=== PATIENT | female | born 1940 | race Caucasian/White ===

== ENCOUNTER → 2020-01-19 12:59 | Outpatient (BNVA) | payer MEDICARE, SELFPAY | PROVIDERS: PCP Internal Medicine; Referring Provider Internal Medicine; Visit Provider Nurse Practitioner | DX: K21.9 Gastro-esophageal reflux disease without esophagitis (principal); K58.2 Mixed irritable bowel syndrome | CPT/HCPCS: 99213 ==

== ENCOUNTER → 2020-02-02 09:12 | Outpatient (BNVA) | payer MEDICARE, SELFPAY | PROVIDERS: PCP Internal Medicine; Referring Provider Internal Medicine; Visit Provider Internal Medicine | DX: Z95.3 Presence of xenogenic heart valve (principal); I71.4 Abdominal aortic aneurysm, without rupture; Z79.82 Long term (current) use of aspirin | CPT/HCPCS: 99212 ==

== ENCOUNTER 2020-05-23 10:45 | Outpatient (REF) | payer MEDICARE, SELFPAY ==
[2020-05-23 11:52] LABS: MANUAL DIFF FLAG NO
[2020-05-23 12:08] LABS: Basophils Absolute Auto 0.1 X10*3/uL (0.0-0.2); Basophils Percent Auto 0.9 % (0-2); Eosinophils Absolute Auto 0.4 X10*3/uL (0.0-0.4); Eosinophils Percent Auto 5.5 % (0-4); Hematocrit 38.6 % (37-47); Hemoglobin 12.6 g/dl (12.0-16.0); Imm Gran Abs Auto 0.03 X10*3/uL (0.00-0.03); Imm Gran Pct Auto 0.4 % (0.0-0.4); Lymphocytes Absolute Auto 1.7 X10*3/uL (1.2-4.9); Lymphocytes Percent Auto 22.6 % (20-40); Mean Corpuscular HGB Conc 32.6 g/dl (31.0-35.0); Mean Corpuscular Hemoglobin 30.4 pg (27.0-33.0); Mean Corpuscular Volume 93.2 fL (80-98); Mean Platelet Volume 10.8 fL (9.4-12.3); Monocytes Absolute Auto 0.6 X10*3/uL (0.1-1.2); Neutrophils Absolute Auto 4.8 X10*3/uL (2.0-8.3); Neutrophils Percent Auto 62.6 % (45-73); Platelet Count 244 X10*3/uL (160-400); Red Blood Count 4.14 X10*6/uL (4.20-5.50); Red Cell Distribution Width 12.7 % (11.0-16.0); White Blood Count 7.6 X10*3/uL (4.8-10.8)
[2020-05-23 12:28] LABS: Alanine Aminotransferase 9 U/L (0-31); Albumin Level 3.9 g/dL (3.5-5.0); Alkaline Phosphatase 109 U/L (39-117); Anion Gap 14 (12-20); Aspartate Amino Transferase 11 U/L (5-31); Bilirubin Total 0.5 mg/dL (0.0-1.0); Blood Urea Nitrogen 22 mg/dL (9-16); Carbon Dioxide 26 mmol/L (22-29); Chloride 104 mmol/L (96-108); Cholesterol 199 mg/dL; Estimated Glomerular Filt Rate 41; Glucose Random 141 mg/dL (60-115); HDL Cholesterol 51 mg/dL; LDL Cholesterol Calculated 112 mg/dl; Potassium 4.6 mmol/L (3.3-5.1); Sodium 139 mmol/L (135-145); Total Protein 6.8 g/dL (6.5-8.0); Triglycerides 181 mg/dL
[2020-05-23 12:39] LABS: Free T4 (Free Thyroxine) 0.86 ng/dL (0.71-1.85); Thyroid Stimulating Hormone 1.71 uIU/mL (0.32-4.0); Vitamin D 25-OH Total 25.2 ng/mL (>30)
[2020-05-23 13:26] LABS: Estimated Average Glucose 166 mg/dL; Hemoglobin A1c % 7.4 %
[2020-05-26 04:31] LABS: Folate 12.2 ng/mL (> or = 4.0); Vitamin B12 349 pg/mL (200-900)
== END 2020-05-23 10:46 | disposition home or self-care (01) ==
LOC: HO.LAB 10:45
PROVIDERS: PCP Internal Medicine; Visit Provider Internal Medicine
DX: I10 Essential (primary) hypertension (principal); E78.00 Pure hypercholesterolemia, unspecified; I71.4 Abdominal aortic aneurysm, without rupture; E11.65 Type 2 diabetes mellitus with hyperglycemia
CPT/HCPCS: 36415; 80053; 80061; 82306; 82607; 82746; 83036; 84439; 84443; 85025

== ENCOUNTER 2020-07-06 08:29 | Outpatient (REF) | payer MEDICARE, SELFPAY ==
--- NOTE | 2020-07-06 08:35 | EMG_ITS ---
Bilateral median and ulnar motor and sensory studies were performed. Bilateral radial sensory studies were performed and paraspinal muscles were tested with a needle. 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 MD KANNAN Banks/LEE / [id number]
== END 2020-07-06 08:30 | disposition home or self-care (01) ==
LOC: HO.NEURO 08:29
PROVIDERS: PCP Internal Medicine; Visit Provider Internal Medicine
DX: R20.0 Anesthesia of skin (principal)
CPT/HCPCS: 95886; 95911

== ENCOUNTER → 2020-07-10 08:41 | Outpatient (BNVA) | payer MEDICARE, SELFPAY | PROVIDERS: PCP Internal Medicine; Visit Provider Nurse Practitioner | DX: K21.9 Gastro-esophageal reflux disease without esophagitis (principal); K58.2 Mixed irritable bowel syndrome; Z87.891 Personal history of nicotine dependence; Z79.899 Other long term (current) drug therapy | CPT/HCPCS: Q3014 ==

== ENCOUNTER → 2020-07-26 09:52 | Outpatient (BNVA) | payer MEDICARE, SELFPAY | PROVIDERS: Visit Provider Orthopaedic Surgery | DX: G56.01 Carpal tunnel syndrome, right upper limb (principal); G56.02 Carpal tunnel syndrome, left upper limb | CPT/HCPCS: 99202 ==

== ENCOUNTER → 2020-07-31 09:27 | Outpatient (REF) | payer MEDICARE, SELFPAY ==
--- NOTE | 2020-07-31 09:39 | CA_ITS ---
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 The visually estimated ejection fraction is between 60-65%. - A bioprosthetic aortic valve is present. The prosthetic aortic valve appears to be functioning normally. - There is severe mitral annular calcification. Findings Left Ventricle Normal left ventricular cavity size. There is mildly increased left ventricular wall thickness. The left ventricular systolic function is normal. The visually estimated ejection fraction is between 60-65%. There is no evidence of regional wall motion abnormalities. E/E prime ratio is between 8 and 15 consistent with indeterminate filling pressures. Evidence suggests grade I (mild) diastolic dysfunction. Right Ventricle Normal right ventricular cavity size and systolic function. Atria The left atrium is normal in size. The right atrium is normal in size. Aortic Valve A bioprosthetic aortic valve is present. The prosthetic aortic valve appears to be functioning normally. The peak aortic velocity is 1.79 m/s with a calculated peak gradient of 13 mmHg. There is no aortic valve regurgitation. Mitral Valve There is severe mitral annular calcification. There is trace mitral valve regurgitation. Mean gradient across the mitral valve is 2 mm Hg at 78/min. Doubt hemodynamically significant stenosis Pulmonic Valve The pulmonic valve was not well visualized. Tricuspid Valve Normal tricuspid valve structure. There is trace tricuspid valve regurgitation. The pulmonary artery systolic pressure is normal. Great Vessels The aortic annulus, sinuses of valsalva, and asc aorta are normal in size. Venous The inferior vena cava is normal in size and collapses greater than 50% with inspiration. Pericardium/Pleural There is no evidence of pericardial effusion. Prior Study Comparison No significant change compared to prior study dated: 05/05/2019. Measurements 2D Linear Measurements IVSd: 1.10 0.6-0.9/0.6-1.0 cm LVIDd: 3.51 3.9-5.3/4.2-5.9 cm LVIDd Index: 1.74 2.4-3.2/2.2-3.1 cm/m2 LVIDs: 1.88 2.0-3.6 cm LVPWd: 1.21 0.7-1.1 cm LA Diam: 3.50 2.7-3.8/3.0-4.0 cm LAIDs Index: 1.73 1.5-2.3 cm/m2 LV Mass: 160.05 67-162/88-224 g LV Mass Index: 79.23 43-95/49-115 g/m2 LVOT Diam: 2.00 3.0+(-)1.3 cm 2D Systolic Function EF 4C: 65.30 >55% EF 2C: 68.80 >55% EF BiP: 66.40 >55% Mitral Valve MV VTI: 0.28 MV Pk Tam: 1.15 MV Mn Tam: 0.72 MV Pk Grad: 5.00 MV Mn Grad: 2.00 MV Pk E: 1.03 MV PK A: 1.33 MV Decel Time: 163.00 E/A: 0.80 E'Lateral: 8.27 E'Medial: 7.29 E/E' Med: 14.10 E/E' Lat: 12.50 PHT: 48.00 MVA PHT: 4.58 MVA Continuity: 1.96 Decel Price: 6.36 Aortic Valve AoV Pk Tam: 1.79 AoV Pk Grad: 13.00 LVOT LVOT Pk Tam: 0.95 LVOT Mn Tam: 0.64 LVOT VTI: 0.18 LVOT Pk Grad: 4.00 LVOT Mn Grad: 2.00 LVOT Diam: 2.00 LVOT Area: 3.14 Diastolic Function MV Pk E: 1.03 MV Pk A: 1.33 E/A: 0.80 E'Medial: 7.29 E/E' Med: 14.10 E' Laterial: 8.27 E/E' Lat: 12.50 Tricuspid Valve TR Pk Tam: 2.27 TR Pk Grad: 21.00 RA Press: 3.00 RVSP: 24.00 Great Vessels Aorta Ao Asc: 3.20 2.1-3.4 cm Updated in Other Vendor System with Status of Final Joe Aiken MD electronically signed on 08/02/2020 12:10:30 PM with status of Final
== END ==
LOC: HO.CARD 09:27
PROVIDERS: Visit Provider Internal Medicine
DX: I71.4 Abdominal aortic aneurysm, without rupture (principal); Z95.3 Presence of xenogenic heart valve
CPT/HCPCS: 93306

== ENCOUNTER → 2020-08-18 09:02 | Outpatient (BNVA) | payer MEDICARE, SELFPAY | PROVIDERS: PCP Internal Medicine; Visit Provider Nurse Practitioner | DX: K21.9 Gastro-esophageal reflux disease without esophagitis (principal); K58.2 Mixed irritable bowel syndrome; M25.50 Pain in unspecified joint | CPT/HCPCS: Q3014 ==

== ENCOUNTER 2020-08-31 06:54 | Day surgery (SDC) | payer MEDICARE, SELFPAY ==
[2020-08-31] MEDS: Lidocaine HCl 1%/Epi 1:100,000 20 ML VIAL 9 ML INFILTRATI (07:30)
[2020-08-31 07:38] VITALS: BMI 32.3
[2020-08-31 07:41] VITALS: BP 158/54; PULSE 78; RESP 20; TEMP 36.1; O2SAT 94
--- NOTE | 2020-08-31 08:35 | MHC.SHP ---
Pre-Procedural Eval Section B Chief Complaint: carpal tunnel syndrome Allergies: Allergies Allergy/AdvReac Type Severity Reaction Status Date / Time No Known Allergies Allergy Mild NONE Verified 08/18/20 09:10 Plan I have reviewed the history and physical and performed a pertinent physical examination on my patient. No changes have occurred unless specified.
--- NOTE | 2020-08-31 08:35 | W.PM.OPN ---
Operative Note Operative Note Date of Service: 08/31/20 Narrative: Preop diagnosis: 1. Right Carpal tunnel syndrome Postop diagnosis: same Procedure: 1. Right Carpal tunnel release Surgeon: Evelyn Lam MD Anesthesia: local block using 1% lidocaine with epinephrine Findings: Thickened transverse carpal ligament. EBL: Less than 5 mL Specimens: None Complications: None Disposition: Brought to recovery room in stable condition Plan: Follow-up for 7-10 days for wound check and suture removal Indications: The patient is 80 years old, with right carpal tunnel syndrome that has been unresponsive to nonoperative management. The risks and benefits of operative treatment including but not limited to risk of damage to blood vessels, nerves, tendons, infection, persistent pain, persistent symptoms, or possible need for additional surgery were discussed with the patient and the patient wishes to proceed with surgery. Procedure: Once consent was obtained a local block was performed using a combination of 1% lidocaine with epinephrine. The patient was then brought back to the operating suite and placed on the operative table in supine position. A tourniquet was applied to the proximal aspect of the right upper extremity and the limb was prepped and draped in a standard surgical fashion. Once assured that we had a good block, a 1.5 cm longitudinal incision was made centered over the carpal tunnel. The incision was made through the skin to the subcutaneous tissues using a #15 blade. Dissection was made down to the level of the transverse carpal ligament with care being taken to protect the palmar cutaneous nerve. Once the transverse carpal ligament was clearly visualized, a longitudinal incision was made in the transverse carpal ligament 1st using a #15 blade, then using tenotomy scissors under direct visualization. Care was taken to look for and protect the motor branch of the median nerve when seen in this area. Once satisfied with our carpal tunnel release the wound was copiously irrigated with normal saline and hemostasis was obtained with a brief period of local pressure. The skin edges were reapproximated with some 5.0 nylon suture material and a sterile dressing was applied. The patient appears to have tolerated the procedure well and with no complications. All digits were well vascularized at the conclusion of the case.
[2020-08-31 09:18] VITALS: BP 132/64; PULSE 70; RESP 18; TEMP 36.7; O2SAT 94
== END 2020-08-31 09:40 | disposition home or self-care (01) ==
PROVIDERS: PCP Internal Medicine; Visit Provider Orthopaedic Surgery
PROC: (CPT 64721; principal; 2020-08-31 08:10)
DX: G56.01 Carpal tunnel syndrome, right upper limb (principal); I71.4 Abdominal aortic aneurysm, without rupture; J44.9 Chronic obstructive pulmonary disease, unspecified; I10 Essential (primary) hypertension; M81.0 Age-related osteoporosis without current pathological fracture; E11.65 Type 2 diabetes mellitus with hyperglycemia; Z95.2 Presence of prosthetic heart valve; Z79.84 Long term (current) use of oral hypoglycemic drugs; Z79.899 Other long term (current) drug therapy; Z87.891 Personal history of nicotine dependence
CPT/HCPCS: 64721

== ENCOUNTER 2020-09-09 12:27 | Emergency (ER) | payer MEDICARE, SELFPAY ==
--- NOTE | ~2020-09-09 | CT_ITS ---
EXAMINATION: CT ABDOMEN AND PELVIS WITHOUT CONTRAST CLINICAL INFORMATION: Right flank pain. Rule out renal colic COMPARISON: Ultrasound 08/25/2019 TECHNIQUE: Multidetector volumetric imaging was performed from the lung bases through the pubic symphysis. Sagittal and coronal reformatted images were obtained on the technologist workstation. This CT examination was performed using dose optimization techniques as appropriate, variously including the following: *Automated exposure control *Adjustment of mA and/or kV according to patient size (this includes techniques or standardized protocols for targeted exams where dose is matched to indication/reason for exam; i.e. extremities or head) *Use of iterative reconstruction technique Total exam dose-length product 818 mGy-cm FINDINGS: The lack of intravenous contrast limits evaluation of the solid visceral organs including the liver, spleen, pancreas, and kidneys. LUNG BASES: The visualized lung bases are unremarkable. LIVER, GALLBLADDER, AND BILIARY TREE: Limited non-contrast evaluation is normal. Low density adjacent the fissure of the falciform ligament likely focal fatty infiltration. No suspicious or concerning liver lesion seen.. Normal liver size and contour. No gross biliary ductal dilation. Dependent calcified gallstones in the gallbladder. No biliary ductal dilatation. PANCREAS: Limited non-contrast evaluation is normal. No alessia-pancreatic fluid. SPLEEN: Limited non-contrast evaluation is normal. ADRENAL GLANDS: Diffuse thickening of the left adrenal gland. Normal right adrenal gland. KIDNEYS AND URETERS: 3 mm right lower pole renal calculus. No hydronephrosis or hydroureter. No ureteral calculi seen although the pelvis is limited by streak artifact from bilateral total hip arthroplasties. GASTROINTESTINAL TRACT: Stomach and small bowel are nondilated. No evidence of colitis or diverticulitis. ABDOMINAL WALL: Small fat-containing umbilical hernia. LYMPH NODES: No pathologically enlarged lymph nodes in the abdomen or pelvis. VASCULAR: 3.4 x 3.5 cm infrarenal abdominal aortic aneurysm severe circumferential calcified atherosclerotic changes of the aorta. BLADDER: Collapsed. PELVIC VISCERA: Normal noncontrast appearance of the uterus and ovaries. OSSEOUS STRUCTURES: Severe multilevel degenerative changes of the lumbar spine. Severe lower lumbar facet arthropathy. Bilateral total hip arthroplasties. CT/CT abdomen pelvis wo con IMPRESSION: No acute CT findings. 3.5 cm infrarenal abdominal aortic aneurysm, slightly less than the diameter measured by ultrasound, presumably due to differences in technique. Based on published guidelines in J Am Juli Radiol 2013; 10(10):789-794 and J Vasc Surg. 2018; 67:2-77, the recommendation for an abdominal aortic aneurysm with diameter 3.5-3.9 cm is follow-up every 2 years. 3 mm nonobstructing right lower pole renal calculus.
[2020-09-09 14:19] VITALS: BP 192/62; PULSE 68; RESP 17; TEMP 35.6; O2SAT 96; BMI 31.3
[2020-09-09 18:31] VITALS: BP 195/79; PULSE 68; RESP 18; TEMP 36.6; O2SAT 96
[2020-09-09 18:32] LABS: MANUAL DIFF FLAG NO
--- NOTE | 2020-09-09 18:33 | ED_ITS ---
HPI - General Adult General Chief complaint: General Medical Stated complaint: back pain Time Seen by Provider: 09/09/20 18:05 Source: patient and EMS Mode of arrival: EMS Limitations: no limitations History of Present Illness HPI narrative: 80-year-old female with a past medical history of hypertension, anxiety, depression, COPD, high cholesterol, diabetes, aortic valve replacement here with complaints of right mid back pain for 1 week. Pain radiates to the right side but not crossing into the abdomen. There is no nausea, vomiting, shortness of breath, chest pain, cough, fevers, chills, urinary symptoms, di arrhea, constipation. Related Data Home Medications Medication Instructions Recorded Confirmed dicyclomine 10 mg capsule 10 mg PO QID 01/19/20 07/21/20 aspirin 81 mg tablet,delayed 81 mg PO DAILY 02/02/20 07/21/20 release lisinopril 10 mg tablet 10 mg PO DAILY 02/02/20 07/21/20 metformin 500 mg tablet 500 mg PO DAILY 02/02/20 07/21/20 budesonide-formoterol HFA 80 2 puff PO BID 08/18/20 mcg-4.5 mcg/actuation aerosol inhaler latanoprost 0.005 % eye drops 1 drp OPHTHALMIC (EYE) BEDTIME 08/18/20 Previous Rx's Medication Instructions Recorded carvedilol 12.5 mg tablet 12.5 mg PO BID #180 tab 04/04/20 paroxetine HCl 40 mg tablet 40 mg PO DAILY #90 tab 05/01/20 atorvastatin 80 mg tablet 80 mg PO DAILY #90 tab 05/03/20 gabapentin 300 mg capsule 300 mg PO BEDTIME #30 cap 06/14/20 tramadol 50 mg tablet 50 mg PO TID PRN 30 Days #90 tab 07/09/20 omeprazole 20 mg capsule,delayed 20 mg PO DAILY 30 Days #30 cap 07/10/20 release sucralfate 1 gram tablet 2 g PO ONCE 30 Days #60 tab 07/10/20 zolpidem 5 mg tablet 5 mg PO BEDTIME PRN #14 tab 07/21/20 hydrocodone-acetaminophen 1 tab PO Q4-6H PRN 1 Days #5 tab 08/31/20 cephalexin 500 mg PO BID #14 cap 09/09/20 gabapentin 300 mg PO BID PRN #10 cap 09/09/20 valacyclovir [Valtrex] 1,000 mg PO Q8H #21 tab 09/09/20 Allergies Allergy/AdvReac Type Severity Reaction Status Date / Time No Known Allergies Allergy Mild NONE Verified 08/18/20 09:10 Review of Systems Review of Systems: Yes all other systems are reviewed and are negative Constitutional: Constitutional: Reports no additional constitutional complaints, Denies body ache(s), Denies chills, Denies fever(s), Denies headache(s) and Denies weakness Eyes: Eyes: Reports no additional eye complaints and Denies change in vision ENT: Reports system reviewed and no additional complaints, except as documented, Denies dizziness, Denies headache(s), Denies nasal congestion, Moe es nasal discharge and Denies neck pain Cardiovascular: Cardiovascular: Reports no additional cardiovascular complaints, Denies chest pain, Denies leg edema and Denies dyspnea Respiratory: Respiratory: Reports no additional respiratory complaints, Denies cough and Denies dyspnea Gastrointestinal: Gastrointestinal: Reports no additional gastrointestinal complaints, Denies abdominal pain, Denies diarrhea, Denies nausea and Denies vomiting Genitourinary: Genitourinary: Reports no additional female genitourinary complaints and Denies urinary incontinence Musculoskeletal: Musculoskeletal: Reports no additional musculoskeletal compl aints, Reports back pain, Denies arthralgias, Denies joint swelling, Denies neck pain, Denies numbness and Denies tingling Integumentary/Breasts: Skin/Breast: Reports system reviewed and no additional complaints, except as docu and Denies rash Neurologic: Reports system reviewed and no additional complaints, except as documented, Denies Abnormal speech present, Denies dizziness, Denies headache(s), Denies numbness, Denies tingling and Denies weakness [facility] Past Medical History Attestation statement: The following information was validated with the patient. Source: old records reviewed and nursing notes reviewed Medical History Abdominal aortic aneurysm without rupture Anxiety and depression COPD (chronic obstructive pulmonary disease) Hypercholesterolemia Hypertension Obesity (BMI 30-39.9) Osteoarthritis Osteoporosis Type 2 diabetes mellitus with hyperglycemia Urinary incontinence Vitamin D deficiency Surgical History History of colonoscopy History of heart valve replacement (~08/2013) History of left hip replacement History of right hip replacement (~08/2014) Status post aortic valve replacement with bioprosthetic valve Family History Family History Father No problems noted. Mother History of high cholesterol Social History Social History Household Members: None Alcohol intake: current Alcohol intake frequency: a few times a week Alcohol ty pe: wine Patient Tobacco Use Status: Former Tobacco user Advance Directives: No Advance Directives Information Provided: No Current occupational status: retired Physical Exam Vital Signs: Vital Signs: Last Vital Signs Temp 97.9 F 09/09/20 18:31 Pulse 68 09/09/20 18:31 Resp 18 09/09/20 18:31 BP 195/79 H 09/09/20 18:31 Pulse Ox 96 09/09/20 18:31 Body Mass Index 31.3 Const: General: cooperative, healthy appearing, comfortable and no acute distress Orientation/consciousness: patient oriented x3 Limitations: no limitations HENMT: Head: Yes normal to inspection Ears: hearing grossly normal bilaterally General nose exam: Normal external nose present Face and sinus: Yes normal facial exam Mouth: Normal oral and palatal mucosa present Throat: Yes posterior oropharynx normal Eyes: General: appearance normal, both eyes and all related structures Pupils: Equal, round and reactive pupils present Neck: Neck: Yes normal visual inspection Chest: Chest palpation & inspection: normal inspection of the chest Resp: Effort & Inspection: normal respiratory effort Auscultation: clear to auscultation bilaterally Cardio: Rate: regular rate Rhythm: regular rhythm Peripheral pulses: Peripheral pulses 2+ throughout GI: Inspection: Yes normal to inspection Palpation (GI): Soft to palpation and nontender Auscultation: normal bowel sounds Back/Spine/Pelvis: Other: Thoracic/Lumbar Spine: thoracic and lumbar spine normal to inspection Skin: General skin exam: no rashes or lesions noted Neuro: General: patient oriented x3, no focal motor deficits and normal sensation to monofilament Cranial nerves: Yes Equal, round and reactive pupi ls present Cognition (Neuro): normal cognition Speech: No Abnormal speech present Gait exam (Neuro): Normal gait present Motor exam (neuro): 5/5 motor strength present throughout Extrem: General: Yes normal to inspection Course Course Course Narrative: 80-year-old female here with right flank pain with no radiation for 1 week. No injury or trauma. No other associated symptoms on arrival the patient has a rash over the right flank which appears to have some vesicles that ruptured. c/w with herpes zoster. Will check labs, UA, imaging to r/o additional causes. 2100-labs unremarkable. UA shows the UTI. CT unremarkable. Reviewed worrisome signs and symptoms with the patient when to return to the emergency department. Comfortable discharge home. Medical Decision Making MDM Narrative Medical decision making narrative: Herpes zoster, renal colic, pyelonephritis UTI Medical Records Medical records reviewed: Yes I reviewed the patient's medical records. Lab Data Lab results reviewed: Yes I reviewed the patient's lab results. Result diagrams: 09/09/20 18:28 09/09/20 18:28 Labs: Lab Results 09/09/20 09/09/20 09/09/20 Range/Units 18:28 18:28 18:47 WBC 8.0 (4.8-10.8) X10*3/uL RBC 4.36 (4.20-5.50) X10*6/uL Hgb 12.4 (12.0-16.0) g/dl Hct 38.4 (37-47) % MCV 88.1 (80-98) fL MCH 28.4 (27.0-33.0) pg MCHC 32.3 (31.0-35.0) g/dl RDW 12.6 (11.0-16.0) % Plt Count 362 D (160-400) X10*3/uL MPV 9.7 (9.4-12.3) fL Immature Gran % (Auto) 0.4 (0.0-0.4) % Neut % (Auto) 56.0 (45-73) % Lymph % (Auto) 30.3 (20-40) % Schleicher % (Auto) 9.2 (2-11) % Eos % (Auto) 3.7 (0-4) % Baso % (Auto) 0.4 (0-2) % Lymph # (Auto) 2.4 (1.2-4.9) X10*3/uL Schleicher # (Auto) 0.7 (0.1-1.2) X10*3/uL Eos # (Auto) 0.3 (0.0-0.4) X10*3/uL Baso # (Auto) 0.0 (0.0-0.2) X10*3/uL Abs Immat Gran (auto) 0.03 (0.00-0.03) X10*3/uL Absolute Neuts (auto) 4.5 (2.0-8.3) X10*3/uL Absolute Nucleated RBC 0.000 (0.0-0.012) X10*3/uL Nucleated RBC % (auto) 0.0 (0.0-0.2) /100WBC Sodium 139 (135-145) mmol/L Potassium 3.6 D (3.3-5.1) mmol/L Chloride 101 (96-108) mmol/L Carbon Dioxide 24 (22-29) mmol/L Anion Gap 18 (12-20) BUN 21 H (9-16) mg/dL Creatinine 1.17 (0.5-1.4) mg/dL Estim Creat Clear Calc 43.6 Estimated GFR 44 Random Glucose 133 H (60-115) mg/dL Calcium 9.6 D (8.4-10.2) mg/dL Total Bilirubin 0.4 (0.0-1.0) mg/dL Direct Bilirubin 0.2 (0.0-0.5) mg/dL AST 13 (5-31) U/L ALT 13 (0-31) U/L Alkaline Phosphatase 118 H (39-117) U/L Total Protein 7.0 (6.5-8.0) g/dL Albumin 4.0 (3.5-5.0) g/dL Urine Color YELLOW Urine Appearance CLOUDY Urine pH 6.0 (5.0-8.0) Ur Specific Sikes >= 1.030 H (1.005-1.025) Urine Protein 1+ H (NEG-TRACE) MG/DL Urine Glucose (UA) NEG (NEG) MG/DL Urine Ketones 5 (NEG) MG/DL Urine Blood NEG (NEG) Urine Nitrite POS H (NEG) Ur Leukocyte Esterase NEG (NEG) Urine RBC 0 (0) /HPF Urine WBC 1-4 (0-4) /HPF Ur Squamous Epith Cells 3+ /LPF Urine Bacteria 3+ /LPF Imaging Data CT scan - abdomen: Attestation: I personally reviewed and interpreted this imaging study as follows: Radiologist's impression: EXAMINATION: CT ABDOMEN AND PELVIS WITHOUT CONTRAST CLINICAL INFORMATION: Right flank pain. Rule out renal colic COMPARISON: Ultrasound 08/25/2019 TECHNIQUE: Multidetector volumetric imaging was performed from the lung bases through the pubic symphysis. Sagittal and coronal reformatted images were obtained on the technologist workstation. This CT examination was performed using dose optimization techniques as appropriate, variously including the following: *Automated exposure control *Adjustment of mA and/or kV according to patient size (this includes techniques or standardized protocols for targeted exams where dose is matched to indication/reason for exam; i.e. extremities or head) *Use of iterative reconstruction technique Total exam dose-length product 818 mGy-cm FINDINGS: The lack of intravenous contrast limits evaluation of the solid visceral organs including the liver, spleen, pancreas, and kidneys. LUNG BASES: The visualized lung bases are unremarkable. LIVER, GALLBLADDER, AND BILIARY TREE: Limited non-contrast evaluation is normal. Low density adjacent the fissure of the falciform ligament likely focal fatty infiltration. No suspicious or concerning liver lesion seen.. Normal liver size and contour. No gross biliary ductal dilation. Dependent calcified gallstones in the gallbladder. No biliary ductal dilatation. PANCREAS: Limited non-contrast evaluation is normal. No alessia-pancreatic fluid. SPLEEN: Limited non-contrast evaluation is normal. ADRENAL GLANDS: Diffuse thickening of the left adrenal gland. Normal right adrenal gland. KIDNEYS AND URETERS: 3 mm right lower pole renal calculus. No hydronephrosis or hydroureter. No ureteral calculi seen although the pelvis is limited by streak artifact from bilateral total hip arthroplasties. GASTROINTESTINAL TRACT: Stomach and small bowel are nondilated. No evidence of colitis or diverticulitis. ABDOMINAL WALL: Small fat-containing umbilical hernia. LYMPH NODES: No pathologically enlarged lymph nodes in the abdomen or pelvis. VASCULAR: 3.4 x 3.5 cm infrarenal abdominal aortic aneurysm severe circumferential calcified atherosclerotic changes of the aorta. BLADDER: Collapsed. PELVIC VISCERA: Normal noncontrast appearance of the uterus and ovaries. OSSEOUS STRUCTURES: Severe multilevel degenerative changes of the lumbar spine. Severe lower lumbar facet arthropathy. Bilateral total hip arthroplasties. CT/CT abdomen pelvis wo con IMPRESSION: No acute CT findings. 3.5 cm infrarenal abdominal aortic aneurysm, slightly less than the diameter measured by ultrasound, presumably due to differences in technique. Based on published guidelines in J Am Juli Radiol 2013; 10(10):789-794 and J Vasc Surg. 2018; 67:2-77, the recommendation for an abdominal aortic aneurysm with diameter 3.5-3.9 cm is follow-up every 2 years. 3 mm nonobstructing right lower pole renal calculus. Discharge Plan Discharge Clinical Impression: UTI (urinary tract infection) Herpes zoster Qualifiers: Herpes zoster complications: without complications Qualified Code(s): B02.9 - Zoster without complications Patient Disposition: Home, Self-Care Instructions: Shingles (ED), Urinary Tract Infection in Older Adults (ED) Prescriptions: New valacyclovir [Valtrex] 1 gram tablet 1,000 mg PO Q8H Qty: 21 RF: 0 gabapentin 300 mg capsule 300 mg PO BID PRN (Reason: pain) Qty: 10 RF: 0 cephalexin 500 mg capsule 500 mg PO BID Qty: 14 RF: 0 No Action carvedilol 12.5 mg tablet 12.5 mg PO BID Qty: 180 RF: 1 paroxetine HCl 40 mg tablet 40 mg PO DAILY Qty: 90 RF: 1 atorvastatin 80 mg tablet 80 mg PO DAILY Qty: 90 RF: 1 gabapentin 300 mg capsule 300 mg PO BEDTIME Qty: 30 RF: 0 tramadol 50 mg tablet 50 mg PO TID PRN (Reason: pain) 30 Days Qty: 90 RF: 2 hydrocodone-acetaminophen 5-325 mg tablet 1 tab PO Q4-6H PRN (Reason: pain) 1 Days Qty: 5 RF: 0 zolpidem [Ambien] 5 mg tablet 5 mg PO BEDTIME PRN (Reason: sleep) Qty: 14 RF: 0 dicyclomine 10 mg capsule 10 mg PO QID RF: 0 omeprazole 20 mg capsule,delayed release(DR/EC) 20 mg PO DAILY 30 Days Qty: 30 RF: 6 sucralfate [Carafate] 1 gram tablet 2 g PO ONCE 30 Days Qty: 60 RF: 6 aspirin [Aspirin Low Dose] 81 mg tablet,delayed release (DR/EC) 81 mg PO DAILY RF: 0 lisinopril 10 mg tablet 10 mg PO DAILY RF: 0 metformin 500 mg tablet 500 mg PO DAILY RF: 0 latanoprost 0.005 % drops 1 drp ophthalmic (eye) BEDTIME RF: 0 budesonide-formoterol 80-4.5 mcg/actuation HFA aerosol inhaler 2 puff PO BID RF: 0 Referrals: Physician,Unknown [Primary Care Provider] - 2 days
[2020-09-09 18:35] LABS: Basophils Percent Auto 0.4 % (0-2); Eosinophils Absolute Auto 0.3 X10*3/uL (0.0-0.4); Eosinophils Percent Auto 3.7 % (0-4); Hematocrit 38.4 % (37-47); Hemoglobin 12.4 g/dl (12.0-16.0); Imm Gran Abs Auto 0.03 X10*3/uL (0.00-0.03); Imm Gran Pct Auto 0.4 % (0.0-0.4); Lymphocytes Absolute Auto 2.4 X10*3/uL (1.2-4.9); Lymphocytes Percent Auto 30.3 % (20-40); Mean Corpuscular HGB Conc 32.3 g/dl (31.0-35.0); Mean Corpuscular Hemoglobin 28.4 pg (27.0-33.0); Mean Corpuscular Volume 88.1 fL (80-98); Mean Platelet Volume 9.7 fL (9.4-12.3); Monocytes Absolute Auto 0.7 X10*3/uL (0.1-1.2); Monocytes Percent Auto 9.2 % (2-11); Neutrophils Absolute Auto 4.5 X10*3/uL (2.0-8.3); Platelet Count 362 X10*3/uL (160-400); Red Blood Count 4.36 X10*6/uL (4.20-5.50); Red Cell Distribution Width 12.6 % (11.0-16.0)
[2020-09-09 18:56] LABS: Glucose Urine UA NEG (NEG); Leukocyte Esterase Urine NEG (NEG); Nitrite Urine POS (NEG); Specific Gravity - Urine >= 1.030 (1.005-1.025); UACC Culture Trigger YES; Urine Blood NEG (NEG); Urine Ketones 5 MG/DL (NEG); Urine Protein 1+ MG/DL (NEG-TRACE)
[2020-09-09 18:57] LABS: Appearance Urine CLOUDY; Color Urine YELLOW
[2020-09-09 18:58] LABS: Alanine Aminotransferase 13 U/L (0-31); Alkaline Phosphatase 118 U/L (39-117); Anion Gap 18 (12-20); Aspartate Amino Transferase 13 U/L (5-31); Bilirubin Direct 0.2 mg/dL (0.0-0.5); Bilirubin Total 0.4 mg/dL (0.0-1.0); Blood Urea Nitrogen 21 mg/dL (9-16); Calcium 9.6 mg/dL (8.4-10.2); Carbon Dioxide 24 mmol/L (22-29); Chloride 101 mmol/L (96-108); Creatinine Clr Calc Pharmacy 43.6; Estimated Glomerular Filt Rate 44; Glucose Random 133 mg/dL (60-115); Potassium 3.6 mmol/L (3.3-5.1); Sodium 139 mmol/L (135-145)
[2020-09-09 19:03] LABS: Bacteria Urine 3+ /LPF; RBC Urine 0 /HPF (0); Squamous Epithelial Cell Urine 3+ /LPF
== END 2020-09-09 21:10 | disposition home or self-care (01) ==
PROVIDERS: Nurse Practitioner Family; Emergency Provider Internal Medicine
DX: N39.0 Urinary tract infection, site not specified (principal); B02.9 Zoster without complications; N20.0 Calculus of kidney; I10 Essential (primary) hypertension; J44.9 Chronic obstructive pulmonary disease, unspecified; E11.9 Type 2 diabetes mellitus without complications; Z79.84 Long term (current) use of oral hypoglycemic drugs; Z79.899 Other long term (current) drug therapy; Z95.2 Presence of prosthetic heart valve
CPT/HCPCS: 36415; 74176; 80048; 80076; 81001; 81003; 85025; 87086; 99284

== ENCOUNTER → 2020-09-15 08:47 | Outpatient (BNVA) | payer MEDICARE, SELFPAY | PROVIDERS: PCP Internal Medicine; Visit Provider Nurse Practitioner | DX: K21.9 Gastro-esophageal reflux disease without esophagitis (principal); M25.50 Pain in unspecified joint; K58.2 Mixed irritable bowel syndrome | CPT/HCPCS: Q3014 ==

== ENCOUNTER → 2020-10-06 12:52 | Outpatient (BNVA) | payer MEDICARE, SELFPAY | PROVIDERS: Visit Provider Physician Assistant | DX: Z48.89 Encounter for other specified surgical aftercare (principal) | CPT/HCPCS: 99212 ==

== ENCOUNTER 2020-10-10 11:28 | Outpatient (REF) | payer MEDICARE, SELFPAY ==
--- NOTE | ~2020-10-10 | XR_ITS ---
EXAMINATION: XR HIP, RIGHT CLINICAL INFORMATION: Right hip pain. COMPARISON: CT abdomen/pelvis dated 09/09/2020. TECHNIQUE: Two views of the right hip. FINDINGS: Right hip arthroplasty. No acute hardware or osseous fracture. No perihardware lucency to suggest loosening or infection. No osseous erosion. No abnormal soft tissue calcification. XR/XR hip RT min 2V IMPRESSION: Right hip arthroplasty without evidence of complication.
== END 2020-10-10 11:29 | disposition home or self-care (01) ==
LOC: HO.XRAY 11:28
PROVIDERS: PCP Internal Medicine; Visit Provider Internal Medicine
DX: M25.551 Pain in right hip (principal)
CPT/HCPCS: 73502

== ENCOUNTER 2020-10-16 10:04 | Outpatient (REF) | payer MEDICARE, SELFPAY ==
[2020-10-16 11:11] LABS: C Reactive Protein 0.47 mg/dL (< or = 0.50); Rheumatoid Factor < 15.0 IU/mL (<15.0)
[2020-10-16 11:14] LABS: Alanine Aminotransferase 10 U/L (0-31); Albumin Level 4.1 g/dL (3.5-5.0); Alkaline Phosphatase 154 U/L (39-117); Anion Gap 15 (12-20); Aspartate Amino Transferase 14 U/L (5-31); Bilirubin Total 0.6 mg/dL (0.0-1.0); Blood Urea Nitrogen 24 mg/dL (9-16); Calcium 10.1 mg/dL (8.4-10.2); Carbon Dioxide 26 mmol/L (22-29); Chloride 99 mmol/L (96-108); Cholesterol 232 mg/dL; Estimated Glomerular Filt Rate 33; Glucose Random 188 mg/dL (60-115); HDL Cholesterol 49 mg/dL; LDL Cholesterol Calculated 143 mg/dl; Potassium 5.3 mmol/L (3.3-5.1); Sodium 135 mmol/L (135-145); Total Protein 7.5 g/dL (6.5-8.0); Triglycerides 204 mg/dL
[2020-10-16 11:37] LABS: Thyroid Stimulating Hormone 1.25 uIU/mL (0.32-4.0)
[2020-10-16 11:41] LABS: Estimated Average Glucose 148 mg/dL; Hemoglobin A1c % 6.8 %
[2020-10-16 14:00] LABS: Erythrocyte Sedimentation Rate 38 MM/HR (0-20)
[2020-10-17 20:41] LABS: Anti Nuclear Antibody Screen NEGATIVE (NEGATIVE)
== END 2020-10-16 10:05 | disposition home or self-care (01) ==
LOC: HO.LAB 10:04
PROVIDERS: Nurse Practitioner; PCP Internal Medicine; Visit Provider Internal Medicine
DX: M25.50 Pain in unspecified joint (principal); E78.00 Pure hypercholesterolemia, unspecified; E11.65 Type 2 diabetes mellitus with hyperglycemia
CPT/HCPCS: 36415; 80053; 80061; 83036; 84443; 85652; 86038; 86039; 86140; 86431

== ENCOUNTER 2020-10-19 10:50 | Outpatient (RCR) | payer MEDICARE, SELFPAY ==
--- NOTE | 2020-10-19 13:04 | MHC.OT.OEV ---
[address] [phone] F: [phone] Occupational Therapy Evaluation Diagnosis: Right CTS Date of Onset: 03/31/17 Date of Surgery: 08/31/20 Attending Provider: Ava Castle PA-C, Dr Lam Prescribed Treatment: Eval and Treat History of Current Condition: 80 yo female w/ history of persistent pins and needles in right hand over the past few years, mentioned it to her doctor and was referred to ortho. She is now post-op carpal tunnel release 08/31/20. Pt reports good improvements after the surgery with decreased pins and needles and reports good strength return for day to day activities. Ortho recommend she follow up w/ OT, now here for initial assessment. Significant Medical History: Arthritis DM Back back/sciatica Dizziness Falls Precautions/Contraindications: Pt w/ hx of falls at baseline (3x over the past month) Hand Dominance: Right QuickDASH Score: 33 Prior Level of Function and Occupation Self Care, Employment, Leisure: Has assist w/ some home care Living Situation, Family and/or Social Support: Has significant other, frequent visits from friends and neighbors Current Level of Function and Occupation Self Care, Employment, Leisure: Difficulty w/ heavier containers or lids, but reports improvements since surgery Sleep: Difficulty sleeping in general, anxious at night, not related to right hand/wrist Driving: No issues w/ driving or gripping steering wheel Vision: Balance: Hx of falls, uses RW, poor rounded posture Pain Assessment Pain Score: 0 Pain Scale Used: Numeric (0 - 10) Pain Location and Description: Generally pain free in hand Aggravating Factors: Heavy gripping, mild pain and weakness Alleviating Factors: Heating pad to wrist Skin and Soft Tissue Assessment Comments: Well healed surgical incision, mild edema B/L thenar atrophy Nerve assessment Ulnar Nerve: WFL Median Nerve: WFL Radial Nerve: WFL Sensory Assessment Temperature: WFL Light Touch: WFL Proprioception: WFL Comments: [place] 3.61 B/L palms Edema Assessment Comments: Mild edema in right palm base Dexterity Assessment Dexterity: WFL Comments: Able to put on earring, necklaces, button pants AROM(PROM) Strength Shoulder Flexion: Grossly 100 B/L'ly Extension: Abduction: Internal Rotation: External Rotation: Comments: Flexion: Extension: Abduction: Internal Rotation: External Rotation: Comments: Elbow Flexion: Extension: Pronation: Supination: Comments: WFL Flexion: Extension: Pronation: Supination: Comments: Wrist Flexion: Extension: Ulnar Deviation: Radial Deviation: Comments: WFL, stiff Flexion: Extension: Ulnar Deviation: Radial Deviation: Comments: Thumb Thumb CMC Flexion: Thumb MCP Flexion: Thumb IP Flexion: Radial Abduction: [place] Abduction: [place] ([place] 0-10): Comments: Left thumb arthritic CMC deformity Digits Index MCP: PIP: DIP: Long MCP: PIP: DIP: Ring MCP: PIP: DIP: Small MCP: PIP: DIP: Comments: WFL, arthritic Gross Grasp: R 15 L 10 Lateral Pinch: Two-Point Pinch: [place]: Comments: Patient Education Primary Language: [place] [employer] Required: No Current Knowledge: Understands information with skills for self-management Teaching Method: Handouts Verbal Education Needs Identified on Evaluation: ADL's Disease Information Equipment Use Exercise Pain Safety How did patient/family demonstrate learning? Patient demonstrates Patient verbalizes Barriers to Learning: None Readiness for Learning: Accepting Who was educated? Patient Plan of Care Assessment: 80 yo right hand dominant female presents for OT 6 weeks post-op right carpal tunnel release w/ Dr Lam. On assessment she is reporting pain free and has returning strength and sensation with daily activities. She is doing very well and is agreeable to home exercise program and education, but no further outpatient OT needed at this time. We have discussed the benefits of outpatient PT services to address back back, balance issues and frequent falls. Electronically Signed By: Opal Strauss, OTR/L Please sign and return to therapist, Thank you for your referral.
== END 2020-10-19 13:08 | disposition home or self-care (01) ==
LOC: HO.OT 10:50
PROVIDERS: PCP Internal Medicine; Visit Provider Physician Assistant
DX: G56.02 Carpal tunnel syndrome, left upper limb (principal)
CPT/HCPCS: 97110; 97165

== ENCOUNTER 2020-10-30 10:22 | Outpatient (REF) | payer MEDICARE, SELFPAY ==
--- NOTE | ~2020-10-30 | XR_ITS ---
EXAMINATION: XR LUMBOSACRAL SPINE CLINICAL INFORMATION: Low back pain COMPARISON: CT of the abdomen and pelvis August 2020 TECHNIQUE: Three views of the lumbosacral spine. FINDINGS: There is curvature of the lumbar spine to the left and lumbar sacral spine to the right. Bone alignment is otherwise normal. No fracture or dislocation is seen. There is evidence of multilevel degenerative disc. There is lower lumbar spine facet arthritis. There is evidence of atherosclerotic disease. The abdominal aorta appears dilated but probably unchanged from previous CT scan August 2020 XR/XR lumbar spine 2-3V IMPRESSION: Scoliosis. Multilevel degenerative disc disease and facet arthritis. 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
[2020-10-30 12:39] LABS: Anion Gap 17 (12-20); Blood Urea Nitrogen 23 mg/dL (9-16); Calcium 10.1 mg/dL (8.4-10.2); Carbon Dioxide 26 mmol/L (22-29); Chloride 101 mmol/L (96-108); Estimated Glomerular Filt Rate 39; Glucose Random 169 mg/dL (60-115); Potassium 4.9 mmol/L (3.3-5.1); Sodium 139 mmol/L (135-145)
== END 2020-10-30 10:23 | disposition home or self-care (01) ==
LOC: HO.XRAY 10:22
PROVIDERS: PCP Internal Medicine; Visit Provider Internal Medicine
DX: M54.5 Low back pain (principal); N28.9 Disorder of kidney and ureter, unspecified
CPT/HCPCS: 36415; 72100; 80048

== ENCOUNTER 2020-10-31 14:44 | Outpatient (REF) | payer MEDICARE, SELFPAY ==
[2020-10-31 14:55] LABS: Appearance Urine HAZY; Color Urine YELLOW; Glucose Urine UA NEG (NEG); Leukocyte Esterase Urine 2+ (NEG); Nitrite Urine POS (NEG); Urine Blood TRACE (NEG); Urine Ketones NEG (NEG); Urine Protein NEG (NEG-TRACE)
[2020-10-31 15:10] LABS: Bacteria Urine 3+ /LPF; Squamous Epithelial Cell Urine 1+ /LPF
[2020-10-31 15:33] LABS: Creatinine Urine 63.29 mg/dL; Microalbum/Creatinine Ratio Ur 44.2 ug/mg cr
== END 2020-10-31 14:45 | disposition home or self-care (01) ==
LOC: HO.LNP 14:44
PROVIDERS: Visit Provider Internal Medicine
DX: Z13.89 Encounter for screening for other disorder (principal)
CPT/HCPCS: 81001; 82043

== ENCOUNTER → 2020-12-12 08:16 | Outpatient (BNVA) | payer MEDICARE, SELFPAY | PROVIDERS: PCP Internal Medicine; Visit Provider Nurse Practitioner | CPT/HCPCS: Q3014 ==

== ENCOUNTER → 2020-12-14 10:27 | Outpatient (BNVA) | payer MEDICARE, SELFPAY | PROVIDERS: PCP Internal Medicine; Referring Provider Internal Medicine; Visit Provider Internal Medicine | DX: I71.4 Abdominal aortic aneurysm, without rupture (principal); I10 Essential (primary) hypertension; I42.8 Other cardiomyopathies; Z95.3 Presence of xenogenic heart valve | CPT/HCPCS: 93005; 99212 ==

== ENCOUNTER 2021-02-08 22:12 | Inpatient (IN) | payer MEDICARE, SELFPAY ==
--- NOTE | ~2021-02-08 | CT_ITS ---
EXAMINATION: CT HEAD WITHOUT CONTRAST CLINICAL INFORMATION: Confused, altered, vomiting. COMPARISON: None TECHNIQUE: Contiguous axial imaging was performed from the skull base to vertex without intravenous administration of contrast. This CT examination was performed using dose optimization techniques as appropriate, variously including the following: *Automated exposure control *Adjustment of mA and/or kV according to patient size (this includes techniques or standardized protocols for targeted exams where dose is matched to indication/reason for exam; i.e. extremities or head) *Use of iterative reconstruction technique DLP: 663 mGy-cm FINDINGS: There is no evidence of acute intracranial hemorrhage or edematous territorial infarction. Scattered hypoattenuation in the periventricular and deep white matter are consistent with moderate microangiopathy. There are chronic bilateral lacunar infarcts. Oropeza-white matter differentiation is preserved. Proportional prominence of the ventricles and sulcal spaces. No evidence for obstructive hydrocephalus. No abnormal mass effect or midline shift. No extra-axial fluid collections. No acute soft tissue or osseous abnormalities. The mastoid air cells and paranasal sinuses are clear. Advanced degenerative changes in both temporomandibular joints. CT/CT head/brain wo con IMPRESSION: No evidence of acute intracranial hemorrhage or edematous territorial infarction. Moderate microangiopathy and generalized cerebral volume loss.
--- NOTE | ~2021-02-08 | CT_ITS ---
EXAMINATION: CT ABDOMEN AND PELVIS WITHOUT CONTRAST CLINICAL INFORMATION: Nausea and vomiting. COMPARISON: 09/09/2020 TECHNIQUE: Multidetector volumetric imaging was performed from the superior aspect of the liver through the pubic symphysis. Sagittal and coronal reformatted images were obtained on the technologist's workstation. This CT examination was performed using dose optimization techniques as appropriate, variously including the following: *Automated exposure control *Adjustment of mA and/or kV according to patient size (this includes techniques or standardized protocols for targeted exams where dose is matched to indication/reason for exam; i.e. extremities or head) *Use of iterative reconstruction technique DLP: 996 mGy-cm FINDINGS: LUNG BASES: The visualized lung bases are unremarkable. Dense calcifications along the mitral valve. LIVER, GALLBLADDER, AND BILIARY TREE: The liver is normal in size, shape, and attenuation. No focal hepatic lesion or biliary ductal dilatation is present. The gallbladder is unremarkable with no evidence of radiopaque gallstones, gallbladder wall thickening, or obvious pericholecystic inflammatory changes. PANCREAS: Motion limits evaluation with no gross abnormality. SPLEEN: Unremarkable. ADRENAL GLANDS: Unremarkable. KIDNEYS AND URETERS: The kidneys are normal in size, shape, and attenuation. No hydronephrosis, hydroureter, or calculi seen. No perinephric stranding. BLADDER: Limited evaluation due to artifact from hip arthroplasty hardware. No gross abnormality. GASTROINTESTINAL TRACT: The stomach is unremarkable. Normal caliber small bowel. No obstruction. No colonic wall thickening or acute inflammation. Trace pelvic free fluid. There is no free air. ABDOMINAL WALL: No significant hernia is appreciated. LYMPH NODES: Normal. VASCULAR: Infrarenal abdominal aortic aneurysm measuring 3.6 cm. Moderate atherosclerotic calcifications. PELVIC VISCERA: Limited evaluation due to artifact from hip arthroplasty hardware. No pelvic mass identified. OSSEOUS STRUCTURES: Bilateral total hip arthroplasties in appropriate positioning without evidence of failure. Scoliotic curvature of the spine with advanced degenerative changes. CT/CT abdomen pelvis wo con IMPRESSION: No acute findings in the abdomen or pelvis. No obstruction. No inflammatory change. Infrarenal abdominal aortic aneurysm measuring 3.6 cm. Follow-up recommended every 2 years.
--- NOTE | ~2021-02-08 | XR_ITS ---
EXAMINATION: XR CHEST CLINICAL INFORMATION: Shortness of breath. Status post vomiting. COMPARISON: Chest radiograph dated from 04/21/2019. TECHNIQUE: 2 views of the chest were obtained. FINDINGS: Stable appearance of the cardiomediastinal silhouette with sternotomy wires and prominent pulmonary vasculature. Minimal interstitial prominence is not significantly changed since 2020. No new focal airspace opacities, pleural effusions or pneumothorax. No acute osseous abnormalities. XR/XR chest 2V IMPRESSION: No acute cardiopulmonary findings. Stable enlargement of the pulmonary vasculature, which suggests pulmonary hypertension. Interstitial prominence is not significantly changed.
[2021-02-08 22:24] VITALS: BP 201/91; PULSE 91; RESP 18; TEMP 36.8; O2SAT 95; BMI 23.8
--- NOTE | 2021-02-08 22:45 | ECG_ITS ---
Test Reason : nausea Blood Pressure : / mmHG Vent. Rate : 090 BPM Atrial Rate : 090 BPM P-R Int : 152 ms QRS Dur : 104 ms QT Int : 400 ms P-R-T Axes : 002 -22 074 degrees QTc Int : 489 ms Normal sinus rhythm Left axis deviation Intra-ventricular conduction delay Nonspecific ST and T wave abnormality Anterolateral leads Abnormal ECG When compared with ECG of 13-JUN-2018 15:39, ST less depressed in Lateral leads Referred By: Estela Segura Electronically Signed By:IDA SCOTT MD
--- NOTE | 2021-02-08 23:18 | ED_ITS ---
HPI - Nausea/Vomiting/Diarrhea General Chief complaint: Failure to Thrive <HELADIO White - Last Filed: 02/09/21 01:45> Stated complaint: General Weakness <HELADIO White - Last Filed: 02/09/21 01:45> Time Seen by Provider: 02/08/21 22:45 <HELADIO White - Last Filed: 02/09/21 01:45> Source: patient, EMS and old records reviewed <HELADIO White Last Filed: 02/09/21 01:45> Mode of arrival: EMS <HELADIO White Last Filed: 02/09/21 01:45> Limitations: altered mental status <HELADIO White Last Filed: 02/09/21 01:45> History of Present Illness HPI Narrative: 80 y/o female with history of COPD, DM2, AAA, s/p aortic valve replacement in 2013, OA s/p bilateral hip replacements in the past, hx recurrent UTI's, GERD, nonischemic cardiomyopathy who presents to the ER from home via EMS for evaluation of generalized weakness, nausea, vomiting and abdominal pain. She is a poor historian. She reports her neighbor who checks on her daily called 911 for her when she became woozy after vomiting this evening. She states she felt nauseous and started vomiting this afternoon. She was given a IV Zofran EN route by EMS with resolution of her nausea. She has no abdominal pain but reports some mild abdominal distention. She reports intermittent shortness of breath but cannot recall when it started. She denies any chest pain. No fever or chills. No diarrhea. No urinary symptoms. She reports not eating or drinking anything today and her mouth is very dry. Spoke with the patient's daughter who reports patient had similar symptoms in the past when she had a UTI. She reports that her mother has had increasing me ariana issues and is concerned about dementia. She states that her mother got the COVID vaccines back in May 2020 and she has not been the same since. <HELADIO White Last Filed: 02/09/21 01:45> MD elicited complaint: nausea, vomiting and abdominal pain <HELADIO White Last Filed: 02/09/21 01:45> Onset (ago): hour(s) <HELADIO White - Last Filed: 02/09/21 01:45> Description of vomiting: food contents <HELADIO White - Last Filed: 02/09/21 01:45> Associated nausea: Yes <HELADIO White - Last Filed: 02/09/21 01:45> Associated abdominal pain: Yes <HELADIO White - Last Filed: 02/09/21 01:45> Location of pain: none <HELADIO White - Last Filed: 02/09/21 01:45> Severity: moderate <HELADIO White - Last Filed: 02/09/21 01:45> Exacerbating factors: none <HELADIO White Last Filed: 02/09/21 01:45> Relieving factors: none <HELADIO White - Last Filed: 02/09/21 01:45> Associated symptoms: loss of appetite, malaise, nausea/vomiting, shortness of breath, weakness and fatigue <HELADIO White - Last Filed: 02/09/21 01:45> Treatment prior to arrival: other ( IV Zofran) <HELADIO White - Last Filed: 02/09/21 01:45> Related Data Home medications: Home Medications Medication Instructions Recorded Confirmed aspirin 81 mg tablet,delayed 81 mg PO DAILY 02/02/20 12/14/20 release (Aspirin Low Dose) lisinopril 10 mg tablet 10 mg PO DAILY 02/02/20 12/14/20 latanoprost 0.005 % eye drops 1 drp OPHTHALMIC (EYE) BEDTIME 08/18/20 12/14/20 psyllium husk 3.4 gram/5.4 gram 1 tbsp PO DAILY 09/15/20 12/14/20 oral powder (Metamucil) Previous Rx's Medication Instructions Recorded atorvastatin 80 mg tablet 80 mg PO DAILY #90 tab 05/03/20 omeprazole 20 mg capsule,delayed 20 mg PO DAILY 30 Days #30 cap 07/10/20 release lidocaine 5 % topical ointment 1 appl TOPICAL BID PRN #60 g 09/14/20 sucralfate 1 gram tablet (Carafate) 2 g PO DAILY 30 Days #60 tab 09/15/20 gabapentin 300 mg capsule 300 mg PO BID 90 Days #180 cap 09/26/20 sumatriptan succinate 25 mg tablet 25 mg PO .QD PRN #10 tab 10/17/20 (Imitrex) tramadol 50 mg tablet 50 mg PO TID PRN 30 Days #90 tab 10/17/20 budesonide-formoterol HFA 80 2 puff PO BID #3 ea 11/24/20 mcg-4.5 mcg/actuation aerosol inhaler alclometasone 0.05 % topical cream 1 appl TOPICAL BID PRN 14 Days #15 01/02/21 g hydrocodone 5 mg-acetaminophen 325 1 tab PO DAILY PRN 30 Days #20 tab 01/02/21 mg tablet budesonide-formoterol HFA 80 2 puff INHALATION BID 90 Days #3 ea 01/15/21 mcg-4.5 mcg/actuation aerosol inhaler (Symbicort) carvedilol 12.5 mg tablet 12.5 mg PO BID #180 tab 01/15/21 metformin 500 mg tablet 500 mg PO DAILY #180 tab 01/15/21 paroxetine HCl 40 mg tablet 40 mg PO DAILY #90 tab 02/05/21 <HELADIO White Last Filed: 02/09/21 01:45> Allergies/Adverse reactions: Allergies Allergy/AdvReac Type Severity Reaction Status Date / Time No Known Allergies Allergy Mild NONE Verified 01/02/21 12:28 <HELADIO White Last Filed: 02/09/21 01:45> Review of Systems Review of Systems: Constitutional: No Fever, No Chills ENT/Mouth: No sore throat, No Rhinorrhea, No Swallowing Difficulty Cardiovascular: No Chest Pain, + SOB, No Orthopnea, No Edema Respiratory: No Cough, No Sputum, No Wheezing, No dyspnea Gastrointestinal: + Nausea, + Vomiting, No Diarrhea, No abdominal Pain Genitourinary: No Dysuria, No Urinary Frequency, No Hematuria Musculoskeletal: No joint pain, No Myalgias Skin: No Skin Lesions, No rash Neuro: + Weakness, No Numbness, + Dizziness, No Headache Psych: No Anxiety/Panic, No Depression Heme/Lymph: No Bruising, No Lymphadenopathy <HELADIO White Last Filed: 02/09/21 01:45> Gastrointestinal: Gastrointestinal: Reports nausea <HELADIO White - Last Filed: 02/09/21 01:45> [facility] Past Medical History Medical History: Medical History Abdominal aortic aneurysm without rupture Anxiety and depression COPD (chronic obstructive pulmonary disease) Hypercholesterolemia Hypertension Obesity (BMI 30-39.9) Osteoarthritis Osteoporosis Type 2 diabetes mellitus with hyperglycemia Urinary incontinence Vitamin D deficiency <HELADIO White - Last Filed: 02/09/21 01:45> Surgical History: Surgical History History of colonoscopy History of heart valve replacement (~08/2013) History of left hip replacement History of right hip replacement (~08/2014) Status post aortic valve replacement with bioprosthetic valve <HELADIO White - Last Filed: 02/09/21 01:45> Family History Family History: Family History Father No problems noted. Mother History of high cholesterol <HELADIO White - Last Filed: 02/09/21 01:45> Social History Social History: Social History Household Members: None Housing: House Alcohol intake: current Alcohol intake frequency: a few times a week Alcohol type: wine Patient Tobacco Use Status: Former Tobacco user e-Cigarette/Vaping Use: Never Used Second Hand Smoke Exposure: No Advance Directives: No Advance Directives Information Provided: Yes Current occupational status: retired <HELADIO Wihte - Last Filed: 02/09/21 01:45> Physical Exam Vital Signs: Vital Signs: Last Vital Signs Temp 98.2 F 02/08/21 22:24 Pulse 89 02/09/21 03:00 Resp 22 H 02/09/21 03:00 BP 126/60 02/09/21 03:00 Pulse Ox 93 02/09/21 03:00 Body Mass Index 23.8 <HELADIO White - Last Filed: 02/09/21 01:45> Vital Signs: Last Vital Signs Temp 98.2 F 02/08/21 22:24 Pulse 89 02/09/21 03:00 Resp 22 H 02/09/21 03:00 BP 126/60 02/09/21 03:00 Pulse Ox 93 02/09/21 03:00 Body Mass Index 23.8 <Gladys Moctezuma MD - Last Filed: 02/09/21 05:58> Appearance: Alert elderly female, resting comfortably in the stretcher. Oriented X2. No acute distress. Pale. Eyes: Pupils equal, round and reactive to light. ENT: Pharynx normal. Neck: Normal inspection. Neck supple. CVS: Normal heart rate and rhythm. Pulses normal. Respiratory: No respiratory distress. Breath sounds normal. Abdomen: Obese, Softly distended with mild diffuse tenderness. +BS x4 Skin: Skin warm and dry. Normal skin color. Normal skin turgor. No rashes. Extremities: No lower extremity edema. Neuro: Oriented X 2. No motor deficit. No sensory deficit. Moves all extremit ies, speaking in complete sentences, unrelated topics in conversation with poor memory <HELADIO White - Last Filed: 02/09/21 01:45> Course Course Course Narrative: 80 y/o female with multiple medical problems including NICM, obesity, COPD, GERD, IBS, obesity who presented to the ER with nausea, vomiting, abdominal distension in addition to worsening forgetfulness and memory issues over the last several weeks to months. She has had decreased p.o. intake recently and appears very dry on exam. She is hypertensive to 200 systolic on arrival without chest pain, headache, vision changes. Med rec is pending. Will check basic lab workup, EKG, troponin, BMP, CT head and abdomen. Chica is the patient's daughter ([phone]). Reports her healthcare proxy is her friend Ade Williamson whose number is in the chart. <HELADIO White - Last Filed: 02/09/21 01:45> Reevaluation(s) Reevaluation #1: CT abdomen pelvis are unremarkable. CT of the head shows no acute stroke, moderate microangiopathy and volume loss. WBC is 13 which is likely reactive from vomiting. Other labs showing mild hyponatremia with sodium 131, this is most likely hypovolemic given her vomiting and evidence of dehydration on examination. She is getting IV fluids. Urinalysis to be collected with straight catheterization now. If positive for UTI may require admission. If UA negative will need PT evaluation in the morning and CM consult. Signed out to Dr. Moctezuma who will assume care. <HELADIO White - Last Filed: 02/09/21 01:45> Reevaluation #2: Patient was signed out to me for follow-up lactic acid and urinalysis. On review of all investigations although patient is noted have a leukocytosis chest x-ray without identified infiltrate, CT scan of abdomen and pelvis without acute findings, and urinalysis with trace leukocyte esterase and the presence of white blood cells. Patient will receive antibiotics, and will repeat chemistry studies. <Gladys Moctezuma MD - Last Filed: 02/09/21 05:58> MDM - Nausea/Vomiting/Diarrhea Medical Records Attestation: I reviewed the patient's medical records. <HELADIO White - Last Filed: 02/09/21 01:45> Lab Data Attestation: I reviewed the patient's lab results. <HELADIO White - Last Filed: 02/09/21 01:45> Result diagrams: : 02/08/21 23:34 02/09/21 04:24 <HELADIO White - Last Filed: 02/09/21 01:45> Labs: Lab Results 02/08/21 02/08/21 02/08/21 Range/Units 23:34 23:34 23:34 WBC 13.0 H (4.8-10.8) X10*3/uL RBC 4.51 (4.20-5.50) X10*6/uL Hgb 13.1 (12.0-16.0) g/dl Hct 39.8 (37.0-47.0) % MCV 88.2 (80.0-98.0) fL MCH 29.0 (27.0-33.0) pg MCHC 32.9 (31.0-35.0) g/dl RDW 13.2 (11.0-16.0) % Plt Count 178 (160-400) X10*3/uL MPV 10.5 (9.4-12.3) fL Immature Gran % (Auto) 0.7 H (0.0-0.4) % Neut % (Auto) 87.4 H (45-73) % Lymph % (Auto) 6.5 L (20-40) % [place] % (Auto) 5.2 (2-11) % Eos % (Auto) 0.1 (0-4) % Baso % (Auto) 0.1 (0-2) % Lymph # (Auto) 0.9 L (1.2-4.9) X10*3/uL [place] # (Auto) 0.7 (0.1-1.2) X10*3/uL Eos # (Auto) 0.0 (0.0-0.4) X10*3/uL Baso # (Auto) 0.0 (0.0-0.2) X10*3/uL Abs Immat Gran (auto) 0.09 H (0.00-0.03) X10*3/uL Absolute Neuts (auto) 11.4 H (2.0-8.3) x10*3/uL Absolute Nucleated RBC 0.000 (0.0-0.012) X10*3/uL Nucleated RBC % (auto) 0.0 (0.0-0.2) /100WBC Sodium 131 L (135-145) mmol/L Potassium 4.0 (3.3-5.1) mmol/L Chloride 95 L (96-108) mmol/L Carbon Dioxide 24 (22-29) mmol/L Anion Gap 16 (12-20) BUN 22 H (9-16) mg/dL Creatinine 1.30 (0.5-1.4) mg/dL Estim Creat Clear Calc 30.5 Estimated GFR 39 Random Glucose 222 H (60-115) mg/dL Lactic Acid (0.5-2.0) mmol/L Calcium 9.1 D (8.4-10.2) mg/dL Magnesium 1.7 (1.6-2.6) mg/dL Total Bilirubin 1.3 H (0.0-1.0) mg/dL Direct Bilirubin 0.5 (0.0-0.5) mg/dL AST 12 (5-31) U/L ALT 10 (0-31) U/L Alkaline Phosphatase 131 H (39-117) U/L Troponin I High Sens 15.5 (<3.5-17.0) ng/L B-Natriuretic Peptide (<100) pg/mL Total Protein 6.8 (6.5-8.0) g/dL Albumin 3.6 (3.5-5.0) g/dL Lipase 5 L (8-78) U/L Urine Color Urine Appearance Urine pH (5.0-8.0) Ur Specific [place] (1.005-1.025) Urine Protein (NEG-TRACE) MG/DL Urine Glucose (UA) (NEG) MG/DL Urine Ketones (NEG) MG/DL Urine Blood (NEG) Urine Nitrite (NEG) Ur Leukocyte Esterase (NEG) Urine RBC (0) /HPF Urine WBC (0-4) /HPF Ur Squamous Epith Cells /LPF Urine Bacteria /LPF COVID-19 ([facility]) (Negative) COVID-19 Clin Com 02/08/21 02/08/21 02/08/21 Range/Units 23:34 23:51 23:51 WBC (4.8-10.8) X10*3/uL RBC (4.20-5.50) X10*6/uL Hgb (12.0-16.0) g/dl Hct (37.0-47.0) % MCV (80.0-98.0) fL MCH (27.0-33.0) pg MCHC (31.0-35.0) g/dl RDW (11.0-16.0) % Plt Count (160-400) X10*3/uL MPV (9.4-12.3) fL Immature Gran % (Auto) (0.0-0.4) % Neut % (Auto) (45-73) % Lymph % (Auto) (20-40) % [place] % (Auto) (2-11) % Eos % (Auto) (0-4) % Baso % (Auto) (0-2) % Lymph # (Auto) (1.2-4.9) X10*3/uL [place] # (Auto) (0.1-1.2) X10*3/uL Eos # (Auto) (0.0-0.4) X10*3/uL Baso # (Auto) (0.0-0.2) X10*3/uL Abs Immat Gran (auto) (0.00-0.03) X10*3/uL Absolute Neuts (auto) (2.0-8.3) x10*3/uL Absolute Nucleated RBC (0.0-0.012) X10*3/uL Nucleated RBC % (auto) (0.0-0.2) /100WBC Sodium (135-145) mmol/L Potassium (3.3-5.1) mmol/L Chloride (96-108) mmol/L Carbon Dioxide (22-29) mmol/L Anion Gap (12-20) BUN (9-16) mg/dL Creatinine (0.5-1.4) mg/dL Estim Creat Clear Calc Estimated GFR Random Glucose (60-115) mg/dL Lactic Acid 1.1 (0.5-2.0) mmol/L Calcium (8.4-10.2) mg/dL Magnesium (1.6-2.6) mg/dL Total Bilirubin (0.0-1.0) mg/dL Direct Bilirubin (0.0-0.5) mg/dL AST (5-31) U/L ALT (0-31) U/L Alkaline Phosphatase (39-117) U/L Troponin I High Sens (<3.5-17.0) ng/L B-Natriuretic Peptide 194 H (<100) pg/mL Total Protein (6.5-8.0) g/dL Albumin (3.5-5.0) g/dL Lipase (8-78) U/L Urine Color Urine Appearance Urine pH (5.0-8.0) Ur Specific [place] (1.005-1.025) Urine Protein (NEG-TRACE) MG/DL Urine Glucose (UA) (NEG) MG/DL Urine Ketones (NEG) MG/DL Urine Blood (NEG) Urine Nitrite (NEG) Ur Leukocyte Esterase (NEG) Urine RBC (0) /HPF Urine WBC (0-4) /HPF Ur Squamous Epith Cells /LPF Urine Bacteria /LPF COVID-19 ([facility]) Negative (Negative) COVID-19 Clin Com See Note 02/09/21 02/09/21 02/09/21 Range/Units 01:41 01:41 04:24 WBC (4.8-10.8) X10*3/uL RBC (4.20-5.50) X10*6/uL Hgb (12.0-16.0) g/dl Hct (37.0-47.0) % MCV (80.0-98.0) fL MCH (27.0-33.0) pg MCHC (31.0-35.0) g/dl RDW (11.0-16.0) % Plt Count (160-400) X10*3/uL MPV (9.4-12.3) fL Immature Gran % (Auto) (0.0-0.4) % Neut % (Auto) (45-73) % Lymph % (Auto) (20-40) % [place] % (Auto) (2-11) % Eos % (Auto) (0-4) % Baso % (Auto) (0-2) % Lymph # (Auto) (1.2-4.9) X10*3/uL [place] # (Auto) (0.1-1.2) X10*3/uL Eos # (Auto) (0.0-0.4) X10*3/uL Baso # (Auto) (0.0-0.2) X10*3/uL Abs Immat Gran (auto) (0.00-0.03) X10*3/uL Absolute Neuts (auto) (2.0-8.3) x10*3/uL Absolute Nucleated RBC (0.0-0.012) X10*3/uL Nucleated RBC % (auto) (0.0-0.2) /100WBC Sodium 133 L (135-145) mmol/L Potassium 3.9 (3.3-5.1) mmol/L Chloride 98 (96-108) mmol/L Carbon Dioxide 25 (22-29) mmol/L Anion Gap 14 (12-20) BUN 22 H (9-16) mg/dL Creatinine 1.29 (0.5-1.4) mg/dL Estim Creat Clear Calc 30.8 Estimated GFR 40 Random Glucose 146 H (60-115) mg/dL Lactic Acid (0.5-2.0) mmol/L Calcium 8.5 D (8.4-10.2) mg/dL Magnesium (1.6-2.6) mg/dL Total Bilirubin 0.9 (0.0-1.0) mg/dL Direct Bilirubin (0.0-0.5) mg/dL AST 11 (5-31) U/L ALT 9 (0-31) U/L Alkaline Phosphatase 117 (39-117) U/L Troponin I High Sens 15.3 (<3.5-17.0) ng/L B-Natriuretic Peptide (<100) pg/mL Total Protein 6.3 L (6.5-8.0) g/dL Albumin 3.4 L (3.5-5.0) g/dL Lipase (8-78) U/L Urine Color YELLOW Urine Appearance HAZY Urine pH 6.0 (5.0-8.0) Ur Specific [place] >= 1.030 H (1.005-1.025) Urine Protein 2+ H (NEG-TRACE) MG/DL Urine Glucose (UA) NEG (NEG) MG/DL Urine Ketones 15 (NEG) MG/DL Urine Blood 1+ H (NEG) Urine Nitrite NEG (NEG) Ur Leukocyte Esterase TRACE H (NEG) Urine RBC 1-4 (0) /HPF Urine WBC 15-29 H (0-4) /HPF Ur Squamous Epith Cells 1+ /LPF Urine Bacteria 4+ /LPF COVID-19 ([facility]) (Negative) COVID-19 Clin Com 02/09/21 Range/Units 04:24 WBC (4.8-10.8) X10*3/uL RBC (4.20-5.50) X10*6/uL Hgb (12.0-16.0) g/dl Hct (37.0-47.0) % MCV (80.0-98.0) fL MCH (27.0-33.0) pg MCHC (31.0-35.0) g/dl RDW (11.0-16.0) % Plt Count (160-400) X10*3/uL MPV (9.4-12.3) fL Immature Gran % (Auto) (0.0-0.4) % Neut % (Auto) (45-73) % Lymph % (Auto) (20-40) % [place] % (Auto) (2-11) % Eos % (Auto) (0-4) % Baso % (Auto) (0-2) % Lymph # (Auto) (1.2-4.9) X10*3/uL [place] # (Auto) (0.1-1.2) X10*3/uL Eos # (Auto) (0.0-0.4) X10*3/uL Baso # (Auto) (0.0-0.2) X10*3/uL Abs Immat Gran (auto) (0.00-0.03) X10*3/uL Absolute Neuts (auto) (2.0-8.3) x10*3/uL Absolute Nucleated RBC (0.0-0.012) X10*3/uL Nucleated RBC % (auto) (0.0-0.2) /100WBC Sodium (135-145) mmol/L Potassium (3.3-5.1) mmol/L Chloride (96-108) mmol/L Carbon Dioxide (22-29) mmol/L Anion Gap (12-20) BUN (9-16) mg/dL Creatinine (0.5-1.4) mg/dL Estim Creat Clear Calc Estimated GFR Random Glucose (60-115) mg/dL Lactic Acid (0.5-2.0) mmol/L Calcium (8.4-10.2) mg/dL Magnesium (1.6-2.6) mg/dL Total Bilirubin (0.0-1.0) mg/dL Direct Bilirubin (0.0-0.5) mg/dL AST (5-31) U/L ALT (0-31) U/L Alkaline Phosphatase (39-117) U/L Troponin I High Sens (<3.5-17.0) ng/L B-Natriuretic Peptide 219 H (<100) pg/mL Total Protein (6.5-8.0) g/dL Albumin (3.5-5.0) g/dL Lipase (8-78) U/L Urine Color Urine Appearance Urine pH (5.0-8.0) Ur Specific [place] (1.005-1.025) Urine Protein (NEG-TRACE) MG/DL Urine Glucose (UA) (NEG) MG/DL Urine Ketones (NEG) MG/DL Urine Blood (NEG) Urine Nitrite (NEG) Ur Leukocyte Esterase (NEG) Urine RBC (0) /HPF Urine WBC (0-4) /HPF Ur Squamous Epith Cells /LPF Urine Bacteria /LPF COVID-19 ([facility]) (Negative) COVID-19 Clin Com <HELADIO White - Last Filed: 02/09/21 01:45> Lab Results 02/08/21 02/08/21 02/08/21 Range/Units 23:34 23:34 23:34 WBC 13.0 H (4.8-10.8) X10*3/uL RBC 4.51 (4.20-5.50) X10*6/uL Hgb 13.1 (12.0-16.0) g/dl Hct 39.8 (37.0-47.0) % MCV 88.2 (80.0-98.0) fL MCH 29.0 (27.0-33.0) pg MCHC 32.9 (31.0-35.0) g/dl RDW 13.2 (11.0-16.0) % Plt Count 178 (160-400) X10*3/uL MPV 10.5 (9.4-12.3) fL Immature Gran % (Auto) 0.7 H (0.0-0.4) % Neut % (Auto) 87.4 H (45-73) % Lymph % (Auto) 6.5 L (20-40) % [place] % (Auto) 5.2 (2-11) % Eos % (Auto) 0.1 (0-4) % Baso % (Auto) 0.1 (0-2) % Lymph # (Auto) 0.9 L (1.2-4.9) X10*3/uL [place] # (Auto) 0.7 (0.1-1.2) X10*3/uL Eos # (Auto) 0.0 (0.0-0.4) X10*3/uL Baso # (Auto) 0.0 (0.0-0.2) X10*3/uL Abs Immat Gran (auto) 0.09 H (0.00-0.03) X10*3/uL Absolute Neuts (auto) 11.4 H (2.0-8.3) x10*3/uL Absolute Nucleated RBC 0.000 (0.0-0.012) X10*3/uL Nucleated RBC % (auto) 0.0 (0.0-0.2) /100WBC Sodium 131 L (135-145) mmol/L Potassium 4.0 (3.3-5.1) mmol/L Chloride 95 L (96-108) mmol/L Carbon Dioxide 24 (22-29) mmol/L Anion Gap 16 (12-20) BUN 22 H (9-16) mg/dL Creatinine 1.30 (0.5-1.4) mg/dL Estim Creat Clear Calc 30.5 Estimated GFR 39 Random Glucose 222 H (60-115) mg/dL Lactic Acid (0.5-2.0) mmol/L Calcium 9.1 D (8.4-10.2) mg/dL Magnesium 1.7 (1.6-2.6) mg/dL Total Bilirubin 1.3 H (0.0-1.0) mg/dL Direct Bilirubin 0.5 (0.0-0.5) mg/dL AST 12 (5-31) U/L ALT 10 (0-31) U/L Alkaline Phosphatase 131 H (39-117) U/L Troponin I High Sens 15.5 (<3.5-17.0) ng/L B-Natriuretic Peptide (<100) pg/mL Total Protein 6.8 (6.5-8.0) g/dL Albumin 3.6 (3.5-5.0) g/dL Lipase 5 L (8-78) U/L Urine Color Urine Appearance Urine pH (5.0-8.0) Ur Specific [place] (1.005-1.025) Urine Protein (NEG-TRACE) MG/DL Urine Glucose (UA) (NEG) MG/DL Urine Ketones (NEG) MG/DL Urine Blood (NEG) Urine Nitrite (NEG) Ur Leukocyte Esterase (NEG) Urine RBC (0) /HPF Urine WBC (0-4) /HPF Ur Squamous Epith Cells /LPF Urine Bacteria /LPF COVID-19 ([facility]) (Negative) COVID-19 Clin Com 02/08/21 02/08/21 02/08/21 Range/Units 23:34 23:51 23:51 WBC (4.8-10.8) X10*3/uL RBC (4.20-5.50) X10*6/uL Hgb (12.0-16.0) g/dl Hct (37.0-47.0) % MCV (80.0-98.0) fL MCH (27.0-33.0) pg MCHC (31.0-35.0) g/dl RDW (11.0-16.0) % Plt Count (160-400) X10*3/uL MPV (9.4-12.3) fL Immature Gran % (Auto) (0.0-0.4) % Neut % (Auto) (45-73) % Lymph % (Auto) (20-40) % [place] % (Auto) (2-11) % Eos % (Auto) (0-4) % Baso % (Auto) (0-2) % Lymph # (Auto) (1.2-4.9) X10*3/uL [place] # (Auto) (0.1-1.2) X10*3/uL Eos # (Auto) (0.0-0.4) X10*3/uL Baso # (Auto) (0.0-0.2) X10*3/uL Abs Immat Gran (auto) (0.00-0.03) X10*3/uL Absolute Neuts (auto) (2.0-8.3) x10*3/uL Absolute Nucleated RBC (0.0-0.012) X10*3/uL Nucleated RBC % (auto) (0.0-0.2) /100WBC Sodium (135-145) mmol/L Potassium (3.3-5.1) mmol/L Chloride (96-108) mmol/L Carbon Dioxide (22-29) mmol/L Anion Gap (12-20) BUN (9-16) mg/dL Creatinine (0.5-1.4) mg/dL Estim Creat Clear Calc Estimated GFR Random Glucose (60-115) mg/dL Lactic Acid 1.1 (0.5-2.0) mmol/L Calcium (8.4-10.2) mg/dL Magnesium (1.6-2.6) mg/dL Total Bilirubin (0.0-1.0) mg/dL Direct Bilirubin (0.0-0.5) mg/dL AST (5-31) U/L ALT (0-31) U/L Alkaline Phosphatase (39-117) U/L Troponin I High Sens (<3.5-17.0) ng/L B-Natriuretic Peptide 194 H (<100) pg/mL Total Protein (6.5-8.0) g/dL Albumin (3.5-5.0) g/dL Lipase (8-78) U/L Urine Color Urine Appearance Urine pH (5.0-8.0) Ur Specific [place] (1.005-1.025) Urine Protein (NEG-TRACE) MG/DL Urine Glucose (UA) (NEG) MG/DL Urine Ketones (NEG) MG/DL Urine Blood (NEG) Urine Nitrite (NEG) Ur Leukocyte Esterase (NEG) Urine RBC (0) /HPF Urine WBC (0-4) /HPF Ur Squamous Epith Cells /LPF Urine Bacteria /LPF COVID-19 ([facility]) Negative (Negative) COVID-19 Clin Com See Note 02/09/21 02/09/21 02/09/21 Range/Units 01:41 01:41 04:24 WBC (4.8-10.8) X10*3/uL RBC (4.20-5.50) X10*6/uL Hgb (12.0-16.0) g/dl Hct (37.0-47.0) % MCV (80.0-98.0) fL MCH (27.0-33.0) pg MCHC (31.0-35.0) g/dl RDW (11.0-16.0) % Plt Count (160-400) X10*3/uL MPV (9.4-12.3) fL Immature Gran % (Auto) (0.0-0.4) % Neut % (Auto) (45-73) % Lymph % (Auto) (20-40) % [place] % (Auto) (2-11) % Eos % (Auto) (0-4) % Baso % (Auto) (0-2) % Lymph # (Auto) (1.2-4.9) X10*3/uL [place] # (Auto) (0.1-1.2) X10*3/uL Eos # (Auto) (0.0-0.4) X10*3/uL Baso # (Auto) (0.0-0.2) X10*3/uL Abs Immat Gran (auto) (0.00-0.03) X10*3/uL Absolute Neuts (auto) (2.0-8.3) x10*3/uL Absolute Nucleated RBC (0.0-0.012) X10*3/uL Nucleated RBC % (auto) (0.0-0.2) /100WBC Sodium 133 L (135-145) mmol/L Potassium 3.9 (3.3-5.1) mmol/L Chloride 98 (96-108) mmol/L Carbon Dioxide 25 (22-29) mmol/L Anion Gap 14 (12-20) BUN 22 H (9-16) mg/dL Creatinine 1.29 (0.5-1.4) mg/dL Estim Creat Clear Calc 30.8 Estimated GFR 40 Random Glucose 146 H (60-115) mg/dL Lactic Acid (0.5-2.0) mmol/L Calcium 8.5 D (8.4-10.2) mg/dL Magnesium (1.6-2.6) mg/dL Total Bilirubin 0.9 (0.0-1.0) mg/dL Direct Bilirubin (0.0-0.5) mg/dL AST 11 (5-31) U/L ALT 9 (0-31) U/L Alkaline Phosphatase 117 (39-117) U/L Troponin I High Sens 15.3 (<3.5-17.0) ng/L B-Natriuretic Peptide (<100) pg/mL Total Protein 6.3 L (6.5-8.0) g/dL Albumin 3.4 L (3.5-5.0) g/dL Lipase (8-78) U/L Urine Color YELLOW Urine Appearance HAZY Urine pH 6.0 (5.0-8.0) Ur Specific [place] >= 1.030 H (1.005-1.025) Urine Protein 2+ H (NEG-TRACE) MG/DL Urine Glucose (UA) NEG (NEG) MG/DL Urine Ketones 15 (NEG) MG/DL Urine Blood 1+ H (NEG) Urine Nitrite NEG (NEG) Ur Leukocyte Esterase TRACE H (NEG) Urine RBC 1-4 (0) /HPF Urine WBC 15-29 H (0-4) /HPF Ur Squamous Epith Cells 1+ /LPF Urine Bacteria 4+ /LPF COVID-19 ([facility]) (Negative) COVID-19 Clin Com 02/09/21 Range/Units 04:24 WBC (4.8-10.8) X10*3/uL RBC (4.20-5.50) X10*6/uL Hgb (12.0-16.0) g/dl Hct (37.0-47.0) % MCV (80.0-98.0) fL MCH (27.0-33.0) pg MCHC (31.0-35.0) g/dl RDW (11.0-16.0) % Plt Count (160-400) X10*3/uL MPV (9.4-12.3) fL Immature Gran % (Auto) (0.0-0.4) % Neut % (Auto) (45-73) % Lymph % (Auto) (20-40) % [place] % (Auto) (2-11) % Eos % (Auto) (0-4) % Baso % (Auto) (0-2) % Lymph # (Auto) (1.2-4.9) X10*3/uL [place] # (Auto) (0.1-1.2) X10*3/uL Eos # (Auto) (0.0-0.4) X10*3/uL Baso # (Auto) (0.0-0.2) X10*3/uL Abs Immat Gran (auto) (0.00-0.03) X10*3/uL Absolute Neuts (auto) (2.0-8.3) x10*3/uL Absolute Nucleated RBC (0.0-0.012) X10*3/uL Nucleated RBC % (auto) (0.0-0.2) /100WBC Sodium (135-145) mmol/L Potassium (3.3-5.1) mmol/L Chloride (96-108) mmol/L Carbon Dioxide (22-29) mmol/L Anion Gap (12-20) BUN (9-16) mg/dL Creatinine (0.5-1.4) mg/dL Estim Creat Clear Calc Estimated GFR Random Glucose (60-115) mg/dL Lactic Acid (0.5-2.0) mmol/L Calcium (8.4-10.2) mg/dL Magnesium (1.6-2.6) mg/dL Total Bilirubin (0.0-1.0) mg/dL Direct Bilirubin (0.0-0.5) mg/dL AST (5-31) U/L ALT (0-31) U/L Alkaline Phosphatase (39-117) U/L Troponin I High Sens (<3.5-17.0) ng/L B-Natriuretic Peptide 219 H (<100) pg/mL Total Protein (6.5-8.0) g/dL Albumin (3.5-5.0) g/dL Lipase (8-78) U/L Urine Color Urine Appearance Urine pH (5.0-8.0) Ur Specific [place] (1.005-1.025) Urine Protein (NEG-TRACE) MG/DL Urine Glucose (UA) (NEG) MG/DL Urine Ketones (NEG) MG/DL Urine Blood (NEG) Urine Nitrite (NEG) Ur Leukocyte Esterase (NEG) Urine RBC (0) /HPF Urine WBC (0-4) /HPF Ur Squamous Epith Cells /LPF Urine Bacteria /LPF COVID-19 (HARPREET) (Negative) COVID-19 Clin Com <Gladys Moctezuma MD - Last Filed: 02/09/21 05:58> ECG Data Attestation: I personally reviewed and interpreted this ECG as follows: <HELADIO White - Last Filed: 02/09/21 01:45> ECG interpretation date: 02/09/21 <HELADIO White - Last Filed: 02/09/21 01:45> ECG interpretation time: 00:28 <HELADIO White - Last Filed: 02/09/21 01:45> Interpretation: normal sinus rhythm, 90 beats per minute, normal OK interval 152 MS, mild artifact present. No ST segment elevations or depressions <HELADIO White - Last Filed: 02/09/21 01:45> Discharge Plan Discharge Clinical Impression: Nausea & vomiting Qualifiers: Vomiting type: unspecified Vomiting Intractability: non-intractable Qualified Code(s): R11.2 - Nausea with vomiting, unspecified <HELADIO White - Last Filed: 02/09/21 01:45> Prescriptions: No Action atorvastatin 80 mg tablet 80 mg PO DAILY Qty: 90 RF: 1 lidocaine 5 % ointment 1 appl topical BID PRN (Reason: pain) Qty: 60 RF: 0 gabapentin 300 mg capsule 300 mg PO BID 90 Days Qty: 180 RF: 0 sumatriptan succinate [Imitrex] 25 mg tablet 25 mg PO .QD PRN (Reason: migraine headache) Qty: 10 RF: 1 tramadol 50 mg tablet 50 mg PO TID PRN (Reason: pain) 30 Days Qty: 90 RF: 2 budesonide-formoterol 80-4.5 mcg/actuation HFA aerosol inhaler 2 puff PO BID Qty: 3 RF: 3 metformin 500 mg tablet 500 mg PO DAILY Qty: 180 RF: 1 carvedilol 12.5 mg tablet 12.5 mg PO BID Qty: 180 RF: 1 budesonide-formoterol [Symbicort] 80-4.5 mcg/actuation HFA aerosol inhaler 2 puff inhalation BID 90 Days Qty: 3 RF: 4 paroxetine HCl 40 mg tablet 40 mg PO DAILY Qty: 90 RF: 2 alclometasone 0.05 % cream 1 appl topical BID PRN (Reason: itching) 14 Days Qty: 15 RF: 0 hydrocodone-acetaminophen 5-325 mg tablet 1 tab PO DAILY PRN (Reason: pain) 30 Days Qty: 20 RF: 0 omeprazole 20 mg capsule,delayed release(DR/EC) 20 mg PO DAILY 30 Days Qty: 30 RF: 6 aspirin [Aspirin Low Dose] 81 mg tablet,delayed release (DR/EC) 81 mg PO DAILY RF: 0 lisinopril 10 mg tablet 10 mg PO DAILY RF: 0 latanoprost 0.005 % drops 1 drp ophthalmic (eye) BEDTIME RF: 0 Metamucil 3.4 gram/5.4 gram powder 1 tbsp PO DAILY RF: 0 sucralfate [Carafate] 1 gram tablet 2 g PO DAILY 30 Days Qty: 60 RF: 6 <HELADIO White - Last Filed: 02/09/21 01:45>
[2021-02-08 23:40] LABS: MANUAL DIFF FLAG NO
[2021-02-08 23:41] LABS: Basophils Percent Auto 0.1 % (0-2); Eosinophils Percent Auto 0.1 % (0-4); Hematocrit 39.8 % (37.0-47.0); Hemoglobin 13.1 g/dl (12.0-16.0); Imm Gran Abs Auto 0.09 X10*3/uL (0.00-0.03); Imm Gran Pct Auto 0.7 % (0.0-0.4); Lymphocytes Absolute Auto 0.9 X10*3/uL (1.2-4.9); Lymphocytes Percent Auto 6.5 % (20-40); Mean Corpuscular HGB Conc 32.9 g/dl (31.0-35.0); Mean Corpuscular Volume 88.2 fL (80.0-98.0); Mean Platelet Volume 10.5 fL (9.4-12.3); Monocytes Absolute Auto 0.7 X10*3/uL (0.1-1.2); Monocytes Percent Auto 5.2 % (2-11); Neutrophils Absolute Auto 11.4 x10*3/uL (2.0-8.3); Neutrophils Percent Auto 87.4 % (45-73); Platelet Count 178 X10*3/uL (160-400); Red Blood Count 4.51 X10*6/uL (4.20-5.50); Red Cell Distribution Width 13.2 % (11.0-16.0)
[2021-02-09] VITALS (10 sets, daily range): BP systolic 102–141; BP diastolic 60–78; PULSE 76–109; RESP 16–22; TEMP 37; O2SAT 92–94
[2021-02-09 00:07] LABS: Alanine Aminotransferase 10 U/L (0-31); Albumin Level 3.6 g/dL (3.5-5.0); Alkaline Phosphatase 131 U/L (39-117); Anion Gap 16 (12-20); Aspartate Amino Transferase 12 U/L (5-31); Bilirubin Direct 0.5 mg/dL (0.0-0.5); Bilirubin Total 1.3 mg/dL (0.0-1.0); Blood Urea Nitrogen 22 mg/dL (9-16); Calcium 9.1 mg/dL (8.4-10.2); Carbon Dioxide 24 mmol/L (22-29); Chloride 95 mmol/L (96-108); Creatinine Clr Calc Pharmacy 30.5; Estimated Glomerular Filt Rate 39; Glucose Random 222 mg/dL (60-115); Lipase 5 U/L (8-78); Magnesium 1.7 mg/dL (1.6-2.6); Sodium 131 mmol/L (135-145); Total Protein 6.8 g/dL (6.5-8.0)
[2021-02-09 00:13] LABS: B Type Natriuretic Peptide 194 pg/mL (<100)
[2021-02-09 00:14] LABS: Troponin-I High Sensitivity 15.5 ng/L (<3.5-17.0)
--- NOTE | 2021-02-09 00:16 | PC.NURSE ---
pt to ct in [facility]. Labs drawn to lab. Pt wakes to voice. respirations easy, n/l. skin w/d.
[2021-02-09 00:22] LABS: COVID-19 Test Negative (Negative)
[2021-02-09] MEDS: 0.9 % Sodium Chloride 1,000 ML 999 ML IVCONT (01:00)
[2021-02-09 01:46] LABS: Lactic Acid 1.1 mmol/L (0.5-2.0)
[2021-02-09 01:53] LABS: Appearance Urine HAZY; Color Urine YELLOW; Glucose Urine UA NEG (NEG); Leukocyte Esterase Urine TRACE (NEG); Nitrite Urine NEG (NEG); Specific Gravity - Urine >= 1.030 (1.005-1.025); UACC Culture Trigger YES; Urine Blood 1+ (NEG); Urine Ketones 15 MG/DL (NEG); Urine Protein 2+ MG/DL (NEG-TRACE)
[2021-02-09 02:00] LABS: Bacteria Urine 4+ /LPF; Squamous Epithelial Cell Urine 1+ /LPF
--- NOTE | 2021-02-09 02:04 | PC.NURSE ---
PT MOVED TO ROOM #18, PT CHG INTO GOWN, STRAIGHT CATH FOR URINE SAMPLE TO LAB FOR EVAL. PT TOLERATED WELL. TROPONIN DRAWN TO LAB.
[2021-02-09 02:12] LABS: Troponin-I High Sensitivity 15.3 ng/L (<3.5-17.0)
--- NOTE | 2021-02-09 04:18 | PC.NURSE ---
rose marie applied to pt. Pt appears to be slightly confused to time and day. pt repeating the same questions. pt is incontinent. pt is awaiting for case mgt eval.
[2021-02-09] MEDS: cefTRIAXone sodium 1 GM in 0.9 % Sodium Chloride 50 ML IV (04:34)
[2021-02-09 04:57] LABS: Alanine Aminotransferase 9 U/L (0-31); Albumin Level 3.4 g/dL (3.5-5.0); Alkaline Phosphatase 117 U/L (39-117); Anion Gap 14 (12-20); Aspartate Amino Transferase 11 U/L (5-31); Bilirubin Total 0.9 mg/dL (0.0-1.0); Blood Urea Nitrogen 22 mg/dL (9-16); Calcium 8.5 mg/dL (8.4-10.2); Carbon Dioxide 25 mmol/L (22-29); Chloride 98 mmol/L (96-108); Creatinine Clr Calc Pharmacy 30.8; Estimated Glomerular Filt Rate 40; Glucose Random 146 mg/dL (60-115); Potassium 3.9 mmol/L (3.3-5.1); Sodium 133 mmol/L (135-145); Total Protein 6.3 g/dL (6.5-8.0)
[2021-02-09 04:58] LABS: B Type Natriuretic Peptide 219 pg/mL (<100)
--- NOTE | 2021-02-09 06:39 | PC.NURSE ---
pt resting, wakes to voice. respirations easy, n/l. skin w/d.
--- NOTE | 2021-02-09 08:28 | PC.NURSE ---
PT at bedside
--- NOTE | 2021-02-09 09:04 | PHA.MEDREC ---
Pharmacy Consult ? Medication Reconciliation Pharmacy has completed the medication reconciliation. Patient is confused. She has no idea about her medications. Patient state I can go by her pharmacy fill history to complete the med rec and she picks up from [facility]. I spoke with her daughter Chica, who also did not know. Her daughter reports her friend Osiris may know what she is taking since she spend everyday with her. I am currently wait for a call from Osiris to confirm. Rahel Callejas, PharmD
[2021-02-09] MEDS: Gabapentin 300 MG CAPSULE PO ×2 (10:25→22:13)
[2021-02-09] MEDS: Atorvastatin Calcium 80 MG TABLET PO (10:25)
[2021-02-09] MEDS: carvediloL 12.5 MG TABLET PO (10:25)
[2021-02-09] MEDS: metFORMIN HCl 500 MG TABLET PO (10:25)
[2021-02-09] MEDS: PARoxetine HCL 40 MG TABLET PO (11:22)
--- NOTE | 2021-02-09 11:57 | MHC.CM.ED ---
pt lives alone in her apt. she has a daughter that lives in [facility], ph: [phone]; [phone]. pt has supports from her neighbors she claims. she would like to return home c vna. however a PT eval has recommended pt go to [facility]. refs have been made, however , during this process the patient had produced positve blood cultures. because of this patient is being admitted and will likely dc to a str at a future time. cm to cont. to follow.
[2021-02-09] MEDS: 0.9 % Sodium Chloride 1,000 ML 250 ML IVCONT (12:27)
--- NOTE | 2021-02-09 12:54 | PM.IMHP ---
History of Present Illness Date of Service: 02/09/21 Chief Complaint: Gram negative bacteremia This is an 80 yo F with a PMH as outlined below who presented to [facility] on 02/[facility]21 after an episode of vomiting and generally not feeling well. She was evaluated in the ED at that time and felt to have an UTI. She was given IV fluids and IV antibiotics and the plan was for her to be sent to short term rehab. While awaiting for this in the ED, her blood cultures returned positive for 1/2 bottles of Gram negative rods and so admission was requested. The patient was seen and evaluated in the ED around 1215PM. She reports a several day history of mid abdominal pain, mild in nature with associated nausea and an episode of vomiting. She denies any diarrhea. She reported some chills, but no fevers. She reports chronic urinary urgency but denies any dysuria or flank pain. She denies any chest pain or shortness of breath. She has been given a total of 2L IVF and 1 dose of IV ceftriaxone. She will be admitted for further treatment of her gram negative bactermia. Review of Systems Review of Systems: negative except what is mentioned in the [facility] Medical History Abdominal aortic aneurysm without rupture Anxiety and depression COPD (chronic obstructive pulmonary disease) Hypercholesterolemia Hypertension Obesity (BMI 30-39.9) Osteoarthritis Osteoporosis Type 2 diabetes mellitus with hyperglycemia Urinary incontinence Vitamin D deficiency Family History Father No problems noted. Mother History of high cholesterol Surgical History History of colonoscopy History of heart valve replacement (~08/2013) History of left hip replacement History of right hip replacement (~08/2014) Status post aortic valve replacement with bioprosthetic valve Social History Household Members: None Housing: House Alcohol intake: current Alcohol intake frequency: a few times a week Alcohol type: wine Patient Tobacco Use Status: Former Tobacco user e-Cigarette/Vaping Use: Never Used Second Hand Smoke Exposure: No Advance Directives: No Advance Directives Information Provided: Yes Current occupational status: retired Meds Allergies Allergy/AdvReac Type Severity Reaction Status Date / Time No Known Allergies Allergy Mild NONE Verified 01/02/21 12:28 Active Medications: Current Medications Acetaminophen (Acetaminophen 325 Mg Tablet) 650 mg PO Q6H PRN PRN Reason: Pain, Mild (Pain Scale 1-3) Atorvastatin Calcium (Atorvastatin Calcium 80 Mg Tablet) 80 mg PO DAILY [facility] Last Admin: 02/09/21 10:25 Dose: 80 mg Documented by: Carvedilol (Carvedilol 12.5 Mg Tablet) 12.5 mg PO BID [facility]; Protocol Last Admin: 02/09/21 10:25 Dose: 12.5 mg Documented by: Enoxaparin Sodium (Enoxaparin Sodium 30 Mg/0.3 Ml Syringe) 30 mg SUBCUT Q24H [facility] Gabapentin (Gabapentin 300 Mg Capsule) 300 mg PO BID [facility] Last Admin: 02/09/21 10:25 Dose: 300 mg Documented by: Sodium Chloride (Ns) 1,000 mls @ 250 mls/hr IVCONT .Q4H [facility] Stop: 02/09/21 16:14 Last Admin: 02/09/21 12:27 Dose: 250 mls/hr Documented by: Ceftriaxone Sodium 1 gm/ (Sodium Chloride) 50 mls @ 100 mls/hr IV Q24H [facility] Latanoprost (Latanoprost 0.005 % Ophth Hortencia 2.5 Ml Drops) 1 drop EYE-BOTH BEDTIME [facility] Omeprazole (Omeprazole 20 Mg Capsule.Dr) 20 mg PO DAILY [facility] Ondansetron HCl (Ondansetron Hcl 4 Mg/2 Ml Vial) 4 mg IVPUSH Q8H PRN PRN Reason: Nausea and Vomiting Paroxetine HCl (Paroxetine Hcl 40 Mg Tablet) 40 mg PO DAILY [facility] Last Admin: 02/09/21 11:22 Dose: 40 mg Documented by: Pharmacy Consult (Consult Rx Perform Med Rec) 1 each MISCELLANE ONCE PRN PRN Reason: Consult order Sodium Chloride (0.9 % Sodium Chloride Flush 3 Ml Syringe) 3 ml IVFLUSH QSHIFT [facility] Sumatriptan Succinate (Sumatriptan Succinate 25 Mg Tablet) 25 mg PO .QD PRN PRN Reason: migraine headache Triamcinolone Acetonide (Triamcinolone Acet 0.025 % Cream 15 Gm Tube) 1 appl TOPICAL BID PRN PRN Reason: itching Home Medications Medication Instructions Recorded Confirmed Last Taken Type latanoprost 0.005 % eye drops 1 drp OPHTHALMIC (EYE) BEDTIME 08/18/20 02/09/21 Unknown History Physical Exam Vital Signs and Narrative: Vital Signs: Last Vital Signs Temp 98.2 F 02/08/21 22:24 Pulse 83 02/09/21 10:29 Resp 19 02/09/21 10:29 BP 109/60 02/09/21 10:29 Pulse Ox 92 02/09/21 10:29 Body Mass Index 23.8 Const: Other: Constitutional - Awake and Alert, No apparent distress HEENT - PERRLA, EOMI, very dry oral mucosa / tongue Cardiovascular - S1S2, RRR, No edema Respiratory - Normal lung expansion, Normal respiratory effort, No respiratory distress, CTA bilaterally Gastrointestinal - NT / ND; +BS; No rebound or guarding - No CVA tenderness Extremities - no calf tenderness bilaterally, no swelling Musculoskeletal - Normal inspection, normal ROM Skin - Warm/Dry Neurological - CN 2-12 intact bilaterally; motor equal in b/l UE and LE; speech intact; oriented to place, time (month) and situation but slightly vague to her preceeding symptoms Psychological - Appropriate affect Results Labs CBC and Chem 7: 02/08/21 23:34 02/09/21 04:24 Labs: Laboratory Results - last 24 hr 02/08/21 02/08/21 02/08/21 23:34 23:34 23:34 MCV 88.2 MCH 29.0 MCHC 32.9 RDW 13.2 Plt Count 178 MPV 10.5 Immature Gran % (Auto) 0.7 H Neut % (Auto) 87.4 H Lymph % (Auto) 6.5 L [place] % (Auto) 5.2 Eos % (Auto) 0.1 Baso % (Auto) 0.1 Lymph # (Auto) 0.9 L [place] # (Auto) 0.7 Eos # (Auto) 0.0 Baso # (Auto) 0.0 Abs Immat Gran (auto) 0.09 H Absolute Neuts (auto) 11.4 H Absolute Nucleated RBC 0.000 Nucleated RBC % (auto) 0.0 Anion Gap 16 Estim Creat Clear Calc 30.5 Estimated GFR 39 Random Glucose 222 H Lactic Acid Calcium 9.1 D Magnesium 1.7 Total Bilirubin 1.3 H Direct Bilirubin 0.5 AST 12 ALT 10 Alkaline Phosphatase 131 H Troponin I High Sens 15.5 B-Natriuretic Peptide Total Protein 6.8 Albumin 3.6 Lipase 5 L Urine Color Urine Appearance Urine pH Ur Specific [place] Urine Protein Urine Glucose (UA) Urine Ketones Urine Blood Urine Nitrite Ur Leukocyte Esterase Urine RBC Urine WBC Ur Squamous Epith Cells Urine Bacteria COVID-19 ([facility]PRE[facility]) COVID-19 Clin Com 02/08/21 02/08/21 02/08/21 23:34 23:51 23:51 MCV MCH MCHC RDW Plt Count MPV Immature Gran % (Auto) Neut % (Auto) Lymph % (Auto) [place] % (Auto) Eos % (Auto) Baso % (Auto) Lymph # (Auto) [place] # (Auto) Eos # (Auto) Baso # (Auto) Abs Immat Gran (auto) Absolute Neuts (auto) Absolute Nucleated RBC Nucleated RBC % (auto) Anion Gap Estim Creat Clear Calc Estimated GFR Random Glucose Lactic Acid 1.1 Calcium Magnesium Total Bilirubin Direct Bilirubin AST ALT Alkaline Phosphatase Troponin I High Sens B-Natriuretic Peptide 194 H Total Protein Albumin Lipase Urine Color Urine Appearance Urine pH Ur Specific [place] Urine Protein Urine Glucose (UA) Urine Ketones Urine Blood Urine Nitrite Ur Leukocyte Esterase Urine RBC Urine WBC Ur Squamous Epith Cells Urine Bacteria COVID-19 (HARPREET) Negative COVID-19 Clin Com See Note 02/09/21 02/09/21 02/09/21 01:41 01:41 04:24 MCV MCH MCHC RDW Plt Count MPV Immature Gran % (Auto) Neut % (Auto) Lymph % (Auto) [place] % (Auto) Eos % (Auto) Baso % (Auto) Lymph # (Auto) [place] # (Auto) Eos # (Auto) Baso # (Auto) Abs Immat Gran (auto) Absolute Neuts (auto) Absolute Nucleated RBC Nucleated RBC % (auto) Anion Gap 14 Estim Creat Clear Calc 30.8 Estimated GFR 40 Random Glucose 146 H Lactic Acid Calcium 8.5 D Magnesium Total Bilirubin 0.9 Direct Bilirubin AST 11 ALT 9 Alkaline Phosphatase 117 Troponin I High Sens 15.3 B-Natriuretic Peptide Total Protein 6.3 L Albumin 3.4 L Lipase Urine Color YELLOW Urine Appearance HAZY Urine pH 6.0 Ur Specific [place] >= 1.030 H Urine Protein 2+ H Urine Glucose (UA) NEG Urine Ketones 15 Urine Blood 1+ H Urine Nitrite NEG Ur Leukocyte Esterase TRACE H Urine RBC 1-4 Urine WBC 15-29 H Ur Squamous Epith Cells 1+ Urine Bacteria 4+ COVID-19 ([facility]PREET) COVID-19 Clin Com 02/09/21 04:24 MCV MCH MCHC RDW Plt Count MPV Immature Gran % (Auto) Neut % (Auto) Lymph % (Auto) [place] % (Auto) Eos % (Auto) Baso % (Auto) Lymph # (Auto) [place] # (Auto) Eos # (Auto) Baso # (Auto) Abs Immat Gran (auto) Absolute Neuts (auto) Absolute Nucleated RBC Nucleated RBC % (auto) Anion Gap Estim Creat Clear Calc Estimated GFR Random Glucose Lactic Acid Calcium Magnesium Total Bilirubin Direct Bilirubin AST ALT Alkaline Phosphatase Troponin I High Sens B-Natriuretic Peptide 219 H Total Protein Albumin Lipase Urine Color Urine Appearance Urine pH Ur Specific [place] Urine Protein Urine Glucose (UA) Urine Ketones Urine Blood Urine Nitrite Ur Leukocyte Esterase Urine RBC Urine WBC Ur Squamous Epith Cells Urine Bacteria COVID-19 ([facility]ARPREET) COVID-19 Clin Com Imaging Radiologist's Impressions: Impressions Chest X-Ray 02/09/21 00:04 IMPRESSION: No acute cardiopulmonary findings. Stable enlargement of the pulmonary vasculature, which suggests pulmonary hypertension. Interstitial prominence is not significantly changed. Head CT 02/09/21 00:04 IMPRESSION: No evidence of acute intracranial hemorrhage or edematous territorial infarction. Moderate microangiopathy and generalized cerebral volume loss. Abdomen/Pelvis CT 02/09/21 00:11 IMPRESSION: No acute findings in the abdomen or pelvis. No obstruction. No inflammatory change. Infrarenal abdominal aortic aneurysm measuring 3.6 cm. Follow-up recommended every 2 years. Assessment and Plan (1) Gram-negative bacteremia: Status: Acute This is an 80 yo F who presented to [facility] on 02[place]08 with nausea and vomiting. She was found to have a UTI and was given 1 dose of IV antibiotics with the plan to transfer to SNF. However, her blood cultures returned positive for Gram negative and so she will be admitted for further treatment. 1. Gram Negative Bacteremia suspected urinary source no evidence of sepsis at the time of admission IV rocephin follow cultures 2. UTI antibiotics as above f/u cultures 3. Dehydration / hyponatremia (likely hypovoluemic) given 2L IVF in the ED will encourage oral hydration repeat chem tomorrow 4. DM hold metformin, use sliding scale POC + ADA diet 5. HTN BP on the softer side this AM. Received her usual dose of Coreg. Will hold evening dose Continue chronic medications as appropriate. DVT pptx, [place] Code status - Full (d/w her re: this briefly and she is unsure). She is okay with Full Code for the time being HCP -- reports she has a daughter in the area, but does not endorse her as HCP. Again reports, she is unsure. Offered to call and update the daughter, but she declined. Quality Stroke Does the patient have a stroke diagnosis?: No VTE Prior VTE?: No VTE Risk Level:: Medical - moderate - high VTE Device Contraindication: N/A - Device Ordered VTE Drug Contraindication: N/A - Med Ordered
[2021-02-09] MEDS: Enoxaparin Sodium 30 MG/0.3 ML SYRINGE SUBCUT (14:04)
[2021-02-09 16:07] LABS: Glucose, Whole Blood 161 mg/dL (60-115)
--- NOTE | 2021-02-09 16:07 | PC.NURSE ---
pt incontinent, pt cleaned, linens changed. purewick placed.
[2021-02-09 17:25] LABS: Glucose, Whole Blood 214 mg/dL (60-115)
[2021-02-09] MEDS: Insulin Lispro 100 UNIT/ML 3 ML VIAL SUBCUT (17:33)
--- NOTE | 2021-02-09 18:23 | MHC.CM.PN ---
Met with admitted patient with bed assignment pending. A&Ox3, but sleepy. IMM reviewed and signed per protocol 02/09/2021@ [id number]. [facility] offered a bed and patient accepted. CM accepted bed in [facility] and asked them to follow for d/c. No HCP on file. HCP reviewed, completed and signed. Copies given and uploaded into [facility] and [facility] Expan[facility]. HCP/daughter Chica Malik ([phone]). Pt is fully vaccinated with Moderna x2 in 05/2020. Pt lives alone, uses a cane/walker and has no services. Pt thinks ? [facility] was supposed to send a COMPLIANCE TECHNICIAN, but no one has come. PT recommends STR. D/C plan is CC of [facility] when discharged. CM to follow for d/c needs.
--- NOTE | 2021-02-09 18:35 | PC.NURSE ---
pt's boyfriend Jelani High called to talk to pt. pt sleeping, no phone available. phone number: [phone]
[2021-02-09 21:47] LABS: Glucose, Whole Blood 136 mg/dL (60-115)
[2021-02-09 23:00] LABS: Glucose, Whole Blood 123 mg/dL (60-115)
[2021-02-10] VITALS (8 sets, daily range): BP systolic 107–147; BP diastolic 51–69; PULSE 76–82; RESP 17–18; TEMP 35.9–36.6; O2SAT 92–95
[2021-02-10] MEDS: 0.9 % Sodium Chloride Flush 3 ML SYRINGE IVFLUSH ×3 (00:57→21:13)
[2021-02-10 05:48] LABS: Hemoglobin 11.3 g/dl (12.0-16.0); Mean Corpuscular HGB Conc 32.3 g/dl (31.0-35.0); Mean Corpuscular Hemoglobin 29.5 pg (27.0-33.0); Mean Corpuscular Volume 91.4 fL (80.0-98.0); Platelet Count 172 X10*3/uL (160-400); Red Blood Count 3.83 X10*6/uL (4.20-5.50); Red Cell Distribution Width 13.6 % (11.0-16.0); White Blood Count 8.3 X10*3/uL (4.8-10.8)
[2021-02-10 05:53] LABS: Anion Gap 15 (12-20); Blood Urea Nitrogen 29 mg/dL (9-16); Calcium 8.4 mg/dL (8.4-10.2); Carbon Dioxide 23 mmol/L (22-29); Chloride 100 mmol/L (96-108); Creatinine Clr Calc Pharmacy 27.9; Estimated Glomerular Filt Rate 36; Glucose Random 131 mg/dL (60-115); Potassium 3.8 mmol/L (3.3-5.1); Sodium 134 mmol/L (135-145)
--- NOTE | 2021-02-10 06:26 | PC.NURSE ---
Patient forgetful, attempts OOB, camera placed in room for safety.
[2021-02-10] MEDS: cefTRIAXone sodium 1 GM in 0.9 % Sodium Chloride 50 ML IV (06:33)
[2021-02-10 07:59] LABS: Glucose, Whole Blood 131 mg/dL (60-115)
[2021-02-10] MEDS: 0.9 % Sodium Chloride 1,000 ML 125 ML IVCONT (08:55)
[2021-02-10] MEDS: Gabapentin 300 MG CAPSULE PO ×2 (08:59→21:13)
[2021-02-10] MEDS: Omeprazole 20 MG CAPSULE.DR PO (08:59)
[2021-02-10] MEDS: Atorvastatin Calcium 80 MG TABLET PO (08:59)
[2021-02-10] MEDS: PARoxetine HCL 40 MG TABLET PO (08:59)
[2021-02-10] MEDS: carvediloL 12.5 MG TABLET PO ×2 (08:59→21:13)
[2021-02-10 11:49] LABS: Glucose, Whole Blood 150 mg/dL (60-115)
--- NOTE | 2021-02-10 12:54 | P.PNIM_ITS ---
Subjective Subjective Date of Service: 02/10/21 Interval History: feels weak no dysuria no N/V no fever Review of Systems Review of Systems: Yes all other systems are reviewed and are negative Physical Exam Vital Signs: Vital Signs: Last Vital Signs Temp 97.1 F 02/10/21 12:00 Pulse 76 02/10/21 12:00 Resp 17 02/10/21 12:00 BP 136/63 02/10/21 12:00 Pulse Ox 95 02/10/21 12:00 Body Mass Index 23.8 Gen: in no acute distress HEENT: sclera anicteric, moist mucus membranes Neck: supple Lungs: clear to auscultation bilaterally Heart: regular rate and rhythm, no murmurs Abd: soft, non-tender, non-distended Ext: no edema Skin: warm/well-perfused Neuro: alert and oriented x3, no focal findings Psych: appropriate affect Objective Data Active Medications Acetaminophen (Acetaminophen 325 Mg Tablet) 650 mg PO Q6H PRN PRN Reason: Pain, Mild (Pain Scale 1-3) Atorvastatin Calcium (Atorvastatin Calcium 80 Mg Tablet) 80 mg PO DAILY [facility] Last Admin: 02/10/21 08:59 Dose: 80 mg Documented by: SERGE Carvedilol (Carvedilol 12.5 Mg Tablet) 12.5 mg PO BID [facility]; Protocol Last Admin: 02/10/21 08:59 Dose: 12.5 mg Documented by: SERGE Enoxaparin Sodium (Enoxaparin Sodium 30 Mg/0.3 Ml Syringe) 30 mg SUBCUT Q24H [facility] Last Admin: 02/09/21 14:04 Dose: 30 mg Documented by: RAISA Gabapentin (Gabapentin 300 Mg Capsule) 300 mg PO BID [facility] Last Admin: 02/10/21 08:59 Dose: 300 mg Documented by: SERGE Ceftriaxone Sodium 1 gm/ (Sodium Chloride) 50 mls @ 100 mls/hr IV Q24H [facility] Last Infusion: 02/10/21 09:06 Dose: 0 mls/hr Documented by: SERGE Sodium Chloride (Ns) 1,000 mls @ 125 mls/hr IVCONT .Q8H [facility] Stop: 02/10/21 15:29 Last Admin: 02/10/21 08:55 Dose: 125 mls/hr Documented by: SERGE Insulin Human Lispro (Insulin Lispro 100 Unit/Ml 3 Ml Vial) 0 unit SUBCUT QIDACHS [facility]; Protocol Last Admin: 02/10/21 12:00 Dose: Not Given Documented by: SERGE Non-Admin Reason: No Insulin Coverage Latanoprost (Latanoprost 0.005 % Ophth Hortencia 2.5 Ml Drops) 1 drop EYE-BOTH BEDTIME [facility] Last Admin: 02/09/21 22:13 Dose: Not Given Documented by: ODRISM Non-Admin Reason: Med Not Available Omeprazole (Omeprazole 20 Mg Capsule.Dr) 20 mg PO DAILY [facility] Last Admin: 02/10/21 08:59 Dose: 20 mg Documented by: SERGE Ondansetron HCl (Ondansetron Hcl 4 Mg/2 Ml Vial) 4 mg IVPUSH Q8H PRN PRN Reason: Nausea and Vomiting Paroxetine HCl (Paroxetine Hcl 40 Mg Tablet) 40 mg PO DAILY [facility] Last Admin: 02/10/21 08:59 Dose: 40 mg Documented by: SERGE Pharmacy Consult (Consult Rx Perform Med Rec) 1 each MISCELLANE ONCE PRN PRN Reason: Consult order Sodium Chloride (0.9 % Sodium Chloride Flush 3 Ml Syringe) 3 ml IVFLUSH QSHIFT [facility] Last Admin: 02/10/21 08:59 Dose: 3 ml Documented by: SERGE Sumatriptan Succinate (Sumatriptan Succinate 25 Mg Tablet) 25 mg PO .QD PRN PRN Reason: migraine headache Triamcinolone Acetonide (Triamcinolone Acet 0.025 % Cream 15 Gm Tube) 1 appl TOPICAL BID PRN PRN Reason: itching Labs CBC & Chem 7: 02/10/21 04:58 02/10/21 04:58 Labs: Laboratory Results - last 24 hr 02/09/21 02/09/21 02/09/21 16:03 17:22 21:44 MCV MCH MCHC RDW Plt Count MPV Absolute Nucleated RBC Nucleated RBC % (auto) Anion Gap Estim Creat Clear Calc Estimated GFR POC Glucose 161 H 214 H 136 H Random Glucose Calcium 02/09/21 02/10/21 02/10/21 22:53 04:58 04:58 MCV 91.4 MCH 29.5 MCHC 32.3 RDW 13.6 Plt Count 172 MPV 11.0 Absolute Nucleated RBC 0.000 Nucleated RBC % (auto) 0.0 Anion Gap 15 Estim Creat Clear Calc 27.9 Estimated GFR 36 POC Glucose 123 H Random Glucose 131 H Calcium 8.4 02/10/21 02/10/21 07:50 11:11 MCV MCH MCHC RDW Plt Count MPV Absolute Nucleated RBC Nucleated RBC % (auto) Anion Gap Estim Creat Clear Calc Estimated GFR POC Glucose 131 H 150 H Random Glucose Calcium Microbiology Microbiology Results: Microbiology 02/09/21 00:00 Urine Culture - Preliminary Urine Catheterized - Straight Catheter Gram negative daisy 02/08/21 23:51 Blood Culture - Preliminary Blood - Venous Gram negative daisy 02/08/21 23:34 Blood Culture - Preliminary Blood - Venous Gram negative daisy Assessment and Plan (1) Gram-negative bacteremia: Status: Acute Assessment and Plan: hospital d#2 80yo F with DM + HTN + 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 who [place] [facility] with N/V/weak ness, found to have UTI and was awaiting SNF placement but found to have GNR bacteremia # GNR bacteremia # UTI - urinary source; follow up BCx/UCx results; continue ceftriaxone d#2 # hypovolemic hyponatremia - improved after fluid hydration # 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
[2021-02-10] MEDS: SUMAtriptan succinate 25 MG TABLET PO (13:05)
[2021-02-10] MEDS: Enoxaparin Sodium 30 MG/0.3 ML SYRINGE SUBCUT (13:06)
[2021-02-10 16:46] LABS: Glucose, Whole Blood 157 mg/dL (60-115)
[2021-02-10] MEDS: Insulin Lispro 100 UNIT/ML 3 ML VIAL SUBCUT (16:59)
[2021-02-10] MEDS: Albuterol/Iprat 2.5/0.5MG 3 ML AMPUL.NEB INHALE (17:23)
[2021-02-10 20:43] LABS: Glucose, Whole Blood 125 mg/dL (60-115)
[2021-02-10] MEDS: Latanoprost 0.005 % Ophth Sol 2.5 ML DROPS 1 DROP EYE-BOTH (21:13)
[2021-02-11] VITALS (9 sets, daily range): BP systolic 118–174; BP diastolic 57–77; PULSE 67–77; RESP 16–20; TEMP 36–36.8; O2SAT 94–98
[2021-02-11 05:29] LABS: Hematocrit 31.5 % (37.0-47.0); Hemoglobin 10.2 g/dl (12.0-16.0); Mean Corpuscular HGB Conc 32.4 g/dl (31.0-35.0); Mean Corpuscular Hemoglobin 29.2 pg (27.0-33.0); Mean Corpuscular Volume 90.3 fL (80.0-98.0); Mean Platelet Volume 10.8 fL (9.4-12.3); Platelet Count 177 X10*3/uL (160-400); Red Blood Count 3.49 X10*6/uL (4.20-5.50); Red Cell Distribution Width 13.5 % (11.0-16.0)
[2021-02-11] MEDS: cefTRIAXone sodium 1 GM in 0.9 % Sodium Chloride 50 ML IV (05:49)
[2021-02-11 05:53] LABS: Anion Gap 16 (12-20); Blood Urea Nitrogen 24 mg/dL (9-16); Calcium 8.3 mg/dL (8.4-10.2); Carbon Dioxide 21 mmol/L (22-29); Chloride 104 mmol/L (96-108); Creatinine Clr Calc Pharmacy 30.3; Estimated Glomerular Filt Rate 39; Glucose Random 144 mg/dL (60-115); Potassium 3.8 mmol/L (3.3-5.1); Sodium 137 mmol/L (135-145)
[2021-02-11 07:32] LABS: Immature Retic Fraction 16.4 % (3.0-15.9); Retic HGB Equivalent 27.6 pg (30.0-35.0); Reticulocyte Percent 1.4 % (0.5-1.8); Reticulocytes Absolute 0.047 X10*6/uL (0.026-0.095)
[2021-02-11 08:03] LABS: Iron 17 mcg/dL (30-160); Lactate Dehydrogenase 155 U/L (122-220); Percent Iron Saturation 7 % (15-50); Total Iron Binding Capacity 243 mcg/dL (228-428); Unsaturated Iron Binding 226 ug/dL
[2021-02-11 08:07] LABS: Glucose, Whole Blood 132 mg/dL (60-115)
[2021-02-11 08:23] LABS: Ferritin 187 ng/mL (10-250)
[2021-02-11] MEDS: PARoxetine HCL 40 MG TABLET PO (08:44)
[2021-02-11] MEDS: carvediloL 12.5 MG TABLET PO ×2 (08:44→21:12)
[2021-02-11] MEDS: Omeprazole 20 MG CAPSULE.DR PO (08:44)
[2021-02-11] MEDS: 0.9 % Sodium Chloride Flush 3 ML SYRINGE IVFLUSH ×3 (08:44→21:14)
[2021-02-11] MEDS: Gabapentin 300 MG CAPSULE PO ×2 (08:44→21:13)
[2021-02-11] MEDS: Atorvastatin Calcium 80 MG TABLET PO (08:44)
[2021-02-11] MEDS: Fluticasone/Vilanterol 100/25 BLST.W.DEV 1 PUFF INHALE (08:48)
--- NOTE | 2021-02-11 10:39 | HO.PM.IMPN ---
Subjective Subjective Date of Service: 02/11/21 Interval History: feels less weak no N/V no abd/suprapubic/CVA discomfort no fever Review of Systems Review of Systems: Yes all other systems are reviewed and are negative Physical Exam Vital Signs: Vital Signs: Last Vital Signs Temp 96.8 F 02/11/21 07:56 Pulse 76 02/11/21 08:48 Resp 18 02/11/21 07:56 BP 169/76 H 02/11/21 07:56 Pulse Ox 95 02/11/21 07:56 Body Mass Index 23.8 Gen: in no acute distress HEENT: sclera anicteric, moist mucus membranes Neck: supple Lungs: clear to auscultation bilaterally Heart: regular rate and rhythm, no murmurs Abd: soft, non-tender, non-distended Ext: no edema Skin: warm/well-perfused Neuro: alert and oriented x3, no focal findings Psych: appropriate affect Objective Data Active Medications Acetaminophen (Acetaminophen 325 Mg Tablet) 650 mg PO Q6H PRN PRN Reason: Pain, Mild (Pain Scale 1-3) Albuterol/Ipratropium (Albuterol/Iprat 2.5/0.5mg 3 Ml Ampul.Neb) 3 ml INHALE RQ4H PRN PRN Reason: wheeze/shortness of breath Last Admin: 02/10/21 17:23 Dose: 3 ml Documented by: ROBERTA Atorvastatin Calcium (Atorvastatin Calcium 80 Mg Tablet) 80 mg PO DAILY [facility] Last Admin: 02/11/21 08:44 Dose: 80 mg Documented by: STEFANY Carvedilol (Carvedilol 12.5 Mg Tablet) 12.5 mg PO BID [facility]; Protocol Last Admin: 02/11/21 08:44 Dose: 12.5 mg Documented by: STEFANY Enoxaparin Sodium (Enoxaparin Sodium 30 Mg/0.3 Ml Syringe) 30 mg SUBCUT Q24H [facility] Last Admin: 02/10/21 13:06 Dose: 30 mg Documented by: SERGE Fluticasone/Vilanterol (Fluticasone/Vilanterol 100/25 Blst.W.Dev) 1 puff INHALE RDAILY [facility] Last Admin: 02/11/21 08:48 Dose: 1 puff Documented by: ROBERTA Gabapentin (Gabapentin 300 Mg Capsule) 300 mg PO BID [facility] Last Admin: 02/11/21 08:44 Dose: 300 mg Documented by: STEFANY Ceftriaxone Sodium 1 gm/ (Sodium Chloride) 50 mls @ 100 mls/hr IV Q24H [facility] Last Infusion: 02/11/21 06:19 Dose: 0 mls/hr Documented by: ALEX Insulin Human Lispro (Insulin Lispro 100 Unit/Ml 3 Ml Vial) 0 unit SUBCUT QIDACHS [facility]; Protocol Last Admin: 02/11/21 08:44 Dose: Not Given Documented by: STEFANY Non-Admin Reason: No Insulin Coverage Latanoprost (Latanoprost 0.005 % Ophth Hortencia 2.5 Ml Drops) 1 drop EYE-BOTH BEDTIME [facility] Last Admin: 02/10/21 21:13 Dose: 1 drop Documented by: ALEX Omeprazole (Omeprazole 20 Mg Capsule.Dr) 20 mg PO DAILY [facility] Last Admin: 02/11/21 08:44 Dose: 20 mg Documented by: STEFANY Ondansetron HCl (Ondansetron Hcl 4 Mg/2 Ml Vial) 4 mg IVPUSH Q8H PRN PRN Reason: Nausea and Vomiting Paroxetine HCl (Paroxetine Hcl 40 Mg Tablet) 40 mg PO DAILY [facility] Last Admin: 02/11/21 08:44 Dose: 40 mg Documented by: STEFANY Pharmacy Consult (Consult Rx Perform Med Rec) 1 each MISCELLANE ONCE PRN PRN Reason: Consult order Sodium Chloride (0.9 % Sodium Chloride Flush 3 Ml Syringe) 3 ml IVFLUSH QSHIFT [facility] Last Admin: 02/11/21 08:44 Dose: 3 ml Documented by: STEFANY Sumatriptan Succinate (Sumatriptan Succinate 25 Mg Tablet) 25 mg PO .QD PRN PRN Reason: migraine headache Last Admin: 02/10/21 13:05 Dose: 25 mg Documented by: SERGE Triamcinolone Acetonide (Triamcinolone Acet 0.025 % Cream 15 Gm Tube) 1 appl TOPICAL BID PRN PRN Reason: itching Labs CBC & Chem 7: 02/11/21 04:54 02/11/21 04:54 Labs: Laboratory Results - last 24 hr 02/10/21 02/10/21 02/10/21 11:11 16:40 20:37 MCV MCH MCHC RDW Plt Count MPV Absolute Nucleated RBC Nucleated RBC % (auto) Absolute Retic Percent Retic Immature Retic Fraction Retic Hgb Equivalent Anion Gap Estim Creat Clear Calc Estimated GFR POC Glucose 150 H 157 H 125 H Random Glucose Calcium Iron TIBC % Saturation Unsat Iron Binding Ferritin Lactate Dehydrogenase 02/11/21 02/11/21 02/11/21 04:54 04:54 07:54 MCV 90.3 MCH 29.2 MCHC 32.4 RDW 13.5 Plt Count 177 MPV 10.8 Absolute Nucleated RBC 0.000 Nucleated RBC % (auto) 0.0 Absolute Retic 0.047 Percent Retic 1.4 Immature Retic Fraction 16.4 H Retic Hgb Equivalent 27.6 L Anion Gap 16 Estim Creat Clear Calc 30.3 Estimated GFR 39 POC Glucose 132 H Random Glucose 144 H Calcium 8.3 L Iron 17 L TIBC 243 % Saturation 7 L Unsat Iron Binding 226 Ferritin 187 Lactate Dehydrogenase 155 Microbiology Microbiology Results: Microbiology 02/08/21 23:51 Blood Culture - Final Blood - Venous Escherichia coli 02/08/21 23:34 Blood Culture - Final Blood - Venous Escherichia coli 02/10/21 17:15 Throat Culture - Preliminary Throat No Group A Beta-hemolytic Streptococci isolated to date. 02/09/21 00:00 Urine Culture - Final Urine Catheterized - Straight Catheter Escherichia coli Assessment and Plan (1) Gram-negative bacteremia: Status: Acute Assessment and Plan: hospital d#3 80yo F with DM + HTN + CKD3 + NICM who presented to [facility] [place] 02/08/21 with N/V/weakness, found to have UTI and was awaiting SNF placement but found to have GNR bacteremia # E coli bacteremia # UTI - resistant only to ampicillin; continue ceftriaxone d#3; can change to cefuroxime upon discharge and treat for total 14d # hypovolemic hyponatremia - resolved after IV fluid hydration # LISSET - replete Fe, check FOBT # CKD3 - avoid nephrotoxins, SCr at baseline # HTN # NICM - continue carvedilol # DM2 - correction-dose lispro # HLD - statin # GERD - PPI # chronic pain - gabapentin # mood disorder - continue paroxetine # VTE ppx - LMWH # dispo - plan STR likely tomorrow Quality Stroke Does the patient have a stroke diagnosis?: No VTE Prior VTE?: No VTE Risk Level:: Medical - moderate - high VTE Device Contraindication: N/A - Device Ordered VTE Drug Contraindication: N/A - Med Ordered
[2021-02-11 11:34] LABS: Glucose, Whole Blood 146 mg/dL (60-115)
[2021-02-11] MEDS: Ferrous Sulfate 324 MG TABLET.DR PO (11:47)
--- NOTE | 2021-02-11 14:35 | MHC.CM.PN ---
CALL TO DAUGHTER MARIBELL ([phone]) PER VOICEM[employer] MESSAGE REQUEST RECEIVED THIS SEED ANALYSIS LABORATORY ASSISTANT LEFT A MESSAGE FOR DAUGHTER WITH INFORMATION THAT PLAN IS FOR PATIENT TO TRANSFER TO [facility] TOMORROW (02/12/21) CONTACT [employer] FOR [employer] REPRESENTATIVE LEFT ON VOICEMAIL. IMM 02/11 IN CHART
[2021-02-11 16:38] LABS: Glucose, Whole Blood 152 mg/dL (60-115)
[2021-02-11] MEDS: Enoxaparin Sodium 30 MG/0.3 ML SYRINGE SUBCUT (17:03)
[2021-02-11] MEDS: Insulin Lispro 100 UNIT/ML 3 ML VIAL SUBCUT ×2 (17:04→21:13)
[2021-02-11 20:18] LABS: Glucose, Whole Blood 167 mg/dL (60-115)
[2021-02-11] MEDS: Acetaminophen 325 MG TABLET 650 MG PO (21:11)
[2021-02-11] MEDS: Latanoprost 0.005 % Ophth Sol 2.5 ML DROPS 1 DROP EYE-BOTH (21:14)
[2021-02-12 04:00] VITALS: BP 165/72; PULSE 71; RESP 20; TEMP 36.3; O2SAT 94
[2021-02-12] MEDS: cefTRIAXone sodium 1 GM in 0.9 % Sodium Chloride 50 ML IV (05:35)
[2021-02-12 05:55] LABS: Hematocrit 34.2 % (37.0-47.0); Mean Corpuscular HGB Conc 32.2 g/dl (31.0-35.0); Mean Corpuscular Hemoglobin 28.8 pg (27.0-33.0); Mean Corpuscular Volume 89.5 fL (80.0-98.0); Mean Platelet Volume 10.3 fL (9.4-12.3); Platelet Count 198 X10*3/uL (160-400); Red Blood Count 3.82 X10*6/uL (4.20-5.50); Red Cell Distribution Width 13.2 % (11.0-16.0); White Blood Count 6.6 X10*3/uL (4.8-10.8)
[2021-02-12 06:13] LABS: Anion Gap 11 (12-20); Blood Urea Nitrogen 21 mg/dL (9-16); C Reactive Protein 6.24 mg/dL (< or = 0.50); Calcium 8.7 mg/dL (8.4-10.2); Carbon Dioxide 26 mmol/L (22-29); Chloride 106 mmol/L (96-108); Creatinine Clr Calc Pharmacy 34.5; Estimated Glomerular Filt Rate 45; Glucose Random 149 mg/dL (60-115); Potassium 3.8 mmol/L (3.3-5.1); Sodium 139 mmol/L (135-145)
[2021-02-12] MEDS: 0.9 % Sodium Chloride Flush 3 ML SYRINGE IVFLUSH (07:21)
[2021-02-12 07:32] LABS: Estimated Average Glucose 157 mg/dL; Hemoglobin A1c % 7.1 %
[2021-02-12] MEDS: Fluticasone/Vilanterol 100/25 BLST.W.DEV 1 PUFF INHALE (07:48)
[2021-02-12 07:49] VITALS: PULSE 75; O2SAT 94
[2021-02-12 07:59] VITALS: BP 152/75; PULSE 72; RESP 18; TEMP 36.2; O2SAT 96
[2021-02-12 08:11] LABS: Glucose, Whole Blood 143 mg/dL (60-115)
[2021-02-12] MEDS: Gabapentin 300 MG CAPSULE PO (08:13)
[2021-02-12] MEDS: carvediloL 12.5 MG TABLET PO (08:13)
[2021-02-12] MEDS: PARoxetine HCL 40 MG TABLET PO (08:13)
[2021-02-12] MEDS: Ferrous Sulfate 324 MG TABLET.DR PO (08:13)
[2021-02-12] MEDS: Omeprazole 20 MG CAPSULE.DR PO (08:13)
[2021-02-12] MEDS: Atorvastatin Calcium 80 MG TABLET PO (08:13)
--- NOTE | 2021-02-12 09:44 | W.MHC.F2F ---
Service Date Service Date: 02/12/21 Encounter Date of encounter: 02/12/21 Reasons for Services Reason for [facility] [facility]: medication management, medication treatment and teach disease management Reason for physical therapy: home safety and mobility, therapeutic exercises, gait/transfer training, assess need for DME, ADL training and energy conservation MD Overseeing Care: Faraz Donahue Homebound: Leaving the home is medically contraindicated at this time without the asist of a device and/or another person due th the listed conditions above and below. Reason homebound: unsteady gait / fall risk, leg weakness, poor balance / fall risk and weakness related to hospital stay Certification: Based on the above findings, I certify that this patient is confined to the home and needs intermittent [facility] care, physical therapy and/or speech therapy, or continues to need occupational therapy. The patient is under my care, and I have initiated the establishment of the plan of care. The patient will be followed by a physician who will periodically review the plan of care.
[2021-02-12 09:51] LABS: Folate 8.4 ng/mL (> or = 4.0); Vitamin B12 239 pg/mL (200-900)
--- NOTE | 2021-02-12 09:57 | P.DS_ITS ---
DS: Providers Provider Date of Service: 02/12/21 Date of admission: 02/09/21 12:45 Date of discharge: 02/12/21 Primary care physician: Faraz Donahue MD DS: Diagnosis Discharge Diagnosis (1) E coli bacteremia: Status: Acute (2) E. coli UTI: Status: Acute (3) Iron deficiency anemia: Status: Acute (4) Hyponatremia: Status: Acute DS: Summary Hospital Course Hospital Course: from admission H+P by hospitalist Mac Canchola, 02/09/21: This is an 80 yo F with a PMH as outlined below who presented to [facility] [place] [facility] on 02/08/21 after an episode of vomiting and generally not feeling well. She was evaluated in the ED at that time and felt to have an UTI. She was given IV fluids and IV antibiotics and the plan was for her to be sent to short term rehab. While awaiting for this in the ED, her blood cultures returned positive for 1/2 bottles of Gram negative rods and so admission was requested. The patient was seen and evaluated in the ED around 1215PM. She reports a several day history of mid abdominal pain, mild in nature with associated nausea and an episode of vomiting. She denies any diarrhea. She reported some chills, but no fevers. She reports chronic urinary urgency but denies any dysuria or flank pain. She denies any chest pain or shortness of breath. She has been given a total of 2L IVF and 1 dose of IV ceftriaxone. She will be admitted for further treatment of her gram negative bactermia. This 80yo F with DM + HTN + CKD3 + NICM who presented to [facility] [facility] 02/08/21 with N/V/weakness fabrice found to have UTI and was awaiting SNF placement but found to have GNR bacteremia. She grew ampicillin-resistant E. coli from urine and blood. She was treated with IV ceftriaxone and transitioned to PO cefuroxime up on discharge for total antibiotic course of 14 days. Hypovolemic hyponatremia resolved after IV fluid hydration. She was prescribed iron for deficiency anemia. She declined short-term rehabilitation and was discharged home with VNA/PT services. Time Spent with Patient Time attestation: Total time spent providing and/or coordinating discharge services: Discharge coordination time: Greater than 30 minutes Quality: Stroke Does the patient have a stroke diagnosis?: No Physical Exam Vital Signs: Vital Signs: Last Vital Signs Temp 97.1 F 02/12/21 07:59 Pulse 72 02/12/21 07:59 Resp 18 02/12/21 07:59 BP 152/75 H 02/12/21 07:59 Pulse Ox 96 02/12/21 07:59 Body Mass Index 23.8 Gen: in no acute distress HEENT: sclera anicteric, moist mucus membranes Neck: supple Lungs: clear to auscultation bilaterally Heart: regular rate and rhythm, no murmurs Abd: soft, non-tender, non-distended Ext: no edema Skin: warm/well-perfused Neuro: alert and oriented x3, no focal findings Psych: appropriate affect DS: Data Data Completed and Pending Completed studies during hospitalization [Text1]: Laboratory Results WBC 6.6 X10*3/uL (4.8-10.8) 02/12/21 05:47 RBC 3.82 X10*6/uL (4.20-5.50) L 02/12/21 05:47 Hgb 11.0 g/dl (12.0-16.0) L 02/12/21 05:47 Hct 34.2 % (37.0-47.0) L 02/12/21 05:47 MCV 89.5 fL (80.0-98.0) 02/12/21 05:47 MCH 28.8 pg (27.0-33.0) 02/12/21 05:47 MCHC 32.2 g/dl (31.0-35.0) 02/12/21 05:47 RDW 13.2 % (11.0-16.0) 02/12/21 05:47 Plt Count 198 X10*3/uL (160-400) 02/12/21 05:47 MPV 10.3 fL (9.4-12.3) 02/12/21 05:47 Immature Gran % (Auto) 0.7 % (0.0-0.4) H 02/08/21 23:34 Neut % (Auto) 87.4 % (45-73) H 02/08/21 23:34 Lymph % (Auto) 6.5 % (20-40) L 02/08/21 23:34 [place] % (Auto) 5.2 % (2-11) 02/08/21 23:34 Eos % (Auto) 0.1 % (0-4) 02/08/21 23:34 Baso % (Auto) 0.1 % (0-2) 02/08/21 23:34 Lymph # (Auto) 0.9 X10*3/uL (1.2-4.9) L 02/08/21 23:34 [place] # (Auto) 0.7 X10*3/uL (0.1-1.2) 02/08/21 23:34 Eos # (Auto) 0.0 X10*3/uL (0.0-0.4) 02/08/21 23:34 Baso # (Auto) 0.0 X10*3/uL (0.0-0.2) 02/08/21 23:34 Abs Immat Gran (auto) 0.09 X10*3/uL (0.00-0.03) H 02/08/21 23:34 Absolute Neuts (auto) 11.4 x10*3/uL (2.0-8.3) H 02/08/21 23:34 Absolute Nucleated RBC 0.000 X10*3/uL (0.0-0.012) 02/12/21 05:47 Nucleated RBC % (auto) 0.0 /100WBC (0.0-0.2) 02/12/21 05:47 Absolute Retic 0.047 X10*6/uL (0.026-0.095) 02/11/21 04:54 Percent Retic 1.4 % (0.5-1.8) 02/11/21 04:54 Immature Retic Fraction 16.4 % (3.0-15.9) H 02/11/21 04:54 Retic Hgb Equivalent 27.6 pg (30.0-35.0) L 02/11/21 04:54 Sodium 139 mmol/L (135-145) 02/12/21 05:47 Potassium 3.8 mmol/L (3.3-5.1) 02/12/21 05:47 Chloride 106 mmol/L (96-108) 02/12/21 05:47 Carbon Dioxide 26 mmol/L (22-29) 02/12/21 05:47 Anion Gap 11 (12-20) L 02/12/21 05:47 BUN 21 mg/dL (9-16) H 02/12/21 05:47 Creatinine 1.15 mg/dL (0.5-1.4) 02/12/21 05:47 Estim Creat Clear Calc 34.5 02/12/21 05:47 Estimated GFR 45 02/12/21 05:47 POC Glucose 143 mg/dL (60-115) H 02/12/21 08:06 Random Glucose 149 mg/dL (60-115) H 02/12/21 05:47 Estimat Average Glucose 157 mg/dL 02/12/21 05:47 Hemoglobin A1c % 7.1 % 02/12/21 05:47 Lactic Acid 1.1 mmol/L (0.5-2.0) 02/08/21 23:51 Calcium 8.7 mg/dL (8.4-10.2) 02/12/21 05:47 Magnesium 1.7 mg/dL (1.6-2.6) 02/08/21 23:34 Iron 17 mcg/dL (30-160) L 02/11/21 04:54 TIBC 243 mcg/dL (228-428) 02/11/21 04:54 % Saturation 7 % (15-50) L 02/11/21 04:54 Unsat Iron Binding 226 ug/dL 02/11/21 04:54 Ferritin 187 ng/mL (10-250) 02/11/21 04:54 Total Bilirubin 0.9 mg/dL (0.0-1.0) 02/09/21 04:24 Direct Bilirubin 0.5 mg/dL (0.0-0.5) 02/08/21 23:34 AST 11 U/L (5-31) 02/09/21 04:24 ALT 9 U/L (0-31) 02/09/21 04:24 Alkaline Phosphatase 117 U/L (39-117) 02/09/21 04:24 Lactate Dehydrogenase 155 U/L (122-220) 02/11/21 04:54 Troponin I High Sens 15.3 ng/L (<3.5-17.0) 02/09/21 01:41 C-Reactive Protein 6.24 mg/dL (< or = 0.50) H 02/12/21 05:47 B-Natriuretic Peptide 219 pg/mL (<100) H 02/09/21 04:24 Total Protein 6.3 g/dL (6.5-8.0) L 02/09/21 04:24 Albumin 3.4 g/dL (3.5-5.0) L 02/09/21 04:24 Lipase 5 U/L (8-78) L 02/08/21 23:34 Vitamin B12 239 pg/mL (200-900) 02/11/21 04:54 Folate 8.4 ng/mL (> or = 4.0) 02/11/21 04:54 Urine Color YELLOW 02/09/21 01:41 Urine Appearance HAZY 02/09/21 01:41 Urine pH 6.0 (5.0-8.0) 02/09/21 01:41 Ur Specific [place] >= 1.030 (1.005-1.025) H 02/09/21 01:41 Urine Protein 2+ MG/DL (NEG-TRACE) H 02/09/21 01:41 Urine Glucose (UA) NEG MG/DL (NEG) 02/09/21 01:41 Urine Ketones 15 MG/DL (NEG) 02/09/21 01:41 Urine Blood 1+ (NEG) H 02/09/21 01:41 Urine Nitrite NEG (NEG) 02/09/21 01:41 Ur Leukocyte Esterase TRACE (NEG) H 02/09/21 01:41 Urine RBC 1-4 /HPF (0) 02/09/21 01:41 Urine WBC 15-29 /HPF (0-4) H 02/09/21 01:41 Ur Squamous Epith Cells 1+ /LPF 02/09/21 01:41 Urine Bacteria 4+ /LPF 02/09/21 01:41 COVID-19 (HARPREET) Negative (Negative) 02/08/21 23:51 COVID-19 Clin Com See Note 02/08/21 23:51 Impressions Chest X-Ray 02/09/21 00:04 IMPRESSION: No acute cardiopulmonary findings. Stable enlargement of the pulmonary vasculature, which suggests pulmonary hypertension. Interstitial prominence is not significantly changed. Head CT 02/09/21 00:04 IMPRESSION: No evidence of acute intracranial hemorrhage or edematous territorial infarction. Moderate microangiopathy and generalized cerebral volume loss. Abdomen/Pelvis CT 02/09/21 00:11 IMPRESSION: No acute findings in the abdomen or pelvis. No obstruction. No inflammatory change. Infrarenal abdominal aortic aneurysm measuring 3.6 cm. Follow-up recommended every 2 years. Discharge Plan Discharge Patient Disposition: Home Health Service Discharge Diagnosis: E coli bacteremia/UTI Referrals: [facility] [Outside] - 1 Week Po,Faraz Dozier MD [Primary Care Provider] - 1 Week Discharge Medications: New cefuroxime axetil 500 mg Tablet 500 mg PO Q12H Qty: 22 RF: 0 ferrous sulfate 324 mg (65 mg iron) Tablet,Delayed Release (Dr/Ec) 324 mg PO DAILY Qty: 30 RF: 0 Breo Ellipta 100-25 mcg/dose Blister With Device 1 ea inhalation RDAILY Qty: 28 RF: 0 Continued atorvastatin 80 mg tablet 80 mg PO DAILY Qty: 90 RF: 1 gabapentin 300 mg capsule 300 mg PO BID 90 Days Qty: 180 RF: 0 sumatriptan succinate [Imitrex] 25 mg tablet 25 mg PO .QD PRN (Reason: migraine headache) Qty: 10 RF: 1 metformin 500 mg tablet 500 mg PO DAILY Qty: 180 RF: 1 carvedilol 12.5 mg tablet 12.5 mg PO BID Qty: 180 RF: 1 paroxetine HCl 40 mg tablet 40 mg PO DAILY Qty: 90 RF: 2 alclometasone 0.05 % cream 1 appl topical BID PRN (Reason: itching) 14 Days Qty: 15 RF: 0 omeprazole 20 mg capsule,delayed release(DR/EC) 20 mg PO DAILY 30 Days Qty: 30 RF: 6 latanoprost 0.005 % drops 1 drp ophthalmic (eye) BEDTIME RF: 0 Discontinued tramadol 50 mg tablet 50 mg PO TID PRN (Reason: pain) 30 Days Qty: 90 RF: 2 hydrocodone-acetaminophen 5-325 mg tablet 1 tab PO DAILY PRN (Reason: pain) 30 Days Qty: 20 RF: 0 Discharge Orders: Discharge Order (Routine); Ordered 02/12/21 Ordered By: Alexander Ramey Diet: advance to usual diet Activity on Discharge: As tolerated Stand Alone Forms: Patient Portal Discharge page Care Plan Goals: cure infection improve anemia Health Concerns: E. coli bacteremia/UTI anemia Plan of Treatment: cefuroxime 500 mg 2x a day for 11 days ferrous sulfate 324 mg once a day for a month see your primary care doctor in 1 month Assessment: See Discharge Summary Patient Instructions: Bacteremia (DC)
--- NOTE | 2021-02-12 11:12 | MHC.CM.PN ---
CM ATTEMPTED TO CONTACT PT'S DTR D/T MESSAGE LEFT W/CM ROLL FINISHER, IN MESSAGE PT'S DTR REQUESTING HOME SERVICES FOR PT WHICH HAVE BEEN SET UP W/CHRYSTAL CM ATTEMPTED TO ALL DTR BACK AT 11:10AM [phone] HOWEVER LINE WAS BUSY. PT TO DISCHARGE HOME W/HALFWAY AND HOME PT, FAMILY FO TRANSPORT.
[2021-02-12 11:40] VITALS: BP 136/65; PULSE 66; RESP 18; TEMP 36.1; O2SAT 96
[2021-02-12] MEDS: Insulin Lispro 100 UNIT/ML 3 ML VIAL SUBCUT (11:46)
[2021-02-12 12:06] LABS: Glucose, Whole Blood 160 mg/dL (60-115)
== END 2021-02-12 15:07 | disposition home health service (06) | DRG 690 ==
LOC: HO.ED 02-09 11:42 → HO.EDOVER 02-09 13:18 → HO.S3 02-09 21:28
PROVIDERS: Physician Assistant; Student in an Organized Health Care Education/Training Program; Admitting Provider Family Medicine; Emergency Provider Internal Medicine; PCP Internal Medicine; Visit Provider Family Medicine
DX: N39.0 Urinary tract infection, site not specified (principal); E87.1 Hypo-osmolality and hyponatremia; R78.81 Bacteremia; I42.8 Other cardiomyopathies; I12.9 Hypertensive chronic kidney disease with stage 1 through stage 4 chronic kidney disease, or unspecified chronic kidney disease; E11.22 Type 2 diabetes mellitus with diabetic chronic kidney disease; G89.29 Other chronic pain; B96.20 Unspecified Escherichia coli [E. coli] as the cause of diseases classified elsewhere; F39 Unspecified mood [affective] disorder; N18.30 Chronic kidney disease, stage 3 unspecified; D50.9 Iron deficiency anemia, unspecified; E86.0 Dehydration; Z20.822 Contact with and (suspected) exposure to COVID-19; Z95.2 Presence of prosthetic heart valve; Z87.891 Personal history of nicotine dependence; Z79.51 Long term (current) use of inhaled steroids; Z79.84 Long term (current) use of oral hypoglycemic drugs; Z79.899 Other long term (current) drug therapy
CPT/HCPCS: 36415; 70450; 71046; 74176; 80048; 80053; 80076; 81001; 82607; 82728; 82746; 82947; 83036; 83540; 83605; 83615; 83690; 83735; 83880; 84484; 85025; 85027; 85045; 86140; 87040; 87071; 87077; 87086; 87088; 87186; 87205; 87635; 93005; 94640; 96361; 96365; 96366; 97161; 99285; J0696; J1650

== ENCOUNTER 2021-05-08 10:46 | Outpatient (REF) | payer MEDICARE, SELFPAY ==
[2021-05-08 11:07] LABS: MANUAL DIFF FLAG NO
[2021-05-08 11:26] LABS: Basophils Absolute Auto 0.1 X10*3/uL (0.0-0.2); Eosinophils Absolute Auto 0.5 X10*3/uL (0.0-0.4); Eosinophils Percent Auto 6.2 % (0-4); Hematocrit 41.2 % (37.0-47.0); Hemoglobin 13.1 g/dl (12.0-16.0); Imm Gran Abs Auto 0.03 X10*3/uL (0.00-0.03); Imm Gran Pct Auto 0.4 % (0.0-0.4); Immature Retic Fraction 10.8 % (3.0-15.9); Lymphocytes Absolute Auto 2.4 X10*3/uL (1.2-4.9); Lymphocytes Percent Auto 29.4 % (20-40); Mean Corpuscular HGB Conc 31.8 g/dl (31.0-35.0); Mean Corpuscular Hemoglobin 29.3 pg (27.0-33.0); Mean Corpuscular Volume 92.2 fL (80.0-98.0); Mean Platelet Volume 10.5 fL (9.4-12.3); Monocytes Absolute Auto 0.6 X10*3/uL (0.1-1.2); Monocytes Percent Auto 7.6 % (2-11); Neutrophils Absolute Auto 4.5 x10*3/uL (2.0-8.3); Neutrophils Percent Auto 55.4 % (45-73); Platelet Count 248 X10*3/uL (160-400); Red Blood Count 4.47 X10*6/uL (4.20-5.50); Red Cell Distribution Width 14.4 % (11.0-16.0); Retic HGB Equivalent 32.9 pg (30.0-35.0); Reticulocyte Percent 1.8 % (0.5-1.8)
[2021-05-08 11:32] LABS: Estimated Average Glucose 151 mg/dL; Hemoglobin A1c % 6.9 %
[2021-05-08 12:01] LABS: B Type Natriuretic Peptide 132 pg/mL (<100)
[2021-05-08 12:08] LABS: Alanine Aminotransferase 13 U/L (0-31); Alkaline Phosphatase 111 U/L (39-117); Anion Gap 14 (12-20); Aspartate Amino Transferase 16 U/L (5-31); Bilirubin Total 0.7 mg/dL (0.0-1.0); Blood Urea Nitrogen 22 mg/dL (9-16); Calcium 9.6 mg/dL (8.4-10.2); Carbon Dioxide 28 mmol/L (22-29); Chloride 101 mmol/L (96-108); Cholesterol 211 mg/dL; Estimated Glomerular Filt Rate 42; Glucose Random 138 mg/dL (60-115); HDL Cholesterol 56 mg/dL; Iron 102 mcg/dL (30-160); LDL Cholesterol Calculated 128 mg/dl; Percent Iron Saturation 30 % (15-50); Potassium 4.8 mmol/L (3.3-5.1); Sodium 138 mmol/L (135-145); Total Iron Binding Capacity 339 mcg/dL (228-428); Total Protein 7.4 g/dL (6.5-8.0); Triglycerides 139 mg/dL; Unsaturated Iron Binding 237 ug/dL
[2021-05-08 12:29] LABS: Ferritin 96 ng/mL (10-250); Free T4 (Free Thyroxine) 0.83 ng/dL (0.71-1.85); Thyroid Stimulating Hormone 1.69 uIU/mL (0.32-4.0)
[2021-05-08 14:04] LABS: Appearance Urine HAZY; Color Urine YELLOW; Glucose Urine UA NEG (NEG); Leukocyte Esterase Urine TRACE (NEG); Nitrite Urine NEG (NEG); PH 5.5 (5.0-8.0); Specific Gravity - Urine 1.025 (1.005-1.025); Urine Blood NEG (NEG); Urine Ketones NEG (NEG); Urine Protein NEG (NEG-TRACE)
[2021-05-08 14:26] LABS: Creatinine Urine 98.57 mg/dL; Microalbum/Creatinine Ratio Ur 13.1 ug/mg cr
[2021-05-08 14:28] LABS: Bacteria Urine 3+ /LPF; RBC Urine 0 /HPF (0); Squamous Epithelial Cell Urine 2+ /LPF
[2021-05-09 20:58] LABS: Folate 12.3 ng/mL (> or = 4.0); Vitamin B12 384 pg/mL (200-900)
== END 2021-05-08 10:47 | disposition home or self-care (01) ==
LOC: HO.LAB 10:46
PROVIDERS: PCP Internal Medicine; Visit Provider Internal Medicine
DX: E78.00 Pure hypercholesterolemia, unspecified (principal); D50.9 Iron deficiency anemia, unspecified; I42.8 Other cardiomyopathies; E11.65 Type 2 diabetes mellitus with hyperglycemia
CPT/HCPCS: 36415; 80053; 80061; 81001; 81003; 82043; 82607; 82728; 82746; 83036; 83540; 83880; 84439; 84443; 85025; 85045

== ENCOUNTER 2021-06-03 14:01 | Inpatient (IN) | payer MEDICARE, SELFPAY ==
[2021-06-03] VITALS (33 sets, daily range): BP systolic 111–221; BP diastolic 47–104; PULSE 62–91; RESP 12–23; TEMP 36.3–36.7; O2SAT 77–98; BMI 29.9
--- NOTE | ~2021-06-03 | CT_ITS ---
EXAMINATION: CT CHEST WITHOUT CONTRAST CLINICAL INFORMATION: Pneumonia COMPARISON: Chest radiograph earlier today TECHNIQUE: Multidetector volumetric CT imaging of the chest was done. Axial MIP volume rendering provided. Sagittal and coronal reformatted images were obtained. This CT examination was performed using dose optimization techniques as appropriate, variously including the following: *Automated exposure control *Adjustment of mA and/or kV according to patient size (this includes techniques or standardized protocols for targeted exams where dose is matched to indication/reason for exam; i.e. extremities or head) *Use of iterative reconstruction technique DLP: 740 mGy-cm FINDINGS: There is marked motion artifact degrading detail. LUNGS: Multifocal groundglass infiltrates are present throughout the lungs corresponding with the abnormality seen on the chest radiograph. No suspicious lung masses are seen. No infiltrates with air bronchograms are present. MEDIASTINUM: Status post median sternotomy. Aortic valve prosthesis present. Severe coronary disease is present. No gross mediastinal or hilar lymphadenopathy heart size normal. Visualized thyroid is normal PLEURA: There is no pleural effusion. No pleural mass or thickening. AXILLA: No lymphadenopathy. UPPER ABDOMEN: Residual contrast in renal collecting system from prior contrast administration earlier today. No significant abnormality is seen. OSSEOUS STRUCTURES: Patient status post median sternotomy. Degenerative changes are present in the spine most marked in the lumbar region with scoliosis convex to the left. A prosthetic aortic valve is present CT/CT chest wo con IMPRESSION: Multifocal groundglass infiltrates present. Most likely diagnosis would be viral pneumonia. CHF with pulmonary edema is felt to be less likely. Fleischner guidelines were followed.
--- NOTE | ~2021-06-03 | CT_ITS ---
EXAMINATION: CT HEAD WITHOUT CONTRAST (STROKE PROTOCOL) CLINICAL INFORMATION: Stroke protocol. Aphasia COMPARISON: 02/18/[address] scan[address] TECHNIQUE: Contiguous axial imaging was performed from the skull base to vertex without intravenous administration of contrast. Coronal and sagittal reformatted images were obtained. This CT examination was performed using dose optimization techniques as appropriate, variously including the following: *Automated exposure control *Adjustment of mA and/or kV according to patient size (this includes techniques or standardized protocols for targeted exams where dose is matched to indication/reason for exam; i.e. extremities or head) *Use of iterative reconstruction technique DLP: 669 mGy-cm FINDINGS: There is no intracranial hemorrhage, hematoma, or extra-axial fluid collection. The ventricles are normal in size. Mild periventricular microvascular changes are seen. There is no hydrocephalus, edema, or mass effect. The martin-white matter differentiation appears symmetric. There is no acute infarct or mass lesion. The calvarium appears intact. There is no pneumocephalus or orbital emphysema. The visualized sinuses and middle ears and mastoid air cells show no significant mucosal thickening. There are no air-fluid levels. Moderate mid nasal septal deviation, apex of the right is seen. CT/CT head for stroke IMPRESSION: No acute intracranial pathology. Please refer to the report from the CTA of the head and neck from today for additional findings. This critical result was discussed with Dr. Barboza at 2:25 PM hours on 06/03/2021. It was ascertained that the content and urgency of the report was understood at the time of direct communication.
--- NOTE | ~2021-06-03 | CT_ITS ---
EXAMINATION: CT ANGIOGRAM OF THE CHEST WITH AND WITHOUT CONTRAST (CT PULMONARY ANGIOGRAM FOR PE) CLINICAL INFORMATION: Reason for Exam unresponsive episode, SOB, R/O PE COMPARISON: Noncontrast Chest CT 3 days ago on 06/03/2021 TECHNIQUE: Prior to contrast administration, noncontrast localization images were obtained. Subsequently, multidetector volumetric imaging was performed from the thoracic inlet to below the diaphragms following the administration of 70 mL Omnipaque 350 intravenous contrast. No contrast reaction reported Sagittal, coronal, and MIP oblique sagittal reformatted images were obtained on the CT workstation, uploaded to PACS, and reviewed. This CT examination was performed using dose optimization techniques as appropriate, variously including the following: *Automated exposure control *Adjustment of mA and/or kV according to patient size (this includes techniques or standardized protocols for targeted exams where dose is matched to indication/reason for exam; i.e. extremities or head) *Use of iterative reconstruction technique Total exam dose-length product 372 mGy-cm FINDINGS: QUALITY OF STUDY/CONTRAST BOLUS: Satisfactory. PULMONARY ARTERIES: No central or segmental pulmonary emboli. THORACIC AORTA: No aneurysm or dissection. Motion artifact degrades evaluation. LUNG: There is been a marked improvement in appearances since the prior study from 3 days ago which had demonstrated multifocal groundglass infiltrates which are nearly resolved. At that time differential is thought to represent edema versus infection. Such speedy resolution suggests that this may have been edema. No consolidations. MEDIASTINUM: Status post median sternotomy. Aortic valve prosthesis present. Severe coronary disease is present. No gross mediastinal or hilar lymphadenopathy heart size normal. Visualized thyroid is normal PLEURA: There is no pleural effusion. No pleural mass or thickening. AXILLA: No lymphadenopathy. UPPER ABDOMEN: . No significant abnormality is seen. OSSEOUS STRUCTURES: Patient status post median sternotomy. Degenerative changes are present in the spine CT/CT angio chest PE protocol IMPRESSION: 1. No pulmonary emboli 2. Marked improvement in previously seen groundglass infiltrates indicative of fact that this probably represented edema rather than infection VTE: negative
--- NOTE | ~2021-06-03 | CT_ITS ---
EXAMINATION: CT HEAD WITHOUT CONTRAST CLINICAL INFORMATION: Rule out bleed. Post CTA. COMPARISON: CT head 06/03/2021. CT angiography head 06/03/2021. CT head 02/09/2021. TECHNIQUE: Contiguous axial imaging was performed from the skull base to vertex without intravenous administration of contrast. This CT examination was performed using dose optimization techniques as appropriate, variously including the following: *Automated exposure control *Adjustment of mA and/or kV according to patient size (this includes techniques or standardized protocols for targeted exams where dose is matched to indication/reason for exam; i.e. extremities or head) *Use of iterative reconstruction technique DLP: 740 mGy-cm FINDINGS: No intracranial hemorrhage, tumors or definitive acute infarcts are noted. Moderate subcortical and periventricular might matter patchy hypodensities are noted. Patchy hypodensity is present in the head and anterior body of the left caudate nucleus. These findings are suspicious for chronic microangiopathic ischemic disease. Bilateral ocular lens extractions are visualized. No significant opacification of the visualized paranasal sinuses, mastoid air cells and middle ear cavities is identified. Mild diffuse commensurate prominence of ventricles and sulci is noted. CT/CT head/brain wo con IMPRESSION: *No acute intracranial abnormalities identified. No intracranial hemorrhage or acute infarcts visualized. *Moderate joint hepatic chronic small vessel ischemic disease and mild diffuse parenchymal volume loss of the brain.
--- NOTE | ~2021-06-03 | CT_ITS ---
EXAMINATION: CT ANGIOGRAM OF THE HEAD CT ANGIOGRAM OF THE NECK CLINICAL INFORMATION: Aphasia. COMPARISON: Concurrent CT scan of the head 06/03/2021. TECHNIQUE: Test bolus series followed by intravenous administration 75 mL of Omnipaque 350. Helical imaging was performed in the axial plane from the mediastinum to the skull vertex. A delayed post contrast CT scan of the head was obtained. The degree of stenosis is based off NASCET criteria. The data was processed at the mechanical engineering technologist workstation for generation of MIP images. Three-dimensional volume rendered reformatted images were also generated at an offline 3-D workstation. This CT examination was performed using dose optimization techniques as appropriate, variously including the following: *Automated exposure control *Adjustment of mA and/or kV according to patient size (this includes techniques or standardized protocols for targeted exams where dose is matched to indication/reason for exam; i.e. extremities or head) *Use of iterative reconstruction technique DLP: 1499 mGy-cm. FINDINGS: CT Head: There is no evidence of acute intracranial hemorrhage or territorial infarction. No abnormal mass-effect or midline shift is seen. [place] to white matter differentiation is well preserved. No extra-axial fluid collections are identified. There is no abnormal enhancement. There is mild commensurate prominence of the ventricles and sulci consistent with diffuse volume loss. There are a few scattered foci of low attenuation in the periventricular and subcortical white matter, most consistent with chronic microvascular ischemic changes. There are severe degenerative changes of the temporomandibular joints, markedly worse on the right. There have been bilateral lens extractions. There are no acute osseous findings. There is hyperostosis frontalis interna. The nasal septum is deviated to the right. The mastoid air cells and the paranasal sinuses are well-aerated. CTA Neck: There is a four-vessel aortic arch, and the left vertebral artery arises directly off the arch. There are atheromatous calcifications of the aortic arch and upper thoracic aorta. There are atheromatous calcifications at the origins of the great vessels of the neck and right subclavian artery; these vessels are patent. The bilateral common carotid arteries are slightly tortuous but are patent. There are moderate atheromatous calcifications in the mid left common carotid artery with milder changes on the right. There are atheromatous calcifications at the bilateral carotid bifurcations with approximately 40% stenosis on the right. There is no significant stenosis on the left. The cervical internal carotid arteries are patent bilaterally. The origins of the vertebral arteries are well-demonstrated. Both vertebral arteries are patent throughout their cervical course extending intradurally. The vertebral arteries are codominant. Nonvascular: There is a trace right pleural effusion. There are patchy groundglass opacities in the upper lungs bilaterally. The thyroid gland is normal in size. There are sequelae of median sternotomy. There is a 2.0 x 1.2 cm AP window lymph node, and there are a few smaller pretracheal lymph nodes measuring up to 1.2 cm. Small lymph nodes are noted at multiple levels in the neck bilaterally. There is severe spondylosis in the mid and lower cervical spine. There is a degenerative anterolisthesis of C3 on C4 and there is marked narrowing of intervertebral disc height at C4-C5, C5-C6 and C6-C7. There are facet arthropathic changes which are most severe on the left. CTA Head: There are mild atheromatous calcifications of the cavernous internal carotid arteries, but the vessels are patent. The middle and anterior cerebral arteries bilaterally demonstrate normal caliber with no evidence of focal stenosis, aneurysm or vascular malformation. There is normal arborization of the middle cerebral artery branches. The anterior communicating artery is normal. In the posterior circulation, the vertebral arteries are codominant. They have uniform caliber. The basilar artery appears normal. There is a origin of the left posterior cerebral artery. Both posterior cerebral arteries are widely patent. The venous sinuses opacify normally. CT/CT angio head neck stroke IMPRESSION: 1. There are no acute bleeds or territorial infarcts. There are no masses or areas of abnormal enhancement. 2. There is diffuse volume loss and there are chronic microvascular ischemic changes. 3. There are moderately prominent lymph nodes in the mediastinum which are nonspecific. There are groundglass opacifications in the upper lung dawson. These could be further evaluated with CT scan of the chest. 4. There are atheromatous calcifications in the neck vasculature, without flow-limiting stenoses. 5. Intracranially there are no focal stenoses, aneurysms or vascular malformations.
--- NOTE | ~2021-06-03 | XR_ITS ---
EXAMINATION: XR CHEST CLINICAL INFORMATION: Hypoxia COMPARISON: Chest radiograph 02/09/2021 TECHNIQUE: Frontal view of the chest was obtained. FINDINGS: There is new diffuse pulmonary airspace disease consistent with diffuse pneumonia. CHF thought to be less likely. No pleural effusions and heart size is normal. Patient status post median sternotomy XR/XR chest 1V IMPRESSION: Diffuse pulmonary infiltrates consistent with diffuse pneumonia, possibly viral.
--- NOTE | ~2021-06-03 | CT_ITS ---
EXAMINATION: CT HEAD WITHOUT CONTRAST CLINICAL INFORMATION: Post seizure. Mental status change. COMPARISON: Previous head CT from earlier the same day TECHNIQUE: Contiguous axial imaging was performed from the skull base to vertex without intravenous administration of contrast. This CT examination was performed using dose optimization techniques as appropriate, variously including the following: *Automated exposure control *Adjustment of mA and/or kV according to patient size (this includes techniques or standardized protocols for targeted exams where dose is matched to indication/reason for exam; i.e. extremities or head) *Use of iterative reconstruction technique DLP: 778 mGy-cm FINDINGS: There is no evidence of an extra-axial collection. There is no evidence of intra-axial or extra-axial hemorrhage. The ventricles and extra-axial CSF spaces are appropriate. There is extensive periventricular white matter disease. No mass or mass effect is seen. No skull fracture is seen. Visualized paranasal sinuses are clear. There are degenerative changes at the temporomandibular joints. CT/CT head/brain wo con IMPRESSION: No acute findings. Severe nonspecific periventricular white matter disease similar to previous exams..
--- NOTE | ~2021-06-03 | MR_ITS ---
EXAMINATION: MRI OF THE BRAIN WITHOUT CONTRAST CLINICAL INFORMATION: Evaluate for CVA, status post TPA. COMPARISON: Multiple prior studies, the most recent CT scan of the head 06/03/2021. TECHNIQUE: MRI of the brain was obtained using routine sequences without contrast. FINDINGS: Imaging is suboptimal due to patient motion artifact on multiple sequences. No diffusion abnormalities are identified to suggest an acute or subacute infarct. No mass effect or midline shift is seen. There is commensurate prominence the ventricles and sulci consistent with diffuse volume loss. There are extensive areas of hyperintense T2 and FLAIR signal in the periventricular and subcortical white matter and in the spring, most consistent with chronic microvascular ischemic changes. There is a lacunar infarct in the right spring. No extra-axial fluid collections are seen. The brainstem and cerebellum are normal. No pathologic magnetic susceptibility artifact is identified on the gradient refocused acquisition. The craniovertebral junction, marrow signal, and midline structures are normal. The major intracranial flow-voids at the level of the [place] are preserved. There have been bilateral lens extractions. The dural venous sinus flow-voids are maintained. There is trace fluid at the right mastoid tip. The paranasal sinuses appear well-aerated. There are degenerative changes of the bilateral temporomandibular joints. MR/MR head/brain wo con IMPRESSION: 1. Suboptimal study due to patient motion artifact on multiple sequences. 2. Grossly, no evidence of acute infarction or bleed. No masses are demonstrated. 3. 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 There are chronic microvascular ischemic changes.
--- NOTE | ~2021-06-03 | XR_ITS ---
EXAMINATION: XR CHEST CLINICAL INFORMATION: Endotracheal tube placement COMPARISON: Previous chest x-ray and chest CT from earlier the same day TECHNIQUE: Frontal view of the chest was obtained. FINDINGS: There is an endotracheal tube with tip 4.2 cm above the neda. The cardiac and mediastinal contours are stable. There is a prosthetic aortic valve and median sternotomy wires. There is bilateral groundglass attenuation, left greater than right. This may be slightly improved compared to exam from earlier the same day. Differential would include pulmonary edema and pneumonia. There is no pleural effusion or pneumothorax. XR/XR chest 1V IMPRESSION: Endotracheal tube tip 4.2 cm above the neda. Question slight interval improvement in groundglass attenuation/airspace disease, left greater than right, from exam from earlier the same day.
--- NOTE | 2021-06-03 14:05 | ECG_ITS ---
Test Reason : stroke Blood Pressure : / mmHG Vent. Rate : 094 BPM Atrial Rate : 094 BPM P-R Int : 194 ms QRS Dur : 104 ms QT Int : 398 ms P-R-T Axes : 058 -08 107 degrees QTc Int : 497 ms Normal sinus rhythm ST & T wave abnormality, consider lateral ischemia Prolonged QT Abnormal ECG When compared with ECG of 08-FEB-2021 23:13, No significant change was found Referred By: Lenin Barboza Electronically Signed By:KATIA HAYNES MD
--- NOTE | 2021-06-03 14:07 | ED_ITS ---
HPI - Neuro Symptoms/Deficit General Chief Complaint: Stroke Stated Complaint: stroke lkwt 30 mins ago Time Seen by Provider: 06/03/21 14:04 Source: EMS Mode of arrival: EMS Limitations: other (aphasia) History of Present Illness HPI Narrative: Brought here by ambulance sudden onset aphasia, gaze to the left,does not follow command. Per friend Tami [phone] who was with her pt was normal till 45 m prior the call to 911,per tami she was talking normal and fixing dinner prior to the event,pt is unable to give hx because aphasia Onset (ago): minute(s) (45) Timing confirmed by: other (Tami friend that was with her) Location: speech History of same: No Severity: severe Quality: constant Relieving factors: none Context: sudden onset On Anticoagulants: No Treatments Prior to Arrival: none Related Data Home Medications Medication Instructions Recorded Confirmed latanoprost 0.005 % eye drops 1 drp OPHTHALMIC (EYE) BEDTIME 08/18/20 02/09/21 Previous Rx's Medication Instructions Recorded omeprazole 20 mg capsule,delayed 20 mg PO DAILY 30 Days #30 cap 07/10/20 release sumatriptan succinate 25 mg tablet 25 mg PO .QD PRN #10 tab 10/17/20 (Imitrex) alclometasone 0.05 % topical cream 1 appl TOPICAL BID PRN 14 Days #15 01/02/21 g carvedilol 12.5 mg tablet 12.5 mg PO BID #180 tab 01/15/21 metformin 500 mg tablet 500 mg PO DAILY #180 tab 01/15/21 paroxetine HCl 40 mg tablet 40 mg PO DAILY #90 tab 02/05/21 ferrous sulfate 324 mg (65 mg 324 mg PO DAILY #30 tab 02/12/21 iron) tablet,delayed release atorvastatin 80 mg tablet 80 mg PO DAILY #90 tab 02/26/21 albuterol sulfate 90 mcg/actuation 2 puff INHALATION Q4-6H PRN #8.5 g 04/09/21 aerosol inhaler (ProAir HFA) fluticasone furoate 100 1 ea INHALATION RDAILY #28 ea 04/09/21 mcg-vilanterol 25 mcg/dose inhalation powder (Breo Ellipta) gabapentin 300 mg capsule 300 mg PO BID 90 Days #180 cap 04/09/21 sulfamethoxazole 800 1 tab PO BID 5 Days #10 tab 05/08/21 mg-trimethoprim 160 mg tablet (Bactrim DS) Allergies Allergy/AdvReac Type Severity Reaction Status Date / Time No Known Allergies Allergy Mild NONE Verified 04/09/21 14:48 Review of Systems Review of Systems: Yes all other systems are reviewed and are negative Cardiovascular: Cardiovascular: Reports no additional cardiovascular complaints Respiratory: Respiratory: Reports no additional respiratory complaints Gastrointestinal: Gastrointestinal: Reports no additional gastrointestinal complaints PMFSH Past Medical History Attestation statement: The following information was validated with the patient. Medical History Abdominal aortic aneurysm without rupture Anxiety and depression COPD (chronic obstructive pulmonary disease) Hypercholesterolemia Hypertension Obesity (BMI 30-39.9) Osteoarthritis Osteoporosis Type 2 diabetes mellitus with hyperglycemia Urinary incontinence Vitamin D deficiency Surgical History History of colonoscopy History of heart valve replacement (~08/2013) History of left hip replacement History of right hip replacement (~08/2014) Status post aortic valve replacement with bioprosthetic valve Family History Family History Father No problems noted. Mother History of high cholesterol Social History Social History Household Members: None Housing: Apartment Do you presently have visiting nurse or other home services: No Alcohol intake: unknown Patient Tobacco Use Status: Former Tobacco user Quit Date: 5 years ago Tobacco use type: Cigarette Cigarette Packs Per Day: 1 Cigarettes Per Day: 20.0 Years Smoked: 55 e-Cigarette/Vaping Use: Never Used Second Hand Smoke Exposure: No Advance Directives: No Advance Directives Information Provided: No service: No Current occupational status: retired Physical Exam Vital Signs: Vital Signs: Last Vital Signs Temp 97.3 F 06/03/21 14:50 Pulse 91 06/03/21 17:11 Resp 14 06/03/21 16:25 BP 215/97 H 06/03/21 17:11 Pulse Ox 90 L 06/03/21 15:54 BMI result Body Mass Index 29.9 Const: Other: Alert gaze ton the left aphasic General: well developed Nutritional Appearance: well nourished Limitations: other limitations (aphasia) HENMT: Head: Yes normal to inspection Face and sinus: Yes normal facial exam Mouth: Normal oral and palatal mucosa present Throat: Yes posterior oropharynx normal Chest: Chest palpation & inspection: normal inspection of the chest Resp: Effort & Inspection: normal respiratory effort Auscultation: clear to auscultation bilaterally Cardio: Jugular venous distension: no JVD Rate: regular rate Rhythm: regular rhythm GI: Inspection: Yes normal to inspection Palpation (GI): Soft to palpation, not firm and nontender Auscultation: normal bowel sounds Course Reevaluation(s) Reevaluation #1: I contact collateral I spoke with Ade close friend( like a sister per Ade [phone] ),the only relative that pt has is a daughter per Ade pt has no contact with daughter.I discussed with Ade TPA risk benefit will go ahed with TPA . I also spoke with Tami [phone] the friend that was with the pt he confirm that onset was 45 minutes prior [address] head negative for bleed,discussed with Dr Shafer,Initial BP elevated better after labetalol. Time: 14:54 Reevaluation #2: MorE awake more responsive 02 sat noted but has hx of COPD ,will do ABG per Intesivist Dr Deleon Time: 16:14 Reevaluation #3: PT HAD EPISTAXIS CONTROLLED WITH NOSE PINCHING SHE IS MORE CONFUSED BUT REDIRECTIBLE. WILL GO AHED AND RESCAN THE PT TO R/O BLEED FROM TPA.ALSO WILL DO CT CHEST ? VIRAL PNEUMONIA BY CXR (COVID NEGATIVE) i INFORMED ICU attending DR DELEON OF THE CLINICAL CHANGES AND #[address]/ct chest PENDING,ABG pending,I am off shift now care transfer to to ICU attending Time: 17:39 Additional Reevaluation(s): ABG resulted noted will start bipap,at this time able to tell me her name,she knows she is in the in the hospital,she tell me her name I signed off to Dr Green will repeat ABG in 1 h MDM - Neuro Symptoms/Deficit Lab Data Result diagrams: 06/03/21 14:49 06/03/21 14:49 Labs: Lab Results 06/03/21 06/03/21 06/03/21 Range/Units 14:07 14:08 14:49 WBC 7.4 (4.8-10.8) X10*3/uL RBC 4.50 (4.20-5.50) X10*6/uL Hgb 13.5 (12.0-16.0) g/dl Hct 41.7 (37.0-47.0) % MCV 92.7 (80.0-98.0) fL MCH 30.0 (27.0-33.0) pg MCHC 32.4 (31.0-35.0) g/dl RDW 13.4 (11.0-16.0) % Plt Count 217 (160-400) X10*3/uL MPV 9.6 (9.4-12.3) fL Immature Gran % (Auto) 0.5 H (0.0-0.4) % Neut % (Auto) 65.0 (45-73) % Lymph % (Auto) 23.4 (20-40) % [place] % (Auto) 6.0 (2-11) % Eos % (Auto) 4.4 H (0-4) % Baso % (Auto) 0.7 (0-2) % Lymph # (Auto) 1.7 (1.2-4.9) X10*3/uL [place] # (Auto) 0.4 (0.1-1.2) X10*3/uL Eos # (Auto) 0.3 (0.0-0.4) X10*3/uL Baso # (Auto) 0.1 (0.0-0.2) X10*3/uL Abs Immat Gran (auto) 0.04 H (0.00-0.03) X10*3/uL Absolute Neuts (auto) 4.8 (2.0-8.3) x10*3/uL Absolute Nucleated RBC 0.000 (0.0-0.012) X10*3/uL Nucleated RBC % (auto) 0.0 (0.0-0.2) /100WBC PT (9.9-13.0) SEC Whole Blood PT 11.4 (11.1-13.5) sec INR (0.9-1.1) Whole Blood INR 0.9 (0.9-1.1) APTT (24.1-38.0) SEC Sodium (135-145) mmol/L Potassium (3.3-5.1) mmol/L Chloride (96-108) mmol/L Carbon Dioxide (22-29) mmol/L Anion Gap (12-20) BUN (9-16) mg/dL Creatinine (0.5-1.4) mg/dL Estim Creat Clear Calc Estimated GFR POC Glucose 199 H (60-115) mg/dL Random Glucose (60-115) mg/dL Calcium (8.4-10.2) mg/dL Total Bilirubin (0.0-1.0) mg/dL AST (5-31) U/L ALT (0-31) U/L Alkaline Phosphatase (39-117) U/L Troponin I High Sens (<3.5-17.0) ng/L Total Protein (6.5-8.0) g/dL Albumin (3.5-5.0) g/dL COVID-19 ([facility]) (Negative) COVID-19 Clin Com 06/03/21 06/03/21 06/03/21 Range/Units 14:49 14:49 14:49 WBC (4.8-10.8) X10*3/uL RBC (4.20-5.50) X10*6/uL Hgb (12.0-16.0) g/dl Hct (37.0-47.0) % MCV (80.0-98.0) fL MCH (27.0-33.0) pg MCHC (31.0-35.0) g/dl RDW (11.0-16.0) % Plt Count (160-400) X10*3/uL MPV (9.4-12.3) fL Immature Gran % (Auto) (0.0-0.4) % Neut % (Auto) (45-73) % Lymph % (Auto) (20-40) % [place] % (Auto) (2-11) % Eos % (Auto) (0-4) % Baso % (Auto) (0-2) % Lymph # (Auto) (1.2-4.9) X10*3/uL [place] # (Auto) (0.1-1.2) X10*3/uL Eos # (Auto) (0.0-0.4) X10*3/uL Baso # (Auto) (0.0-0.2) X10*3/uL Abs Immat Gran (auto) (0.00-0.03) X10*3/uL Absolute Neuts (auto) (2.0-8.3) x10*3/uL Absolute Nucleated RBC (0.0-0.012) X10*3/uL Nucleated RBC % (auto) (0.0-0.2) /100WBC PT (9.9-13.0) SEC Whole Blood PT (11.1-13.5) sec INR (0.9-1.1) Whole Blood INR (0.9-1.1) APTT 34.8 (24.1-38.0) SEC Sodium 135 (135-145) mmol/L Potassium 4.2 (3.3-5.1) mmol/L Chloride 102 (96-108) mmol/L Carbon Dioxide 24 (22-29) mmol/L Anion Gap 13 (12-20) BUN 27 H (9-16) mg/dL Creatinine 1.50 H (0.5-1.4) mg/dL Estim Creat Clear Calc 35.5 Estimated GFR 33 POC Glucose (60-115) mg/dL Random Glucose 215 H (60-115) mg/dL Calcium 9.4 (8.4-10.2) mg/dL Total Bilirubin 0.3 (0.0-1.0) mg/dL AST 22 (5-31) U/L ALT 19 (0-31) U/L Alkaline Phosphatase 113 (39-117) U/L Troponin I High Sens 6.4 (<3.5-17.0) ng/L Total Protein 7.4 (6.5-8.0) g/dL Albumin 4.0 (3.5-5.0) g/dL COVID-19 ([facility]) (Negative) COVID-19 Clin Com 06/03/21 06/03/21 Range/Units 14:50 16:00 WBC (4.8-10.8) X10*3/uL RBC (4.20-5.50) X10*6/uL Hgb (12.0-16.0) g/dl Hct (37.0-47.0) % MCV (80.0-98.0) fL MCH (27.0-33.0) pg MCHC (31.0-35.0) g/dl RDW (11.0-16.0) % Plt Count (160-400) X10*3/uL MPV (9.4-12.3) fL Immature Gran % (Auto) (0.0-0.4) % Neut % (Auto) (45-73) % Lymph % (Auto) (20-40) % [place] % (Auto) (2-11) % Eos % (Auto) (0-4) % Baso % (Auto) (0-2) % Lymph # (Auto) (1.2-4.9) X10*3/uL [place] # (Auto) (0.1-1.2) X10*3/uL Eos # (Auto) (0.0-0.4) X10*3/uL Baso # (Auto) (0.0-0.2) X10*3/uL Abs Immat Gran (auto) (0.00-0.03) X10*3/uL Absolute Neuts (auto) (2.0-8.3) x10*3/uL Absolute Nucleated RBC (0.0-0.012) X10*3/uL Nucleated RBC % (auto) (0.0-0.2) /100WBC PT 11.0 (9.9-13.0) SEC Whole Blood PT (11.1-13.5) sec INR 1.0 (0.9-1.1) Whole Blood INR (0.9-1.1) APTT (24.1-38.0) SEC Sodium (135-145) mmol/L Potassium (3.3-5.1) mmol/L Chloride (96-108) mmol/L Carbon Dioxide (22-29) mmol/L Anion Gap (12-20) BUN (9-16) mg/dL Creatinine (0.5-1.4) mg/dL Estim Creat Clear Calc Estimated GFR POC Glucose (60-115) mg/dL Random Glucose (60-115) mg/dL Calcium (8.4-10.2) mg/dL Total Bilirubin (0.0-1.0) mg/dL AST (5-31) U/L ALT (0-31) U/L Alkaline Phosphatase (39-117) U/L Troponin I High Sens (<3.5-17.0) ng/L Total Protein (6.5-8.0) g/dL Albumin (3.5-5.0) g/dL COVID-19 ([facility]) Negative (Negative) COVID-19 Clin Com See Note Imaging Data Chest x-ray: Radiologist's impression: XR CHEST CLINICAL INFORMATION: Hypoxia COMPARISON: Chest radiograph 02/09/2021 TECHNIQUE: Frontal view of the chest was obtained. FINDINGS: There is new diffuse pulmonary airspace disease consistent with diffuse pneumonia. CHF thought to be less likely. No pleural effusions and heart size is normal. Patient status post median sternotomy XR/XR chest 1V IMPRESSION: Diffuse pulmonary infiltrates consistent with diffuse pneumonia, possibly viral. ? Dictated By: DEBBY CISNEROS MD Signed By: <Electronically signed by DEBBY CISNEROS MD in [facility]> 06/03/[address] scan - head: Radiologist's impression: The venous sinuses opacify normally. CT/CT angio head? neck stroke IMPRESSION: 1. There are no acute bleeds or territorial infarcts. There are no masses or areas of abnormal enhancement. ? 2. There is diffuse volume loss and there are chronic microvascular ischemic changes. ? 3. There are moderately prominent lymph nodes in the mediastinum which are nonspecific. There are groundglass opacifications in the upper lung dawson. These could be further evaluated with CT scan of the chest. ? 4. There are atheromatous calcifications in the neck vasculature, without flow-limiting stenoses. ? 5. Intracranially there are no focal stenoses, aneurysms or vascular malformations. Dictated By: BIJAL BOOTH MD Signed By: <Electronically signed by BIJAL BOOTH MD in [facility]> 06/03/21 1504 ECG Data Attestation: I personally reviewed and interpreted this ECG as follows: ECG interpretation date: 06/03/21 Pacemaker model: NSR 94 no ischemic change IVCD NIH Stroke Scale Time: 14:30 Level of Consciousness: Alert Level of Consciousness Questions: Answers neither question correctly Level of Consciousness Commands: Performs one task correctly Best Gaze: Forced deviation Visual: Partial hemianopia Facial Palsy: Normal Motor Arm (Right): No drift Motor Arm (Left): Drift (mild) Motor Leg (Right): No drift Motor Leg (Left): No drift Limb Ataxia: Present in one limb Sensory: Normal Best Language: Severe aphasia Dysarthia: Severe dysarthria Extinction and Inattention: Profound leoncio-inattention or extinction to more than one modality (Cooment difficult stroke scale because does not follow command well) Score: 14 Critical Care Time Critical Care Time Critical Care Time: Yes Total Critical Care Time: 60 Attestation: MULTIPLE PHONE CALL TO COLLATERAL,NO FAMILY MEMBER AVAILABLE,CALL TO NEURO LOGIST/CONSERVATION POLICY ANALYST/RADIOLOGIST/CARING FOR THE PT/MULTIPLE REEVALUATION Discharge Plan Discharge Clinical Impression: Acute CVA (cerebrovascular accident), Hypoxia, Pneumonia due to virus Patient Disposition: Admitted As Inpatient
[2021-06-03 14:10] LABS: Glucose, Whole Blood 199 mg/dL (60-115)
[2021-06-03 14:14] LABS: Prothrombin Time Whole Bld POC 11.4 sec (11.1-13.5); ~PT, ~INR - Anti Coag Clinic 0.9 (0.9-1.1)
[2021-06-03] MEDS: Labetalol HCL 100 MG/20 ML VIAL 20 MG IVPUSH (14:45)
[2021-06-03 14:53] LABS: MANUAL DIFF FLAG NO
[2021-06-03 14:57] LABS: Basophils Absolute Auto 0.1 X10*3/uL (0.0-0.2); Basophils Percent Auto 0.7 % (0-2); Eosinophils Absolute Auto 0.3 X10*3/uL (0.0-0.4); Eosinophils Percent Auto 4.4 % (0-4); Hematocrit 41.7 % (37.0-47.0); Hemoglobin 13.5 g/dl (12.0-16.0); Imm Gran Abs Auto 0.04 X10*3/uL (0.00-0.03); Imm Gran Pct Auto 0.5 % (0.0-0.4); Lymphocytes Absolute Auto 1.7 X10*3/uL (1.2-4.9); Lymphocytes Percent Auto 23.4 % (20-40); Mean Corpuscular HGB Conc 32.4 g/dl (31.0-35.0); Mean Corpuscular Volume 92.7 fL (80.0-98.0); Mean Platelet Volume 9.6 fL (9.4-12.3); Monocytes Absolute Auto 0.4 X10*3/uL (0.1-1.2); Neutrophils Absolute Auto 4.8 x10*3/uL (2.0-8.3); Platelet Count 217 X10*3/uL (160-400); Red Cell Distribution Width 13.4 % (11.0-16.0); White Blood Count 7.4 X10*3/uL (4.8-10.8)
[2021-06-03 15:06] LABS: Partial Thromboplastin Time 34.8 SEC (24.1-38.0)
--- NOTE | 2021-06-03 15:08 | PC.NURSE ---
Upon arrival, pt aphasic, unable to follow direction. TO CT scan. Upon transferring pt from CT table to stretcher, pt speaking simple words. Able to moderately follow direction. Labetolol given due to BP's 210s systolic. TpA administered per order. Patient becoming slightly more coherent, able to squeeze fingers when asked, able to look in the direction of voice.
[2021-06-03 15:12] LABS: Alanine Aminotransferase 19 U/L (0-31); Alkaline Phosphatase 113 U/L (39-117); Anion Gap 13 (12-20); Aspartate Amino Transferase 22 U/L (5-31); Bilirubin Total 0.3 mg/dL (0.0-1.0); Blood Urea Nitrogen 27 mg/dL (9-16); Calcium 9.4 mg/dL (8.4-10.2); Carbon Dioxide 24 mmol/L (22-29); Chloride 102 mmol/L (96-108); Creatinine Clr Calc Pharmacy 35.5; Estimated Glomerular Filt Rate 33; Glucose Random 215 mg/dL (60-115); Potassium 4.2 mmol/L (3.3-5.1); Sodium 135 mmol/L (135-145); Total Protein 7.4 g/dL (6.5-8.0)
[2021-06-03] MEDS: Labetalol HCL 100 MG/20 ML VIAL 10 MG IVPUSH (15:14)
[2021-06-03 15:17] LABS: Troponin-I High Sensitivity 6.4 ng/L (<3.5-17.0)
--- NOTE | 2021-06-03 15:18 | PC.NURSE ---
Hx COPD per provider, keep O2 around 90% per provider
[2021-06-03 16:31] LABS: COVID-19 Test Negative (Negative)
--- NOTE | 2021-06-03 16:48 | PC.NURSE ---
PT DISORIENTED AND FOUND TO HAVE A NOSEBLEED WITH MODERATE AMOUNT OF BLOOD. . DR SMYTH AT THE BEDSIDE TO REASSESS AND PLAN IS FOR A HEAD CT
[2021-06-03] MEDS: niCARdipine HCL 25 MG in 0.9 % Sodium Chloride 250 ML 52 MG IVCONT (17:11)
[2021-06-03 17:27] LABS: ABG Base Excess -4.3 mmol/L; ABG HCO3 25 mmol/L (22-26); ABG pCO2 64 mmHg (32-45); ABG pH 7.19 (7.35-7.45); ABG pO2 88 mmHg (83-108)
[2021-06-03 17:32] LABS: ABG Refer to POC result
[2021-06-03] MEDS: Furosemide 40 MG/4 ML VIAL IVPUSH (17:53)
[2021-06-03 18:32] LABS: Appearance Urine HAZY; Color Urine YELLOW; Glucose Urine UA NEG (NEG); Leukocyte Esterase Urine NEG (NEG); Nitrite Urine NEG (NEG); PH 5.5 (5.0-8.0); UACC Culture Trigger NO; Urine Blood 1+ (NEG); Urine Ketones NEG (NEG); Urine Protein 1+ MG/DL (NEG-TRACE)
[2021-06-03 18:44] LABS: Bacteria Urine 3+ /LPF; Squamous Epithelial Cell Urine TRACE /LPF; WBC Urine 0-2 /HPF (0-4)
[2021-06-03 18:45] LABS: Mucus Urine TRACE /LPF
--- NOTE | 2021-06-03 18:46 | PC.NURSE ---
Osiris Fiore [phone] looking for update on patient
[2021-06-03 19:01] LABS: Ammonia 50 umol/L (13-55)
[2021-06-03 19:05] LABS: Lactic Acid 1.1 mmol/L (0.5-2.0)
[2021-06-03 19:15] LABS: B Type Natriuretic Peptide 235 pg/mL (<100)
[2021-06-03 19:16] LABS: Influenza A PCR NEGATIVE (Negative); Influenza B PCR NEGATIVE (Negative); Resp Syncy Virus RNA Qual PCR NEGATIVE (Negative); SARS COV2 PCR INHOUSE NEGATIVE (Negative)
[2021-06-03 19:33] LABS: Glucose, Whole Blood 277 mg/dL (60-115)
[2021-06-03] MEDS: levoFLOXacin/D5W 750 MG/150 ML PIGGYBACK 100 MG IV (19:33)
[2021-06-03 19:40] LABS: VBG Base Excess -4.4 mmol/L; VBG HCO3 24 mmol/L (22-26); VBG pCO2 57 mmHg; VBG pH 7.22 (7.32-7.43); VBG pO2 66 mmHg
[2021-06-03 19:41] LABS: Venous Blood Gas Refer to POC result
--- NOTE | 2021-06-03 20:10 | P.HPCC_ITS ---
History of Present Illness Date of Service: 06/03/21 Attending physician on admission: Brandin Deleon Chief Complaint: Aphasia This is a a 80-year-old female with a past medical history of? COPD, hypertension, type 2 diabetes, osteoarthritis, osteoporosis, her cholestyramine, depression and history of abdominal aortic aneurysm without rupture? who presented to the emergency room via ambulance as a stroke alert.? According to patient?s boyfriend,? patient developed sudden onset aphasia? and was lethargic.? In the emergency room, the patient was noted to have significant aphasia, lethargic, blood pressure 215/97,? other vital signs stable. CT was negative for any acute bleed. Neurology was consulted in? the ED, Dr Shafer, who agreed with tPA administration. tPA administered at 1430.?ED course:? While in the ED patient of pressure over 200s? systolic,? receive a total of 30 mg of labetalol and ultimately required Cardene drip. ?ABGs were obtained due to patient underlying confusion,? and showed to be 7.19/64/88/25.? She was placed on BiPAP.? ? Patient also, had an episode of epistaxis? that was controlled with nose pinching.? On arrival? to ICU, patient was alert and oriented, speaking in full sentences on BiPAP,? but quickly deteriorated. Patient unresponsive to painful stimuli, eye deviation.? O2 saturations dropped to 70%,? Required emergent intubation for airway protection.? Review of Systems Review of Systems: Unable to do patient is intubated PMFSH Past Medical History Medical History Abdominal aortic aneurysm without rupture Anxiety and depression COPD (chronic obstructive pulmonary disease) Hypercholesterolemia Hypertension Obesity (BMI 30-39.9) Osteoarthritis Osteoporosis Type 2 diabetes mellitus with hyperglycemia Urinary incontinence Vitamin D deficiency Family History Family History Father No problems noted. Mother History of high cholesterol Surgical History Surgical History History of colonoscopy History of heart valve replacement (~08/2013) History of left hip replacement History of right hip replacement (~08/2014) Status post aortic valve replacement with bioprosthetic valve Social History Social History Household Members: None Housing: Apartment Do you presently have visiting nurse or other home services: No Alcohol intake: unknown Patient Tobacco Use Status: Former Tobacco user Quit Date: 5 years ago Tobacco use type: Cigarette Cigarette Packs Per Day: 1 Cigarettes Per Day: 20.0 Years Smoked: 55 e-Cigarette/Vaping Use: Never Used Second Hand Smoke Exposure: No Advance Directives: No Advance Directives Information Provided: No service: No Current occupational status: retired [employer] Allergies Allergy/AdvReac Type Severity Reaction Status Date / Time No Known Allergies Allergy Mild NONE Verified 04/09/21 14:48 Active Medications: Current Medications Nicardipine HCl 25 mg/ Sodium (Chloride) 260 mls @ 0 mls/hr IVCONT .Q0M [facility]; Protocol Last Titration: 06/03/21 19:23 Dose: 2.5 mg/hr, 26 mls/hr Documented by: Sodium Chloride (0.9 % Sodium Chloride Flush 3 Ml Syringe) [facility] Medications Medication Instructions Recorded Confirmed Last Taken Type fluticasone furoate 100 1 inh INHALATION DAILY 06/03/21 06/03/21 Unknown History mcg-vilanterol 25 mcg/dose inhalation powder (Breo Ellipta) Physical Exam Vital Signs: Vital Signs: Last Vital Signs Temp 98.1 F 06/03/21 19:00 Pulse 63 06/03/21 19:23 Resp 23 H 06/03/21 19:41 BP 117/52 L 06/03/21 19:23 Pulse Ox 95 06/03/21 19:00 BMI result Body Mass Index 29.9 Constitutional: Patient is intubated HEENT: Head is normocephalic, atraumatic, pupils equal round reactive to light a ccommodation bilaterally.? Buccal mucosa is dry, with dry blood. Neck is supple without lymphadenopathy. Respiratory:? Lung CTA bilaterally, no wheezes, rhonchi, or rales Cardiac: RRR, +S1/S2, no murmurs/rubs, pulses palpable and equal in all extremities Gastrointestinal: +BS, non-tender to palpation, non-distended Neurologic:? Neurological exam,?exam is limited as the patient is intubated. Patient withdraws to pain stimuli in all extremities. Musculoskeletal: No gross deformities, back non-tender to palpation Skin: No rash/lesion Psych: Mood appropriate to situation Results Labs CBC and Chem 7: 06/03/21 14:49 06/03/21 14:49 Labs: Laboratory Results - last 24 hr 06/03/21 06/03/21 06/03/21 14:07 14:08 14:49 MCV 92.7 MCH 30.0 MCHC 32.4 RDW 13.4 Plt Count 217 MPV 9.6 Immature Gran % (Auto) 0.5 H Neut % (Auto) 65.0 Lymph % (Auto) 23.4 Ransom % (Auto) 6.0 Eos % (Auto) 4.4 H Baso % (Auto) 0.7 Lymph # (Auto) 1.7 Ransom # (Auto) 0.4 Eos # (Auto) 0.3 Baso # (Auto) 0.1 Abs Immat Gran (auto) 0.04 H Absolute Neuts (auto) 4.8 Absolute Nucleated RBC 0.000 Nucleated RBC % (auto) 0.0 PT Whole Blood PT 11.4 INR Whole Blood INR 0.9 APTT O2 Saturation ABG pH at Pt Temp ABG pCO2 at Pt Temp ABG pO2 at Pt Temp ABG HCO3 ABG Base Excess (Actual) VBG pH VBG pCO2 VBG pO2 VBG HCO3 VBG O2 Saturation VBG Base Excess Anion Gap Estim Creat Clear Calc Estimated GFR POC Glucose 199 H Random Glucose Lactic Acid Calcium Total Bilirubin AST ALT Alkaline Phosphatase Ammonia B-Natriuretic Peptide Total Protein Albumin Urine Color Urine Appearance Urine pH Ur Specific [place] Urine Protein Urine Glucose (UA) Urine Ketones Urine Blood Urine Nitrite Ur Leukocyte Esterase Urine RBC Urine WBC Ur Squamous Epith Cells Urine Bacteria Urine Mucus COVID-19 ([facility]) COVID-19 Clin Com Influenza Type A (PCR) Influenza Type B (PCR) RSV RNA Qual (PCR) SARS-CoV-2 RNA (RT-PCR) 06/03/21 06/03/21 06/03/21 14:49 14:49 14:50 MCV MCH MCHC RDW Plt Count MPV Immature Gran % (Auto) Neut % (Auto) Lymph % (Auto) Ransom % (Auto) Eos % (Auto) Baso % (Auto) Lymph # (Auto) Ransom # (Auto) Eos # (Auto) Baso # (Auto) Abs Immat Gran (auto) Absolute Neuts (auto) Absolute Nucleated RBC Nucleated RBC % (auto) PT 11.0 Whole Blood PT INR 1.0 Whole Blood INR APTT 34.8 O2 Saturation ABG pH at Pt Temp ABG pCO2 at Pt Temp ABG pO2 at Pt Temp ABG HCO3 ABG Base Excess (Actual) VBG pH VBG pCO2 VBG pO2 VBG HCO3 VBG O2 Saturation VBG Base Excess Anion Gap 13 Estim Creat Clear Calc 35.5 Estimated GFR 33 POC Glucose Random Glucose 215 H Lactic Acid Calcium 9.4 Total Bilirubin 0.3 AST 22 ALT 19 Alkaline Phosphatase 113 Ammonia B-Natriuretic Peptide Total Protein 7.4 Albumin 4.0 Urine Color Urine Appearance Urine pH Ur Specific [place] Urine Protein Urine Glucose (UA) Urine Ketones Urine Blood Urine Nitrite Ur Leukocyte Esterase Urine RBC Urine WBC Ur Squamous Epith Cells Urine Bacteria Urine Mucus COVID-19 ([facility]) COVID-19 Clin Com Influenza Type A (PCR) Influenza Type B (PCR) RSV RNA Qual (PCR) SARS-CoV-2 RNA (RT-PCR) 06/03/21 06/03/21 06/03/21 16:00 17:18 18:25 MCV MCH MCHC RDW Plt Count MPV Immature Gran % (Auto) Neut % (Auto) Lymph % (Auto) Ransom % (Auto) Eos % (Auto) Baso % (Auto) Lymph # (Auto) Ransom # (Auto) Eos # (Auto) Baso # (Auto) Abs Immat Gran (auto) Absolute Neuts (auto) Absolute Nucleated RBC Nucleated RBC % (auto) PT Whole Blood PT INR Whole Blood INR APTT O2 Saturation 93.0 ABG pH at Pt Temp 7.19 L* ABG pCO2 at Pt Temp 64 H* ABG pO2 at Pt Temp 88 ABG HCO3 25 ABG Base Excess (Actual) -4.3 VBG pH VBG pCO2 VBG pO2 VBG HCO3 VBG O2 Saturation VBG Base Excess Anion Gap Estim Creat Clear Calc Estimated GFR POC Glucose Random Glucose Lactic Acid Calcium Total Bilirubin AST ALT Alkaline Phosphatase Ammonia B-Natriuretic Peptide Total Protein Albumin Urine Color YELLOW Urine Appearance HAZY Urine pH 5.5 Ur Specific [place] 1.020 Urine Protein 1+ H Urine Glucose (UA) NEG Urine Ketones NEG Urine Blood 1+ H Urine Nitrite NEG Ur Leukocyte Esterase NEG Urine RBC 1-4 Urine WBC 0-2 Ur Squamous Epith Cells TRACE Urine Bacteria 3+ Urine Mucus TRACE COVID-19 ([facility]) Negative COVID-19 Clin Com See Note Influenza Type A (PCR) Influenza Type B (PCR) RSV RNA Qual (PCR) SARS-CoV-2 RNA (RT-PCR) 06/03/21 06/03/21 06/03/21 18:29 18:42 18:42 MCV MCH MCHC RDW Plt Count MPV Immature Gran % (Auto) Neut % (Auto) Lymph % (Auto) Ransom % (Auto) Eos % (Auto) Baso % (Auto) Lymph # (Auto) Ransom # (Auto) Eos # (Auto) Baso # (Auto) Abs Immat Gran (auto) Absolute Neuts (auto) Absolute Nucleated RBC Nucleated RBC % (auto) PT Whole Blood PT INR Whole Blood INR APTT O2 Saturation ABG pH at Pt Temp ABG pCO2 at Pt Temp ABG pO2 at Pt Temp ABG HCO3 ABG Base Excess (Actual) VBG pH VBG pCO2 VBG pO2 VBG HCO3 VBG O2 Saturation VBG Base Excess Anion Gap Estim Creat Clear Calc Estimated GFR POC Glucose Random Glucose Lactic Acid 1.1 Calcium Total Bilirubin AST ALT Alkaline Phosphatase Ammonia 50 B-Natriuretic Peptide Total Protein Albumin Urine Color Urine Appearance Urine pH Ur Specific [place] Urine Protein Urine Glucose (UA) Urine Ketones Urine Blood Urine Nitrite Ur Leukocyte Esterase Urine RBC Urine WBC Ur Squamous Epith Cells Urine Bacteria Urine Mucus COVID-19 ([facility]) COVID-19 Clin Com Influenza Type A (PCR) NEGATIVE Influenza Type B (PCR) NEGATIVE RSV RNA Qual (PCR) NEGATIVE SARS-CoV-2 RNA (RT-PCR) NEGATIVE 06/03/21 06/03/21 06/03/21 18:43 19:29 19:30 MCV MCH MCHC RDW Plt Count MPV Immature Gran % (Auto) Neut % (Auto) Lymph % (Auto) Ransom % (Auto) Eos % (Auto) Baso % (Auto) Lymph # (Auto) Ransom # (Auto) Eos # (Auto) Baso # (Auto) Abs Immat Gran (auto) Absolute Neuts (auto) Absolute Nucleated RBC Nucleated RBC % (auto) PT Whole Blood PT INR Whole Blood INR APTT O2 Saturation ABG pH at Pt Temp ABG pCO2 at Pt Temp ABG pO2 at Pt Temp ABG HCO3 ABG Base Excess (Actual) VBG pH 7.22 L VBG pCO2 57 VBG pO2 66 VBG HCO3 24 VBG O2 Saturation 87.0 VBG Base Excess -4.4 Anion Gap Estim Creat Clear Calc Estimated GFR POC Glucose 277 H Random Glucose Lactic Acid Calcium Total Bilirubin AST ALT Alkaline Phosphatase Ammonia B-Natriuretic Peptide 235 H Total Protein Albumin Urine Color Urine Appearance Urine pH Ur Specific [place] Urine Protein Urine Glucose (UA) Urine Ketones Urine Blood Urine Nitrite Ur Leukocyte Esterase Urine RBC Urine WBC Ur Squamous Epith Cells Urine Bacteria Urine Mucus COVID-19 ([facility]) COVID-19 Clin Com Influenza Type A (PCR) Influenza Type B (PCR) RSV RNA Qual (PCR) SARS-CoV-2 RNA (RT-PCR) Imaging Radiologist's Impressions: Impressions Head CT 06/03/21 14:12 IMPRESSION: No acute intracranial pathology. Please refer to the report from the CTA of the head and neck from today for additional findings. This critical result was discussed with Dr. Barboza at 2:25 PM hours on 06/03/2021. It was ascertained that the content and urgency of the report was understood at the time of direct communication. Head/Neck CTA 06/03/21 14:28 IMPRESSION: 1. There are no acute bleeds or territorial infarcts. There are no masses or areas of abnormal enhancement. 2. There is diffuse volume loss and there are chronic microvascular ischemic changes. 3. There are moderately prominent lymph nodes in the mediastinum which are nonspecific. There are groundglass opacifications in the upper lung dawson. These could be further evaluated with CT scan of the chest. 4. There are atheromatous calcifications in the neck vasculature, without flow-limiting stenoses. 5. Intracranially there are no focal stenoses, aneurysms or vascular malformations. Chest X-Ray 06/03/21 15:45 IMPRESSION: Diffuse pulmonary infiltrates consistent with diffuse pneumonia, possibly viral. Chest CT 06/03/21 17:15 IMPRESSION: Multifocal groundglass infiltrates present. Most likely diagnosis would be viral pneumonia. CHF with pulmonary edema is felt to be less likely. Fleischner guidelines were followed. Head CT 06/03/21 17:15 IMPRESSION: *No acute intracranial abnormalities identified. No intracranial hemorrhage or acute infarcts visualized. *Moderate joint hepatic chronic small vessel ischemic disease and mild diffuse parenchymal volume loss of the brain. Assessment and Plan (1) Acute CVA (cerebrovascular accident): Status: Acute (2) Acute respiratory failure with hypoxia and hypercapnia: Status: Acute (3) Seizure: Status: Acute (4) Hypertensive emergency: Status: Acute (5) AWA (acute kidney injury): Status: Acute Plan Neuro:? CVA: new onset aphasia.? Initial head CT showed no acute infarct/bleed.? She is status post tPA.? Will continue to follow post tPA protocol.? Follow Neurology recommendation.?? ? Seizure:? Patient eyes deviating towards left, not responding to verbal/ painful stimuli. ? new onset seizure vs new acute bleed. Will obtain stat CT and add Keppra? Cardiac: ?Hypertensive emergency: ? patient blood pressures? over 200 systolic,? required Cardene drip.? Cardene drip was discontinue on arrival to ICU.? ?Hypotension: ? hypotension is likely from sedation for intubation.? Will DC vasopressors as tolerated.? Continue to avoid hypotension due to status post tPA Pulmonary: ?Acute respiratory failure with hypoxia and hypercapnia:? according to the emergency room patient was hypoxic, required BiPAP.? On arrival to the emergency room she quickly deteriorated, required emergent intubation for airway protection and hypoxia. ? Patient likely aspirated from epistaxis Renal:??? AWA- ? nonoliguric. serum creatinine 1.5 ? baseline 1.2-1.3. Patient has hx of CHF, will avoid fluids at this this time. Continue to closely monitor renal indices and urine output Endo:? No acute issues.? GI: No acute issues. heme/onc: No acute issues. Misc:? According to friend Elli and boyfriend Desean, patient does have any relationship with her kids. Friend elli states she is a family friend since childhood and has make decisions for Harmony past. No active healthcare proxy DVT: No DVT anticoagulation for 24hr post tPA Diet:? NPO CODE STATUS: FULL CODE Critical care time: x 90 minutes of critical care time not including procedures Patient discussed with?attending Dr. Deleon? Critical Care Time Critical Care Time (minutes): 90
--- NOTE | 2021-06-03 21:16 | PHA.MEDREC ---
Addendum entered by Aury Hsieh [facility] 06/04/21 08:07: pts sister called to review medication list. added gabapentin, tramadol, latanoprost, vitamin c , loratadine, ibuprofen, aspirin, excedrin and unisom. Original Note: Pharmacy Consult ? Medication Reconciliation Pharmacy has completed the medication reconciliation. Patients neighbor called and read bottles of medications pt is currently taking. Per Petrona Darrick needs a PA and hasnt started it yet. I messaged 's office for them to follow up on PA. also messaged provider.
[2021-06-03] MEDS: Ketamine HCl 500 MG/5 ML VIAL 100 MG IVPUSH (21:45)
[2021-06-03] MEDS: propofoL 1,000 MG/100 ML VIAL 11.05 MG IVCONT (21:55)
--- NOTE | 2021-06-03 22:23 | W.PM.CCHP ---
Procedures Date of Service Date of Service: 06/03/21 Intubation Intubation Comments: Patient became acutely altered,not responding to verbal/ painful stimuli, require emergent intubation for airway protection. Patient intubated with 7.5 cuffed ET tube under glide scope guidance with visualization of vocal cords, without immediate complications. ET tube position verified with Chest XRAY. Consent for Procedure: Emergent-no informed consent obtained Time out performed: Yes Sedative: ketamine Mg given: 50 ET tube size: 7.5 ET tube uncuffed: No Tube secured depth (cm): 21 Tube secured location: lips Tube placement confirmation: visualized tube passing through cords, equal breath sounds bilaterally and confirmation by capnometry Patient tolerated procedure: well and no complications Intubation complications: none
[2021-06-03] MEDS: 0.9 % Sodium Chloride Flush 3 ML SYRINGE IVFLUSH (23:35)
[2021-06-03] MEDS: levETIRAcetam 750 MG in 0.9 % Sodium Chloride 100 ML 430 MG IV (23:40)
[2021-06-04] VITALS (29 sets, daily range): BP systolic 98–151; BP diastolic 40–80; PULSE 81–101; RESP 17–94; TEMP 35.2–38.7; O2SAT 91–98; BMI 28.8
[2021-06-04 00:26] LABS: VBG Base Excess -1.9 mmol/L; VBG HCO3 25 mmol/L (22-26); VBG pCO2 50 mmHg; VBG pO2 38 mmHg
[2021-06-04 00:27] LABS: Venous Blood Gas Refer to POC result
[2021-06-04] MEDS: propofoL 1,000 MG/100 ML VIAL 13.82 MG IVCONT (03:18)
[2021-06-04 05:39] LABS: VBG Base Excess -0.5 mmol/L; VBG HCO3 24 mmol/L (22-26); VBG pCO2 38 mmHg; VBG pH 7.39 (7.32-7.43); VBG pO2 53 mmHg
[2021-06-04 05:43] LABS: Venous Blood Gas Refer to POC result
[2021-06-04 05:48] LABS: MANUAL DIFF FLAG NO
[2021-06-04 05:53] LABS: Basophils Percent Auto 0.1 % (0-2); Hemoglobin 12.6 g/dl (12.0-16.0); Imm Gran Abs Auto 0.08 X10*3/uL (0.00-0.03); Imm Gran Pct Auto 0.6 % (0.0-0.4); Lymphocytes Absolute Auto 2.1 X10*3/uL (1.2-4.9); Lymphocytes Percent Auto 14.6 % (20-40); Mean Corpuscular HGB Conc 33.2 g/dl (31.0-35.0); Mean Corpuscular Hemoglobin 29.6 pg (27.0-33.0); Mean Corpuscular Volume 89.2 fL (80.0-98.0); Mean Platelet Volume 9.8 fL (9.4-12.3); Monocytes Absolute Auto 0.7 X10*3/uL (0.1-1.2); Monocytes Percent Auto 4.6 % (2-11); Neutrophils Absolute Auto 11.6 x10*3/uL (2.0-8.3); Neutrophils Percent Auto 80.1 % (45-73); Platelet Count 328 X10*3/uL (160-400); Red Blood Count 4.26 X10*6/uL (4.20-5.50); Red Cell Distribution Width 13.2 % (11.0-16.0); White Blood Count 14.5 X10*3/uL (4.8-10.8)
[2021-06-04 06:09] LABS: Anion Gap 18 (12-20); Blood Urea Nitrogen 32 mg/dL (9-16); Calcium 9.4 mg/dL (8.4-10.2); Carbon Dioxide 23 mmol/L (22-29); Chloride 99 mmol/L (96-108); Cholesterol 241 mg/dL; Creatinine Clr Calc Pharmacy 38.7; Estimated Glomerular Filt Rate 38; Glucose Random 180 mg/dL (60-115); HDL Cholesterol 61 mg/dL; LDL Cholesterol Calculated 133 mg/dl; Potassium 4.2 mmol/L (3.3-5.1); Sodium 136 mmol/L (135-145); Triglycerides 237 mg/dL
[2021-06-04 06:10] LABS: Albumin Level 3.8 g/dL (3.5-5.0); Magnesium 1.8 mg/dL (1.6-2.6); Phosphorus 3.4 mg/dL (2.7-4.5)
[2021-06-04] MEDS: Pantoprazole Sodium 40 MG/10 ML VIAL IVPUSH (06:40)
--- NOTE | 2021-06-04 06:45 | PC.NURSE ---
CARE ASSUMED 23;15..REMAINS TUBED/VENTED...SEDATE WITH PROPOFOL PER MAY...LEVOPHED DRIP WEANED 0.1--0.05 MCG/KG/MIN...MAP 78-80'S....LEVOPHED INFUSING PERIPHERALLY..IV ASSESSED Q1H WITH EXCELLENT BLOOD RETURN...HOURLY NEURO CHECKS UNCHANGED OVERNIGHT..PUPILS REACTIVE...GARVIN SPONTANEOUSLY BUT NOT TO COMMAND...KEPPRA OBTAINED BY EYEGLASS CUTTER AND INFUSED W/O DIFFICULTY..NSR..NO ECTOPY
--- NOTE | 2021-06-04 07:00 | PC.NURSE ---
Patient's HR on telemetry went up to 170's. When this RN entered room patient was altered and unresponsive, O2 sats in the 70's on bipap. Client Technical Support Associate and FIRE PREVENTION CAPTAIN both at bedside. Patient was emergently intubated. Propofol drip and levophed drip ordered and administered. VSS at present time, Will continue to monitor and report any changes.
[2021-06-04] MEDS: 0.9 % Sodium Chloride Flush 3 ML SYRINGE IVFLUSH ×2 (07:45→18:06)
[2021-06-04] MEDS: Chlorhexidine Gluc Oral Rinse 15 ML MOUTHWASH BUCCAL (08:01)
[2021-06-04 08:26] LABS: Glucose, Whole Blood 202 mg/dL (60-115)
--- NOTE | 2021-06-04 08:45 | PM.NEUROCN ---
History of Present Illness Data of Consult Service Date: 06/04/21 Primary Care Provider: Unknown Physician HPI Reason for consult: Aphasia 80 years old woman who was brought to hospital with sudden onset of unresponsiveness and not able to speak. Her blood pressure was high and that was treated with few doses of labetalol. Apparently she was noted to be alert and awake with left gaze deviation but not communicating. No seizure-like movement or signs were noted. There was no nausea or vomiting or distress from pain. With initial suspicion of ischemic stroke she was treated with intravenous tPA. Apparently she did relatively well and was transferred to ICU where she suddenly became unresponsive again desaturated and had to be intubated. CT scan of brain was repeated that did not reveal any bleeding or new lesion. Review of Systems Review of Systems: Could not be done [facility] Past Medical History Medical History Abdominal aortic aneurysm without rupture Anxiety and depression COPD (chronic obstructive pulmonary disease) Hypercholesterolemia Hypertension Obesity (BMI 30-39.9) Osteoarthritis Osteoporosis Type 2 diabetes mellitus with hyperglycemia Urinary incontinence Vitamin D deficiency Family History Family History Father No problems noted. Mother History of high cholesterol Surgical History Surgical History History of colonoscopy History of heart valve replacement (~08/2013) History of left hip replacement History of right hip replacement (~08/2014) Status post aortic valve replacement with bioprosthetic valve Social History Social History Household Members: None Housing: Apartment Do you presently have visiting nurse or other home services: No Alcohol intake: unknown Patient Tobacco Use Status: Former Tobacco user Quit Date: 5 years ago Tobacco use type: Cigarette Cigarette Packs Per Day: 1 Cigarettes Per Day: 20.0 Years Smoked: 55 e-Cigarette/Vaping Use: Never Used Second Hand Smoke Exposure: No Currently Displaying Signs/Symptoms of Drug Intoxication Withdrawal: No Advance Directives: No Advance Directives Information Provided: No service: No Current occupational status: retired Meds Allergies Allergy/AdvReac Type Severity Reaction Status Date / Time No Known Allergies Allergy Mild NONE Verified 04/09/21 14:48 Active Medications: Current Medications Chlorhexidine Gluconate (Chlorhexidine Gluc Oral Rinse 15 Ml Mouthwash) 15 ml BUCCAL TID [facility] Last Admin: 06/04/21 08:01 Dose: 15 ml Documented by: Nicardipine HCl 25 mg/ Sodium (Chloride) 260 mls @ 0 mls/hr IVCONT .Q0M [facility]; Protocol Last Titration: 06/03/21 21:36 Dose: 0 mg/hr, 0 mls/hr Documented by: Levetiracetam 750 mg/ Sodium (Chloride) 107.5 mls @ 430 mls/hr IV Q12H [facility] Last Infusion: 06/04/21 00:06 Dose: Infused Documented by: Norepinephrine Bitartrate (Levophed) 8 mg in 250 mls @ 0 mls/hr IVCONT .Q0M [facility]; Protocol Last Titration: 06/04/21 08:20 Dose: 0.08 mcg/kg/min, 13.82 mls/hr Documented by: Propofol (Diprivan) 1,000 mg in 100 mls @ 0 mls/hr IVCONT .Q0M [facility]; Protocol Last Titration: 06/04/21 07:43 Dose: 30 mcg/kg/min, 16.58 mls/hr Documented by: Lorazepam (Lorazepam 2 Mg/Ml Vial) 1 mg IVPUSH ONCE PRN PRN Reason: Seizures Pantoprazole Sodium (Pantoprazole Sodium 40 Mg/10 Ml Vial) 40 mg IVPUSH DAILY@0630 [facility] Last Admin: 06/04/21 06:40 Dose: 40 mg Documented by: Sodium Chloride (0.9 % Sodium Chloride Flush 3 Ml Syringe) 3 ml IVFLUSH QSHIFT [facility] Last Admin: 06/04/21 07:45 Dose: 3 ml Documented by: Home Medications Medication Instructions Recorded Confirmed Last Taken Type fluticasone furoate 100 1 inh INHALATION DAILY 06/03/21 06/03/21 Unknown History mcg-vilanterol 25 mcg/dose inhalation powder (Breo Ellipta) acetaminophen-caffeine 500 mg-65 1 tab PO Q6H PRN 06/04/21 06/04/21 Unknown History mg tablet ascorbic acid (vitamin C) 500 mg 500 mg PO DAILY 06/04/21 06/04/21 Unknown History tablet aspirin 81 mg tablet,delayed 81 mg PO DAILY 06/04/21 06/04/21 Unknown History release doxylamine succinate 25 mg tablet 25 mg PO BEDTIME PRN 06/04/21 06/04/21 Unknown History (Unisom (doxylamine)) gabapentin 300 mg capsule 1 cap PO BID 06/04/21 06/04/21 Unknown History ibuprofen 200 mg tablet 200 mg PO Q6H PRN 06/04/21 06/04/21 Unknown History latanoprost 0.005 % eye drops 1 drp OPHTHALMIC (EYE) BEDTIME 06/04/21 06/04/21 Unknown History loratadine 10 mg tablet 10 mg PO DAILY 06/04/21 06/04/21 Unknown History tramadol 50 mg tablet 1 tab PO TID PRN 06/04/21 06/04/21 Unknown History Physical Exam Vital Signs: Vital Signs: Last Vital Signs Temp 101.5 F H 06/04/21 08:00 Pulse 89 06/04/21 08:00 Resp 22 H 06/04/21 08:00 BP 111/55 L 06/04/21 08:00 Pulse Ox 93 06/04/21 08:00 BMI result Body Mass Index 28.8 Neuro: Other: She was intubated on propofol. She was grimacing and responsive to painful stimuli. Response to pain was somewhat better on right side than left. There was no gaze deviation. There were roving eye motions. Plantars were withdrawing. Exam was limited. Results Labs CBC & Chem 7: 06/04/21 05:28 06/04/21 05:28 Labs: Short CBC 06/03/21 06/04/21 Range/Units 14:49 05:28 WBC 7.4 14.5 H (4.8-10.8) X10*3/uL Hgb 13.5 12.6 (12.0-16.0) g/dl Hct 41.7 38.0 (37.0-47.0) % Plt Count 217 328 D (160-400) X10*3/uL BMP 06/03/21 06/04/21 14:49 05:28 Sodium 135 136 Potassium 4.2 4.2 Chloride 102 99 Carbon Dioxide 24 23 BUN 27 H 32 H Creatinine 1.50 H 1.35 Calcium 9.4 9.4 Liver Function 06/03/21 06/04/21 Range/Units 14:49 05:28 Total Bilirubin 0.3 (0.0-1.0) mg/dL AST 22 (5-31) U/L ALT 19 (0-31) U/L Alkaline Phosphatase 113 (39-117) U/L Albumin 4.0 3.8 (3.5-5.0) g/dL Urine 06/03/21 Range/Units 18:25 Urine Color YELLOW Urine Appearance HAZY Urine pH 5.5 (5.0-8.0) Ur Specific [place] 1.020 (1.005-1.025) Urine Protein 1+ H (NEG-TRACE) MG/DL Urine Glucose (UA) NEG (NEG) MG/DL Noncontrast head CT revealed moderately severe diffuse cerebral atrophy microvascular ischemic changes but no acute lesion. Assessment and Plan (1) Aphasia: Status: Acute 80 years old woman who came to emergency room with sudden onset of not able to speak. She was noted to have left gaze deviation and with clinical suspicion of ischemic infarction was treated with intravenous tPA. Her blood pressure initially was high and was treated with multiple doses of labetalol. When transferred to ICU, she became unresponsive and desaturated and was intubated. CT scan was repeated that did not reveal any bleed. At this time my recommendation is to try to extubate her, obtain a noncontrast MRI of brain, and an EEG to make a better diagnosis of her neurological condition. In the meantime blood pressure control is recommended Procedures Date of Service Date of Service: 06/04/21
[2021-06-04] MEDS: propofoL 1,000 MG/100 ML VIAL 16.58 MG IVCONT (09:12)
[2021-06-04] MEDS: levETIRAcetam 750 MG in 0.9 % Sodium Chloride 100 ML 430 MG IV ×2 (11:08→21:50)
--- NOTE | 2021-06-04 11:24 | MHC.CLN ---
PT IS INTUBATED AND SEDATED DISCUSSED AT ROUNDS PLAN IS FOR PT TO BE EXTUBATED TODAY DIET RX: NPO IF DIET TO ADVANCE; RECOMMEND 1800DM 2GM NA DIET MAY NEED TILTING SAW OPERATOR EVAL TO DETERMINE FOOD CONSISTENCY FOLLOWING
[2021-06-04 11:42] LABS: Glucose, Whole Blood 166 mg/dL (60-115)
--- NOTE | 2021-06-04 12:43 | MHC.SLORD ---
Speech Language Pathology Order Status: Order received for bedside dysphagia evaluation on 06/03. Per chart review this morning, patient has since been emergently intubated. Please re-refer 24 hours post-extubation.
--- NOTE | 2021-06-04 13:02 | P.PNCC_ITS ---
Subjective Subjective Date of Service: 06/04/21 Interval History: Mrs. Wu was admitted to ICU yesterday after tx w tPA in the ED for a presumed stroke. The patient is an 80 yo F w PMHx of COPD, HTN, type 2 DM, osteoarthritis, osteoporosis, her cholestyramine, depression, and history of abdominal aortic aneurysm without rupture.? She has a midline median sternotomy scar. Last echo 08/28/20 showed: - The left ventricular systolic function is normal.? The visually estimated ejection fraction is between 60-65%. - A bioprosthetic aortic valve is present.? The prosthetic aortic valve appears to be functioning normally. - There is severe mitral annular calcification. She presented to the ED yesterday mid-afternoon as a stroke alert.? According to patient?s boyfriend, the patient developed sudden onset aphasia? and was lethargic. In the emergency room, the patient was noted to have significant aphasia, lethargic, blood pressure 215/97, other vital signs stable. ?CT showed severe nonspecific periventricular white matter disease, but no acute findings. ?TPA was given after discussion with Dr. Ann.? She was given multiple doses of labetalol, and ultimately a nicardipene drip.? An ABG done because of her lethargy thowed 7.19/64/88/25 (unstated FiO2).? She was placed on BiPAP. ??At some point, after she was given the tPA, she also ?had an episode of epistaxis, which was controlled with nose pinching.? She was admitted to ICU for routine post-tPA monitoring. On arrival to ICU, the patient was alert and oriented, speaking in full sentences on BiPAP,? Soon after though, she became unresponsive to painful stimuli, eye deviation, desaturated to 70%.? She was thought to have aspirated, possibly bec of her nose bleed.? She was emergently intubated.? She spiked a fever after that.? Post intubation chest x-ray showed subtle ground-glass attenuation/airspace disease bilaterally left greater than right, improved from an earlier chest x-ray.? A repeat head CT showed no acute findings.? The patient was put on Keppra and sedated and ventilated overnight. This morning we turned the propofol off and the patient was extubated without incident.? Old blood was suctioned from her endotracheal tube prior to extubation, and her mouth and hands are full of dried blood. ?On my exam, heart rate is 100, SR.? BP 135/58 on Levophed 0.04ug.? RR 22 on 2L NC, with Sat 92%.? Temp 101.5.? No JVD at 30?.? Chest is CTA with normal exp phase.? No edema.? She is fully awake, but not oriented to place or time.? She speaks very slowly, if not haltingly.? She seems to have some word finding difficulty.? She has no gross CN or peripheral motor deficits. LABORATORY DATA:? Below.? Notably, white count is bumped to 14 this morning, compared with 7 yesterday afternoon. IMPRESSION: 1. Likely stroke, with residual aphasia. ?MRI pending. 2. Hypertensive crisis.? Now resolved. 3. Undoubtedly aspirated.? May well have aspiration pneumonia.? I will therefore start her on Unasyn. 4. Hypoxemic respiratory failure.? 2? above. 5. Sepsis.? By strict criteria she has sepsis, but is not clinically septic (yet), and certainly doesn?t have severe sepsis. 6. ? Seizure.? We?ll get an EEG today.? Continue Keppra for now. 7. CKD. D/W Dr. Ann and at length with Dr. Deleon and [facility] [place]. Critical Care Time (minutes): 15 Physical Exam Vital Signs: Vital Signs: Last Vital Signs Temp 100.9 F H 06/04/21 12:00 Pulse 99 06/04/21 12:00 Resp 24 H 06/04/21 12:00 BP 130/43 L 06/04/21 12:00 Pulse Ox 91 L 06/04/21 12:00 BMI result Body Mass Index 28.8 Objective Data Labs CBC & Chem 7: 06/04/21 05:28 06/04/21 05:28 Labs: Laboratory Results - last 24 hr 06/03/21 06/03/21 06/03/21 14:07 14:08 14:49 WBC 7.4 RBC 4.50 Hgb 13.5 Hct 41.7 MCV 92.7 MCH 30.0 MCHC 32.4 RDW 13.4 Plt Count 217 MPV 9.6 Immature Gran % (Auto) 0.5 H Neut % (Auto) 65.0 Lymph % (Auto) 23.4 [place] % (Auto) 6.0 Eos % (Auto) 4.4 H Baso % (Auto) 0.7 Lymph # (Auto) 1.7 [place] # (Auto) 0.4 Eos # (Auto) 0.3 Baso # (Auto) 0.1 Abs Immat Gran (auto) 0.04 H Absolute Neuts (auto) 4.8 Absolute Nucleated RBC 0.000 Nucleated RBC % (auto) 0.0 PT Whole Blood PT 11.4 INR Whole Blood INR 0.9 APTT O2 Saturation ABG pH at Pt Temp ABG pCO2 at Pt Temp ABG pO2 at Pt Temp ABG HCO3 ABG Base Excess (Actual) VBG pH VBG pCO2 VBG pO2 VBG HCO3 VBG O2 Saturation VBG Base Excess Sodium Potassium Chloride Carbon Dioxide Anion Gap BUN Creatinine Estim Creat Clear Calc Estimated GFR POC Glucose 199 H Random Glucose Lactic Acid Calcium Phosphorus Magnesium Total Bilirubin AST ALT Alkaline Phosphatase Ammonia Troponin I High Sens B-Natriuretic Peptide Total Protein Albumin Triglycerides Cholesterol LDL Cholesterol, Calc HDL Cholesterol Urine Color Urine Appearance Urine pH Ur Specific Umpire Urine Protein Urine Glucose (UA) Urine Ketones Urine Blood Urine Nitrite Ur Leukocyte Esterase Urine RBC Urine WBC Ur Squamous Epith Cells Urine Bacteria Urine Mucus COVID-19 ([facility]) COVID-19 Clin Com Influenza Type A (PCR) Influenza Type B (PCR) RSV RNA Qual (PCR) SARS-CoV-2 RNA (RT-PCR) 06/03/21 06/03/21 06/03/21 14:49 14:49 14:49 WBC RBC Hgb Hct MCV MCH MCHC RDW Plt Count MPV Immature Gran % (Auto) Neut % (Auto) Lymph % (Auto) [place] % (Auto) Eos % (Auto) Baso % (Auto) Lymph # (Auto) [place] # (Auto) Eos # (Auto) Baso # (Auto) Abs Immat Gran (auto) Absolute Neuts (auto) Absolute Nucleated RBC Nucleated RBC % (auto) PT Whole Blood PT INR Whole Blood INR APTT 34.8 O2 Saturation ABG pH at Pt Temp ABG pCO2 at Pt Temp ABG pO2 at Pt Temp ABG HCO3 ABG Base Excess (Actual) VBG pH VBG pCO2 VBG pO2 VBG HCO3 VBG O2 Saturation VBG Base Excess Sodium 135 Potassium 4.2 Chloride 102 Carbon Dioxide 24 Anion Gap 13 BUN 27 H Creatinine 1.50 H Estim Creat Clear Calc 35.5 Estimated GFR 33 POC Glucose Random Glucose 215 H Lactic Acid Calcium 9.4 Phosphorus Magnesium Total Bilirubin 0.3 AST 22 ALT 19 Alkaline Phosphatase 113 Ammonia Troponin I High Sens 6.4 B-Natriuretic Peptide Total Protein 7.4 Albumin 4.0 Triglycerides Cholesterol LDL Cholesterol, Calc HDL Cholesterol Urine Color Urine Appearance Urine pH Ur Specific Umpire Urine Protein Urine Glucose (UA) Urine Ketones Urine Blood Urine Nitrite Ur Leukocyte Esterase Urine RBC Urine WBC Ur Squamous Epith Cells Urine Bacteria Urine Mucus COVID-19 ([facility]) COVID-19 Clin Com Influenza Type A (PCR) Influenza Type B (PCR) RSV RNA Qual (PCR) SARS-CoV-2 RNA (RT-PCR) 06/03/21 06/03/21 06/03/21 14:50 16:00 17:18 WBC RBC Hgb Hct MCV MCH MCHC RDW Plt Count MPV Immature Gran % (Auto) Neut % (Auto) Lymph % (Auto) [place] % (Auto) Eos % (Auto) Baso % (Auto) Lymph # (Auto) [place] # (Auto) Eos # (Auto) Baso # (Auto) Abs Immat Gran (auto) Absolute Neuts (auto) Absolute Nucleated RBC Nucleated RBC % (auto) PT 11.0 Whole Blood PT INR 1.0 Whole Blood INR APTT O2 Saturation 93.0 ABG pH at Pt Temp 7.19 L* ABG pCO2 at Pt Temp 64 H* ABG pO2 at Pt Temp 88 ABG HCO3 25 ABG Base Excess (Actual) -4.3 VBG pH VBG pCO2 VBG pO2 VBG HCO3 VBG O2 Saturation VBG Base Excess Sodium Potassium Chloride Carbon Dioxide Anion Gap BUN Creatinine Estim Creat Clear Calc Estimated GFR POC Glucose Random Glucose Lactic Acid Calcium Phosphorus Magnesium Total Bilirubin AST ALT Alkaline Phosphatase Ammonia Troponin I High Sens B-Natriuretic Peptide Total Protein Albumin Triglycerides Cholesterol LDL Cholesterol, Calc HDL Cholesterol Urine Color Urine Appearance Urine pH Ur Specific Umpire Urine Protein Urine Glucose (UA) Urine Ketones Urine Blood Urine Nitrite Ur Leukocyte Esterase Urine RBC Urine WBC Ur Squamous Epith Cells Urine Bacteria Urine Mucus COVID-19 ([facility]) Negative COVID-19 Clin Com See Note Influenza Type A (PCR) Influenza Type B (PCR) RSV RNA Qual (PCR) SARS-CoV-2 RNA (RT-PCR) 06/03/21 06/03/21 06/03/21 18:25 18:29 18:42 WBC RBC Hgb Hct MCV MCH MCHC RDW Plt Count MPV Immature Gran % (Auto) Neut % (Auto) Lymph % (Auto) [place] % (Auto) Eos % (Auto) Baso % (Auto) Lymph # (Auto) [place] # (Auto) Eos # (Auto) Baso # (Auto) Abs Immat Gran (auto) Absolute Neuts (auto) Absolute Nucleated RBC Nucleated RBC % (auto) PT Whole Blood PT INR Whole Blood INR APTT O2 Saturation ABG pH at Pt Temp ABG pCO2 at Pt Temp ABG pO2 at Pt Temp ABG HCO3 ABG Base Excess (Actual) VBG pH VBG pCO2 VBG pO2 VBG HCO3 VBG O2 Saturation VBG Base Excess Sodium Potassium Chloride Carbon Dioxide Anion Gap BUN Creatinine Estim Creat Clear Calc Estimated GFR POC Glucose Random Glucose Lactic Acid 1.1 Calcium Phosphorus Magnesium Total Bilirubin AST ALT Alkaline Phosphatase Ammonia Troponin I High Sens B-Natriuretic Peptide Total Protein Albumin Triglycerides Cholesterol LDL Cholesterol, Calc HDL Cholesterol Urine Color YELLOW Urine Appearance HAZY Urine pH 5.5 Ur Specific Umpire 1.020 Urine Protein 1+ H Urine Glucose (UA) NEG Urine Ketones NEG Urine Blood 1+ H Urine Nitrite NEG Ur Leukocyte Esterase NEG Urine RBC 1-4 Urine WBC 0-2 Ur Squamous Epith Cells TRACE Urine Bacteria 3+ Urine Mucus TRACE COVID-19 ([facility]) COVID-19 Clin Com Influenza Type A (PCR) NEGATIVE Influenza Type B (PCR) NEGATIVE RSV RNA Qual (PCR) NEGATIVE SARS-CoV-2 RNA (RT-PCR) NEGATIVE 06/03/21 06/03/21 06/03/21 18:42 18:43 19:29 WBC RBC Hgb Hct MCV MCH MCHC RDW Plt Count MPV Immature Gran % (Auto) Neut % (Auto) Lymph % (Auto) [place] % (Auto) Eos % (Auto) Baso % (Auto) Lymph # (Auto) [place] # (Auto) Eos # (Auto) Baso # (Auto) Abs Immat Gran (auto) Absolute Neuts (auto) Absolute Nucleated RBC Nucleated RBC % (auto) PT Whole Blood PT INR Whole Blood INR APTT O2 Saturation ABG pH at Pt Temp ABG pCO2 at Pt Temp ABG pO2 at Pt Temp ABG HCO3 ABG Base Excess (Actual) VBG pH VBG pCO2 VBG pO2 VBG HCO3 VBG O2 Saturation VBG Base Excess Sodium Potassium Chloride Carbon Dioxide Anion Gap BUN Creatinine Estim Creat Clear Calc Estimated GFR POC Glucose 277 H Random Glucose Lactic Acid Calcium Phosphorus Magnesium Total Bilirubin AST ALT Alkaline Phosphatase Ammonia 50 Troponin I High Sens B-Natriuretic Peptide 235 H Total Protein Albumin Triglycerides Cholesterol LDL Cholesterol, Calc HDL Cholesterol Urine Color Urine Appearance Urine pH Ur Specific Umpire Urine Protein Urine Glucose (UA) Urine Ketones Urine Blood Urine Nitrite Ur Leukocyte Esterase Urine RBC Urine WBC Ur Squamous Epith Cells Urine Bacteria Urine Mucus COVID-19 ([facility]) COVID-19 Clin Com Influenza Type A (PCR) Influenza Type B (PCR) RSV RNA Qual (PCR) SARS-CoV-2 RNA (RT-PCR) 06/03/21 06/04/21 06/04/21 19:30 00:18 05:28 WBC RBC Hgb Hct MCV MCH MCHC RDW Plt Count MPV Immature Gran % (Auto) Neut % (Auto) Lymph % (Auto) [place] % (Auto) Eos % (Auto) Baso % (Auto) Lymph # (Auto) [place] # (Auto) Eos # (Auto) Baso # (Auto) Abs Immat Gran (auto) Absolute Neuts (auto) Absolute Nucleated RBC Nucleated RBC % (auto) PT Whole Blood PT INR Whole Blood INR APTT O2 Saturation ABG pH at Pt Temp ABG pCO2 at Pt Temp ABG pO2 at Pt Temp ABG HCO3 ABG Base Excess (Actual) VBG pH 7.22 L 7.30 L VBG pCO2 57 50 VBG pO2 66 38 VBG HCO3 24 25 VBG O2 Saturation 87.0 58.0 VBG Base Excess -4.4 -1.9 Sodium Potassium Chloride Carbon Dioxide Anion Gap BUN Creatinine Estim Creat Clear Calc Estimated GFR POC Glucose Random Glucose Lactic Acid Calcium Phosphorus 3.4 Magnesium 1.8 Total Bilirubin AST ALT Alkaline Phosphatase Ammonia Troponin I High Sens B-Natriuretic Peptide Total Protein Albumin 3.8 Triglycerides Cholesterol LDL Cholesterol, Calc HDL Cholesterol Urine Color Urine Appearance Urine pH Ur Specific Umpire Urine Protein Urine Glucose (UA) Urine Ketones Urine Blood Urine Nitrite Ur Leukocyte Esterase Urine RBC Urine WBC Ur Squamous Epith Cells Urine Bacteria Urine Mucus COVID-19 ([facility]) COVID-19 Clin Com Influenza Type A (PCR) Influenza Type B (PCR) RSV RNA Qual (PCR) SARS-CoV-2 RNA (RT-PCR) 06/04/21 06/04/21 06/04/21 05:28 05:28 05:33 WBC 14.5 H RBC 4.26 Hgb 12.6 Hct 38.0 MCV 89.2 MCH 29.6 MCHC 33.2 RDW 13.2 Plt Count 328 D MPV 9.8 Immature Gran % (Auto) 0.6 H Neut % (Auto) 80.1 H Lymph % (Auto) 14.6 L [place] % (Auto) 4.6 Eos % (Auto) 0.0 Baso % (Auto) 0.1 Lymph # (Auto) 2.1 [place] # (Auto) 0.7 Eos # (Auto) 0.0 Baso # (Auto) 0.0 Abs Immat Gran (auto) 0.08 H Absolute Neuts (auto) 11.6 H Absolute Nucleated RBC 0.000 Nucleated RBC % (auto) 0.0 PT Whole Blood PT INR Whole Blood INR APTT O2 Saturation ABG pH at Pt Temp ABG pCO2 at Pt Temp ABG pO2 at Pt Temp ABG HCO3 ABG Base Excess (Actual) VBG pH 7.39 VBG pCO2 38 VBG pO2 53 VBG HCO3 24 VBG O2 Saturation 84.0 VBG Base Excess -0.5 Sodium 136 Potassium 4.2 Chloride 99 Carbon Dioxide 23 Anion Gap 18 BUN 32 H Creatinine 1.35 Estim Creat Clear Calc 38.7 Estimated GFR 38 POC Glucose Random Glucose 180 H Lactic Acid Calcium 9.4 Phosphorus Magnesium Total Bilirubin AST ALT Alkaline Phosphatase Ammonia Troponin I High Sens B-Natriuretic Peptide Total Protein Albumin Triglycerides 237 Cholesterol 241 LDL Cholesterol, Calc 133 HDL Cholesterol 61 Urine Color Urine Appearance Urine pH Ur Specific Umpire Urine Protein Urine Glucose (UA) Urine Ketones Urine Blood Urine Nitrite Ur Leukocyte Esterase Urine RBC Urine WBC Ur Squamous Epith Cells Urine Bacteria Urine Mucus COVID-19 ([facility]) COVID-19 Clin Com Influenza Type A (PCR) Influenza Type B (PCR) RSV RNA Qual (PCR) SARS-CoV-2 RNA (RT-PCR) 06/04/21 06/04/21 08:16 11:38 WBC RBC Hgb Hct MCV MCH MCHC RDW Plt Count MPV Immature Gran % (Auto) Neut % (Auto) Lymph % (Auto) [place] % (Auto) Eos % (Auto) Baso % (Auto) Lymph # (Auto) [place] # (Auto) Eos # (Auto) Baso # (Auto) Abs Immat Gran (auto) Absolute Neuts (auto) Absolute Nucleated RBC Nucleated RBC % (auto) PT Whole Blood PT INR Whole Blood INR APTT O2 Saturation ABG pH at Pt Temp ABG pCO2 at Pt Temp ABG pO2 at Pt Temp ABG HCO3 ABG Base Excess (Actual) VBG pH VBG pCO2 VBG pO2 VBG HCO3 VBG O2 Saturation VBG Base Excess Sodium Potassium Chloride Carbon Dioxide Anion Gap BUN Creatinine Estim Creat Clear Calc Estimated GFR POC Glucose 202 H 166 H Random Glucose Lactic Acid Calcium Phosphorus Magnesium Total Bilirubin AST ALT Alkaline Phosphatase Ammonia Troponin I High Sens B-Natriuretic Peptide Total Protein Albumin Triglycerides Cholesterol LDL Cholesterol, Calc HDL Cholesterol Urine Color Urine Appearance Urine pH Ur Specific Umpire Urine Protein Urine Glucose (UA) Urine Ketones Urine Blood Urine Nitrite Ur Leukocyte Esterase Urine RBC Urine WBC Ur Squamous Epith Cells Urine Bacteria Urine Mucus COVID-19 ([facility]) COVID-19 Clin Com Influenza Type A (PCR) Influenza Type B (PCR) RSV RNA Qual (PCR) SARS-CoV-2 RNA (RT-PCR) Quality Stroke Does the patient have a stroke diagnosis?: Yes Reason for No Anti-thrombotic by Day Two: N/A - Med Ordered VTE Prior VTE?: No VTE Risk Level:: Medical - moderate - high VTE Device Contraindication: N/A - Device Ordered VTE Drug Contraindication: Treatment Not Indicated
[2021-06-04] MEDS: Ampicillin Sodium/Sulbactam Na 3 GM in 0.9 % Sodium Chloride 100 ML IV ×2 (14:12→20:10)
--- NOTE | 2021-06-04 15:38 | MHC.CM.PN ---
IMM 06/04/21 Female 80 DX CVA s/p TPa She was living by herself in an elderly complex in [place]. She has [facility] in place. Per friend Ade, [facility] has come once. The Patients daughter is listed as her HCP. The patient has requested a new HCP naming her friend Ade. DP STR vs Home. A PT eval will be needed. If pt requires a facility, she will transport via BLS.
[2021-06-04 17:57] LABS: Glucose, Whole Blood 168 mg/dL (60-115)
[2021-06-04 19:55] LABS: Hematocrit 34.8 % (37.0-47.0); Hemoglobin 11.5 g/dl (12.0-16.0); Mean Corpuscular Hemoglobin 29.6 pg (27.0-33.0); Mean Corpuscular Volume 89.7 fL (80.0-98.0); Mean Platelet Volume 9.8 fL (9.4-12.3); Platelet Count 234 X10*3/uL (160-400); Red Blood Count 3.88 X10*6/uL (4.20-5.50); Red Cell Distribution Width 13.4 % (11.0-16.0); White Blood Count 13.3 X10*3/uL (4.8-10.8)
[2021-06-04] MEDS: Latanoprost 0.005 % Ophth Sol 2.5 ML DROPS 1 DROP EYE-BOTH (20:19)
[2021-06-04 20:20] LABS: Anion Gap 14 (12-20); Blood Urea Nitrogen 30 mg/dL (9-16); Calcium 9.2 mg/dL (8.4-10.2); Carbon Dioxide 26 mmol/L (22-29); Chloride 101 mmol/L (96-108); Creatinine Clr Calc Pharmacy 39.9; Estimated Glomerular Filt Rate 39; Glucose Random 178 mg/dL (60-115); Sodium 137 mmol/L (135-145)
[2021-06-04] MEDS: Magnesium Sulfate/H2O 2 GM/50 ML PIGGYBACK IV (22:08)
[2021-06-04 22:33] LABS: Glucose, Whole Blood 158 mg/dL (60-115)
[2021-06-05] VITALS (17 sets, daily range): BP systolic 105–159; BP diastolic 37–74; PULSE 80–98; RESP 16–28; TEMP 35.7–37.9; O2SAT 90–99; BMI 28.6
--- NOTE | 2021-06-05 | EEG_ITS ---
This is a 16-channel EEG with an EKG lead. The patient is reported awake, confused, and restless during the tracing. The EEG somewhat limited, because of movement and muscle artifacts. Background EEG rhythm is mostly in theta range with amplitudes of 10 to 70 microvolt. At times, slightly faster rhythm is noted. There is no obvious asymmetry, paroxysmal tendency, or focal abnormality. Cardiac lead does not reveal any significant arrhythmias. Photic stimulation and hyperventilation were not performed. IMPRESSION: Generalized slowing with no evidence of seizure disorder, suggestive of metabolic induced bihemispheric dysfunction. MD KANNAN Banks/LEE / [phone]
[2021-06-05] MEDS: 0.9 % Sodium Chloride Flush 3 ML SYRINGE IVFLUSH ×4 (00:49→19:29)
[2021-06-05] MEDS: Ampicillin Sodium/Sulbactam Na 3 GM in 0.9 % Sodium Chloride 100 ML IV ×4 (00:53→18:28)
[2021-06-05 05:26] LABS: Basophils Percent Auto 0.2 % (0-2); Eosinophils Percent Auto 0.1 % (0-4); Hematocrit 32.2 % (37.0-47.0); Hemoglobin 10.6 g/dl (12.0-16.0); Imm Gran Abs Auto 0.02 X10*3/uL (0.00-0.03); Imm Gran Pct Auto 0.2 % (0.0-0.4); Lymphocytes Absolute Auto 1.9 X10*3/uL (1.2-4.9); Lymphocytes Percent Auto 18.2 % (20-40); MANUAL DIFF FLAG NO; Mean Corpuscular HGB Conc 32.9 g/dl (31.0-35.0); Mean Corpuscular Hemoglobin 29.9 pg (27.0-33.0); Mean Platelet Volume 9.5 fL (9.4-12.3); Monocytes Absolute Auto 1.1 X10*3/uL (0.1-1.2); Monocytes Percent Auto 9.9 % (2-11); Neutrophils Absolute Auto 7.6 x10*3/uL (2.0-8.3); Neutrophils Percent Auto 71.4 % (45-73); Platelet Count 223 X10*3/uL (160-400); Red Blood Count 3.54 X10*6/uL (4.20-5.50); Red Cell Distribution Width 13.5 % (11.0-16.0); White Blood Count 10.6 X10*3/uL (4.8-10.8)
[2021-06-05 05:34] LABS: Ammonia 33 umol/L (13-55)
[2021-06-05 05:44] LABS: Alanine Aminotransferase 11 U/L (0-31); Albumin Level 3.5 g/dL (3.5-5.0); Alkaline Phosphatase 86 U/L (39-117); Anion Gap 15 (12-20); Aspartate Amino Transferase 15 U/L (5-31); Bilirubin Total 0.7 mg/dL (0.0-1.0); Blood Urea Nitrogen 31 mg/dL (9-16); C Reactive Protein 0.86 mg/dL (< or = 0.50); Calcium 9.2 mg/dL (8.4-10.2); Carbon Dioxide 27 mmol/L (22-29); Chloride 102 mmol/L (96-108); Creatinine Clr Calc Pharmacy 39.9; Estimated Glomerular Filt Rate 39; Glucose Random 166 mg/dL (60-115); Potassium 3.9 mmol/L (3.3-5.1); Sodium 140 mmol/L (135-145); Total Protein 6.4 g/dL (6.5-8.0)
[2021-06-05] MEDS: Pantoprazole Sodium 40 MG/10 ML VIAL IVPUSH (05:47)
[2021-06-05 05:53] LABS: Glucose, Whole Blood 165 mg/dL (60-115)
--- NOTE | 2021-06-05 06:39 | PM.EVENT ---
Event Note Date of Service: 06/05/21 Event Note: clinical background: patient with underlying history of COPD, diabetes, hypertension, hyperlipidemia, anxiety, was admitted on 06/03/2021 after presenting to the emergency room with reported lethargic status, left case and nonverbal. At the time patient's blood pressure was 215/94, head CT was done and was negative, she was treated as stroke and tPA was administered. She has small epistaxis event, subsequently it was thought that she had seizure activity and was briefly intubated for airway protection, started on Keppra. She was transferred to the ICU, extubated yesterday, further workup for stroke including an MRI was negative and showed no evidence of stroke or bleed. Patient was kept on Keppra, her blood pressure has improved and so has her mental status. Patient was seen by Dr. Ann. She is NPO. Patient was started on Unasyn as a aspiration pneumonia which happened probably during intubation is suspected. This morning the patient has no complaint, follows basic commands, speaks in full sentences with good articulation, slightly forgetful but not surprising for her age. Upon request she moves all 4 extremities and there is no weakness or neurological deficits noted on exam. EXAM Her current vital signs blood pressure 121/50, heart rate 87, respirations 16, O2 sat 95% on 2 L nasal cannula, temperature 100 degrees general andNeuro as above skin intact heart regular rate and rhythm no murmurs rubs gallops lungs clear to auscultation bilaterally with minor coarseness in the right lower field abdomen positive bowel sounds, soft, nontender musculoskeletal full range of motion of 4 extremities upon request laboratories were reviewed white count is coming down currently at 10.6, H&H is 10.6 and 32.2. Electrolytes are all within normal limits. Stable renal function at baseline with BUN of 31 creatinine 1.3. NO new images Assessment Plan 1. hypertensive encephalopathy now resolved, no evidence of stroke, but patient is status post tPA without complications 2. aspiration pneumonia 3. underlying diabetes 4. history of COPD without exacerbation 5. questionable seizure activity awaiting EEG At this point, the patient is stable, she does no longer require ICU. Patient will be transferred to intermediate care unit, antibiotic should continue, continue with neurological consult, swallow evaluation and resuming of her home medications. Case discussed with Dr. Benjamin Riddle is aware of all the above Total time spent with this patient 45 minutes of noncritical time care
[2021-06-05 07:13] LABS: Glucose, Whole Blood 160 mg/dL (60-115)
[2021-06-05] MEDS: Aspirin Enteric Coated 81 MG TABLET.DR PO (07:45)
[2021-06-05] MEDS: Ascorbic Acid 500 MG TABLET PO (07:46)
--- NOTE | 2021-06-05 10:02 | MHC.CLN ---
F/U PT WAS SUCCESSFULLY EXTUBATED YESTERDAY PT CURRENTLY REMAINS NPO IF DIET TO ADVANCE; RECOMMEND 1800DM 2GM NA DIET SENIOR PRIVATE CLIENT ADVISOR FOLLOWING
[2021-06-05] MEDS: levETIRAcetam 750 MG in 0.9 % Sodium Chloride 100 ML 430 MG IV ×2 (10:49→19:28)
[2021-06-05 11:22] LABS: Glucose, Whole Blood 151 mg/dL (60-115)
--- NOTE | 2021-06-05 16:08 | HO.PM.IMPN ---
Subjective Subjective Date of Service: 06/06/21 Interval History: Resting in bed, asking for water and food denies headache dizziness , denies weakness, no speech impairment, complaining of dry cough, noted to have low-grade fevers overnight denies fever chills, no acute issues overnight. Review of Systems Review of Systems: Yes all other systems are reviewed and are negative Physical Exam Vital Signs: Vital Signs: Last Vital Signs Temp 97.5 F 06/05/21 15:37 Pulse 98 06/05/21 15:37 Resp 16 06/05/21 15:37 BP 142/63 H 06/05/21 15:37 Pulse Ox 99 06/05/21 15:37 BMI result Body Mass Index 28.6 Const: Other: General resting comfortably , no acute distress. HEENT PERRLA, anicteric sclera Neck supple no JVD. CVS regular rate rhythm, Respiratory lungs clear to auscultation, no respiratory distress, no wheeze, no rhonchi. Gastrointestinal abdomen soft, nontender, bowel sounds audible Extremities no edema. Neuro nonfocal , speech clear, symmetrical face Skin no rash Objective Data Active Medications Ascorbic Acid (Ascorbic Acid 500 Mg Tablet) 500 mg PO DAILY [facility] Last Admin: 06/05/21 07:46 Dose: 500 mg Documented by: NAZARIO Aspirin (Aspirin Enteric Coated 81 Mg Tablet.) 81 mg PO DAILY [facility] Last Admin: 06/05/21 07:45 Dose: 81 mg Documented by: NAZARIO Atorvastatin Calcium (Atorvastatin Calcium 80 Mg Tablet) 80 mg PO BEDTIME [facility] Levetiracetam 750 mg/ Sodium (Chloride) 107.5 mls @ 430 mls/hr IV Q12H [facility] Last Infusion: 06/05/21 11:51 Dose: 0 mls/hr Documented by: NAZARIO Ampicillin Sodium/Sulbactam (Sodium 3 gm/ Sodium Chloride) 100 mls @ 200 mls/hr IV Q6H [facility] Stop: 06/09/21 07:29 Last Infusion: 06/05/21 14:19 Dose: 0 mls/hr Documented by: MARY JANE Insulin Human Lispro (Insulin Lispro 100 Unit/Ml 3 Ml Vial) 0 unit SUBCUT Q6H [facility]; Protocol Last Admin: 06/05/21 13:24 Dose: Not Given Documented by: HO.COTEMA Non-Admin Reason: NPO Latanoprost (Latanoprost 0.005 % Ophth [place] 2.5 Ml Drops) 1 drop EYE-BOTH BEDTIME [facility] Last Admin: 06/04/21 20:19 Dose: 1 drop Documented by: ALIE Pantoprazole Sodium (Pantoprazole Sodium 40 Mg/10 Ml Vial) 40 mg IVPUSH DAILY@0630 [facility] Last Admin: 06/05/21 05:47 Dose: 40 mg Documented by: YANCY Sodium Chloride (0.9 % Sodium Chloride Flush 3 Ml Syringe) 3 ml IVFLUSH QSHIFT [facility] Last Admin: 06/05/21 15:28 Dose: 3 ml Documented by: JB Labs CBC & Chem 7: 06/05/21 05:20 06/05/21 05:20 Labs: Laboratory Results - last 24 hr 06/04/21 06/04/21 06/04/21 17:54 19:46 19:46 MCV 89.7 MCH 29.6 MCHC 33.0 RDW 13.4 Plt Count 234 D MPV 9.8 Immature Gran % (Auto) Neut % (Auto) Lymph % (Auto) [place] % (Auto) Eos % (Auto) Baso % (Auto) Lymph # (Auto) [place] # (Auto) Eos # (Auto) Baso # (Auto) Abs Immat Gran (auto) Absolute Neuts (auto) Absolute Nucleated RBC 0.000 Nucleated RBC % (auto) 0.0 Anion Gap 14 Estim Creat Clear Calc 39.9 Estimated GFR 39 POC Glucose 168 H Random Glucose 178 H Calcium 9.2 Total Bilirubin AST ALT Alkaline Phosphatase Ammonia C-Reactive Protein Total Protein Albumin 06/04/21 06/05/21 06/05/21 21:18 05:20 05:20 MCV 91.0 MCH 29.9 MCHC 32.9 RDW 13.5 Plt Count 223 MPV 9.5 Immature Gran % (Auto) 0.2 Neut % (Auto) 71.4 Lymph % (Auto) 18.2 L [place] % (Auto) 9.9 Eos % (Auto) 0.1 Baso % (Auto) 0.2 Lymph # (Auto) 1.9 [place] # (Auto) 1.1 Eos # (Auto) 0.0 Baso # (Auto) 0.0 Abs Immat Gran (auto) 0.02 Absolute Neuts (auto) 7.6 Absolute Nucleated RBC 0.000 Nucleated RBC % (auto) 0.0 Anion Gap Estim Creat Clear Calc Estimated GFR POC Glucose 158 H Random Glucose Calcium Total Bilirubin AST ALT Alkaline Phosphatase Ammonia 33 C-Reactive Protein Total Protein Albumin 06/05/21 06/05/21 06/05/21 05:20 05:49 07:10 MCV MCH MCHC RDW Plt Count MPV Immature Gran % (Auto) Neut % (Auto) Lymph % (Auto) [place] % (Auto) Eos % (Auto) Baso % (Auto) Lymph # (Auto) [place] # (Auto) Eos # (Auto) Baso # (Auto) Abs Immat Gran (auto) Absolute Neuts (auto) Absolute Nucleated RBC Nucleated RBC % (auto) Anion Gap 15 Estim Creat Clear Calc 39.9 Estimated GFR 39 POC Glucose 165 H 160 H Random Glucose 166 H Calcium 9.2 Total Bilirubin 0.7 AST 15 ALT 11 Alkaline Phosphatase 86 D Ammonia C-Reactive Protein 0.86 H Total Protein 6.4 L Albumin 3.5 06/05/21 11:19 MCV MCH MCHC RDW Plt Count MPV Immature Gran % (Auto) Neut % (Auto) Lymph % (Auto) [place] % (Auto) Eos % (Auto) Baso % (Auto) Lymph # (Auto) [place] # (Auto) Eos # (Auto) Baso # (Auto) Abs Immat Gran (auto) Absolute Neuts (auto) Absolute Nucleated RBC Nucleated RBC % (auto) Anion Gap Estim Creat Clear Calc Estimated GFR POC Glucose 151 H Random Glucose Calcium Total Bilirubin AST ALT Alkaline Phosphatase Ammonia C-Reactive Protein Total Protein Albumin Microbiology Microbiology Results: Microbiology 06/03/21 18:55 Blood Culture - Preliminary Blood - Venous No growth after 24 hours. 06/03/21 18:42 Blood Culture - Preliminary Blood - Venous No growth after 24 hours. Assessment and Plan (1) Aphasia: Status: Acute (2) Hypertensive emergency: Status: Acute Plan patient with underlying history of COPD, diabetes, hypertension, hyperlipidemia, anxiety,? was admitted on 06/03/2021 after presenting to the emergency room with reported lethargic? status, and nonverbal, patient's blood pressure was 215/94, head CT was done and was negative, she was treated as stroke and tPA was administered,post treatment had mild epistaxis , patient treated with labetalol and required Cardene drip, in ICU patient was initially alert and oriented but quickly became unresponsive to painful stimuli with eye deviation O2 sat dropped to 70% patient required emergent intubation for airway protection, it was thought that she had seizure activity and started on Keppra, extubated yesterday, further workup for stroke including an MRI was negative and showed no evidence of stroke or bleed. Patient was kept on Keppra,? her blood pressure has improved and so has her mental status.? Patient seen by Dr. Ann he recommend EEG to rule out seizure Patient started on Unasyn? as a aspiration pneumonia which happened probably during intubation is suspected patient transferred to [facility] this morning 06/05/21 Unresponsive episode Unclear etiology, no CVA on MRI study, EEG pending to rule out seizure status post intubation, continue IV Keppra follow EEG and clinical course Tele monitor showed no arrhythmia, echocardiogram showed normal EF, normal right ventricular function bioprosthetic aortic valve, grade 2 diastolic dysfunction No seizure-like activity noted Continue aspirin/Lipitor further workup per clinical course Hypertensive encephalopathy Blood pressure improved resume home medication Coreg 12.5 mg by mouth b.i.d. previously patient was on lisinopril, patient unable to remember why it was stopped Follow BP closely Possible aspiration pneumonia CT chest consistent with viral pneumonia, on IV Unasyn will transition to by mouth Augmentin with concern for aspiration, continue supportive care acute hypoxic respiratory failure likely related to pneumonia/underlying COPD Continue oxygen and wean as tolerated, will resume home inhalers Breo and add as needed updraft treatment, antibiotic as above Diabetes mellitus type 2 Hold metformin follow blood sugars and resume upon discharge. Continue insulin sliding scale and diabetic diet DVT prophylaxis on compression boots Quality Stroke Does the patient have a stroke diagnosis?: Yes Reason for No Anti-thrombotic by Day Two: N/A - Med Ordered VTE Prior VTE?: No VTE Risk Level:: Medical - moderate - high VTE Device Contraindication: N/A - Device Ordered VTE Drug Contraindication: Treatment Not Indicated
[2021-06-05 16:21] LABS: Glucose, Whole Blood 229 mg/dL (60-115)
[2021-06-05] MEDS: Insulin Lispro 100 UNIT/ML 3 ML VIAL SUBCUT (16:30)
[2021-06-05 19:18] LABS: Glucose, Whole Blood 130 mg/dL (60-115)
[2021-06-05] MEDS: Latanoprost 0.005 % Ophth Sol 2.5 ML DROPS 1 DROP EYE-BOTH (19:28)
--- NOTE | 2021-06-05 20:47 | PM.CCPN ---
Subjective Subjective Date of Service: 06/05/21 Interval History: ?Clinical? background: ?patient with underlying history of COPD, diabetes, hypertension, hyperlipidemia, anxiety,? was admitted on 06/03/2021 after presenting to the emergency room with reported lethargic? status, left case and nonverbal.? At the time patient's blood pressure was 215/94, treated with labetalol and Nicardepine; head CT was done and was negative, she was treated as stroke and tPA was administered.? She has small epistaxis event, subsequently it was thought that she had seizure activity and was briefly intubated for airway protection, started on Keppra.? She was transferred to the ICU, extubated yesterday, further workup for stroke including an MRI was negative and showed no evidence of stroke or bleed. Patient was kept on Keppra,? her blood pressure has improved and so has her mental status.? Patient was seen? by Dr. Ann.? She is NPO.? ?Patient was started on Unasyn? as a aspiration pneumonia which happened probably during intubation is suspected. This morning the patient has no complaint, follows basic commands, speaks in full sentences with good articulation, slightly forgetful but not surprising for her age.? Upon request she moves all 4 extremities and there is no weakness or neurological deficits noted on exam. EXAM Her current vital signs blood pressure 121/50, heart rate 87, respirations 16, O2 sat 95%? on 2 L nasal cannula, temperature 100 degrees General and Neuro as above Skin intact Heart regular rate and rhythm no murmurs rubs gallops? Lungs clear to auscultation bilaterally with minor coarseness in the right lower field Abdomen positive bowel sounds, soft, nontender Musculoskeletal full range of motion of 4 extremities upon request with equal strength laboratories were reviewed white count is coming down currently at 10.6, H&H is 10.6 and 32.2.? Electrolytes are all within normal limits.? Stable renal function at baseline with BUN of 31 creatinine 1.3. NO new images Assessment Plan 1.? H encephalopathy now resolved, no evidence of stroke,? but patient is status post tPA without complications 2.? Aspiration pneumonia 3.? Underlying diabetes 4.? Hx of COPD without exacerbation 5.? Questionable seizure activity awaiting EEG At this point, the patient is stable, she does no longer require ICU.? Patient will be transferred to intermediate care unit, antibiotic should continue, continue with neurological consult, swallow evaluation and resuming of her home medications.? ?Case discussed with Dr. Montero ?Dr. Riddle? is aware of all the above ?Total time spent with this patient 45 minutes Critical Care Time (minutes): 45 Physical Exam Vital Signs: Vital Signs: Last Vital Signs Temp 96.2 F L 06/05/21 18:52 Pulse 84 06/05/21 18:52 Resp 18 06/05/21 18:52 BP 139/67 06/05/21 18:52 Pulse Ox 98 06/05/21 18:52 BMI result Body Mass Index 28.6 Objective Data Labs CBC & Chem 7: 06/05/21 05:20 06/05/21 05:20 Labs: Laboratory Results - last 24 hr 06/04/21 06/05/21 06/05/21 21:18 05:20 05:20 WBC 10.6 RBC 3.54 L Hgb 10.6 L Hct 32.2 L MCV 91.0 MCH 29.9 MCHC 32.9 RDW 13.5 Plt Count 223 MPV 9.5 Immature Gran % (Auto) 0.2 Neut % (Auto) 71.4 Lymph % (Auto) 18.2 L [place] % (Auto) 9.9 Eos % (Auto) 0.1 Baso % (Auto) 0.2 Lymph # (Auto) 1.9 [place] # (Auto) 1.1 Eos # (Auto) 0.0 Baso # (Auto) 0.0 Abs Immat Gran (auto) 0.02 Absolute Neuts (auto) 7.6 Absolute Nucleated RBC 0.000 Nucleated RBC % (auto) 0.0 Sodium Potassium Chloride Carbon Dioxide Anion Gap BUN Creatinine Estim Creat Clear Calc Estimated GFR POC Glucose 158 H Random Glucose Calcium Total Bilirubin AST ALT Alkaline Phosphatase Ammonia 33 C-Reactive Protein Total Protein Albumin 06/05/21 06/05/21 06/05/21 05:20 05:49 07:10 WBC RBC Hgb Hct MCV MCH MCHC RDW Plt Count MPV Immature Gran % (Auto) Neut % (Auto) Lymph % (Auto) [place] % (Auto) Eos % (Auto) Baso % (Auto) Lymph # (Auto) [place] # (Auto) Eos # (Auto) Baso # (Auto) Abs Immat Gran (auto) Absolute Neuts (auto) Absolute Nucleated RBC Nucleated RBC % (auto) Sodium 140 Potassium 3.9 Chloride 102 Carbon Dioxide 27 Anion Gap 15 BUN 31 H Creatinine 1.31 Estim Creat Clear Calc 39.9 Estimated GFR 39 POC Glucose 165 H 160 H Random Glucose 166 H Calcium 9.2 Total Bilirubin 0.7 AST 15 ALT 11 Alkaline Phosphatase 86 D Ammonia C-Reactive Protein 0.86 H Total Protein 6.4 L Albumin 3.5 06/05/21 06/05/21 06/05/21 11:19 16:18 19:11 WBC RBC Hgb Hct MCV MCH MCHC RDW Plt Count MPV Immature Gran % (Auto) Neut % (Auto) Lymph % (Auto) [place] % (Auto) Eos % (Auto) Baso % (Auto) Lymph # (Auto) [place] # (Auto) Eos # (Auto) Baso # (Auto) Abs Immat Gran (auto) Absolute Neuts (auto) Absolute Nucleated RBC Nucleated RBC % (auto) Sodium Potassium Chloride Carbon Dioxide Anion Gap BUN Creatinine Estim Creat Clear Calc Estimated GFR POC Glucose 151 H 229 H 130 H Random Glucose Calcium Total Bilirubin AST ALT Alkaline Phosphatase Ammonia C-Reactive Protein Total Protein Albumin Microbiology Microbiology Results: Microbiology 06/03/21 18:55 Blood - Venous Blood Culture - Preliminary No growth after 24 hours. 06/03/21 18:42 Blood - Venous Blood Culture - Preliminary No growth after 24 hours. Quality Stroke Does the patient have a stroke diagnosis?: Yes Reason for No Anti-thrombotic by Day Two: N/A - Med Ordered VTE Prior VTE?: No VTE Risk Level:: Medical - moderate - high VTE Device Contraindication: N/A - Device Ordered VTE Drug Contraindication: Treatment Not Indicated
[2021-06-05 23:43] LABS: Glucose, Whole Blood 139 mg/dL (60-115)
[2021-06-06] VITALS (10 sets, daily range): BP systolic 122–178; BP diastolic 50–78; PULSE 66–82; RESP 16–24; TEMP 35.7–36.5; O2SAT 92–99
[2021-06-06] MEDS: Ampicillin Sodium/Sulbactam Na 3 GM in 0.9 % Sodium Chloride 100 ML IV ×2 (01:00→06:17)
[2021-06-06] MEDS: Pantoprazole Sodium 40 MG/10 ML VIAL IVPUSH (06:17)
[2021-06-06 06:34] LABS: Glucose, Whole Blood 143 mg/dL (60-115)
[2021-06-06 07:29] LABS: Glucose, Whole Blood 145 mg/dL (60-115)
[2021-06-06] MEDS: carvediloL 12.5 MG TABLET PO ×2 (09:37→20:13)
[2021-06-06] MEDS: 0.9 % Sodium Chloride Flush 3 ML SYRINGE IVFLUSH ×3 (09:38→20:13)
[2021-06-06] MEDS: Gabapentin 300 MG CAPSULE PO ×2 (09:38→20:13)
[2021-06-06] MEDS: Amoxicillin/Potassium Clav 875 MG TABLET PO ×2 (09:38→20:13)
--- NOTE | 2021-06-06 10:00 | CA_ITS ---
Transthoracic Echocardiogram Patient (Last, First, Middle): Harmony Wu, Gender: Female Date of : 1940 Age: 80 Procedure Date: 06/06/2021 Procedure Type: Transthoracic Echocardiogram Location: [facility] Height: 175.26 cm Weight: 88. kg BSA: 2.04 m2 Heart Rate: bpm BP: 130 / 59 mmHg Top And Trim Worker: Referring MD: Brandin Deleon MD Exhibit Display Representative: Freddy Xavier MD Symptoms: CVA s/p t-PA Study Quality: Fair ECG Rhythm: Sinus Conclusions: - 1. Normal LV systolic function with grade 2 diastolic dysfunction 2. Normally function bioprosthetic aortic valve with mean gradient of 8 mmHg 3. Mildly dilated left atrium 4. Severe mitral annular calcification 5. Normal RV systolic pressure 6. No pericardial effusion Findings Left Ventricle Normal left ventricular size and systolic function. There is mildly increased left ventricular wall thickness. The visually estimated ejection fraction is between 55-60%. Spectral Doppler is indicative of a pseudonormal filling pattern. E/E prime ratio is >15, consistent with elevated filling pressures. Evidence suggests grade II (moderate) diastolic dysfunction. Right Ventricle Normal right ventricular cavity size and systolic function. Atria The left atrium is mildly dilated. Interatrial shunt cannot be excluded. The right atrium is normal in size. Aortic Valve A bioprosthetic aortic valve is present. The prosthetic aortic valve appears to be functioning normally. The aortic valve was not well visualized. The mean gradient is 8 mmHg. the valve is well seated with no abnormal rocking motion with mean gradient of 8 mmHg Mitral Valve There is mild anterior and severe posterior mitral leaflet thickening. There is severe mitral annular calcification. There is mild mitral valve regurgitation. There is no mitral valve stenosis. Pulmonic Valve The pulmonic valve was not well visualized. Tricuspid Valve Likely normal tricuspid valve structure and function. There is trace tricuspid valve regurgitation. The right ventricular systolic pressure is normal. Normal right atrial pressure. There is no evidence of pulmonary hypertension. Great Vessels All visible segments of the aorta are normal in size. The pulmonary artery was not well visualized. Venous The inferior vena cava is normal in size and collapses greater than 50% with inspiration. Pericardium/Pleural There is no evidence of pericardial effusion. Prior Study Comparison No significant change compared to prior study dated: 07/31/2020. Measurements 2D Linear Measurements IVSd: 1.27 0.6-0.9/0.6-1.0 cm LVIDd: 4.36 3.9-5.3/4.2-5.9 cm LVIDd Index: 2.14 2.4-3.2/2.2-3.1 cm/m2 LVIDs: 2.86 2.0-3.6 cm LVPWd: 1.23 0.7-1.1 cm LA Diam: 4.00 2.7-3.8/3.0-4.0 cm LAIDs Index: 1.96 1.5-2.3 cm/m2 LV Mass: 249.54 67-162/88-224 g LV Mass Index: 122.33 43-95/49-115 g/m2 LVOT Diam: 2.00 3.0+(-)1.3 cm 2D Systolic Function EF 4C: 58.50 >55% EF 2C: 51.40 >55% EF BiP: 54.60 >55% Mitral Valve MV VTI: 0.41 MV Pk Tam: 1.34 MV Mn Tam: 0.90 MV Pk Grad: 7.00 MV Mn Grad: 4.00 MV Pk E: 1.36 MV PK A: 1.21 MV Decel Time: 189.00 E/A: 1.10 E'Lateral: 8.70 E'Medial: 6.42 E/E' Med: 21.20 E/E' Lat: 15.60 PHT: 55.00 MVA PHT: 4.00 MVA Continuity: 1.45 Decel [place]: 7.20 Aortic Valve AoV Pk Tam: 1.95 AoV Mn Tam: 1.28 AoV VTI: 0.42 AoV Pk Grad: 15.00 Aov Mn Grad: 8.00 JONES Cont.VTI: 1.44 LVOT LVOT Pk Tam: 0.81 LVOT Mn Tam: 0.57 LVOT VTI: 0.19 LVOT Pk Grad: 3.00 LVOT Mn Grad: 2.00 LVOT Diam: 2.00 LVOT Area: 3.14 Diastolic Function MV Pk E: 1.36 MV Pk A: 1.21 E/A: 1.10 E'Medial: 6.42 E/E' Med: 21.20 E' Laterial: 8.70 E/E' Lat: 15.60 Right Ventricle TAPSE (mm): 23.00 TVS' Tam: 9.00 Tricuspid Valve TR Pk Tam: 1.60 TR Pk Grad: 10.00 RA Press: 3.00 RVSP: 13.00 Great Vessels Aorta Ao Asc: 3.50 2.1-3.4 cm Pulmonary Valve PV Pk Tam: 0.99 Peak PV Grad: 4.00 Updated in Other Vendor System with Status of Final Freddy Xavier MD electronically signed on 06/06/2021 12:37:07 PM with status of Final
[2021-06-06 11:05] LABS: Glucose, Whole Blood 210 mg/dL (60-115)
[2021-06-06] MEDS: Fluticasone/Vilanterol 100/25 BLST.W.DEV 1 PUFF INHALE (11:18)
--- NOTE | 2021-06-06 12:00 | MHC.SL.SWA ---
Speech Pathologist Impression: Oral dysphagia Risk of Aspiration Due to: Neurological Condition History of Pneumonia Hx of Recent Extubation Dysphasia Diet Status: Downgrade Liquid Consistency and Strategies for Safe Swallow: Liquid Intake Recommendation: Thin Liquid Intake Strategies: Small Sips Solid Food Consistency: Dietary Recommendations: Chopped/Advanced (NDD3) Additional Modifications to Solid Foods: Recommend DOWNGRADE solids to CHOPPED/ADVANCED (NDD3) solids with sauce/gravy for ease of mastication, continue THIN liquids and pills WHOLE with LIQUID or PUREE. Avoid dry, sticky, tough, difficult to chew solids. Recommend supervision, aspiration precautions, and strategies to promote clearance of oral residue: moisten food with sauce/gravy, chew food well, alternate bite of food with sip of liquid, take one bite at a time and clear oral cavity before taking more bites. DIRECTOR OF PARTNER MARKETING to f/u tomorrow. Oral Medication Intake: Whole with Liquid Please contact the pharmacy regarding appropriate crushable or liquid drug formulations that are available whenever modified delivery is recommended. Compensatory Strategies and Precautions to be Taken for Safe Swallow: Sitting Upright (90 deg) Small Bites and Sips Alternate Liquids/Solids Rate of Ingestion Change Avoid Specific Foods Supervision While Eating and Drinking for Safe Swallow: Total Supervision (1:1) Foods to Avoid: Dry, sticky, tough/difficult to chew solids Swallowing Recommended Treatments: Compens. Strategy Educat. Recommendation for Speech: Inpatient Speech Therapy Celebrity Manager Clinican/Clinical Fellow: No Supervisory Statement: I have reviewed and agree with the student/clinical fellow's documentation: N/A Speech Language Pathologist: Sabrina Mary M.A., CCC-DIRECTOR OF PARTNER MARKETING
[2021-06-06] MEDS: Insulin Lispro 100 UNIT/ML 3 ML VIAL SUBCUT (13:09)
--- NOTE | 2021-06-06 14:00 | MHC.CM.PN ---
pt accpted at [facility] for acute rehab
[2021-06-06 14:46] LABS: COVID-19 Test Negative (Negative)
--- NOTE | 2021-06-06 15:34 | MHC.CM.PN ---
pts dc cancelled for today as she is complaining of sob ordered a cat scan ender and fernando notified
[2021-06-06 16:18] LABS: Glucose, Whole Blood 123 mg/dL (60-115)
--- NOTE | 2021-06-06 17:02 | HO.PM.IMPN ---
Subjective Subjective Date of Service: 06/06/21 Interval History: Patient complaining of shortness of breath with activity, not on home oxygen requiring 2 L of oxygen, she denies chest pain no palpitations, denies headache lightheadedness or dizziness, no acute events overnight, noted to have low temp of 96.3 degrees Review of Systems Review of Systems: Yes all other systems are reviewed and are negative Physical Exam Vital Signs: Vital Signs: Last Vital Signs Temp 96.3 F L 06/06/21 15:02 Pulse 69 06/06/21 15:02 Resp 21 H 06/06/21 15:02 BP 122/55 L 06/06/21 15:02 Pulse Ox 97 06/06/21 15:02 BMI result Body Mass Index 28.6 Const: Other: General? resting comfortably , no acute distress, sick-leuk HEENT PERRLA, anicteric sclera Neck? supple no JVD. CVS? regular rate rhythm, Respiratory lungs expiratory wheeze, diminished breath sound, no use of accessory muscles Gastrointestinal abdomen soft, nontender, bowel sounds audible Extremities no edema. Neuro nonfocal , speech clear, symmetrical face Skin no rash Objective Data Active Medications Albuterol Sulfate (Albuterol Sulfate 90 Mcg 8 Gm Inhaler) 2 puff INHALE Q4H PRN PRN Reason: shortness of breath or wheezing Albuterol/Ipratropium (Albuterol/Iprat 2.5/0.5mg 3 Ml Ampul.Neb) 3 ml INHALE RQ4H PRN PRN Reason: sob Amoxicillin/Clavulanate Potassium (Amoxicillin/Potassium Clav 875 Mg Tablet) 875 mg PO Q12H [facility] Last Admin: 06/06/21 09:38 Dose: 875 mg Documented by: JEAN Ascorbic Acid (Ascorbic Acid 500 Mg Tablet) 500 mg PO DAILY [facility] Last Admin: 06/05/21 07:46 Dose: 500 mg Documented by: NAZARIO Aspirin (Aspirin Enteric Coated 81 Mg Tablet.) 81 mg PO DAILY [facility] Last Admin: 06/05/21 07:45 Dose: 81 mg Documented by: NAZARIO Atorvastatin Calcium (Atorvastatin Calcium 80 Mg Tablet) 80 mg PO BEDTIME [facility] Carvedilol (Carvedilol 12.5 Mg Tablet) 12.5 mg PO BID [facility]; Protocol Last Admin: 06/06/21 09:37 Dose: 12.5 mg Documented by: JEAN Fluticasone/Vilanterol (Fluticasone/Vilanterol 100/25 Blst.W.Dev) 1 puff INHALE DAILY [facility] Last Admin: 06/06/21 11:18 Dose: 1 puff Documented by: ROBERTA Gabapentin (Gabapentin 300 Mg Capsule) 300 mg PO BID [facility] Last Admin: 06/06/21 09:38 Dose: 300 mg Documented by: JEAN Insulin Human Lispro (Insulin Lispro 100 Unit/Ml 3 Ml Vial) 0 unit SUBCUT Q6H [facility]; Protocol Last Admin: 06/06/21 13:09 Dose: 4 unit Documented by: JEAN Latanoprost (Latanoprost 0.005 % Ophth Hortencia 2.5 Ml Drops) 1 drop EYE-BOTH BEDTIME [facility] Last Admin: 06/05/21 19:28 Dose: 1 drop Documented by: SILVIA Sodium Chloride (0.9 % Sodium Chloride Flush 3 Ml Syringe) 3 ml IVFLUSH QSHIFT [facility] Last Admin: 06/06/21 09:38 Dose: 3 ml Documented by: JEAN Labs CBC & Chem 7: 06/05/21 05:20 06/05/21 05:20 Labs: Laboratory Results - last 24 hr 06/05/21 06/05/21 06/06/21 19:11 23:39 06:30 POC Glucose 130 H 139 H 143 H COVID-19 ([facility]) COVID-19 Clin Com 06/06/21 06/06/21 06/06/21 07:24 10:55 14:18 POC Glucose 145 H 210 H COVID-19 ([facility]) Negative COVID-19 Clin Com See Note 06/06/21 16:11 POC Glucose 123 H COVID-19 ([facility]) COVID-19 Clin Com Microbiology Microbiology Results: Microbiology 06/03/21 18:55 Blood Culture - Preliminary Blood - Venous No growth after 48 hours. 06/03/21 18:42 Blood Culture - Preliminary Blood - Venous No growth after 48 hours. Assessment and Plan (1) Hypertensive emergency: Status: Acute (2) Pneumonia due to virus: Status: Acute (3) Unresponsive episode: Status: Acute Plan patient with underlying history of COPD, diabetes, hypertension, hyperlipidemia, anxiety,? was admitted on 06/03/2021 after presenting to the emergency room with reported lethargic? status, and nonverbal, patient's blood pressure was 215/94,? head CT was done and was negative, she was treated as stroke and tPA was administered,post treatment had mild epistaxis , patient treated with labetalol and required Cardene drip, in ICU patient was initially alert and oriented but quickly became unresponsive to painful stimuli with eye deviation O2 sat dropped to 70% patient required emergent intubation for airway protection, it was thought that she had seizure activity and started on Keppra, extubated yesterday, further workup for stroke including an MRI was negative and showed no evidence of stroke or bleed. Patient was kept on Keppra,? her blood pressure has improved and so has her mental status.? Patient seen by Dr. Ann he recommend EEG to rule out seizure Patient? started on Unasyn? as a aspiration pneumonia which happened probably during intubation is suspected patient transferred to [facility] this morning 06/05/21 Unresponsive episode Unclear etiology, no CVA on MRI study, head and neck CTA showed no obstruction status post intubation,on IV Keppra, EEG showed no seizure like activity Tele monitor showed no arrhythmia, echocardiogram showed normal EF, normal right ventricular function bioprosthetic aortic valve, grade 2 diastolic dysfunction Continue aspirin/Lipitor Will DC IV Keppra Obtain CTA chest rule out PE Seen by PT they recommend acute rehab acute hypoxic respiratory failure likely related to pneumonia/mild acute COPD exacerbation, rule out PE Patient noted to have worsening shortness of breath this morning, worse with activity Will place patient on scheduled updraft treatment add IV Solu Medrol obtain CTA chest Continue oxygen and wean as tolerated, continue home inhalers Breo Hypertensive encephalopathy Blood pressure improved continue home medication Coreg 12.5 mg by mouth b.i.d. previously patient was on lisinopril, patient unable to remember why it was stopped, will hold now since BP stable Follow BP closely Possible aspiration pneumonia CT chest consistent with viral pneumonia, on IV Unasyn will transition to by mouth Augmentin with concern for aspiration, continue supportive care Diabetes mellitus type 2 Hold metformin follow blood sugars and resume upon discharge.? Continue insulin sliding scale and diabetic diet DVT prophylaxis on compression boots, will place on subQ heparin Quality Stroke Does the patient have a stroke diagnosis?: Yes Reason for No Anti-thrombotic by Day Two: N/A - Med Ordered VTE Prior VTE?: No VTE Risk Level:: Medical - moderate - high VTE Device Contraindication: N/A - Device Ordered VTE Drug Contraindication: Treatment Not Indicated
[2021-06-06] MEDS: Heparin Sodium,Porcine 5,000 UNIT/ML VIAL 5000 UNIT SUBCUT (17:29)
[2021-06-06] MEDS: methylPREDNISolone Sod Succ 40 MG/ML VIAL IVPUSH (17:29)
[2021-06-06] MEDS: Albuterol/Iprat 2.5/0.5MG 3 ML AMPUL.NEB INHALE (19:35)
[2021-06-06 20:09] LABS: Glucose, Whole Blood 175 mg/dL (60-115)
[2021-06-07] VITALS (10 sets, daily range): BP systolic 139–182; BP diastolic 63–81; PULSE 60–75; RESP 16–20; TEMP 36.6–37.2; O2SAT 92–96
[2021-06-07 00:35] LABS: Glucose, Whole Blood 219 mg/dL (60-115)
[2021-06-07] MEDS: Insulin Lispro 100 UNIT/ML 3 ML VIAL SUBCUT ×4 (00:35→21:43)
[2021-06-07 06:16] LABS: Glucose, Whole Blood 185 mg/dL (60-115)
[2021-06-07] MEDS: methylPREDNISolone Sod Succ 40 MG/ML VIAL IVPUSH ×2 (06:21→17:14)
[2021-06-07] MEDS: Heparin Sodium,Porcine 5,000 UNIT/ML VIAL 5000 UNIT SUBCUT ×2 (06:21→17:14)
[2021-06-07] MEDS: Fluticasone/Vilanterol 100/25 BLST.W.DEV 1 PUFF INHALE (07:48)
[2021-06-07] MEDS: Albuterol/Iprat 2.5/0.5MG 3 ML AMPUL.NEB INHALE ×3 (07:48→19:28)
[2021-06-07 08:00] LABS: Glucose, Whole Blood 181 mg/dL (60-115)
[2021-06-07] MEDS: Gabapentin 300 MG CAPSULE PO ×2 (08:40→21:43)
[2021-06-07] MEDS: carvediloL 12.5 MG TABLET PO ×2 (08:40→21:43)
[2021-06-07] MEDS: Amoxicillin/Potassium Clav 875 MG TABLET PO ×2 (08:40→21:43)
[2021-06-07] MEDS: 0.9 % Sodium Chloride Flush 3 ML SYRINGE IVFLUSH ×3 (08:41→21:43)
--- NOTE | 2021-06-07 09:59 | MHC.SL.SWA ---
Speech Pathologist Impression: Risk of Aspiration Due to: Neurological Condition History of Pneumonia Hx of Recent Extubation Dysphasia Diet Status: Liquid Consistency and Strategies for Safe Swallow: Liquid Intake Recommendation: Thin Liquid Intake Strategies: Small Sips Solid Food Consistency: Dietary Recommendations: Chopped/Advanced (NDD3) Additional Modifications to Solid Foods: Recommend continue diet consistencies of CHOPPED/ADVANCED (NDD3) solids with sauce/gravy for ease of mastication, continue THIN liquids and pills WHOLE with LIQUID or PUREE. Avoid dry, sticky, tough, difficult to chew solids. Recommend supervision, aspiration precautions, and strategies to promote clearance of oral residue: moisten food with sauce/gravy, chew food well, alternate bite of food with sip of liquid, take one bite at a time and clear oral cavity before taking more bites. Oral Medication Intake: Whole with Liquid Please contact the pharmacy regarding appropriate crushable or liquid drug formulations that are available whenever modified delivery is recommended. Compensatory Strategies and Precautions to be Taken for Safe Swallow: Sitting Upright (90 deg) Small Bites and Sips Alternate Liquids/Solids Rate of Ingestion Change Oral Check Supervision While Eating and Drinking for Safe Swallow: Total Supervision (1:1) Foods to Avoid: Dry, sticky, tough/difficult to chew solids Swallowing Recommended Treatments: Compens. Strategy Educat. Recommendation for Speech: Inpatient Speech Therapy Comment: Pt seen this a.m. for f/u. Pt had just finished PT session, and was sitting in chair. Very pleasant and talkative, noted some mild word retrieval/STM issues in conversation. Pt reported that she had eaten all of the cereal on her tray this morning and had some bites of eggs and pancakes w/ c/o too much food. Reviewed need to alternate liquids w/solids and observed Pt taking cup sips of thin liquid, w/ no clinical s/s of aspiration noted. Recommend continue current diet of Chopped/Advanced (NDD3) w/ Thin liquids, Pills whole in puree or w/liquid. Recommend continued supervision during meals, w/ reminders to alternate liquids and solids. Frequency/Duration: Date Range for Service Req: Timeline to reassess: Electrical Tech Clinican/Clinical Fellow: No Supervisory Statement: I have reviewed and agree with the student/clinical fellow's documentation: N/A Speech Language Pathologist: Alissa Owens M.A., CCC-[employer]PER[employer]OR [employer]
[2021-06-07 11:03] LABS: Glucose, Whole Blood 240 mg/dL (60-115)
--- NOTE | 2021-06-07 15:49 | HO.PM.IMPN ---
Subjective Subjective Date of Service: 06/07/21 Physical Exam Vital Signs: Vital Signs: Last Vital Signs Temp 98.9 F 06/07/21 15:14 Pulse 66 06/07/21 15:14 Resp 20 06/07/21 15:14 BP 150/64 H 06/07/21 15:14 Pulse Ox 95 06/07/21 15:14 BMI result Body Mass Index 28.6 Objective Data Active Medications Albuterol Sulfate (Albuterol Sulfate 90 Mcg 8 Gm Inhaler) 2 puff INHALE Q4H PRN PRN Reason: shortness of breath or wheezing Albuterol/Ipratropium (Albuterol/Iprat 2.5/0.5mg 3 Ml Ampul.Neb) 3 ml INHALE RQ4H PRN PRN Reason: sob Albuterol/Ipratropium (Albuterol/Iprat 2.5/0.5mg 3 Ml Ampul.Neb) 3 ml INHALE QID [facility] Last Admin: 06/07/21 14:22 Dose: 3 ml Documented by: ROBERTA Amoxicillin/Clavulanate Potassium (Amoxicillin/Potassium Clav 875 Mg Tablet) 875 mg PO Q12H [facility] Last Admin: 06/07/21 08:40 Dose: 875 mg Documented by: JEAN Ascorbic Acid (Ascorbic Acid 500 Mg Tablet) 500 mg PO DAILY [facility] Last Admin: 06/05/21 07:46 Dose: 500 mg Documented by: NAZARIO Aspirin (Aspirin Enteric Coated 81 Mg Tablet.Dr) 81 mg PO DAILY [facility] Last Admin: 06/05/21 07:45 Dose: 81 mg Documented by: NAZARIO Atorvastatin Calcium (Atorvastatin Calcium 80 Mg Tablet) 80 mg PO BEDTIME [facility] Carvedilol (Carvedilol 12.5 Mg Tablet) 12.5 mg PO BID [facility]; Protocol Last Admin: 06/07/21 08:40 Dose: 12.5 mg Documented by: JEAN Fluticasone/Vilanterol (Fluticasone/Vilanterol 100/25 Blst.W.Dev) 1 puff INHALE DAILY [facility] Last Admin: 06/07/21 07:48 Dose: 1 puff Documented by: ROBERTA Gabapentin (Gabapentin 300 Mg Capsule) 300 mg PO BID [facility] Last Admin: 06/07/21 08:40 Dose: 300 mg Documented by: JEAN Heparin Sodium (Porcine) (Heparin Sodium,Porcine 5,000 Unit/Ml Vial) 5,000 unit SUBCUT Q12H [facility] Last Admin: 06/07/21 06:21 Dose: 5,000 unit Documented by: SILVIA Insulin Human Lispro (Insulin Lispro 100 Unit/Ml 3 Ml Vial) 0 unit SUBCUT Q6H [facility]; Protocol Last Admin: 06/07/21 11:57 Dose: 4 unit Documented by: JEAN Latanoprost (Latanoprost 0.005 % Ophth Hortencia 2.5 Ml Drops) 1 drop EYE-BOTH BEDTIME [facility] Last Admin: 06/06/21 20:17 Dose: Not Given Documented by: SILVIA Non-Admin Reason: Med Not Available Methylprednisolone Sodium Succinate (Methylprednisolone Sod Succ 40 Mg/Ml Vial) 40 mg IVPUSH Q12H [facility] Last Admin: 06/07/21 06:21 Dose: 40 mg Documented by: SILVIA Sodium Chloride (0.9 % Sodium Chloride Flush 3 Ml Syringe) 3 ml IVFLUSH QSHIFT [facility] Last Admin: 06/07/21 08:41 Dose: 3 ml Documented by: JEAN Labs CBC & Chem 7: 06/05/21 05:20 06/05/21 05:20 Labs: Laboratory Results - last 24 hr 06/06/21 06/06/21 06/07/21 16:11 20:05 00:30 POC Glucose 123 H 175 H 219 H 06/07/21 06/07/21 06/07/21 06:11 07:57 10:59 POC Glucose 185 H 181 H 240 H Assessment and Plan (1) Unresponsive episode: Status: Acute (2) Hypertensive emergency: Status: Acute (3) Pneumonia due to virus: Status: Acute Plan 80yoF with underlying history of COPD, diabetes, hypertension, hyperlipidemia, anxiety,? was admitted on 06/03/2021 after presenting to the emergency room with reported lethargic? status, and nonverbal, patient's blood pressure was 215/94,? head CT was done and was negative, she was treated as stroke and tPA was administered,post treatment had mild epistaxis , patient treated with labetalol and required Cardene drip, in ICU patient was initially alert and oriented but quickly became unresponsive to painful stimuli with eye deviation O2 sat dropped to 70% patient required emergent intubation for airway protection, it was thought that she had seizure activity and started on Keppra, extubated yesterday, further workup for stroke including an MRI was negative and showed no evidence of stroke or bleed. Patient was kept on Keppra,? her blood pressure has improved and so has her mental status.? Patient seen by Dr. Ann he recommend EEG to rule out seizure Patient? started on Unasyn? as a aspiration pneumonia which happened probably during intubation is suspected patient transferred to [facility] this morning 06/05/21 1.Unresponsive episode -Unclear etiology, no CVA on MRI study, head and neck CTA showed no obstruction -status post intubation,on IV Keppra, EEG showed no seizure like activity -Will DC IV Keppra -seen by Physical therapy who recommended acute rehab; today patient ambulating with 1 assist and is declining acute rehab. Will ask Physical therapy to reassess and give their input in a.m. 2.Pneumonia/mild acute COPD exacerbation -SOB improved...Marcin acceptable on RA -Augmentin x 10days upon D/C 3.Hypertensive - acceptable control -follow clinically 4.Diabetes mellitus type 2 - Continue insulin sliding scale and diabetic diet - PCP can add back meds as outpatient DVT prophylaxis on compression boots, will place on subQ heparin Requires continued hospitalization secondary to physical therapy reassessment and query acute rehab versus home with services Quality Stroke Does the patient have a stroke diagnosis?: Yes Reason for No Anti-thrombotic by Day Two: N/A - Med Ordered VTE Prior VTE?: No VTE Risk Level:: Medical - moderate - high VTE Device Contraindication: N/A - Device Ordered VTE Drug Contraindication: Treatment Not Indicated
--- NOTE | 2021-06-07 16:01 | MHC.CM.PN ---
CM MET WITH PT TO DISCUSS DC PLANNING PT WAS MEDICALLY CLEAR TO DC TO [facility] TODAY HOWEVER SHE REPORTS SHE REALLY WANTS TO GO HOME AND FEELS SHE COULD MANAGE SAFELY PT IS GONE FOR THE DAY. Pt WILL BE EVALUATED FOR HOME SAFETY TOMORROW
[2021-06-07 16:03] LABS: Glucose, Whole Blood 122 mg/dL (60-115)
[2021-06-07 20:37] LABS: Glucose, Whole Blood 239 mg/dL (60-115)
[2021-06-07] MEDS: Latanoprost 0.005 % Ophth Sol 2.5 ML DROPS 1 DROP EYE-BOTH (22:47)
[2021-06-08 04:00] VITALS: BP 159/70; PULSE 72; RESP 18; TEMP 36.4; O2SAT 96
[2021-06-08] MEDS: Heparin Sodium,Porcine 5,000 UNIT/ML VIAL 5000 UNIT SUBCUT (04:57)
[2021-06-08] MEDS: methylPREDNISolone Sod Succ 40 MG/ML VIAL IVPUSH (04:57)
[2021-06-08 07:22] VITALS: PULSE 75; RESP 18; O2SAT 96
[2021-06-08] MEDS: Albuterol/Iprat 2.5/0.5MG 3 ML AMPUL.NEB INHALE ×2 (07:22→11:36)
[2021-06-08 07:26] LABS: Glucose, Whole Blood 197 mg/dL (60-115)
[2021-06-08] MEDS: Fluticasone/Vilanterol 100/25 BLST.W.DEV 1 PUFF INHALE (07:32)
[2021-06-08 08:00] VITALS: BP 178/80; PULSE 77; RESP 20; TEMP 36.3; O2SAT 96
[2021-06-08] MEDS: Insulin Lispro 100 UNIT/ML 3 ML VIAL SUBCUT ×2 (08:07→11:50)
[2021-06-08] MEDS: Amoxicillin/Potassium Clav 875 MG TABLET PO (08:07)
[2021-06-08] MEDS: 0.9 % Sodium Chloride Flush 3 ML SYRINGE IVFLUSH (08:07)
[2021-06-08] MEDS: Gabapentin 300 MG CAPSULE PO (08:08)
[2021-06-08] MEDS: carvediloL 12.5 MG TABLET PO (08:08)
[2021-06-08 09:50] VITALS: BP 178/80; PULSE 77; O2SAT 96
[2021-06-08 11:29] LABS: Glucose, Whole Blood 232 mg/dL (60-115)
[2021-06-08 11:32] VITALS: BP 150/72; PULSE 70; RESP 16; TEMP 36.3; O2SAT 95
[2021-06-08 11:37] VITALS: PULSE 70; RESP 16; O2SAT 95
--- NOTE | 2021-06-08 11:40 | MHC.CM.PN ---
pt dcd home with patrizia who will see pt friday pt confirms she will have support over thew weekend from dl her neighbor and friend sanchez will make own trnasport arrangements
--- NOTE | 2021-06-08 13:36 | P.DS_ITS ---
DS: Providers Provider Date of Service: 06/08/21 Date of admission: 06/03/21 16:25 Date of discharge: 06/08/21 Primary care physician: Unknown Physician Consults: 06/03/21 16:25 Consult to Neurology Routine Consulting Provider: [facility] Reason for consultation: CVA s/p t-PA DS: Diagnosis Discharge Diagnosis (1) Unresponsive episode: Status: Acute (2) Hypertensive emergency: Status: Acute (3) Pneumonia due to virus: Status: Acute DS: Summary Hospital Course Hospital Course: This is a a 80-year-old female with a past medical history of? COPD, hypertension, type 2 diabetes, osteoarthritis, osteoporosis, her cholestyramine, depression and history of abdominal aortic aneurysm without rupture? who presented to the emergency room via ambulance as a stroke alert.? According to patient?s boyfriend,? patient developed sudden onset aphasia? and was lethargic.? In the emergency room, the patient was noted to have significant aphasia, lethargic, blood pressure 215/97,? other vital signs stable. CT was negative for any acute bleed. Neurology was consulted in? the ED, Dr Shafer, who agreed with tPA administration. tPA administered at 1430.?ED course:? While in the ED patient of pressure over 200s? systolic,? receive a total of 30 mg of labetalol and ultimately required Cardene drip. ?ABGs were obtained due to patient underlying confusion,? and showed to be 7.19/64/88/25.? She was placed on BiPAP.? ? Patient also, had an episode of epistaxis? that was controlled with nose pinching.? On arrival? to ICU, patient was alert and oriented, speaking in full sentences on BiPAP,? but quickly deteriorated. Patient unresponsive to painful stimuli, eye deviation.? O2 saturations dropped to 70%,? Required emergent intubation for airway protection.? Hospital Course Within the next 24 hours, patient improved to the point of being extubated without issue. X-ray did show an infiltrate which was thought to be mild aspiration during intubation. She was placed on Zosyn and remained afebrile. Pt was seen by Neurology who recommended noncontrast MRI and EEG both of which failed to demonstrate acute pathology. At this point in time she is improved from a functional standpoint and physical therapy feels confident that she can be discharged to home with services. She will be discharged home with services and complete a course of oral Augmentin. Follow-up with PCP 1-2 weeks Time Spent with Patient Time attestation: Total time spent providing and/or coordinating discharge services: Discharge coordination time: Greater than 30 minutes Quality: Stroke Does the patient have a stroke diagnosis?: Yes Reason for No Anti-thrombotic at DC: N/A - Med Ordered Reason for No Anticoagulant at DC: N/A - Med Ordered Reason Not Initiating IV-Tpa: N/A - Med Ordered Reason for No Anti-thrombotic by Day Two: N/A - Med Ordered Reason for No Statin at DC: N/A - Med Ordered Physical Exam Vital Signs: Vital Signs: Last Vital Signs Temp 97.4 F 06/08/21 11:32 Pulse 70 06/08/21 11:37 Resp 16 06/08/21 11:37 BP 150/72 H 06/08/21 11:32 Pulse Ox 95 06/08/21 11:32 BMI result Body Mass Index 28.6 Const: Other: Awake alert oriented x3 no acute distress Resp: Other: Clear to auscultation bilaterally no rales rhonchi or wheezes Cardio: Other: No S4; positive S1-S2; S3 no murmurs rubs or gallops Neuro: Other: Cranial nerves 2-12 grossly intact as tested. Motor is 5/5 all extremities. Sensation is static. Cognition appropriate. Extrem: Other: No edema bilaterally DS: Data Data Completed and Pending Labs on day of discharge: Laboratory Results - last 24 hr 06/07/21 06/07/21 06/08/21 15:57 20:28 07:14 POC Glucose 122 H 239 H 197 H 06/08/21 11:20 POC Glucose 232 H Preliminary micro results at discharge 06/03/21 18:55 Blood Culture - Preliminary Blood - Venous No growth after 48 hours. 06/03/21 18:42 Blood Culture - Preliminary Blood - Venous No growth after 48 hours. Discharge Plan Discharge Patient Disposition: Home Health Service Discharge Diagnosis: Acute CVA Referrals: patrizia [Other] - 1 Week Physician,Unknown J [Primary Care Provider] - 1 Week Discharge Medications: New amoxicillin-pot clavulanate 875-125 mg Tablet 875 mg PO Q12H Qty: 10 0RF Continued metformin 500 mg tablet 500 mg PO DAILY Qty: 180 1RF carvedilol 12.5 mg tablet 12.5 mg PO BID Qty: 180 1RF paroxetine HCl 40 mg tablet 40 mg PO DAILY Qty: 90 2RF atorvastatin 80 mg tablet 80 mg PO DAILY Qty: 90 2RF Breo Ellipta 100-25 mcg/dose Blister With Device 1 inh INHALATION DAILY 0RF Rx Instructions: pt hasnt started, needs a PA latanoprost 0.005 % drops 1 drp ophthalmic (eye) BEDTIME 0RF acetaminophen-caffeine 500-65 mg Tablet 1 tab PO Q6H PRN (Reason: Headache) 0RF aspirin 81 mg Tablet,Delayed Release (Dr/Ec) 81 mg PO DAILY 0RF tramadol 50 mg tablet 1 tab PO TID PRN (Reason: pain) 0RF ascorbic acid (vitamin C) 500 mg Tablet 500 mg PO DAILY 0RF gabapentin 300 mg capsule 1 cap PO BID 0RF Unisom (doxylamine) 25 mg Tablet 25 mg PO BEDTIME PRN (Reason: Sleep) 0RF loratadine 10 mg Tablet 10 mg PO DAILY 0RF albuterol sulfate [ProAir HFA] 90 mcg/actuation HFA aerosol inhaler 2 puff inhalation Q4-6H PRN (Reason: shortness of breath or wheezing) Qty: 8.5 0RF Discontinued ibuprofen 200 mg Tablet 200 mg PO Q6H PRN (Reason: Pain) 0RF Discharge Orders: Discharge Order (Routine); Ordered 06/08/21 Ordered By: Amanuel Kinsey Diet: advance to usual diet Activity on Discharge: As tolerated Stand Alone Forms: Patient Portal Discharge page Care Plan Goals: Complete course of oral antibiotics as ordered Health Concerns: Home physical therapy and VNA services Plan of Treatment: Home PT OT and completed course Augmentin Assessment: Per discharge summary
== END 2021-06-08 14:58 | disposition home health service (06) | DRG 208 ==
LOC: HO.ED 17:16 → HO.EDOVER 18:15 → HO.ICU 19:37 → HO.IMC 06-05 11:48
PROVIDERS: Hospitalist; Internal Medicine; Physician Assistant Medical; Registered Nurse Community Health; Admitting Provider Internal Medicine Pulmonary Disease; Emergency Provider Emergency Medicine; PCP Internal Medicine; Visit Provider Hospitalist
DX: J12.9 Viral pneumonia, unspecified (principal); J96.02 Acute respiratory failure with hypercapnia; J96.01 Acute respiratory failure with hypoxia; J44.0 Chronic obstructive pulmonary disease with (acute) lower respiratory infection; J44.1 Chronic obstructive pulmonary disease with (acute) exacerbation; R47.01 Aphasia; N17.9 Acute kidney failure, unspecified; I16.1 Hypertensive emergency; I67.4 Hypertensive encephalopathy; J69.8 Pneumonitis due to inhalation of other solids and liquids; Z20.822 Contact with and (suspected) exposure to COVID-19; Z95.2 Presence of prosthetic heart valve; Z96.643 Presence of artificial hip joint, bilateral; I10 Essential (primary) hypertension; R56.9 Unspecified convulsions; E11.9 Type 2 diabetes mellitus without complications; N18.9 Chronic kidney disease, unspecified; I12.9 Hypertensive chronic kidney disease with stage 1 through stage 4 chronic kidney disease, or unspecified chronic kidney disease; R04.0 Epistaxis; E78.5 Hyperlipidemia, unspecified; F41.9 Anxiety disorder, unspecified; Z87.891 Personal history of nicotine dependence; Z79.82 Long term (current) use of aspirin; Z79.891 Long term (current) use of opiate analgesic; Z79.899 Other long term (current) drug therapy
CPT/HCPCS: 0241U; 36415; 70450; 70496; 70498; 70551; 71045; 71250; 71275; 80048; 80053; 80061; 81001; 82040; 82140; 82803; 82947; 83605; 83735; 83880; 84100; 84484; 85025; 85027; 85610; 85730; 86140; 87040; 87635; 92526; 92610; 93005; 93306; 94002; 94003; 94640; 94660; 94799; 95816; 96365; 96375; 96376; 97116; 97162; 97165; 97530; 97535; 99285; 99291; J0295; J1940; J1953; J1956; J2920; J2997; J3475

== ENCOUNTER 2021-09-13 15:13 | Emergency (ER) | payer MEDICARE, SELFPAY ==
--- NOTE | ~2021-09-13 | XR_ITS ---
EXAMINATION: XR CHEST CLINICAL INFORMATION: Shortness of breath COMPARISON: Chest radiograph 06/03/[address] chest 06/06/2021 TECHNIQUE: Frontal view of the chest was obtained. FINDINGS: Median sternotomy is again seen. Heart size within normal limits. There has been a deterioration in appearances with increased airspace opacity in the left lung as well as, to a lesser extent, in the right lung. No pleural effusions are detected. XR/XR chest 1V IMPRESSION: Increasing diffuse airspace opacity. Findings would include CHF with pulmonary edema as well as multifocal infection
--- NOTE | ~2021-09-13 | CT_ITS ---
EXAMINATION: CT HEAD WITHOUT CONTRAST CLINICAL INFORMATION: Recent stroke and seizure. Right gaze paralysis. COMPARISON: Head CT 06/03/2021, brain MRI 06/04/2021 TECHNIQUE: Imaging was performed from the skull base to vertex without intravenous administration of contrast. This CT examination was performed using dose optimization techniques as appropriate, variously including the following: *Automated exposure control *Adjustment of mA and/or kV according to patient size (this includes techniques or standardized protocols for targeted exams where dose is matched to indication/reason for exam; i.e. extremities or head) *Use of iterative reconstruction technique Total exam dose length product: 796 mGy-cm FINDINGS: No intra or extra-axial fluid collection, hemorrhage, or mass. No ventriculomegaly. No midline shift or herniation. Basal cisterns are patent. Oropeza-white matter differentiation is maintained. No territorial encephalomalacia. Proportional prominence of the ventricles and sulcal spaces is consistent with mild volume loss. Patchy periventricular and deep white matter hypoattenuation is consistent with moderate small vessel ischemic changes. No calvarial fracture or soft tissue abnormality. The mastoid air cells and visualized portions of the paranasal sinuses are well aerated. CT/CT head/brain wo con IMPRESSION: 1. No acute intracranial pathology or appreciable change.
[2021-09-13 15:25] VITALS: BP 152/123; BP 170/92; PULSE 141; PULSE 82; RESP 22; TEMP 38.2; O2SAT 97; O2SAT 99
--- NOTE | 2021-09-13 15:26 | ECG_ITS ---
Test Reason : DIFFICULTY BREATHING Blood Pressure : / mmHG Vent. Rate : 142 BPM Atrial Rate : 000 BPM P-R Int : 000 ms QRS Dur : 132 ms QT Int : 368 ms P-R-T Axes : 000 -57 103 degrees QTc Int : 566 ms Sinus tachycardia vs atrial tachycardia Left axis deviation Left bundle branch block Abnormal ECG When compared with ECG of 03-JUN-2021 14:26, Vent. rate has increased BY 48 BPM Referred By: Igor Benjamin Electronically Signed By:Min Resendez
[2021-09-13 15:33] LABS: Glucose, Whole Blood 308 mg/dL (60-115)
[2021-09-13 15:42] LABS: MANUAL DIFF FLAG NO
--- NOTE | 2021-09-13 15:44 | ED_ITS ---
HPI - Seizure General Chief Complaint: Altered Mental Status Stated Complaint: WEAKNESS Time Seen by Provider: 09/13/21 15:18 Source: family and EMS Mode of arrival: EMS Limitations: altered mental status History of Present Illness HPI Narrative: 81-year-old female who was brought to emergency department for evaluation of altered mental status. Information came from the patient's daughter Chica was been staying with the patient the last 2 days as well as from EMS. According to her daughter, the patient has not been feeling well for 2 days. She has had an upset stomach with nausea. Yesterday, she developed a severe headache which was unusual for her. The daughter states that the patient was tired and was taking a nap. She was going to going to the bedroom to see how her mother was doing when she heard a snoring respiratory noise coming from the bedroom. The daughter found the patient to be altered and was unable to wake her up. She called 911. When the paramedics arrived the patient had an O2 saturation of 82% on room air, she had loud respiratory noises and was wheezing, she was altered and not talking. The paramedics at a point of care glucose of 206. She was placed on a nebulizer with oxygen and the paramedics believe that she did seem to wake up slightly after this treatment. When the patient arrived in the emergency department however she was altered and lethargic, she then had a tonic-clonic seizure which lasted approximately 1 minute. The seizure broke without any treatment. After about 5 minutes of being in the emergency department she had a 2nd tonic-clonic seizure and was given Ativan 2 mg IV. Repeat point of care glucose was 300. The patient was lethargic, breathing spontaneously, diaphoretic, warm to the touch, she had a right gaze paralysis. She appeared to be postictal. In reviewing the patient's record the patient was hospitalized on 06/08/2021 for aphasia and hypertension. Patient's workup included a negative MRI, her course was complicated by respiratory failure requiring intubation and an aspiration pneumonia. According to the daughter, since this hospitalization she has had slow speech but otherwise is able to function at home independently. The daughter states the patient is a full code. Related Data Home Medications Medication Instructions Recorded Confirmed fluticasone furoate 100 1 inh inhalation DAILY 06/03/21 06/03/21 mcg-vilanterol 25 mcg/dose inhalation powder (Breo Ellipta) acetaminophen-caffeine 500 mg-65 1 tab PO Q6H PRN Headache 06/04/21 06/04/21 mg tablet ascorbic acid (vitamin C) 500 mg 500 mg PO DAILY 06/04/21 06/04/21 tablet aspirin 81 mg tablet,delayed 81 mg PO DAILY 06/04/21 06/04/21 release doxylamine succinate 25 mg tablet 25 mg PO BEDTIME PRN Sleep 06/04/21 06/04/21 (Unisom (doxylamine)) latanoprost 0.005 % eye drops 1 drp ophthalmic (eye) BEDTIME 06/04/21 06/04/21 loratadine 10 mg tablet 10 mg PO DAILY 06/04/21 06/04/21 Previous Rx's Medication Instructions Recorded carvedilol 12.5 mg tablet 12.5 mg PO BID #180 tabs 01/15/21 metformin 500 mg tablet 500 mg PO DAILY #180 tabs 01/15/21 paroxetine HCl 40 mg tablet 40 mg PO DAILY #90 tabs 02/05/21 atorvastatin 80 mg tablet 80 mg PO DAILY #90 tabs 02/26/21 albuterol sulfate 90 mcg/actuation 2 puff inhalation Q4-6H PRN 04/09/21 aerosol inhaler (ProAir HFA) shortness of breath or wheezing #8.5 grams amoxicillin 875 mg-potassium 875 mg PO Q12H #10 tabs 06/06/21 clavulanate 125 mg tablet gabapentin 300 mg capsule 300 mg PO TID PRN pain 90 days 07/09/21 #270 caps tramadol 50 mg tablet 50 mg PO Q12H PRN pain 90 days 07/09/21 #180 tabs Allergies Allergy/AdvReac Type Severity Reaction Status Date / Time No Known Allergies Allergy Mild NONE Verified 07/09/21 09:53 Review of Systems Review of Systems: Yes Unobtainable due to mental status [facility] Past Medical History [facility] Narrative: Past medical history: Diabetes, hypertension, hyperlipidemia, COPD requiring intubation in the past, depression, abdominal aortic aneurysm. Social history: She lives at home independently, her daughter currently staying with her over the past several days since the patient was feeling ill. Medical History Osteoarthritis Osteoporosis Urinary incontinence Vitamin D deficiency Surgical History History of colonoscopy History of heart valve replacement (~08/2013) History of left hip replacement History of right hip replacement (~08/2014) Family History Family History Father No problems noted. Mother History of high cholesterol Social History Social History Household Members: None Housing: Apartment Do you presently have visiting nurse or other home services: No Alcohol intake: unknown Patient Tobacco Use Status: Former Tobacco user Quit Date: 5 years ago Tobacco use type: Cigarette Cigarette Packs Per Day: 1 Cigarettes Per Day: 20.0 Years Smoked: 55 e-Cigarette/Vaping Use: Never Used Second Hand Smoke Exposure: No Advance Directives: Yes Advance Directives on File: Yes Advance Directives Date on File: 02/10/21 service: No Current occupational status: retired Cognitive needs: No Hearing needs: No Vision needs: Yes Physical Exam Vital Signs: Vital Signs: Last Vital Signs Temp 100.9 F H 09/13/21 16:48 Pulse 123 H 09/13/21 16:48 Resp 27 H 09/13/21 16:48 BP 107/58 L 09/13/21 16:48 Pulse Ox 93 09/13/21 16:48 O2 Del Method 09/13/21 16:48 O2 Flow Rate 8 09/13/21 16:48 FiO2 50 09/13/21 17:17 Oxygen Flow Rate 4 09/13/21 15:25 BMI result Body Mass Index 30.0 Const: Other: Patient was actively seizing, she had tonic clonic movement and was unresponsive. She was postictal briefly and then had a 2nd tonic-clonic seizure. She has been postictal since then. HEENT: Head: Yes normal to inspection, Yes normocephalic and Yes atraumatic Ears: external ears normal General nose exam: Normal external nose present Face and sinus: Yes normal facial exam Mouth: Normal oral and palatal mucosa present Throat: Yes posterior oropharynx normal Eyes: Alignment and Position: other (Right gaze paralysis) Eyelids: Yes eyelids normal Pupils: Other pupil findings (Pupils are equal minimally reactive) Neck: Neck: Yes normal visual inspection, Yes no lymphadenopathy, Yes trachea midline and Yes supple Chest: Chest palpation & inspection: normal inspection of the chest and normal palpation of entire chest wall Resp: Effort & Inspection: normal respiratory effort and able to speak in complete sentences Auscultation: clear to auscultation bilaterally Cardio: Rate: regular rate Rhythm: regular rhythm Heart sounds: S1 normal heart sound present, S2 normal heart sound present and no murmurs GI: Inspection: Yes normal to inspection Palpation (GI): Soft to palpation, nontender and no guarding Auscultation: normal bowel sounds : General: Yes no CVA tenderness Back/Spine/Pelvis: Back: no CVA tenderness Skin: General skin exam: no rashes or lesions noted Neuro: Other: Patient's postictal Extrem: General: Yes normal to inspection Psych: Other: Patient's postictal. Course Course Course Narrative: 81-year-old female who presents emergency department for evaluation of possible seizure at home with altered mental status and 2 tonic-clonic seizures here in the emergency department. According to the daughter the patient has not been feeling well over the past 2 days, she has had an upset stomach with nausea and yesterday she developed a severe headache. Initial vital signs revealed an elevated blood pressure of 152/123, tachycardia with a pulse of 144 and elevated respiratory rate of 22. Patient also had a rectal temperature of 100.7 degrees F.. Her examination was consistent with her being postictal, she did have a right gaze paralysis. Also, patient vomited once in the ambulance and is consistent with coffee-ground emesis. Differential includes but is not limited to stroke, bleed, seizure, pneumonia, urinary tract infection. Laboratory evaluation was ordered to include CBC, CMP, lactate, BNP, CK, PT/INR, PTT, troponin, take urine, lipase, COVID-19, blood cultures x2. Chest x-ray and CT scan of the head will also be obtained. Patient was ordered to get normal saline x1 L and Zosyn 4.5 g IV for possible aspiration pneumonia. She was also ordered to get acetaminophen 650 mg per rectum 1706: Laboratory evaluation: WBC elevated 12,000, H&H was normal 14 and 47.8. CO2 low 15, BUN and creatinine elevated 21 and 1.54, glucose elevated 436. High sensitivity troponin I elevated 386.5. BNP elevated 547. COVID-19 negative. Radiology evaluation: Chest x-ray one view consistent bilateral interstitial infiltrates, consistent with pulmonary edema. CT head without contrast no intracranial pathology or presyncopal change noted compared to CT head 06/03/2021 and MRI brain 06/04/2021 The patient's laboratory evaluation is concerning for acute myocardial injury, the patient has a tachy rhythm with a new left bundle branch block compared to EKG dated 06/03/2021. Patient's chest x-ray is consistent with pulmonary edema and she does have an elevated BNP as well. Patient was ordered to get Lasix 20 mg IV. I did discuss this patient's presentation with our covering leather case finisher who came to the emergency department and did a bedside echocardiogram on the patient. The bedside echo review left anterior apical akinesis and a bio aortic valve. Given these findings, I suspect the patient julien s had acute STEMI given her new left bundle-branch block. It is possible this caused her to be hypoxic and then triggered her to have 3 tonic-clonic seizures. I did discuss this presentation with the patient's daughter and she wants the patient to be treated aggressively therefore the patient will be intubated and I will contact the STEMI balloon dipper at [facility] for transfer. The patient will also be loaded with Keppra 1000 mg IV to prevent further seizures. 1727: RSI with etomidate 25 mg and rocuronium 50 mg IV push was used to intubate the patient. Cords were easily visualized with a glide scope, she was intubated with 7.0 endotracheal tube without any complications. Endotracheal tube was secured at 21 cm at the lip. She had positive end-tidal CO2 waves. Patient was placed on propofol for sedation. 1738: Patient continues to have a fever of 101 degrees F the a temperature sensing [place]. Patient was ordered to get a 2nd dose acetaminophen 650 mg per rectum. Given the unknown source for her fever and the fact that she has a bio aortic valve, patient was ordered to get vancomycin 1 g IV as well. 1759: I did discuss the patient's presentation with the petroleum plant operator, Dr. Chavarria who recommended that the patient go to the CCU. 1837: The patient was accepted to the [facility] at [facility], the accepting physician is Dr. Bolanos ABG revealed a pH of 7.30, pCO2 42, PO2 of 158, bicarb of 21. Patient will be kept on her vent settings with no change.) AC, rate 18, tidal volume 400, FiO2 50%, 5 of PEEP. MDM - Seizure Lab Data Result diagrams: 09/13/21 15:36 09/13/21 16:11 Labs: Lab Results 09/13/21 09/13/21 09/13/21 Range/Units 15:24 15:36 15:36 WBC 21.1 H (4.8-10.8) X10*3/uL RBC 5.20 D (4.20-5.50) X10*6/uL Hgb 14.5 D (12.0-16.0) g/dl Hct 47.8 H D (37.0-47.0) % MCV 91.9 (80.0-98.0) fL MCH 27.9 (27.0-33.0) pg MCHC 30.3 L (31.0-35.0) g/dl RDW 13.6 (11.0-16.0) % Plt Count 350 D (160-400) X10*3/uL MPV 10.4 (9.4-12.3) fL Immature Gran % (Auto) 0.7 H (0.0-0.4) % Neut % (Auto) 72.0 (45-73) % Lymph % (Auto) 22.3 (20-40) % [place] % (Auto) 4.6 (2-11) % Eos % (Auto) 0.1 (0-4) % Baso % (Auto) 0.3 (0-2) % Lymph # (Auto) 4.7 (1.2-4.9) X10*3/uL [place] # (Auto) 1.0 (0.1-1.2) X10*3/uL Eos # (Auto) 0.0 (0.0-0.4) X10*3/uL Baso # (Auto) 0.1 (0.0-0.2) X10*3/uL Abs Immat Gran (auto) 0.14 H (0.00-0.03) X10*3/uL Absolute Neuts (auto) 15.2 H (2.0-8.3) x10*3/uL Absolute Nucleated RBC 0.000 (0.0-0.012) X10*3/uL Nucleated RBC % (auto) 0.0 (0.0-0.2) /100WBC PT 10.3 (9.9-13.0) SEC INR 0.9 (0.9-1.1) APTT 34.2 (24.1-38.0) SEC O2 Saturation % ABG pH at Pt Temp (7.35-7.45) ABG pCO2 at Pt Temp (32-45) mmHg ABG pO2 at Pt Temp (83-108) mmHg ABG HCO3 (22-26) mmol/L ABG Base Excess (Actual) mmol/L Sodium (135-145) mmol/L Potassium (3.3-5.1) mmol/L Chloride (96-108) mmol/L Carbon Dioxide (22-29) mmol/L Anion Gap (12-20) BUN (9-16) mg/dL Creatinine (0.5-1.4) mg/dL Estim Creat Clear Calc Estimated GFR POC Glucose 308 H (60-115) mg/dL Random Glucose (60-115) mg/dL Lactic Acid (0.5-2.0) mmol/L Calcium (8.4-10.2) mg/dL Total Bilirubin (0.0-1.0) mg/dL AST (5-31) U/L ALT (0-31) U/L Alkaline Phosphatase (39-117) U/L Total Creatine Kinase (26-140) U/L Troponin I High Sens (<3.5-17.0) ng/L B-Natriuretic Peptide (<100) pg/mL Total Protein (6.5-8.0) g/dL Albumin (3.5-5.0) g/dL Lipase (8-78) U/L Urine Color Urine Appearance Urine pH (5.0-8.0) Ur Specific [place] (1.005-1.025) Urine Protein (NEG-TRACE) MG/DL Urine Glucose (UA) (NEG) MG/DL Urine Ketones (NEG) MG/DL Urine Blood (NEG) Urine Nitrite (NEG) Ur Leukocyte Esterase (NEG) Urine RBC (0) /HPF Urine WBC (0-4) /HPF Ur Squamous Epith Cells /LPF Urine Bacteria /LPF COVID-19 (HARPREET) (Negative) COVID-19 Clin [facility] Blood Type Antibody Screen 09/13/21 09/13/21 09/13/21 Range/Units 15:36 15:37 15:37 WBC (4.8-10.8) X10*3/uL RBC (4.20-5.50) X10*6/uL Hgb (12.0-16.0) g/dl Hct (37.0-47.0) % MCV (80.0-98.0) fL MCH (27.0-33.0) pg MCHC (31.0-35.0) g/dl RDW (11.0-16.0) % Plt Count (160-400) X10*3/uL MPV (9.4-12.3) fL Immature Gran % (Auto) (0.0-0.4) % Neut % (Auto) (45-73) % Lymph % (Auto) (20-40) % [place] % (Auto) (2-11) % Eos % (Auto) (0-4) % Baso % (Auto) (0-2) % Lymph # (Auto) (1.2-4.9) X10*3/uL [place] # (Auto) (0.1-1.2) X10*3/uL Eos # (Auto) (0.0-0.4) X10*3/uL Baso # (Auto) (0.0-0.2) X10*3/uL Abs Immat Gran (auto) (0.00-0.03) X10*3/uL Absolute Neuts (auto) (2.0-8.3) x10*3/uL Absolute Nucleated RBC (0.0-0.012) X10*3/uL Nucleated RBC % (auto) (0.0-0.2) /100WBC PT (9.9-13.0) SEC INR (0.9-1.1) APTT (24.1-38.0) SEC O2 Saturation % ABG pH at Pt Temp (7.35-7.45) ABG pCO2 at Pt Temp (32-45) mmHg ABG pO2 at Pt Temp (83-108) mmHg ABG HCO3 (22-26) mmol/L ABG Base Excess (Actual) mmol/L Sodium (135-145) mmol/L Potassium (3.3-5.1) mmol/L Chloride (96-108) mmol/L Carbon Dioxide (22-29) mmol/L Anion Gap (12-20) BUN (9-16) mg/dL Creatinine (0.5-1.4) mg/dL Estim Creat Clear Calc Estimated GFR POC Glucose (60-115) mg/dL Random Glucose (60-115) mg/dL Lactic Acid 11.7 H* (0.5-2.0) mmol/L Calcium (8.4-10.2) mg/dL Total Bilirubin (0.0-1.0) mg/dL AST (5-31) U/L ALT (0-31) U/L Alkaline Phosphatase (39-117) U/L Total Creatine Kinase (26-140) U/L Troponin I High Sens 386.5 H* D (<3.5-17.0) ng/L B-Natriuretic Peptide 547 H (<100) pg/mL Total Protein (6.5-8.0) g/dL Albumin (3.5-5.0) g/dL Lipase (8-78) U/L Urine Color YELLOW Urine Appearance HAZY Urine pH 6.0 (5.0-8.0) Ur Specific [place] >= 1.030 H (1.005-1.025) Urine Protein 2+ H (NEG-TRACE) MG/DL Urine Glucose (UA) NEG (NEG) MG/DL Urine Ketones NEG (NEG) MG/DL Urine Blood 2+ H (NEG) Urine Nitrite POS H (NEG) Ur Leukocyte Esterase NEG (NEG) Urine RBC 1-4 (0) /HPF Urine WBC 0 (0-4) /HPF Ur Squamous Epith Cells 2+ /LPF Urine Bacteria 2+ /LPF COVID-19 (HARPREET) (Negative) COVID-19 Clin Com Blood Type Antibody Screen 09/13/21 09/13/21 09/13/21 Range/Units 15:37 16:11 16:11 WBC (4.8-10.8) X10*3/uL RBC (4.20-5.50) X10*6/uL Hgb (12.0-16.0) g/dl Hct (37.0-47.0) % MCV (80.0-98.0) fL MCH (27.0-33.0) pg MCHC (31.0-35.0) g/dl RDW (11.0-16.0) % Plt Count (160-400) X10*3/uL MPV (9.4-12.3) fL Immature Gran % (Auto) (0.0-0.4) % Neut % (Auto) (45-73) % Lymph % (Auto) (20-40) % [place] % (Auto) (2-11) % Eos % (Auto) (0-4) % Baso % (Auto) (0-2) % Lymph # (Auto) (1.2-4.9) X10*3/uL [place] # (Auto) (0.1-1.2) X10*3/uL Eos # (Auto) (0.0-0.4) X10*3/uL Baso # (Auto) (0.0-0.2) X10*3/uL Abs Immat Gran (auto) (0.00-0.03) X10*3/uL Absolute Neuts (auto) (2.0-8.3) x10*3/uL Absolute Nucleated RBC (0.0-0.012) X10*3/uL Nucleated RBC % (auto) (0.0-0.2) /100WBC PT (9.9-13.0) SEC INR (0.9-1.1) APTT (24.1-38.0) SEC O2 Saturation % ABG pH at Pt Temp (7.35-7.45) ABG pCO2 at Pt Temp (32-45) mmHg ABG pO2 at Pt Temp (83-108) mmHg ABG HCO3 (22-26) mmol/L ABG Base Excess (Actual) mmol/L Sodium 136 (135-145) mmol/L Potassium 3.7 (3.3-5.1) mmol/L Chloride 101 (96-108) mmol/L Carbon Dioxide 15 L (22-29) mmol/L Anion Gap 24 H (12-20) BUN 21 H (9-16) mg/dL Creatinine 1.54 H (0.5-1.4) mg/dL Estim Creat Clear Calc 30.8 Estimated GFR 32 POC Glucose (60-115) mg/dL Random Glucose 436 H* (60-115) mg/dL Lactic Acid (0.5-2.0) mmol/L Calcium 8.9 (8.4-10.2) mg/dL Total Bilirubin 0.5 (0.0-1.0) mg/dL AST 17 (5-31) U/L ALT 11 (0-31) U/L Alkaline Phosphatase 116 D (39-117) U/L Total Creatine Kinase 52 (26-140) U/L Troponin I High Sens (<3.5-17.0) ng/L B-Natriuretic Peptide (<100) pg/mL Total Protein 6.6 (6.5-8.0) g/dL Albumin 3.5 (3.5-5.0) g/dL Lipase 20 (8-78) U/L Urine Color Urine Appearance Urine pH (5.0-8.0) Ur Specific [place] (1.005-1.025) Urine Protein (NEG-TRACE) MG/DL Urine Glucose (UA) (NEG) MG/DL Urine Ketones (NEG) MG/DL Urine Blood (NEG) Urine Nitrite (NEG) Ur Leukocyte Esterase (NEG) Urine RBC (0) /HPF Urine WBC (0-4) /HPF Ur Squamous Epith Cells /LPF Urine Bacteria /LPF COVID-19 (HARPREET) Negative (Negative) COVID-19 Clin Com See Note Blood Type O Positive Antibody Screen NEGATIVE 09/13/21 Range/Units 18:14 WBC (4.8-10.8) X10*3/uL RBC (4.20-5.50) X10*6/uL Hgb (12.0-16.0) g/dl Hct (37.0-47.0) % MCV (80.0-98.0) fL MCH (27.0-33.0) pg MCHC (31.0-35.0) g/dl RDW (11.0-16.0) % Plt Count (160-400) X10*3/uL MPV (9.4-12.3) fL Immature Gran % (Auto) (0.0-0.4) % Neut % (Auto) (45-73) % Lymph % (Auto) (20-40) % [place] % (Auto) (2-11) % Eos % (Auto) (0-4) % Baso % (Auto) (0-2) % Lymph # (Auto) (1.2-4.9) X10*3/uL [place] # (Auto) (0.1-1.2) X10*3/uL Eos # (Auto) (0.0-0.4) X10*3/uL Baso # (Auto) (0.0-0.2) X10*3/uL Abs Immat Gran (auto) (0.00-0.03) X10*3/uL Absolute Neuts (auto) (2.0-8.3) x10*3/uL Absolute Nucleated RBC (0.0-0.012) X10*3/uL Nucleated RBC % (auto) (0.0-0.2) /100WBC PT (9.9-13.0) SEC INR (0.9-1.1) APTT (24.1-38.0) SEC O2 Saturation 99.0 % ABG pH at Pt Temp 7.30 L (7.35-7.45) ABG pCO2 at Pt Temp 42 (32-45) mmHg ABG pO2 at Pt Temp 158 H (83-108) mmHg ABG HCO3 21 L (22-26) mmol/L ABG Base Excess (Actual) -4.8 mmol/L Sodium (135-145) mmol/L Potassium (3.3-5.1) mmol/L Chloride (96-108) mmol/L Carbon Dioxide (22-29) mmol/L Anion Gap (12-20) BUN (9-16) mg/dL Creatinine (0.5-1.4) mg/dL Estim Creat Clear Calc Estimated GFR POC Glucose (60-115) mg/dL Random Glucose (60-115) mg/dL Lactic Acid (0.5-2.0) mmol/L Calcium (8.4-10.2) mg/dL Total Bilirubin (0.0-1.0) mg/dL AST (5-31) U/L ALT (0-31) U/L Alkaline Phosphatase (39-117) U/L Total Creatine Kinase (26-140) U/L Troponin I High Sens (<3.5-17.0) ng/L B-Natriuretic Peptide (<100) pg/mL Total Protein (6.5-8.0) g/dL Albumin (3.5-5.0) g/dL Lipase (8-78) U/L Urine Color Urine Appearance Urine pH (5.0-8.0) Ur Specific [place] (1.005-1.025) Urine Protein (NEG-TRACE) MG/DL Urine Glucose (UA) (NEG) MG/DL Urine Ketones (NEG) MG/DL Urine Blood (NEG) Urine Nitrite (NEG) Ur Leukocyte Esterase (NEG) Urine RBC (0) /HPF Urine WBC (0-4) /HPF Ur Squamous Epith Cells /LPF Urine Bacteria /LPF COVID-19 (HARPREET) (Negative) COVID-19 Clin Com Blood Type Antibody Screen Procedures Intubation Time out performed: No sedative: Etomidate Mg Given: 25 paralytic: Rocuronium Mg Given: 50 Laryngoscope: fiber optic video scope ET Tube Size: 7 ET Tube Uncuffed: Yes Tube Secured Depth (cm): 21 Tube Secured Location: teeth Tube Placement Confirmation: visualized tube passing through cords, equal breath sounds bilaterally and confirmation by capnometry Patient Tolerated Procedure: well Intubation Complications: none Additional Comments: Vent settings: AC, rate 18, tidal volume 400, FiO2 50%, 5+ P Critical Care Time Critical Care Time Total Critical Care Time: 75 Attestation: Critical Care: The patient was critically ill with a high probability of imminent or life threatening deterioration. I spent greater than 30 minutes of discontinuous time evaluating the patient,delivering critical care at the bedside, discussing and evaluating pertinent data with consultants. Critical care time does not include time spent performing separately billable procedures or teaching. Total time spent performing critical care was 75 minutes. Discharge Plan Discharge Clinical Impression: Myocardial infarction, New onset left bundle branch block (LBBB), New onset seizure, CHF (congestive heart failure), Fever Prescriptions: No Action metformin 500 mg tablet 500 mg PO DAILY Qty: 180 1RF carvedilol 12.5 mg tablet 12.5 mg PO BID Qty: 180 1RF paroxetine HCl 40 mg tablet 40 mg PO DAILY Qty: 90 2RF atorvastatin 80 mg tablet 80 mg PO DAILY Qty: 90 2RF Breo Ellipta 100-25 mcg/dose Blister With Device 1 inh INHALATION DAILY Rx Instructions: pt hasnt started, needs a PA latanoprost 0.005 % drops 1 drp ophthalmic (eye) BEDTIME acetaminophen-caffeine 500-65 mg Tablet 1 tab PO Q6H PRN (Reason: Headache) aspirin 81 mg Tablet,Delayed Release (Dr/Ec) 81 mg PO DAILY ascorbic acid (vitamin C) 500 mg Tablet 500 mg PO DAILY Unisom (doxylamine) 25 mg Tablet 25 mg PO BEDTIME PRN (Reason: Sleep) loratadine 10 mg Tablet 10 mg PO DAILY amoxicillin-pot clavulanate 875-125 mg Tablet 875 mg PO Q12H Qty: 10 0RF albuterol sulfate [ProAir HFA] 90 mcg/actuation HFA aerosol inhaler 2 puff inhalation Q4-6H PRN (Reason: shortness of breath or wheezing) Qty: 8.5 0RF tramadol 50 mg tablet 50 mg PO Q12H PRN (Reason: pain) 90 Days Qty: 180 0RF gabapentin 300 mg capsule 300 mg PO TID PRN (Reason: pain) 90 Days Qty: 270 3RF
[2021-09-13 15:45] LABS: Basophils Absolute Auto 0.1 X10*3/uL (0.0-0.2); Basophils Percent Auto 0.3 % (0-2); Eosinophils Percent Auto 0.1 % (0-4); Hematocrit 47.8 % (37.0-47.0); Hemoglobin 14.5 g/dl (12.0-16.0); Imm Gran Abs Auto 0.14 X10*3/uL (0.00-0.03); Imm Gran Pct Auto 0.7 % (0.0-0.4); Lymphocytes Absolute Auto 4.7 X10*3/uL (1.2-4.9); Lymphocytes Percent Auto 22.3 % (20-40); Mean Corpuscular HGB Conc 30.3 g/dl (31.0-35.0); Mean Corpuscular Hemoglobin 27.9 pg (27.0-33.0); Mean Corpuscular Volume 91.9 fL (80.0-98.0); Mean Platelet Volume 10.4 fL (9.4-12.3); Monocytes Percent Auto 4.6 % (2-11); Neutrophils Absolute Auto 15.2 x10*3/uL (2.0-8.3); Platelet Count 350 X10*3/uL (160-400); Red Cell Distribution Width 13.6 % (11.0-16.0); White Blood Count 21.1 X10*3/uL (4.8-10.8)
[2021-09-13] MEDS: Acetaminophen Supp 650 MG SUPP.RECT PR ×2 (15:45→17:41)
[2021-09-13] MEDS: Piperacillin Sodium/Tazobactam 4.5 GM in 0.9 % Sodium Chloride 100 ML IV (15:45)
[2021-09-13] MEDS: 0.9 % Sodium Chloride 1,000 ML 999 ML IV (15:45)
[2021-09-13 15:53] LABS: INTERNATIONAL NORM RATIO 0.9 (0.9-1.1); Prothrombin Time 10.3 SEC (9.9-13.0)
[2021-09-13 15:54] LABS: Partial Thromboplastin Time 34.2 SEC (24.1-38.0)
[2021-09-13 15:57] LABS: Lactic Acid 11.7 mmol/L (0.5-2.0)
[2021-09-13] MEDS: LORazepam 2 MG/ML VIAL IVPUSH (16:01)
[2021-09-13 16:05] LABS: COVID-19 Test Negative (Negative); IDNOW Serial# 16C4AD1C
--- NOTE | 2021-09-13 16:07 | PC.NURSE ---
CT AND CXR COMPLETED NO INCIDENT NOTED DURING TRANSPORT, PT CONTINUOUSLY CARDIAC MONITORED
[2021-09-13 16:12] LABS: B Type Natriuretic Peptide 547 pg/mL (<100); Troponin-I High Sensitivity 386.5 ng/L (<3.5-17.0)
--- NOTE | 2021-09-13 16:27 | PC.NURSE ---
URINARY CATH PLACED- TEMP SENSING JULIEN 16 PLACED 50ML OUTPUT LIGH YELLOW URINE
[2021-09-13] MEDS: levETIRAcetam in NaCl (iso-os) 1,000 MG/100 ML PIGGYBACK 400 MG IV (16:46)
[2021-09-13 16:48] VITALS: BP 107/58; PULSE 123; RESP 27; TEMP 38.3; O2SAT 93
[2021-09-13 16:59] LABS: Alanine Aminotransferase 11 U/L (0-31); Albumin Level 3.5 g/dL (3.5-5.0); Alkaline Phosphatase 116 U/L (39-117); Anion Gap 24 (12-20); Aspartate Amino Transferase 17 U/L (5-31); Bilirubin Total 0.5 mg/dL (0.0-1.0); Blood Urea Nitrogen 21 mg/dL (9-16); Calcium 8.9 mg/dL (8.4-10.2); Carbon Dioxide 15 mmol/L (22-29); Chloride 101 mmol/L (96-108); Creatinine Clr Calc Pharmacy 30.8; Estimated Glomerular Filt Rate 32; Glucose Random 436 mg/dL (60-115); Lipase 20 U/L (8-78); Potassium 3.7 mmol/L (3.3-5.1); Sodium 136 mmol/L (135-145); Total Protein 6.6 g/dL (6.5-8.0)
[2021-09-13] MEDS: Rocuronium Bromide 50 MG/5 ML VIAL IVPUSH (17:00)
[2021-09-13] MEDS: Etomidate 20 MG/10 ML VIAL 25 MG IVPUSH (17:00)
[2021-09-13] MEDS: Furosemide 20 MG/2 ML VIAL IVPUSH (17:05)
--- NOTE | 2021-09-13 17:13 | PC.NURSE ---
PT MOVED TO ROOM 5 FOR EMERGENT INTUBATION, PRESUMED NEW CHF, RBBB AND STEMI, R D ENGINEER AT BEDSIDE FOR FAST ECHO. GIVEN ETOMIDATE 25MG AND ROCURONIUM 50MG W GOOD EFFECT, EASY INTUBATION 7.5 SITTING 21 HARPREET. RR EVEN/UNLABORED W +COLOR CHANGE ON MECH VENTILATION. PLAN FOR TRANSFER TO [facility] [place] FOR HIGHER LEVEL OF CARE.
[2021-09-13 17:17] VITALS: BP 121/69; PULSE 128; O2SAT 100
--- NOTE | 2021-09-13 17:30 | P.CONCC_ITS ---
History of Present Illness Data of Consult Service Date: 09/13/21 Requesting physician: Jennifer Lieberman Primary Care Provider: Faraz Donahue MD [facility] Reason for consult: prolonged new onset seizure 81-year-old female who we told has been sick with headache and upper GI symptomatology for 2-3 days and found with diminished responsiveness, altered mental status and brought to the emergency room did had at least 2 witnessed seizures that appear to calm down with IV Ativan but she remains unresponsive wandering IM movements ago across the baseline and somewhat hyper Bx but as time went by increasing diaphragmatic effort with significant bilateral rhonchi and increasing wheezing bilaterally in sinus tachycardia with rates persisting between 130 and 140 in a wide QRS and EKG showed but appears to be new and there is a left bundle left axis and when previously we had a normal narrow QRS with minor nonspecific ST TS and my bedside echo showed extensive anterior 0 apical akinesis which also compared to May of this year where was previously normal and with an elevated troponin of over 300 and BNP of 500 this is probably ischemic pulmonary edema and an acute ST-elevation WI equivalent in the anterior distribution and at because of the [place] [id number] we were going to do a CSF tap at this point I think the best thing to do would be anticoagulate abandon the CSF for now and empirically treat with 1 dose of Zosyn and 1 dose of vancomycin transfer to [facility] labor is absolutely necessary Review of Systems Review of Systems: Yes Unobtainable due to mental status PMFSH Past Medical History Medical History Osteoarthritis Osteoporosis Urinary incontinence Vitamin D deficiency Family History Family History Father No problems noted. Mother History of high cholesterol Surgical History Surgical History History of colonoscopy History of heart valve replacement (~08/2013) History of left hip replacement History of right hip replacement (~08/2014) Social History Social History Household Members: None Housing: Apartment Do you presently have visiting nurse or other home services: No Alcohol intake: unknown Patient Tobacco Use Status: Former Tobacco user Quit Date: 5 years ago Tobacco use type: Cigarette Cigarette Packs Per Day: 1 Cigarettes Per Day: 20.0 Years Smoked: 55 e-Cigarette/Vaping Use: Never Used Second Hand Smoke Exposure: No Advance Directives: Yes Advance Directives on File: Yes Advance Directives Date on File: 02/10/21 service: No Current occupational status: retired Cognitive needs: No Hearing needs: No Vision needs: Yes Meds Allergies Allergy/AdvReac Type Severity Reaction Status Date / Time No Known Allergies Allergy Mild NONE Verified 07/09/21 09:53 Active Medications: Current Medications Propofol (Diprivan) 1,000 mg in 100 mls @ 0 mls/hr IVCONT .Q0M GRETA; Protocol Home Medications Medication Instructions Recorded Confirmed Last Taken Type fluticasone furoate 100 1 inh inhalation DAILY 06/03/21 06/03/21 Unknown History mcg-vilanterol 25 mcg/dose inhalation powder (Breo Ellipta) acetaminophen-caffeine 500 mg-65 1 tab PO Q6H PRN Headache 06/04/21 06/04/21 Unknown History mg tablet ascorbic acid (vitamin C) 500 mg 500 mg PO DAILY 06/04/21 06/04/21 Unknown History tablet aspirin 81 mg tablet,delayed 81 mg PO DAILY 06/04/21 06/04/21 Unknown History release doxylamine succinate 25 mg tablet 25 mg PO BEDTIME PRN Sleep 06/04/21 06/04/21 Unknown History (Unisom (doxylamine)) latanoprost 0.005 % eye drops 1 drp ophthalmic (eye) BEDTIME 06/04/21 06/04/21 Unknown History loratadine 10 mg tablet 10 mg PO DAILY 06/04/21 06/04/21 Unknown History Physical Exam Vital Signs: Vital Signs: Last Vital Signs Temp 100.9 F H 09/13/21 16:48 Pulse 123 H 09/13/21 16:48 Resp 27 H 09/13/21 16:48 BP 107/58 L 09/13/21 16:48 Pulse Ox 93 09/13/21 16:48 O2 Del Method 09/13/21 16:48 O2 Flow Rate 8 09/13/21 16:48 FiO2 50 09/13/21 17:17 Oxygen Flow Rate 4 09/13/21 15:25 BMI result Body Mass Index 30.0 addendum unresponsive she also had absolutely rigid lower extremities bilaterally and I notice she was taking tramadol and paroxetine raising questions of the serotonergic response and post ictally she has bilateral Babinski's bilateral rhonchi and wheezing with increased diaphragmatic expiratory effort abdomen is soft no organomegaly cardiac exam showing extensive anterior wall akinesis by echo no peripheral edema no skin lesions no skin rash no cellulitis Results Labs CBC & Chem 7: 09/13/21 15:36 09/13/21 16:11 Labs: Short CBC 09/13/21 Range/Units 15:36 WBC 21.1 H (4.8-10.8) X10*3/uL Hgb 14.5 D (12.0-16.0) g/dl Hct 47.8 H D (37.0-47.0) % Plt Count 350 D (160-400) X10*3/uL BMP 09/13/21 16:11 Sodium 136 Potassium 3.7 Chloride 101 Carbon Dioxide 15 L BUN 21 H Creatinine 1.54 H Calcium 8.9 Cardiac Enzymes 09/13/21 Range/Units 16:11 Total Creatine Kinase 52 (26-140) U/L Liver Function 09/13/21 Range/Units 16:11 Total Bilirubin 0.5 (0.0-1.0) mg/dL AST 17 (5-31) U/L ALT 11 (0-31) U/L Alkaline Phosphatase 116 D (39-117) U/L Albumin 3.5 (3.5-5.0) g/dL Assessment and Plan (1) Myocardial infarction: Qualifiers: Involved coronary artery: LAD coronary artery Status: Acute (2) New onset left bundle branch block (LBBB): Status: Acute (3) New onset seizure: Status: Acute (4) CHF (congestive heart failure): Qualifiers: Heart failure chronicity: acute Status: Acute (5) CVA (cerebral vascular accident): Status: Acute (6) Iron deficiency anemia: Status: Acute (7) E. coli UTI: Status: Acute (8) E coli bacteremia: Status: Acute (9) Gram-negative bacteremia: Status: Acute (10) Renal insufficiency: Status: Acute Plan I would cover with Zosyn and vancomycin and abandon the idea of CSF sampling because of the need to anticoagulate with IV heparin and treat this individual as an ST-elevation WI in the anterior distribution especially with this new complete left bundle on her EKG and given of course the echo findings I added recommended and she had completed without complication intubation and hopefully a pending transfer
[2021-09-13 17:42] LABS: Reflex Lactate? Lactic Acid Added
[2021-09-13 17:43] LABS: Appearance Urine HAZY; Color Urine YELLOW; Glucose Urine UA NEG (NEG); Leukocyte Esterase Urine NEG (NEG); Nitrite Urine POS (NEG); Specific Gravity - Urine >= 1.030 (1.005-1.025); UACC Culture Trigger YES; Urine Blood 2+ (NEG); Urine Ketones NEG (NEG); Urine Protein 2+ MG/DL (NEG-TRACE)
[2021-09-13 17:49] LABS: Bacteria Urine 2+ /LPF; Squamous Epithelial Cell Urine 2+ /LPF; WBC Urine 0 /HPF (0-4)
[2021-09-13 18:10] VITALS: O2SAT 100
[2021-09-13 18:18] LABS: ABG Refer to POC result
[2021-09-13 18:19] LABS: ABG Base Excess -4.8 mmol/L; ABG HCO3 21 mmol/L (22-26); ABG pCO2 42 mmHg (32-45); ABG pO2 158 mmHg (83-108)
--- NOTE | 2021-09-13 18:37 | PC.NURSE ---
call to [place] [phone] unable to take report at this time
[2021-09-13] MEDS: vancomycin HCL 1,000 MG in 0.9 % Sodium Chloride 250 ML 270 MG IV (18:45)
--- NOTE | 2021-09-13 18:53 | PC.NURSE ---
This [employer] Called [facility] Stemi line @1704 per ,Awaiting call back. At 1718 called stem line per still awaiting call back.At 1730 and 1740 I called [facility] tx line due to no call backs from stemi line per . At 1752 received a call back from [facility] stemi line,awaiting acceptance. [facility] called ED @1835 with an accepting Doctor and a room assignment. Luis Miguel Rehman accepted going to [facility] room [id number]. Action called for an ALS stat tx @1837.
--- NOTE | 2021-09-13 18:56 | PC.NURSE ---
report given to kyle doyle at [facility]
== END 2021-09-13 20:00 | disposition short-term general hospital (02) ==
PROVIDERS: Emergency Provider Emergency Medicine Emergency Medical Services; PCP Internal Medicine
DX: I21.9 Acute myocardial infarction, unspecified (principal); I44.7 Left bundle-branch block, unspecified; R56.9 Unspecified convulsions; I11.0 Hypertensive heart disease with heart failure; I50.9 Heart failure, unspecified; N39.0 Urinary tract infection, site not specified; B96.20 Unspecified Escherichia coli [E. coli] as the cause of diseases classified elsewhere; R50.9 Fever, unspecified; R00.0 Tachycardia, unspecified; R06.2 Wheezing; R06.02 Shortness of breath; D50.9 Iron deficiency anemia, unspecified; E78.00 Pure hypercholesterolemia, unspecified; E11.9 Type 2 diabetes mellitus without complications; J44.9 Chronic obstructive pulmonary disease, unspecified; Z86.73 Personal history of transient ischemic attack (TIA), and cerebral infarction without residual deficits; Z95.3 Presence of xenogenic heart valve; Z87.891 Personal history of nicotine dependence; Z20.822 Contact with and (suspected) exposure to COVID-19
CPT/HCPCS: 31500; 51701; 70450; 71045; 80053; 81001; 81003; 82550; 82803; 82947; 83605; 83690; 83880; 84484; 85025; 85610; 85730; 86850; 86900; 86901; 87040; 87086; 87088; 87186; 87635; 93005; 94002; 94003; 96361; 96365; 96367; 96374; 96375; 99285; 99291; J1940; J1953; J2060; J2543; J3370

== ENCOUNTER 2021-10-15 05:00 | Outpatient (REF) | payer SELFPAY | END 2021-10-15 05:01 | disposition home or self-care (01) | LOC: HO.MMNH2L 05:00 | PROVIDERS: Visit Provider Family Medicine | DX: Z13.89 Encounter for screening for other disorder (principal) ==

== ENCOUNTER 2021-12-14 09:26 | Outpatient (REF) | payer OTHER, SELFPAY ==
[2021-12-14 09:59] LABS: MANUAL DIFF FLAG NO
[2021-12-14 10:31] LABS: Basophils Absolute Auto 0.1 X10*3/uL (0.0-0.2); Basophils Percent Auto 0.6 % (0-2); Eosinophils Absolute Auto 0.2 X10*3/uL (0.0-0.4); Eosinophils Percent Auto 2.5 % (0-4); Hematocrit 37.6 % (37.0-47.0); Hemoglobin 12.2 g/dl (12.0-16.0); Imm Gran Abs Auto 0.05 X10*3/uL (0.00-0.03); Imm Gran Pct Auto 0.6 % (0.0-0.4); Lymphocytes Absolute Auto 2.3 X10*3/uL (1.2-4.9); Lymphocytes Percent Auto 27.5 % (20-40); Mean Corpuscular HGB Conc 32.4 g/dl (31.0-35.0); Mean Corpuscular Hemoglobin 28.6 pg (27.0-33.0); Mean Corpuscular Volume 88.3 fL (80.0-98.0); Mean Platelet Volume 10.4 fL (9.4-12.3); Monocytes Absolute Auto 0.8 X10*3/uL (0.1-1.2); Monocytes Percent Auto 9.8 % (2-11); Neutrophils Absolute Auto 4.9 x10*3/uL (2.0-8.3); Platelet Count 253 X10*3/uL (160-400); Red Blood Count 4.26 X10*6/uL (4.20-5.50); Red Cell Distribution Width 14.6 % (11.0-16.0); Retic HGB Equivalent 33.2 pg (30.0-35.0); Reticulocytes Absolute 0.085 X10*6/uL (0.026-0.095); White Blood Count 8.3 X10*3/uL (4.8-10.8)
[2021-12-14 10:46] LABS: Alanine Aminotransferase 13 U/L (0-31); Alkaline Phosphatase 116 U/L (39-117); Anion Gap 16 (12-20); Aspartate Amino Transferase 13 U/L (5-31); Bilirubin Total 0.4 mg/dL (0.0-1.0); Blood Urea Nitrogen 23 mg/dL (9-16); Calcium 9.7 mg/dL (8.4-10.2); Carbon Dioxide 27 mmol/L (22-29); Chloride 98 mmol/L (96-108); Cholesterol 154 mg/dL; Estimated Glomerular Filt Rate 35; Glucose Random 175 mg/dL (60-115); HDL Cholesterol 48 mg/dL; Iron 52 mcg/dL (30-160); LDL Cholesterol Calculated 80 mg/dl; Percent Iron Saturation 13 % (15-50); Potassium 3.6 mmol/L (3.3-5.1); Sodium 137 mmol/L (135-145); Total Iron Binding Capacity 404 mcg/dL (228-428); Total Protein 7.2 g/dL (6.5-8.0); Triglycerides 134 mg/dL; Unsaturated Iron Binding 352 ug/dL
[2021-12-14 10:52] LABS: Estimated Average Glucose 143 mg/dL; Hemoglobin A1c % 6.6 %
[2021-12-14 10:59] LABS: B Type Natriuretic Peptide 136 pg/mL (<100)
[2021-12-14 11:00] LABS: Ferritin 48 ng/mL (10-250); Free T4 (Free Thyroxine) 1.14 ng/dL (0.71-1.85); Thyroid Stimulating Hormone 1.57 uIU/mL (0.32-4.0); Vitamin D 25-OH Total 26.9 ng/mL (>30)
[2021-12-14 11:09] LABS: Folate 15.9 ng/mL (> or = 4.0); Vitamin B12 374 pg/mL (200-900)
[2021-12-14 11:43] LABS: Appearance Urine Hazy; Color Urine Yellow; Glucose Urine UA Negative (Negative); Leukocyte Esterase Urine Small (1+) (Negative); Nitrite Urine Positive (Negative); Specific Gravity - Urine 1.015 (1.005-1.025); UMIC TRIGGER UACC YES; Urine Blood Negative (Negative); Urine Ketones Negative (Negative); Urine Protein Negative (Neg-Trace)
[2021-12-14 11:57] LABS: Bacteria Urine 3+ (None Seen); Hyaline Casts Urine 0-2 /LPF (0-2); RBC Urine 0-2 /HPF (0-2); Squamous Epithelial Cell Urine 0-2 /HPF (0-2); UACC Culture Trigger YES
[2021-12-14 12:31] LABS: Creatinine Urine 196.94 mg/dL; Microalbum/Creatinine Ratio Ur 13.2 ug/mg cr
== END 2021-12-14 09:27 | disposition home or self-care (01) ==
LOC: HO.LAB 09:26
PROVIDERS: PCP Internal Medicine; Visit Provider Internal Medicine
DX: E11.65 Type 2 diabetes mellitus with hyperglycemia (principal); E78.00 Pure hypercholesterolemia, unspecified; M81.0 Age-related osteoporosis without current pathological fracture; R82.71 Bacteriuria; B96.20 Unspecified Escherichia coli [E. coli] as the cause of diseases classified elsewhere
CPT/HCPCS: 36415; 80053; 80061; 81001; 82043; 82306; 82607; 82728; 82746; 83036; 83540; 83880; 84439; 84443; 85025; 85045; 87086; 87088; 87186

== ENCOUNTER 2022-01-22 10:09 | Outpatient (REF) | payer OTHER, SELFPAY ==
--- NOTE | ~2022-01-22 | XR_ITS ---
EXAMINATION: XR CHEST CLINICAL INFORMATION: Shortness of breath COMPARISON: Previous chest x-rays most recent August 2021 and chest CTA May 2021 TECHNIQUE: 2 views of the chest were obtained. FINDINGS: The cardiac silhouette does not appear enlarged. There is a prosthetic aortic valve. There are increased central bronchial and perihilar markings, particularly in the upper lobes. The lungs are otherwise clear. There is no pleural effusion. There are degenerative changes of the spine and shoulders. There are median sternotomy wires. XR/XR chest 2V IMPRESSION: Increased central bronchial and perihilar markings. Differential would include pulmonary venous redistribution/mild pulmonary edema and airways disease. Clinical correlation recommended.
[2022-01-22 11:42] LABS: Appearance Urine Hazy; Color Urine Yellow; Glucose Urine UA Negative (Negative); Leukocyte Esterase Urine Negative (Negative); Nitrite Urine Negative (Negative); PH 5.5 (5.0-9.0); Urine Blood Negative (Negative); Urine Ketones Negative (Negative); Urine Protein Negative (Neg-Trace)
[2022-01-22 11:52] LABS: Bacteria Urine Trace (None Seen); Hyaline Casts Urine 0-2 /LPF (0-2); RBC Urine 0-2 /HPF (0-2); WBC Urine 0-5 /HPF (0-5)
[2022-01-22 12:03] LABS: Creatinine Urine 114.82 mg/dL
== END 2022-01-22 10:10 | disposition home or self-care (01) ==
LOC: HO.XRAY 10:09
PROVIDERS: PCP Internal Medicine; Visit Provider Internal Medicine
DX: R06.02 Shortness of breath (principal); N39.0 Urinary tract infection, site not specified; B96.20 Unspecified Escherichia coli [E. coli] as the cause of diseases classified elsewhere; M54.50 Low back pain, unspecified; E11.65 Type 2 diabetes mellitus with hyperglycemia
CPT/HCPCS: 71046; 81001; 81003

== ENCOUNTER 2022-02-24 11:20 | Emergency (ER) | payer OTHER, SELFPAY ==
--- NOTE | ~2022-02-24 | XR_ITS ---
EXAMINATION: XR HIP, RIGHT CLINICAL INFORMATION: Pain. COMPARISON: None TECHNIQUE: Two views of the right hip. FINDINGS: There is bilateral hip prosthesis with prosthetic components in satisfactory alignment. There is no periprosthetic fracture. The SI joints are normal. No fracture seen involving rest of the pelvis. The soft tissues are normal. There are mild degenerative disc changes with spondylosis L4-L5 and L5-S1 disc levels. XR/XR hip RT min 2V IMPRESSION: Bilateral hip prosthesis in satisfactory alignment. No periprosthetic fracture seen. The soft tissues are normal.
--- NOTE | ~2022-02-24 | CT_ITS ---
EXAMINATION: CT PELVIS WITHOUT CONTRAST CLINICAL INFORMATION: History of fall. Evaluate right hip. COMPARISON: Radiographs of the hip from 02/24/2022. CT images of the abdomen and pelvis from 02/09/2021. TECHNIQUE: Noncontrast multidetector CT imaging examination of the pelvis is performed. The axial images and multiplanar reformatted images are reviewed. This CT examination was performed using dose optimization techniques as appropriate, variously including the following: *Automated exposure control *Adjustment of mA and/or kV according to patient size (this includes techniques or standardized protocols for targeted exams where dose is matched to indication/reason for exam; i.e. 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 Pelvic bones are intact. Alignment is normal at the hips, pubic symphysis and sacroiliac joints. Mild osteoarthritis of the sacroiliac joints. Chondrocalcinosis and mild degenerative arthropathy of the pubic symphysis. Prominent enthesophytes of the ischial tuberosities. No suspicious bone lesions. No evidence of fracture or osteolysis around components of bilateral total hip arthroplasties. There is normal anteversion and lateral version of the acetabular cups. The prosthetic femoral heads are well centered within each acetabular cup. No hip joint effusion or periarticular fluid collection. No pelvic free fluid. Atherosclerotic calcification of the abdominal aorta and iliac arteries. The visualized distal infrarenal abdominal aorta measures up to 3.4 cm transverse diameter and 3.5 cm AP diameter (as measured on the coronal and sagittal reformatted images). For an abdominal aorta aneurysm of this size, recommendation is for follow-up every 2 years to ensure stability. No pelvic mass or lymphadenopathy. CT/CT pelvis wo IV con IMPRESSION: * No acute osseous injury. No fracture or malalignment at either hip. * No evidence of loosening of components of bilateral total hip arthroplasties. * Infrarenal abdominal aorta aneurysm.
[2022-02-24 13:11] VITALS: BP 140/72; BP 152/54; PULSE 70; PULSE 81; RESP 20; TEMP 35.7; O2SAT 95; O2SAT 97; BMI 28.1
--- NOTE | 2022-02-24 13:12 | ED_ITS ---
HPI - General Adult General Chief complaint: Extremity Injury, Lower <HELADIO Lomax - Last Filed: 02/24/22 13:14> Stated complaint: sob <HELADIO Lomax - Last Filed: 02/24/22 13:14> Time Seen by Provider: 02/24/22 14:38 <HELADIO Lomax - Last Filed: 02/24/22 13:14> Source: patient and EMS <HELADIO Lomax - Last Filed: 02/24/22 13:14> Mode of arrival: EMS <HELADIO Lomax - Last Filed: 02/24/22 13:14> Limitations: no limitations <HELADIO Lomax - Last Filed: 02/24/22 13:14> History of Present Illness HPI narrative: Pt is an 81 yo female w/ PMHx significant for OA, HLD, HTN, diabetes, s/p bilat hip replacements and chronic back pain presenting w/ a 2 wk hx of right hip pain after a mechanical trip and fall. She reports that she was attempting to continuous pickling line pickler her cat to give it medicine when she tripped and fall on her left side. She denies head strike or LOC at the time of the fall and reports that she was able to get herself off the floor after the incident. She did not go to the hospital after the incident. She reports that the pain starts in her hips and radiates down her leg and into the groin. She states that standing up from a seated position or sitting down for long periods of time make the pain worse. She endorses alleviation of pain w/ heat packs, Tylenol, and tramadol when the pain is at it's worst. She reports that she has been ambulating per her usual baseline w/ a walker. She endorses use of apixaban and daily aspirin. Denies weakness, numbness, urinary incontinence/retention, abdominal pain <HELADIO Ryder - Last Filed: 02/24/22 18:17> Onset (ago): week(s) (2) <HELADIO Ryder - Last Filed: 02/24/22 18:17> Location: lower extremity (right) <HELADIO Ryder Last Filed: 02/24/22 18:17> Radiation: distal (into left leg) <HELADIO Ryder - Last Filed: 02/24/22 18:17> Severity: mild <HELADIO Ryder - Last Filed: 02/24/22 18:17> Severity scale (1-10): 2 <HELADIO Ryder - Last Filed: 02/24/22 18:17> Quality: aching and dull <HELADIO Ryder - Last Filed: 02/24/22 18:17> Pain Consistency: constant <HELADIO Ryder - Last Filed: 02/24/22 18:17> Relieving factors: medication <HELADIO Ryder - Last Filed: 02/24/22 18:17> Exacerbating factors: movement <HELADIO Ryder - Last Filed: 02/24/22 18:17> Associated symptoms: denies other symptoms <HELADIO Ryder - Last Filed: 02/24/22 18:17> Treatments prior to arrival: none <HELADIO Ryder - Last Filed: 02/24/22 18:17> Related Data Home medications: Home Medications Medication Instructions Recorded Confirmed fluticasone furoate 100 1 inh inhalation DAILY 06/03/21 06/03/21 mcg-vilanterol 25 mcg/dose inhalation powder (Breo Ellipta) acetaminophen-caffeine 500 mg-65 1 tab PO Q6H PRN Headache 06/04/21 06/04/21 mg tablet ascorbic acid (vitamin C) 500 mg 500 mg PO DAILY 06/04/21 06/04/21 tablet aspirin 81 mg tablet,delayed 81 mg PO DAILY 06/04/21 06/04/21 release Previous Rx's Medication Instructions Recorded metformin 500 mg tablet 500 mg PO DAILY #180 tabs 01/15/21 atorvastatin 80 mg tablet 80 mg PO DAILY #90 tabs 02/26/21 gabapentin 300 mg capsule 300 mg PO TID PRN pain 90 days 07/09/21 #270 caps Longer bed railings #1 ea 10/30/21 Raised toilet seat #1 ea 10/30/21 Regular walker #1 ea 10/30/21 Shower chair with arm #1 ea 10/30/21 incontinence supplies adult large #100 ea 10/30/21 / x-large pull ups apixaban 5 mg tablet (Eliquis) 5 mg PO BID #60 tabs 11/26/21 carvedilol 12.5 mg tablet 12.5 mg PO BID #180 tabs 11/26/21 furosemide 40 mg tablet (Lasix) 40 mg PO DAILY #30 tabs 11/26/21 isosorbide mononitrate 30 mg 30 mg PO DAILY #30 tabs 11/26/21 tablet,extended release 24 hr latanoprost 0.005 % eye drops 1 drp ophthalmic (eye) BEDTIME 11/26/21 #7.5 mL levetiracetam 750 mg tablet 750 mg PO BID #60 tabs 11/26/21 (Keppra) losartan 25 mg tablet 25 mg PO DAILY #30 tabs 11/26/21 albuterol sulfate 90 mcg/actuation 2 puff inhalation Q4-6H PRN 01/07/22 aerosol inhaler (ProAir HFA) shortness of breath or wheezing #8.5 grams paroxetine HCl 40 mg tablet 40 mg PO DAILY #90 tabs 01/21/22 tramadol 50 mg tablet 50 mg PO Q12H PRN pain 90 days 01/25/22 #180 tabs <HELADIO Lomax - Last Filed: 02/24/22 13:14> Allergies/adverse reactions: Allergies Allergy/AdvReac Type Severity Reaction Status Date / Time No Known Allergies Allergy Mild NONE Verified 01/25/22 09:33 <HELADIO Lomax - Last Filed: 02/24/22 13:14> Review of Systems Review of Systems: Constitutional: No Weight loss, No Fever, No Chills ENT/Mouth: No sore throat, No Rhinorrhea, No Swallowing Difficulty Cardiovascular: No Chest Pain, No SOB Respiratory: No Cough, No Sputum, No Wheezing Gastrointestinal: No Nausea, No Vomiting, No Abdominal pain Genitourinary: No Dysuria, No Urinary Frequency, No Hematuria, No Urinary Incontinence/retention, No Urgency, No Flank Pain Musculoskeletal: No joint pain, + Pain in right hip and leg per HPI Skin: No Skin Lesions, No rash Neuro: No Weakness, No Numbness, No Paresthesias <HELADIO Ryder Last Filed: 02/24/22 18:17> Yes all other systems are reviewed and are negative <HELADIO Ryder Last Filed: 02/24/22 18:17> [facility] Past Medical History Attestation statement: The following information was validated with the patient. <HELADIO Ryder - Last Filed: 02/24/22 18:17> Medical History: Medical History Abdominal aortic aneurysm without rupture COPD (chronic obstructive pulmonary disease) Essential hypertension Hypercholesterolemia Hypertension Osteoarthritis Osteoporosis SOB (shortness of breath) Type 2 diabetes mellitus with hyperglycemia Urinary incontinence Vitamin D deficiency <HELADIO Lomax - Last Filed: 02/24/22 13:14> Surgical History: Surgical History History of colonoscopy History of heart valve replacement (~08/2013) History of left hip replacement History of right hip replacement (~08/2014) Status post aortic valve replacement with bioprosthetic valve <HELADIO Lomax - Last Filed: 02/24/22 13:14> Family History Family History: Family History Father No problems noted. Mother History of high cholesterol <HELADIO Lomax - Last Filed: 02/24/22 13:14> Social History Social History: Social History Household Members: None Housing: Apartment Do you presently have visiting nurse or other home services: No Alcohol intake: unknown Patient Tobacco Use Status: Former Tobacco user Quit Date: 5 years ago Tobacco use type: Cigarette Cigarette Packs Per Day: 1 Cigarettes Per Day: 20.0 Years Smoked: 55 e-Cigarette/Vaping Use: Never Used Second Hand Smoke Exposure: No Advance Directives: Yes Advance Directives on File: Yes Advance Directives Date on File: 02/10/21 service: No Current occupational status: retired Cognitive needs: No Hearing needs: No Vision needs: Yes <HELADIO Lomax - Last Filed: 02/24/22 13:14> Physical Exam ED Vital Signs: Vital Signs - 24 hr 02/24/22 13:11 Temperature 96.2 F L Pulse Rate 81 Respiratory Rate 20 Blood Pressure 152/54 H Pulse Oximetry 95 Oxygen Delivery Method Room Air BMI result Body Mass Index 28.1 <Naima Akhtarnevaeh PA - Last Filed: 02/24/22 13:14> Vital Signs - 24 hr 02/24/22 13:11 Temperature 96.2 F L Pulse Rate 81 Respiratory Rate 20 Blood Pressure 152/54 H Pulse Oximetry 95 Oxygen Delivery Method Room Air BMI result Body Mass Index 28.1 <HELADIO Ryder - Last Filed: 02/24/22 18:17> Const General: cooperative, healthy appearing and no acute distress <HELADIO Ryder - Last Filed: 02/24/22 18:17> Orientation/consciousness: patient oriented x3 <HELADIO Ryder - Last Filed: 02/24/22 18:17> Limitations: no limitations <HELADIO Ryder - Last Filed: 02/24/22 18:17> HENMT Head: Yes normal to inspection <HELADIO Ryder - Last Filed: 02/24/22 18:17> Ears: hearing grossly normal bilaterally <HELADIO Ryder - Last Filed: 02/24/22 18:17> Eyes General: appearance normal, both eyes and all related structures <HELADIO Ryder - Last Filed: 02/24/22 18:17> Neck Neck: Yes normal visual inspection <HELADIO Ryder - Last Filed: 02/24/22 18:17> Chest Chest palpation & inspection: normal inspection of the chest <HELADIO Ryder - Last Filed: 02/24/22 18:17> Resp Effort & Inspection: normal respiratory effort, able to speak in complete sentences and no audible wheezes <HELADIO Ryder - Last Filed: 02/24/22 18:17> Auscultation: clear to auscultation bilaterally <HELADIO Ryder - Last Filed: 02/24/22 18:17> Cardio Heart sounds: S1 normal heart sound present and S2 normal heart sound present <HELADIO Ryder - Last Filed: 02/24/22 18:17> Peripheral pulses: Peripheral pulses 2+ throughout <HELADIO Ryder - Last Filed: 02/24/22 18:17> GI Inspection: Yes normal to inspection <Rebecca Pouliot, PA - Last Filed: 02/24/22 18:17> Palpation (GI): Soft to palpation, nontender, no guarding and not rigid <Rebecca Aleman PA - Last Filed: 02/24/22 18:17> General: Yes no CVA tenderness <Rebecca Poulsimonet, PA - Last Filed: 02/24/22 18:17> Back/Spine/Pelvis Back: no CVA tenderness <Rebecca Poulsimonet PA - Last Filed: 02/24/22 18:17> Cervical Spine: No cervical muscular tenderness and No Cervical spine tenderness <Rebecca Pouliot, PA - Last Filed: 02/24/22 18:17> Thoracic/Lumbar Spine: No paraspinal muscle tenderness and No lumbar spinal tenderness <Rebecca Poulsimonet, PA - Last Filed: 02/24/22 18:17> Skin General skin exam: no rashes or lesions noted <Rebecca Aleman, PA - Last Filed: 02/24/22 18:17> Trauma: no lacerations or abrasions <Rebecca Aleman PA - Last Filed: 02/24/22 18:17> Wounds: no wounds <Rebecca Aleman PA - Last Filed: 02/24/22 18:17> Neuro General: patient oriented x3, tone normal, moves all extremities and no focal motor deficits <Rebecca Aleman PA - Last Filed: 02/24/22 18:17> Extrem Other: ROM intact to right hip with pain. NV intact distally. <Rebecca Aleman PA - Last Filed: 02/24/22 18:17> General: Yes normal to inspection <Rebecca Aleman PA - Last Filed: 02/24/22 18:17> Right upper extremity: normal to inspection <Rebecca Poulmode PA - Last Filed: 02/24/22 18:17> Left upper extremity: normal to inspection <Rebecca Poulmode PA - Last Filed: 02/24/22 18:17> Right lower extremity: normal to inspection, full ROM and hip/thigh Details: normal to inspection and tenderness Location: of the hip and of the proximal upper leg; no abrasions, no lacerations, no ecchymosis, no deformity and no unusual warmth; no cyanosis <Rebecca Pouliot, PA - Last Filed: 02/24/22 18:17> Course Course Course Narrative: RME performed by Naima Troy PA-C. Patient is an 81 year old female presenting to the emergency department with right hip pain. Patient states that 2-3 weeks ago she fell and has been having pain ever since. Patient denies hitting her head or any loss of consciousness from the fall. Right hip x-ray ordered. Patient placed back in waiting room pending results and bed availability. <HELADIO Lomax Last Filed: 02/24/22 13:14> RME performed by Naima Troy PA-C. Patient is an 81 year old female presenting to the emergency department with right hip pain. Patient states that 2-3 weeks ago she fell and has been having pain ever since. Patient denies hitting her head or any loss of consciousness from the fall. Right hip x-ray ordered. Patient placed back in waiting room pending results and bed availability. XR hip RT min 2V IMPRESSION: Bilateral hip prosthesis in satisfactory alignment. No periprosthetic fracture seen. The soft tissues are normal. ? CT pelvis wo IV con IMPRESSION: *? No acute osseous injury. No fracture or malalignment at either hip. *? No evidence of loosening of components of bilateral total hip arthroplasties. *? Infrarenal abdominal aorta aneurysm.? >> patient lives home alone, difficulty ambulating in the ED is willing to stay for PT/case management. Physician observation initiated at 18:17. -1900--ED care transfer to [facility] pending PT case management <HELADIO Ryder Last Filed: 02/24/22 18:17> Medical Decision Making MDM Narrative Medical decision making narrative: Pt is an 81 yo female w/ PMHx significant for OA, HLD, HTN, diabetes, s/p bilat hip replacements and chronic back pain presenting w/ a 2 wk hx of right hip pain after a mechanical trip and fall. On exam vital signs stable, NAD, nontoxic appearing, physical exam as above with noted right hip/pelvic tenderness to palpation, range of motion intact with pain, ambulating with limping gait. Neurovascular intact distally, no evidence of deformity or cellulitis Plan: X-rays <HELADIO Ryder Last Filed: 02/24/22 18:17> Medical Records Medical records reviewed: Yes I reviewed the patient's medical records. <HELADIO Ryder - Last Filed: 02/24/22 18:17> Lab Data Lab results reviewed: Yes I reviewed the patient's lab results. <HELADIO Ryder - Last Filed: 02/24/22 18:17> Discharge Plan Discharge Clinical Impression: Hip pain <HELADIO Lomax - Last Filed: 02/24/22 13:14> Patient Disposition: Still a Patient <HELADIO Lomax - Last Filed: 02/24/22 13:14> Prescriptions: No Action metformin 500 mg tablet 500 mg PO DAILY Qty: 180 1RF atorvastatin 80 mg tablet 80 mg PO DAILY Qty: 90 2RF (DME) Raised toilet seat See Rx Instructions .Route .MEDSUPPLY Qty: 1 0RF Rx Instructions: As directed (DME) Shower chair with arm See Rx Instructions .Route .MEDSUPPLY Qty: 1 0RF Rx Instructions: As directed (DME) Regular walker See Rx Instructions .Route .MEDSUPPLY Qty: 1 0RF Rx Instructions: As directed (DME) incontinence supplies adult large / x-large pull ups See Rx Instructions .Route .MEDSUPPLY Qty: 100 11RF Rx Instructions: As directed (DME) Longer bed railings See Rx Instructions .Route .MEDSUPPLY Qty: 1 0RF Rx Instructions: As directed albuterol sulfate [ProAir HFA] 90 mcg/actuation HFA aerosol inhaler 2 puff inhalation Q4-6H PRN (Reason: shortness of breath or wheezing) Qty: 8.5 0RF paroxetine HCl 40 mg tablet 40 mg PO DAILY Qty: 90 2RF Breo Ellipta 100-25 mcg/dose Blister With Device 1 inh INHALATION DAILY Rx Instructions: pt hasnt started, needs a PA acetaminophen-caffeine 500-65 mg Tablet 1 tab PO Q6H PRN (Reason: Headache) aspirin 81 mg Tablet,Delayed Release (Dr/Ec) 81 mg PO DAILY ascorbic acid (vitamin C) 500 mg Tablet 500 mg PO DAILY carvedilol 12.5 mg tablet 12.5 mg PO BID Qty: 180 1RF Eliquis 5 mg tablet 5 mg PO BID Qty: 60 2RF latanoprost 0.005 % drops 1 drp ophthalmic (eye) BEDTIME Qty: 7.5 0RF levetiracetam [Keppra] 750 mg tablet 750 mg PO BID Qty: 60 2RF isosorbide mononitrate 30 mg tablet extended release 24 hr 30 mg PO DAILY Qty: 30 3RF losartan 25 mg tablet 25 mg PO DAILY Qty: 30 1RF furosemide [Lasix] 40 mg tablet 40 mg PO DAILY Qty: 30 3RF gabapentin 300 mg capsule 300 mg PO TID PRN (Reason: pain) 90 Days Qty: 270 3RF tramadol 50 mg tablet 50 mg PO Q12H PRN (Reason: pain) 90 Days Qty: 180 0RF <HELADIO Lomax - Last Filed: 02/24/22 13:14>
--- NOTE | 2022-02-24 19:01 | PHA.MEDREC ---
Pharmacy Consult ? Medication Reconciliation Pharmacy has completed the medication reconciliation. Patient unsure of medications, she recognized the names but were unsure. Has an outdated list with her. Med rec done be claim history. Rahel Callejas, SarikaD
--- NOTE | 2022-02-24 19:07 | PC.NURSE ---
Assumed care of pt.
[2022-02-24 20:11] VITALS: BP 184/88; PULSE 88; RESP 18; TEMP 36.4; O2SAT 94
[2022-02-24 21:07] LABS: COVID-19 Test Negative (Negative); IDNOW Serial# 16C4AD1C
--- NOTE | 2022-02-24 23:33 | PC.NURSE ---
This nurse assisted in getting the patient to the bathroom with use of a wheelchair.
[2022-02-24 23:44] VITALS: BP 194/102; PULSE 83; RESP 16; TEMP 36.6; O2SAT 94
[2022-02-25 01:40] VITALS: BP 180/78; PULSE 79; RESP 16; TEMP 36.6; O2SAT 93
--- NOTE | 2022-02-25 03:27 | PC.NURSE ---
Patient is sleeping. No apparent distress. Will continue to monitor.
[2022-02-25 08:00] VITALS: BP 178/79; PULSE 83; RESP 14; TEMP 36.6; O2SAT 93
--- NOTE | 2022-02-25 08:27 | PC.NURSE ---
Pt is alert/oriented x 3. States no pain when laying on bed, comes on suddenly, sharp in nature. Ambulatory with this RN with minimal assist. Awaiting PT/OT consult
[2022-02-25 09:29] VITALS: PULSE 113; O2SAT 97
[2022-02-25] MEDS: Losartan Potassium 25 MG TABLET PO (09:45)
[2022-02-25] MEDS: PARoxetine HCL 40 MG TABLET PO (09:45)
[2022-02-25] MEDS: Isosorbide Mononitrate 30 MG TAB.ER.24H PO (09:46)
[2022-02-25] MEDS: Omeprazole 20 MG CAPSULE.DR PO (09:46)
[2022-02-25] MEDS: Apixaban 5 MG TABLET PO (09:46)
[2022-02-25] MEDS: Ascorbic Acid 500 MG TABLET PO (09:47)
[2022-02-25] MEDS: Furosemide 40 MG TABLET PO (09:47)
[2022-02-25] MEDS: metFORMIN HCl 500 MG TABLET PO (09:47)
[2022-02-25] MEDS: levETIRAcetam 500 MG TABLET 750 MG PO (09:48)
[2022-02-25] MEDS: Fluticasone/Vilanterol 100/25 BLST.W.DEV 1 PUFF INHALE (09:52)
[2022-02-25] MEDS: carvediloL 12.5 MG TABLET PO (09:55)
[2022-02-25] MEDS: Aspirin Enteric Coated 81 MG TABLET.DR PO (09:55)
--- NOTE | 2022-02-25 10:41 | PC.NURSE ---
Plan for d/c home approx [id number]
--- NOTE | 2022-02-25 10:46 | MHC.CM.ED ---
Received case management consult overnight. Patient came to ER due to shortness of breath. Work up essentially negative. Physical therapy eval completed. Home therapy is recommended. Met with patient in regards to discharge planning. Patient lives alone, ambulates with a walker/cane and is active with [facility]. PCP verified. Per patient, HCP on file is incorrect at this time. New HCP completed, signed and witnessed. Original given to patient. Copy placed in chart. Patient agreeable to referral to [facility]. Referral made via [facility]. Patient will call a friend to transport her home. Patient, Heidi PRIDE and Rebecca LEIJA aware. Continue to monitor for d/c needs.
[2022-02-25] MEDS: traMADoL HCL 50 MG TABLET PO (11:24)
== END 2022-02-25 12:00 | disposition home or self-care (01) ==
PROVIDERS: Physician Assistant; Emergency Provider Emergency Medicine; PCP Internal Medicine
DX: S79.911A Unspecified injury of right hip, initial encounter (principal); S79.912A Unspecified injury of left hip, initial encounter; E11.9 Type 2 diabetes mellitus without complications; W01.0XXA Fall on same level from slipping, tripping and stumbling without subsequent striking against object, initial encounter; Y93.9 Activity, unspecified; Y92.9 Unspecified place or not applicable; Y99.9 Unspecified external cause status; Z20.822 Contact with and (suspected) exposure to COVID-19; Z79.899 Other long term (current) drug therapy; Z87.891 Personal history of nicotine dependence; Z91.81 History of falling
CPT/HCPCS: 72192; 73502; 87635; 97162; 99284

== ENCOUNTER → 2022-04-30 13:33 | Outpatient (BNVA) | payer OTHER, SELFPAY | PROVIDERS: PCP Internal Medicine; Referring Provider Internal Medicine; Visit Provider Internal Medicine | DX: I42.8 Other cardiomyopathies (principal); I63.9 Cerebral infarction, unspecified; I46.9 Cardiac arrest, cause unspecified; Z95.3 Presence of xenogenic heart valve | CPT/HCPCS: 93005; 99212 ==

== ENCOUNTER → 2022-05-07 10:50 | Outpatient (REF) | payer OTHER, SELFPAY ==
--- NOTE | 2022-05-07 10:52 | HM_ITS ---
conclusion: 1. Patient was monitored for total period of 1 day 2. Baseline was normal sinus rhythm with average heart rate of 75 beats per minute 3. No significant pauses or bradycardia noted 4. Occasional PACs with total burden of 0.3 5. 4 SVT events with longest lasting 6 beats and the fastest at 136 beats per minute 6. No patient reported events MTDD
== END ==
LOC: HO.CARD 10:50
PROVIDERS: PCP Internal Medicine; Visit Provider Internal Medicine
DX: I42.8 Other cardiomyopathies (principal); I47.20 Ventricular tachycardia, unspecified
CPT/HCPCS: 93242

== ENCOUNTER → 2022-07-09 12:26 | Outpatient (BNVA) | payer OTHER, SELFPAY | PROVIDERS: PCP Internal Medicine; Referring Provider Internal Medicine; Visit Provider Internal Medicine | DX: I42.8 Other cardiomyopathies (principal); I46.9 Cardiac arrest, cause unspecified; Z86.73 Personal history of transient ischemic attack (TIA), and cerebral infarction without residual deficits; Z95.3 Presence of xenogenic heart valve; Z79.01 Long term (current) use of anticoagulants | CPT/HCPCS: 99212 ==

== ENCOUNTER 2022-09-20 09:23 | Outpatient (REF) | payer OTHER, SELFPAY ==
[2022-09-20 09:41] LABS: MANUAL DIFF FLAG NO
[2022-09-20 10:09] LABS: Basophils Absolute Auto 0.1 X10*3/uL (0.0-0.2); Basophils Percent Auto 1.2 % (0-2); Eosinophils Absolute Auto 0.5 X10*3/uL (0.0-0.4); Eosinophils Percent Auto 6.9 % (0-4); Hematocrit 38.2 % (37.0-47.0); Hemoglobin 12.5 g/dl (12.0-16.0); Imm Gran Abs Auto 0.02 X10*3/uL (0.00-0.03); Imm Gran Pct Auto 0.3 % (0.0-0.4); Immature Retic Fraction 12.1 % (3.0-15.9); Lymphocytes Absolute Auto 1.8 X10*3/uL (1.2-4.9); Lymphocytes Percent Auto 27.2 % (20-40); Mean Corpuscular HGB Conc 32.7 g/dl (31.0-35.0); Mean Corpuscular Hemoglobin 31.2 pg (27.0-33.0); Mean Corpuscular Volume 95.3 fL (80.0-98.0); Mean Platelet Volume 10.5 fL (9.4-12.3); Monocytes Absolute Auto 0.6 X10*3/uL (0.1-1.2); Monocytes Percent Auto 9.2 % (2-11); Neutrophils Absolute Auto 3.7 x10*3/uL (2.0-8.3); Neutrophils Percent Auto 55.2 % (45-73); Platelet Count 274 X10*3/uL (160-400); Red Blood Count 4.01 X10*6/uL (4.20-5.50); Red Cell Distribution Width 13.6 % (11.0-16.0); Reticulocyte Percent 1.5 % (0.5-1.8); Reticulocytes Absolute 0.059 X10*6/uL (0.026-0.095); White Blood Count 6.6 X10*3/uL (4.8-10.8)
[2022-09-20 10:28] LABS: Appearance Urine Clear; Color Urine Yellow; Glucose Urine UA Negative (Negative); Leukocyte Esterase Urine Moderate (2+) (Negative); Nitrite Urine Positive (Negative); PH 5.5 (5.0-9.0); UMIC TRIGGER UACC YES; Urine Blood Negative (Negative); Urine Ketones Negative (Negative); Urine Protein Negative (Neg-Trace)
[2022-09-20 10:30] LABS: Bacteria Urine 4+ (None Seen); RBC Urine 0-2 /HPF (0-2); Squamous Epithelial Cell Urine 0-2 /HPF (0-2); UACC Culture Trigger YES; WBC Urine >50 /HPF (0-5)
[2022-09-20 10:58] LABS: B Type Natriuretic Peptide 101 pg/mL (<100)
[2022-09-20 11:06] LABS: Alanine Aminotransferase 11 U/L (0-31); Albumin Level 3.6 g/dL (3.5-5.0); Alkaline Phosphatase 103 U/L (39-117); Anion Gap 13 (12-20); Aspartate Amino Transferase 16 U/L (5-31); Bilirubin Total 0.6 mg/dL (0.0-1.0); Blood Urea Nitrogen 24 mg/dL (9-16); Calcium 9.8 mg/dL (8.4-10.2); Carbon Dioxide 26 mmol/L (22-29); Chloride 105 mmol/L (96-108); Cholesterol 233 mg/dL; Estimated Glomerular Filt Rate 36; Glucose Random 163 mg/dL (60-115); HDL Cholesterol 54 mg/dL; Iron 34 mcg/dL (30-160); LDL Cholesterol Calculated 144 mg/dl; Percent Iron Saturation 12 % (15-50); Potassium 4.5 mmol/L (3.3-5.1); Sodium 139 mmol/L (135-145); Total Iron Binding Capacity 286 mcg/dL (228-428); Total Protein 7.4 g/dL (6.5-8.0); Triglycerides 177 mg/dL; Unsaturated Iron Binding 252 ug/dL
[2022-09-20 11:28] LABS: Ferritin 76 ng/mL (10-250); Free T4 (Free Thyroxine) 0.86 ng/dL (0.71-1.85); Thyroid Stimulating Hormone 1.41 uIU/mL (0.32-4.0); Vitamin D 25-OH Total 36.4 ng/mL (>30)
[2022-09-20 11:29] LABS: Vitamin B12 528 pg/mL (200-900)
== END 2022-09-20 09:24 | disposition home or self-care (01) ==
LOC: HO.LAB 09:23
PROVIDERS: PCP Internal Medicine; Visit Provider Internal Medicine
DX: I10 Essential (primary) hypertension (principal); E78.00 Pure hypercholesterolemia, unspecified; N28.9 Disorder of kidney and ureter, unspecified; E55.9 Vitamin D deficiency, unspecified; D64.9 Anemia, unspecified
CPT/HCPCS: 36415; 80053; 80061; 81001; 82306; 82607; 82728; 82746; 83540; 83880; 84439; 84443; 85025; 85045; 87086; 87088; 87186

== ENCOUNTER 2022-10-28 16:23 | Inpatient (IN) | payer OTHER, MEDICARE, SELFPAY ==
--- NOTE | ~2022-10-28 | CT_ITS ---
EXAMINATION: CT CHEST, ABDOMEN AND PELVIS WITHOUT CONTRAST. CLINICAL INFORMATION: Aspiration pneumonia, intractable vomiting. COMPARISON: CT pelvis 02/24/2022. CTA chest 06/06/2021. CT abdomen/pelvis 02/09/2021. TECHNIQUE: Multidetector volumetric imaging was performed from the thoracic inlet through the pubic symphysis without IV contrast. Sagittal and coronal reformatted images were obtained on the technologist's workstation. This CT examination was performed using dose optimization techniques as appropriate, variously including the following: *Automated exposure control *Adjustment of mA and/or kV according to patient size (this includes techniques or standardized protocols for targeted exams where dose is matched to indication/reason for exam; i.e. extremities or head) *Use of iterative reconstruction technique DLP: 489 and 1084 mGy-cm FINDINGS: Evaluation is degraded by motion. CHEST: Lung: Multifocal patchy and groundglass opacities, increased compared to 06/06/2021, more prominent in the right middle and lower lung. Central airways are patent. Evaluation of pulmonary nodules is very limited due to motion as well as overlying airspace opacities, for which a short-term follow-up chest CT is recommended. Mediastinum: Stable mild cardiomegaly. No pericardial effusion. Extensive coronary artery calcifications. Prominent atherosclerotic disease of the thoracic aorta which is of normal caliber. Exuberant mitral and aortic valve calcifications. Mediastinal lymphadenopathy is increased compared to 06/06/2021, for instance a 1.1 cm short axis aortopulmonary lymph node axial image 23 series 5 previously 0.9 cm and a 1.3 cm precarinal lymph node axial image 25 previously 0.9 cm. Evaluation of the hilar structures is noted due to motion and lack of IV contrast. Normal appearance of the thyroid gland. Pericardium/Pleura: No pleural effusion or pneumothorax. Chest Wall/Axilla: Sternotomy wires. No lymphadenopathy. ABDOMEN/PELVIS: Peritoneal Space: No free air or free fluid. Liver, Gallbladder, Biliary Tree: The liver is normal in size, shape and attenuation. No discrete focal liver lesion in this very limited noncontrast motion degraded examination. Small layering calcified gallbladder calculi without significant associated pericholecystic fat stranding/free fluid to suspected acute cholecystitis. No biliary ductal dilatation. Pancreas: Limited noncontrast examination. No significant peripancreatic free fluid or fat stranding. Spleen: Unremarkable. Adrenal Glands: Stable bilateral adrenal gland prominence compared to 02/09/2021. Kidneys and Ureters: No nephrolithiasis or hydronephrosis. No significant perinephric fat stranding. Bladder: Unremarkable. Gastrointestinal Tract: The stomach and the small bowel are nondilated. No inflammatory changes in the right lower quadrant or adjacent to the cecal base to suspect acute appendicitis. Mild colonic diverticulosis without significant pericolonic fat stranding. No bowel obstruction. Abdominal Wall: Injection granulomas in the right gluteal region. No significant hernia. Lymphovascular Structures: Extensive atherosclerotic disease. Fusiform aneurysmal dilatation of the infrarenal abdominal aorta measuring up to 3.8 cm in diameter, slightly increased from 3.6 cm on 02/09/2021. No lymphadenopathy. Pelvic Viscera: No free fluid. No discrete pelvis mass, though evaluation is limited in the absence of IV contrast and due to streak artifacts generated by bilateral hip prosthesis. Osseous Structures: Limited evaluation due to motion. Advanced thoracolumbar spondylosis. Bilateral hip arthroplasties. No acute or aggressive appearing osseous findings. CT/CT abdomen pelvis wo IV con IMPRESSION: Evaluation is very limited due to motion and lack of IV contrast. 1. Multifocal airspace opacities, increased compared to 06/06/2021, worrisome for an atypical infectious/inflammatory process. A follow-up chest CT after treatment is recommended to ensure appropriate resolution. 2. Increased mediastinal lymphadenopathy, nonspecific could be reactive. As above, a follow-up imaging is recommended. 3. Fusiform aneurysmal dilatation of the infrarenal abdominal aorta measuring up to 3.8 cm in diameter, slightly increased compared to 3.6 cm on 02/09/2021. Based on published guidelines in J Am Juli Radiol 2013; 10(10):789-794 and J Vasc Surg. 2018; 67:2-77, the recommendation for an abdominal aortic aneurysm with diameter 3.5-3.9 cm is follow up every 2 years. 4. Extensive atherosclerotic disease as well as coronary calcifications and cardiovascular calcifications. Follow-up with a demo event specialist is recommended. 5. Cholelithiasis but no evidence of acute cholecystitis. 6. Mild colonic diverticulosis but no evidence of acute diverticulitis.
--- NOTE | ~2022-10-28 | XR_ITS ---
EXAMINATION: PORTABLE CHEST 1 VIEW CLINICAL INFORMATION: ams. COMPARISON: 01/22/2022. TECHNIQUE: Portable frontal view of the chest was obtained. FINDINGS: The lungs are well expanded. Chronic appearing coarsened reticular markings are seen with mild peribronchial cuffing bilaterally suggesting component of underlying reactive or small airways disease similar to the prior study. No superimposed focal infiltrate, effusion, edema, or pneumothorax. Cardiac and mediastinal silhouettes are within normal limits for size. Patient is status post sternotomy with vascular calcification in the tortuous aorta. Degenerative changes in the spine and shoulders. No acute bony abnormality seen. XR/XR chest 1V IMPRESSION: Chronic appearing and postoperative changes similar to the 01/22/2022 study.
[2022-10-28 16:39] VITALS: BP 132/90; BP 178/73; PULSE 109; PULSE 98; RESP 16; TEMP 37.8; O2SAT 96; BMI 29.6
--- NOTE | 2022-10-28 16:46 | ED_ITS ---
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 Related Data Home Medications Medication Instructions Recorded Confirmed ascorbic acid (vitamin C) 500 mg 500 mg PO DAILY 06/04/21 10/28/22 tablet acetaminophen 325 mg tablet 650 mg PO Q6H PRN Pain 02/24/22 10/28/22 ferrous sulfate 325 mg (65 mg 325 mg PO DAILY 09/16/22 10/28/22 iron) tablet isosorbide mononitrate 30 mg 30 mg PO DAILY 10/28/22 10/28/22 tablet,extended release 24 hr sumatriptan succinate 25 mg tablet 25 mg PO DAILY PRN migraine 10/28/22 10/28/22 headache Previous Rx's Medication Instructions Recorded Longer bed railings #1 ea 10/30/21 Raised toilet seat #1 ea 10/30/21 Regular walker #1 ea 10/30/21 Shower chair with arm #1 ea 10/30/21 incontinence supplies adult large #100 ea 10/30/21 / x-large pull ups apixaban 5 mg tablet (Eliquis) 5 mg PO BID #60 tabs 11/26/21 paroxetine HCl 40 mg tablet 40 mg PO DAILY #90 tabs 01/21/22 carvedilol 12.5 mg tablet 12.5 mg PO BID #180 tabs 06/01/22 latanoprost 0.005 % eye drops 1 drp ophthalmic (eye) BEDTIME 08/02/22 #7.5 mL tramadol 50 mg tablet 50 mg PO Q12H PRN pain 90 days 09/16/22 #180 tabs albuterol sulfate 90 mcg/actuation 2 puff inhalation Q4-6H PRN 10/04/22 aerosol inhaler (ProAir HFA) shortness of breath or wheezing #8.5 grams gabapentin 300 mg capsule 300 mg PO TID PRN for pain #270 10/21/22 caps Allergies Allergy/AdvReac Type Severity Reaction Status Date / Time No Known Allergies Allergy Mild NONE Verified 09/16/22 16:34 Review of Systems Review of Systems: Yes all other systems are reviewed and are negative [facility] Past Medical History Medical History Abdominal aortic aneurysm without rupture COPD (chronic obstructive pulmonary disease) Essential hypertension Hypercholesterolemia Hypertension Osteoarthritis Osteoporosis SOB (shortness of breath) Type 2 diabetes mellitus with hyperglycemia Urinary incontinence Vitamin D deficiency Surgical History History of colonoscopy History of heart valve replacement (~08/2013) History of left hip replacement History of right hip replacement (~08/2014) Status post aortic valve replacement with bioprosthetic valve Family History Family History Father No problems noted. Mother History of high cholesterol Social History Social History Household Members: None Housing: Apartment Do you presently have visiting nurse or other home services: No Alcohol intake: unknown Patient Tobacco Use Status: Former Tobacco user Quit Date: 2021 Smoked: 60 +/- Smoked in Last 30 Days: No e-Cigarette/Vaping Use: Never Used Second Hand Smoke Exposure: No Advance Directives: Yes Advance Directives on File: Yes Advance Directives Date on File: 02/10/21 service: No Current occupational status: retired Cognitive needs: Yes (walker) Hearing needs: No Vision needs: Yes Physical Exam Vital Signs: Vital Signs: Last Vital Signs Temp 97.8 F 10/28/22 23:56 Pulse 101 H 10/28/22 23:56 Resp 20 10/28/22 23:56 BP 148/74 H 10/28/22 23:56 Pulse Ox 98 10/28/22 23:56 O2 Del Method Nasal Cannula 10/28/22 23:56 O2 Flow Rate 2 10/28/22 23:56 Oxygen Flow Rate 2 10/28/22 16:39 BMI result Body Mass Index 29.6 Appearance: Alert. Oriented X2-3. Looks sick Eyes: PERRLA, No Nystagmus ENT: Pharynx normal. Oral Mucosa moist Neck: Normal inspection. Neck supple. CVS: Normal heart rate and rhythm. Pulses normal. Respiratory: No respiratory distress. Equal air entry bilateral, no wheezing/rales/rhonchi Abdomen: Soft and nontender. Bowel sounds are present, no mass palpable, no CVA tenderness Skin: Skin warm and dry. Normal skin color. Normal skin turgor. Extremities: No lower extremity edema. No calf tenderness Neuro: Oriented X 3. No motor deficit. No sensory deficit.No cerebellar signs , cranial nerves II-XII intact Medications Administered Generic Name Dose Route Start Last Admin Trade Name Freq PRN Reason Stop Dose Admin Acetaminophen 650 mg 10/28/22 23:29 10/29/22 00:17 Acetaminophen Supp 650 Mg Supp.Rect CA 650 mg Q6H PRN Administration Pain, Mild (Pain Scale 1-3) Ampicillin Sodium/Sulbactam 100 mls @ 200 mls/hr 10/29/22 00:00 10/29/22 01:07 Sodium 3 gm/ Sodium Chloride IV Infused Q6H GRETA Infusion Insulin Human Lispro 0 unit 10/29/22 00:45 10/29/22 01:19 Insulin Lispro 100 Unit/Ml 3 Ml Vial SUBCUT Not Given 0000,0600,1200,1800 [facility] Protocol Sodium Chloride 3 ml 10/29/22 00:00 10/29/22 00:33 0.9 % Sodium Chloride Flush 3 Ml Syringe IVFLUSH Not Given QSHIFT [facility] Discontinued Medications Generic Name Dose Route Start Last Admin Trade Name Freq PRN Reason Stop Dose Admin Sodium Chloride 1,000 mls @ 999 mls/hr 10/28/22 16:48 10/28/22 20:19 Ns IV 10/28/22 17:48 Infused .Q1H1M ONE Infusion Sodium Chloride 2,500 mls @ 2,500 mls/hr 10/28/22 17:39 10/28/22 20:21 Ns IV 10/28/22 18:38 Infused .Q1H STA Infusion Ceftriaxone Sodium 1 gm/ 50 mls @ 100 mls/hr 10/28/22 17:40 10/28/22 19:42 Sodium Chloride IV 10/28/22 18:09 Infused ONCE ONE Infusion Lorazepam 1 mg 10/28/22 20:43 10/28/22 20:52 Lorazepam 2 Mg/Ml Vial IVPUSH 10/28/22 20:44 1 mg ONCE ONE Administration Ondansetron HCl 4 mg 10/28/22 16:47 10/28/22 18:41 Ondansetron Hcl 4 Mg/2 Ml Vial IVPUSH 10/28/22 16:48 4 mg ONCE ONE Administration Medical Decision Making Differential Diagnosis Differential Diagnoses: The differential diagnosis associated with the presentation includes Metabolic encephalopathy/UTI/pneumonia/AWA/dehydration Admission/Observation Consideration of admission/observation: Escalation of care including admission/observation considered Consult Healthcare Provider Management of the patient was discussed with: Hospitalist Lab Data MDM Lab Attestation statement: I reviewed the patient's lab results. 10/28/22 17:14 10/28/22 17:14 Labs: Lab Results 10/28/22 10/28/22 10/28/22 Range/Units 17:14 17:14 17:14 WBC 11.6 H (4.8-10.8) X10*3/uL RBC 4.70 (4.20-5.50) X10*6/uL Hgb 14.7 (12.0-16.0) g/dl Hct 44.0 (37.0-47.0) % MCV 93.6 (80.0-98.0) fL MCH 31.3 (27.0-33.0) pg MCHC 33.4 (31.0-35.0) g/dl RDW 13.2 (11.0-16.0) % Plt Count 246 (160-400) X10*3/uL MPV 10.0 (9.4-12.3) fL Immature Gran % (Auto) 0.3 (0.0-0.4) % Neut % (Auto) 87.1 H (45-73) % Lymph % (Auto) 7.8 L (20-40) % [place] % (Auto) 4.5 (2-11) % Eos % (Auto) 0.0 (0-4) % Baso % (Auto) 0.3 (0-2) % Lymph # (Auto) 0.9 L (1.2-4.9) X10*3/uL [place] # (Auto) 0.5 (0.1-1.2) X10*3/uL Eos # (Auto) 0.0 (0.0-0.4) X10*3/uL Baso # (Auto) 0.0 (0.0-0.2) X10*3/uL Abs Immat Gran (auto) 0.03 (0.00-0.03) X10*3/uL Absolute Neuts (auto) 10.1 H (2.0-8.3) x10*3/uL Absolute Nucleated RBC 0.000 (0.0-0.012) X10*3/uL Nucleated RBC % (auto) 0.0 (0.0-0.2) /100WBC PT 10.7 L (11.1-13.3) SEC INR 0.9 (0.9-1.1) Sodium 138 (135-145) mmol/L Potassium 4.2 (3.3-5.1) mmol/L Chloride 103 (96-108) mmol/L Carbon Dioxide 21 L (22-29) mmol/L Anion Gap 18 (12-20) BUN 21 H (9-16) mg/dL Creatinine 1.34 (0.5-1.4) mg/dL Estim Creat Clear Calc 34.5 Estimated GFR 38 Random Glucose 182 H (60-115) mg/dL Lactic Acid (0.5-2.0) mmol/L Calcium 10.4 H D (8.4-10.2) mg/dL Magnesium 2.1 (1.6-2.6) mg/dL Total Bilirubin 0.7 (0.0-1.0) mg/dL AST 21 (5-31) U/L ALT 13 (0-31) U/L Alkaline Phosphatase 106 (39-117) U/L Total Protein 8.4 H (6.5-8.0) g/dL Albumin 4.2 (3.5-5.0) g/dL Lipase 7 L (8-78) U/L Urine Color Urine Appearance Urine pH (5.0-9.0) Ur Specific Butler (1.005-1.025) Urine Protein (Neg-Trace) mg/dL Urine Glucose (UA) (Negative) mg/dL Urine Ketones (Negative) mg/dL Urine Blood (Negative) Urine Nitrite (Negative) Ur Leukocyte Esterase (Negative) Urine RBC (0-2) /HPF Urine WBC (0-5) /HPF Ur Squamous Epith Cells (0-2) /HPF Urine Bacteria (None Seen) Hyaline Casts (0-2) /LPF COVID-19 (HARPREET) (Negative) COVID-19 Clin Com 10/28/22 10/28/22 10/28/22 Range/Units 17:14 17:14 19:24 WBC (4.8-10.8) X10*3/uL RBC (4.20-5.50) X10*6/uL Hgb (12.0-16.0) g/dl Hct (37.0-47.0) % MCV (80.0-98.0) fL MCH (27.0-33.0) pg MCHC (31.0-35.0) g/dl RDW (11.0-16.0) % Plt Count (160-400) X10*3/uL MPV (9.4-12.3) fL Immature Gran % (Auto) (0.0-0.4) % Neut % (Auto) (45-73) % Lymph % (Auto) (20-40) % [place] % (Auto) (2-11) % Eos % (Auto) (0-4) % Baso % (Auto) (0-2) % Lymph # (Auto) (1.2-4.9) X10*3/uL [place] # (Auto) (0.1-1.2) X10*3/uL Eos # (Auto) (0.0-0.4) X10*3/uL Baso # (Auto) (0.0-0.2) X10*3/uL Abs Immat Gran (auto) (0.00-0.03) X10*3/uL Absolute Neuts (auto) (2.0-8.3) x10*3/uL Absolute Nucleated RBC (0.0-0.012) X10*3/uL Nucleated RBC % (auto) (0.0-0.2) /100WBC PT (11.1-13.3) SEC INR (0.9-1.1) Sodium (135-145) mmol/L Potassium (3.3-5.1) mmol/L Chloride (96-108) mmol/L Carbon Dioxide (22-29) mmol/L Anion Gap (12-20) BUN (9-16) mg/dL Creatinine (0.5-1.4) mg/dL Estim Creat Clear Calc Estimated GFR Random Glucose (60-115) mg/dL Lactic Acid 1.3 (0.5-2.0) mmol/L Calcium (8.4-10.2) mg/dL Magnesium (1.6-2.6) mg/dL Total Bilirubin (0.0-1.0) mg/dL AST (5-31) U/L ALT (0-31) U/L Alkaline Phosphatase (39-117) U/L Total Protein (6.5-8.0) g/dL Albumin (3.5-5.0) g/dL Lipase (8-78) U/L Urine Color Yellow Urine Appearance Clear Urine pH 6.0 (5.0-9.0) Ur Specific Butler 1.015 (1.005-1.025) Urine Protein 30 (1+) H (Neg-Trace) mg/dL Urine Glucose (UA) Negative (Negative) mg/dL Urine Ketones Trace (Negative) mg/dL Urine Blood Moderate (2+) H (Negative) Urine Nitrite Negative (Negative) Ur Leukocyte Esterase Negative (Negative) Urine RBC 0-2 (0-2) /HPF Urine WBC 0-5 (0-5) /HPF Ur Squamous Epith Cells 0-2 (0-2) /HPF Urine Bacteria 4+ (None Seen) Hyaline Casts 0-2 (0-2) /LPF COVID-19 (HARPREET) Negative (Negative) COVID-19 Clin Com See Note Radiology Impression Discussion of test interpretation with radiology: I have reviewed the radio logist's reading. Radiologist Impression: [address] [address] [address] Scan Report Signed Patient: Harmony Wu MR#: [id number] : 1940 Acct:[id number] Age/Sex: 82 / F ADM Date: 10/28/22 Loc: HO.ED Attending Dr: Ordering Physician: Jon Castro MD Date of Service: 10/28/22 Procedure(s): CT chest wo IV con Accession Number(s): [id number] cc: Jon Castro MD~ EXAMINATION: CT CHEST, ABDOMEN AND PELVIS WITHOUT CONTRAST. CLINICAL INFORMATION: Aspiration pneumonia, intractable vomiting. COMPARISON: CT pelvis 02/24/2022. CTA chest 06/06/2021. CT abdomen/pelvis 02/09/2021. TECHNIQUE: Multidetector volumetric imaging was performed from the thoracic inlet through the pubic symphysis without IV contrast. Sagittal and coronal reformatted images were obtained on the technologist's workstation. This CT examination was performed using dose optimization techniques as appropriate, variously including the following: *Automated exposure control *Adjustment of mA and/or kV according to patient size (this includes techniques or standardized protocols for targeted exams where dose is matched to indication/reason for exam; i.e. extremities or head) *Use of iterative reconstruction technique DLP: 489 and 1084 mGy-cm FINDINGS: Evaluation is degraded by motion. CHEST: Lung: Multifocal patchy and groundglass opacities, increased compared to 06/06/2021, more prominent in the right middle and lower lung. Central airways are patent. Evaluation of pulmonary nodules is very limited due to motion as well as overlying airspace opacities, for which a short-term follow-up chest CT is recommended. Mediastinum: Stable mild cardiomegaly. No pericardial effusion. Extensive coronary artery calcifications. Prominent atherosclerotic disease of the thoracic aorta which is of normal caliber. Exuberant mitral and aortic valve calcifications. Mediastinal lymphadenopathy is increased compared to 06/06/2021, for instance a 1.1 cm short axis aortopulmonary lymph node axial image 23 series 5 previously 0.9 cm and a 1.3 cm precarinal lymph node axial image 25 previously 0.9 cm. Evaluation of the hilar structures is noted due to motion and lack of IV contrast. Normal appearance of the thyroid gland. Pericardium/Pleura: No pleural effusion or pneumothorax. Chest Wall/Axilla: Sternotomy wires. No lymphadenopathy. ABDOMEN/PELVIS: Peritoneal Space: No free air or free fluid. Liver, Gallbladder, Biliary Tree: The liver is normal in size, shape and attenuation. No discrete focal liver lesion in this very limited noncontrast motion degraded examination. Small layering calcified gallbladder calculi without significant associated pericholecystic fat stranding/free fluid to suspected acute cholecystitis. No biliary ductal dilatation. Pancreas: Limited noncontrast examination. No significant peripancreatic free fluid or fat stranding. Spleen: Unremarkable. Adrenal Glands: Stable bilateral adrenal gland prominence compared to 02/09/2021. Kidneys and Ureters: No nephrolithiasis or hydronephrosis. No significant perinephric fat stranding. Bladder: Unremarkable. Gastrointestinal Tract: The stomach and the small bowel are nondilated. No inflammatory changes in the right lower quadrant or adjacent to the cecal base to suspect acute appendicitis. Mild colonic diverticulosis without significant pericolonic fat stranding. No bowel obstruction. Abdominal Wall: Injection granulomas in the right gluteal region. No significant hernia. Lymphovascular Structures: Extensive atherosclerotic disease. Fusiform aneurysmal dilatation of the infrarenal abdominal aorta measuring up to 3.8 cm in diameter, slightly increased from 3.6 cm on 02/09/2021. No lymphadenopathy. Pelvic Viscera: No free fluid. No discrete pelvis mass, though evaluation is limited in the absence of IV contrast and due to streak artifacts generated by bilateral hip prosthesis. Osseous Structures: Limited evaluation due to motion. Advanced thoracolumbar spondylosis. Bilateral hip arthroplasties. No acute or aggressive appearing osseous findings. CT/CT chest wo IV con IMPRESSION: Evaluation is very limited due to motion and lack of IV contrast. ? 1.? Multifocal airspace opacities, increased compared to 06/06/2021, worrisome for an atypical infectious/inflammatory process. A follow-up chest CT after treatment is recommended to ensure appropriate resolution. 2.? Increased mediastinal lymphadenopathy, nonspecific could be reactive. As above, a follow-up imaging is recommended. 3.? Fusiform aneurysmal dilatation of the infrarenal abdominal aorta measuring up to 3.8 cm in diameter, slightly increased compared to 3.6 cm on 02/09/2021. Based on published guidelines in J Am Juli Radiol 2013; 10(10):789-794 and J Vasc Surg. 2018; 67:2-77, the recommendation for an abdominal aortic aneurysm with diameter 3.5-3.9 cm is follow up every 2 years. 4.? Extensive atherosclerotic disease as well as coronary calcifications and cardiovascular calcifications. Follow-up with a offender job retention specialist is recommended. 5.? Cholelithiasis but no evidence of acute cholecystitis. 6.? Mild colonic diverticulosis but no evidence of acute diverticulitis. ? Discharge Plan Discharge Clinical Impression: Aspiration pneumonia, Acute metabolic encephalopathy Patient Disposition: Admitted As Inpatient
--- NOTE | 2022-10-28 16:47 | ECG_ITS ---
Test Reason : NAUSEA/VOMITING Blood Pressure : / mmHG Vent. Rate : 103 BPM Atrial Rate : 103 BPM P-R Int : 154 ms QRS Dur : 098 ms QT Int : 392 ms P-R-T Axes : 074 -19 079 degrees QTc Int : 513 ms Sinus tachycardia Nonspecific T wave abnormality Abnormal ECG When compared with ECG of 13-SEP-2021 15:25, Previous ECG has undetermined rhythm, needs review Left bundle branch block is no longer Present Referred By: Jon Castro Electronically Signed By:BINH PERRIN
[2022-10-28 17:20] LABS: MANUAL DIFF FLAG NO
[2022-10-28 17:24] LABS: Basophils Percent Auto 0.3 % (0-2); Hemoglobin 14.7 g/dl (12.0-16.0); Imm Gran Abs Auto 0.03 X10*3/uL (0.00-0.03); Imm Gran Pct Auto 0.3 % (0.0-0.4); Lymphocytes Absolute Auto 0.9 X10*3/uL (1.2-4.9); Lymphocytes Percent Auto 7.8 % (20-40); Mean Corpuscular HGB Conc 33.4 g/dl (31.0-35.0); Mean Corpuscular Hemoglobin 31.3 pg (27.0-33.0); Mean Corpuscular Volume 93.6 fL (80.0-98.0); Monocytes Absolute Auto 0.5 X10*3/uL (0.1-1.2); Monocytes Percent Auto 4.5 % (2-11); Neutrophils Absolute Auto 10.1 x10*3/uL (2.0-8.3); Neutrophils Percent Auto 87.1 % (45-73); Platelet Count 246 X10*3/uL (160-400); Red Cell Distribution Width 13.2 % (11.0-16.0); White Blood Count 11.6 X10*3/uL (4.8-10.8)
[2022-10-28 17:34] LABS: INTERNATIONAL NORM RATIO 0.9 (0.9-1.1); Lactic Acid 1.3 mmol/L (0.5-2.0); Prothrombin Time 10.7 SEC (11.1-13.3)
[2022-10-28 17:39] LABS: Alanine Aminotransferase 13 U/L (0-31); Albumin Level 4.2 g/dL (3.5-5.0); Alkaline Phosphatase 106 U/L (39-117); Anion Gap 18 (12-20); Aspartate Amino Transferase 21 U/L (5-31); Bilirubin Total 0.7 mg/dL (0.0-1.0); Blood Urea Nitrogen 21 mg/dL (9-16); Calcium 10.4 mg/dL (8.4-10.2); Carbon Dioxide 21 mmol/L (22-29); Chloride 103 mmol/L (96-108); Creatinine Clr Calc Pharmacy 34.5; Estimated Glomerular Filt Rate 38; Glucose Random 182 mg/dL (60-115); Lipase 7 U/L (8-78); Magnesium 2.1 mg/dL (1.6-2.6); Potassium 4.2 mmol/L (3.3-5.1); Sodium 138 mmol/L (135-145); Total Protein 8.4 g/dL (6.5-8.0)
[2022-10-28 17:44] LABS: COVID-19 Test Negative (Negative); IDNOW Serial# 08D9AD1C
[2022-10-28] MEDS: 0.9 % Sodium Chloride 1,000 ML 999 ML IV (18:18)
[2022-10-28] MEDS: cefTRIAXone sodium 1 GM in 0.9 % Sodium Chloride 50 ML IV (18:41)
[2022-10-28] MEDS: ondansetron HCL 4 MG/2 ML VIAL IVPUSH (18:41)
--- NOTE | 2022-10-28 18:41 | PHA.MEDREC ---
Pharmacy Consult ? Medication Reconciliation Pharmacy has completed the medication reconciliation. Attempted to interview patient, but patient only responded with hand movements. Patient waved hi when entered the room. When asked about her medications she put her hands up and shrugged as she did not know. Utilized claim history and called [facility] pharmacy to confirmed. The following medications were removed from medication list as they have no been filled recently: - Atorvastatin 80 mg daily; 11/25/21 for 90 day supply - Furosemide 40 mg daily; 05/06/22 for 30 day supply - Levetiracetam 750 mg Q12H; 11/26/22 for 90 day supply - losartan 25 mg daily; 12/30/21 for 30 days supply - Breo 100-25 mcg daily; >1 year since last refill Rahel Callejas, SarikaD
[2022-10-28] MEDS: 0.9 % Sodium Chloride 2,500 ML 2500 ML IV (18:43)
--- NOTE | 2022-10-28 18:55 | PC.NURSE ---
pt appears lethargic with shallow breathing. oriented to place only and is confused. difficulty following directions. pt changed over to hospital attire, 2 IVs placed in pt BL ACs, labs drawn, fluids running, xray complete. left pt room for approximately 3 minutes to obtain additional medications from pyxis. when returned to pt room, pt was found undressed, out of bed, sitting in visitor chair with RAC IV ripped out, IV fluids leaking on the floor. pt sts she doesn't know what she is doing. additional help from a provider, RN, and tech came and assisted with pt. encouraging this RN that the situation was under control and to attend to other pts while adequate help was in this pt's room. pt was cleaned up, and medicated per may. there was a miscommunication between staff and it was later realized that blood cultures were not drawn prior to starting 1st round of abx. aware. pt resting comfortable on stretcher in no apparent distress. O2 99% on 2L NC. wctm
--- NOTE | 2022-10-28 19:36 | PC.NURSE ---
assumed care of pt at 1900 - pt has not had ekg done, no urine collected, no blood cultures collected since she has been in the ED despite fluids and antibiotics already running. aware. this RN and PCT Parmjit went in room, this RN placed second iv line, obtained blood cultures, straight cath'd pt for urine sample, placed pt on registered nurse cardiac and obtained ekg. pt presents with inc wob shallow breathing, wearing 2L O2 and is 99%.
[2022-10-28 19:40] LABS: Appearance Urine Clear; Color Urine Yellow; Glucose Urine UA Negative (Negative); Leukocyte Esterase Urine Negative (Negative); Nitrite Urine Negative (Negative); Specific Gravity - Urine 1.015 (1.005-1.025); UMIC TRIGGER UACC YES; Urine Blood Moderate (2+) (Negative); Urine Ketones Trace mg/dL (Negative); Urine Protein 30 (1+) mg/dL (Neg-Trace)
[2022-10-28 19:45] VITALS: BP 184/87; PULSE 103; RESP 18; TEMP 37.8; O2SAT 97
--- NOTE | 2022-10-28 19:49 | MHC.EDTECH ---
THIS PCT ASSUMED CARE OF PATIENT AT 1900 ,BOTH SETS OF BLOOD CULTURE DRAWN ,URINE SAMPLE COLLECTED AND SENT TO LAB ,PATIENT VITALS SIGN TAKEN ,PATIENT WAS HOOKED UP TO REGISTERED RADIOGRAPHER ,EKG TAKEN AND WAS READ BY PROVIDER ,RN SHWETA IS AWARE OF PT HIGH BP AND TEMP OF 100.0 RECTAL ,PT IS COMFORTABLE AND IS RESTING QUIETLY .
[2022-10-28 20:00] LABS: Bacteria Urine 4+ (None Seen); Hyaline Casts Urine 0-2 /LPF (0-2); RBC Urine 0-2 /HPF (0-2); Squamous Epithelial Cell Urine 0-2 /HPF (0-2); WBC Urine 0-5 /HPF (0-5)
--- NOTE | 2022-10-28 20:50 | PC.NURSE ---
patient's health care proxy is Ade. Ade can be reached at [phone] for anything/discharge planning. copy of health care proxy form made and placed into patient's chart
[2022-10-28] MEDS: LORazepam 2 MG/ML VIAL 1 MG IVPUSH (20:52)
--- NOTE | 2022-10-28 20:56 | PC.NURSE ---
pt continues to be restless in bed pulling at iv lines and cardiac rehabilitation specialist - [employer] came to try to bring pt to CT but pt too restless - medicated with 1mg ativan per MD order
[2022-10-28 21:59] VITALS: BP 135/60; PULSE 104; RESP 20; TEMP 36.8; O2SAT 98
--- NOTE | 2022-10-28 22:26 | MHC.CM.ED ---
CM received a MOLST, HCP and POA from [facility] Ade Clay [phone]. Uploaded into [facility] and [facility] [employer]
[2022-10-28 22:44] VITALS: BP 199/92; PULSE 112; RESP 22; TEMP 37.7; O2SAT 97
--- NOTE | 2022-10-28 23:31 | PM.IMHP ---
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 Patient is a poor historian and is only oriented to self at the time of my evaluation. History obtained by ER provider and chart review. Patient was found to be confused, drowsy at the [facility] and she was sent to the ER for further evaluation. Also noticed low-grade fever. In the ER, patient was found to be hypoxemic. Unable to obtain review of systems Review of Systems Review of Systems: Yes Unobtainable due to mental status PMFSH Medical History Abdominal aortic aneurysm without rupture COPD (chronic obstructive pulmonary disease) Essential hypertension Hypercholesterolemia Hypertension Osteoarthritis Osteoporosis SOB (shortness of breath) Type 2 diabetes mellitus with hyperglycemia Urinary incontinence Vitamin D deficiency Family History Father No problems noted. Mother History of high cholesterol Surgical History History of colonoscopy History of heart valve replacement (~08/2013) History of left hip replacement History of right hip replacement (~08/2014) Status post aortic valve replacement with bioprosthetic valve Social History Household Members: None Housing: Apartment Do you presently have visiting nurse or other home services: No Alcohol intake: unknown Patient Tobacco Use Status: Former Tobacco user Quit Date: 2021 Smoked: 60 +/- Smoked in Last 30 Days: No e-Cigarette/Vaping Use: Never Used Second Hand Smoke Exposure: No Advance Directives: Yes Advance Directives on File: Yes Advance Directives Date on File: 02/10/21 service: No Current occupational status: retired Cognitive needs: Yes (walker) Hearing needs: No Vision needs: Yes Meds Allergies Allergy/AdvReac Type Severity Reaction Status Date / Time No Known Allergies Allergy Mild NONE Verified 09/16/22 16:34 Active Medications: Current Medications Labetalol HCl (Labetalol Hcl 100 Mg/20 Ml Vial) 10 mg IVPUSH ONCE ONE Stop: 10/28/22 23:29 Pharmacy Consult (Consult Rx Perform Med Rec) 1 each MISCELLANE ONCE PRN PRN Reason: Consult order Home Medications Medication Instructions Recorded Confirmed Last Taken Type ascorbic acid (vitamin C) 500 mg 500 mg PO DAILY 06/04/21 10/28/22 Unknown History tablet acetaminophen 325 mg tablet 650 mg PO Q6H PRN Pain 02/24/22 10/28/22 Unknown History ferrous sulfate 325 mg (65 mg 325 mg PO DAILY 09/16/22 10/28/22 Unknown History iron) tablet isosorbide mononitrate 30 mg 30 mg PO DAILY 10/28/22 10/28/22 Unknown History tablet,extended release 24 hr sumatriptan succinate 25 mg tablet 25 mg PO DAILY PRN migraine 10/28/22 10/28/22 Unknown History headache Physical Exam Vital Signs and Narrative: Vital Signs: Last Vital Signs Temp 99.8 F 10/28/22 22:44 Pulse 112 H 10/28/22 22:44 Resp 22 H 10/28/22 22:44 BP 199/92 H 10/28/22 22:44 Pulse Ox 97 10/28/22 22:44 O2 Del Method Nasal Cannula 10/28/22 22:44 O2 Flow Rate 2 10/28/22 22:44 Oxygen Flow Rate 2 10/28/22 16:39 BMI result Body Mass Index 29.6 Elderly female lying in bed on supplemental oxygen Neck supple, no JVD Tachycardic with regular rhythm, S1-S2 heard Bilateral crackles appreciated without wheezing Abdomen soft nontender, no guarding, no rigidity Patient is drowsy and eye opening to verbal stimulus No pedal edema Results Labs 10/28/22 17:14 10/28/22 17:14 Labs: Laboratory Results - last 24 hr 10/28/22 10/28/22 10/28/22 17:14 17:14 17:14 MCV 93.6 MCH 31.3 MCHC 33.4 RDW 13.2 Plt Count 246 MPV 10.0 Immature Gran % (Auto) 0.3 Neut % (Auto) 87.1 H Lymph % (Auto) 7.8 L [place] % (Auto) 4.5 Eos % (Auto) 0.0 Baso % (Auto) 0.3 Lymph # (Auto) 0.9 L [place] # (Auto) 0.5 Eos # (Auto) 0.0 Baso # (Auto) 0.0 Abs Immat Gran (auto) 0.03 Absolute Neuts (auto) 10.1 H Absolute Nucleated RBC 0.000 Nucleated RBC % (auto) 0.0 PT 10.7 L INR 0.9 Anion Gap 18 Estim Creat Clear Calc 34.5 Estimated GFR 38 Random Glucose 182 H Lactic Acid Calcium 10.4 H D Magnesium 2.1 Total Bilirubin 0.7 AST 21 ALT 13 Alkaline Phosphatase 106 Total Protein 8.4 H Albumin 4.2 Lipase 7 L Urine Color Urine Appearance Urine pH Ur Specific [place] Urine Protein Urine Glucose (UA) Urine Ketones Urine Blood Urine Nitrite Ur Leukocyte Esterase Urine RBC Urine WBC Ur Squamous Epith Cells Urine Bacteria Hyaline Casts COVID-19 ([facility]) COVID-19 [facility] 10/28/22 10/28/22 10/28/22 17:14 17:14 19:24 MCV MCH MCHC RDW Plt Count MPV Immature Gran % (Auto) Neut % (Auto) Lymph % (Auto) [place] % (Auto) Eos % (Auto) Baso % (Auto) Lymph # (Auto) [place] # (Auto) Eos # (Auto) Baso # (Auto) Abs Immat Gran (auto) Absolute Neuts (auto) Absolute Nucleated RBC Nucleated RBC % (auto) PT INR Anion Gap Estim Creat Clear Calc Estimated GFR Random Glucose Lactic Acid 1.3 Calcium Magnesium Total Bilirubin AST ALT Alkaline Phosphatase Total Protein Albumin Lipase Urine Color Yellow Urine Appearance Clear Urine pH 6.0 Ur Specific [place] 1.015 Urine Protein 30 (1+) H Urine Glucose (UA) Negative Urine Ketones Trace Urine Blood Moderate (2+) H Urine Nitrite Negative Ur Leukocyte Esterase Negative Urine RBC 0-2 Urine WBC 0-5 Ur Squamous Epith Cells 0-2 Urine Bacteria 4+ Hyaline Casts 0-2 COVID-19 ([facility]) Negative COVID-19 Clin Com See Note Imaging Radiologist's Impressions: Impressions Chest X-Ray 10/28/22 16:55 IMPRESSION: Chronic appearing and postoperative changes similar to the 01/22/2022 study. Abdomen/Pelvis CT 10/28/22 22:36 IMPRESSION: Evaluation is very limited due to motion and lack of IV contrast. 1. Multifocal airspace opacities, increased compared to 06/06/2021, worrisome for an atypical infectious/inflammatory process. A follow-up chest CT after treatment is recommended to ensure appropriate resolution. 2. Increased mediastinal lymphadenopathy, nonspecific could be reactive. As above, a follow-up imaging is recommended. 3. Fusiform aneurysmal dilatation of the infrarenal abdominal aorta measuring up to 3.8 cm in diameter, slightly increased compared to 3.6 cm on 02/09/2021. Based on published guidelines in J Am Juli Radiol 2013; 10(10):789-794 and J Vasc Surg. 2018; 67:2-77, the recommendation for an abdominal aortic aneurysm with diameter 3.5-3.9 cm is follow up every 2 years. 4. Extensive atherosclerotic disease as well as coronary calcifications and cardiovascular calcifications. Follow-up with a family resource management specialist is recommended. 5. Cholelithiasis but no evidence of acute cholecystitis. 6. Mild colonic diverticulosis but no evidence of acute diverticulitis. Chest CT 10/28/22 22:36 IMPRESSION: Evaluation is very limited due to motion and lack of IV contrast. 1. Multifocal airspace opacities, increased compared to 06/06/2021, worrisome for an atypical infectious/inflammatory process. A follow-up chest CT after treatment is recommended to ensure appropriate resolution. 2. Increased mediastinal lymphadenopathy, nonspecific could be reactive. As above, a follow-up imaging is recommended. 3. Fusiform aneurysmal dilatation of the infrarenal abdominal aorta measuring up to 3.8 cm in diameter, slightly increased compared to 3.6 cm on 02/09/2021. Based on published guidelines in J Am Juli Radiol 2013; 10(10):789-794 and J Vasc Surg. 2018; 67:2-77, the recommendation for an abdominal aortic aneurysm with diameter 3.5-3.9 cm is follow up every 2 years. 4. Extensive atherosclerotic disease as well as coronary calcifications and cardiovascular calcifications. Follow-up with a family resource management specialist is recommended. 5. Cholelithiasis but no evidence of acute cholecystitis. 6. Mild colonic diverticulosis but no evidence of acute diverticulitis. 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 #. Acute hypoxemic respiratory failure and Sepsis due to likely aspiration pneumonia. Will admit patient and initiate empiric IV antibiotics. Resuscitated with IV crystalloids. Blood culture and lactic acid obtained. Will keep patient NPO and consult speech. #. Acute metabolic encephalopathy in the setting of above #. Hypertensive urgency/emergency. Initiating IV prn anti-hypertensives #. Non-insulin dependent type2 DM with hyperglycemia: Initiating sliding scale insulin every 6 hours #. H/o polymorphic VT: On eliquis, will transition to therapeutic lovenox while npo Med rec pending DVT prophylaxis: On therapeutic lovenox NPO DNR/DNI Admit as inpatient and will require two night minimum hospital stay for IV abx and supplemental oxygen Time Spent With Patient Time: Total time managing care of this patient today ____ minutes. Quality Stroke Does the patient have a stroke diagnosis?: No VTE Prior VTE?: No VTE Risk Level:: Medical - moderate - high VTE Device Contraindication: Treatment Not Indicated VTE Drug Contraindication: N/A - Med Ordered
[2022-10-28 23:56] VITALS: BP 148/74; PULSE 101; RESP 20; TEMP 36.6; O2SAT 98
[2022-10-29] VITALS (7 sets, daily range): BP systolic 138–170; BP diastolic 49–88; PULSE 80–97; RESP 16–24; TEMP 36.3–37.1; O2SAT 96–99
[2022-10-29] MEDS: Acetaminophen Supp 650 MG SUPP.RECT PR (00:17)
[2022-10-29] MEDS: Ampicillin Sodium/Sulbactam Na 3 GM in 0.9 % Sodium Chloride 100 ML IV ×5 (00:17→23:43)
--- NOTE | 2022-10-29 00:22 | MHC.EDTECH ---
patient was incontinent of urine ,care given and bedding change .
[2022-10-29 01:03] LABS: Glucose, Whole Blood 148 mg/dL (60-115)
--- NOTE | 2022-10-29 04:03 | MHC.EDTECH ---
0400 ROUNDING DONE ,VITALS SIGN TAKEN ,PT WOKE UP WHILE THIS PCT IS TAKING VITALS ,PATIENT IS VERY ALERT KNOW WERE SHE AT ,AND REMEMBER HER FAMILY WAS HERE YESTERDAY ,PATIENT MOUTH WAS SWAB ,PATIENT SAID SHE WILL GET SOME MORE SLEEP ,WARM BLANKET GIVEN .
[2022-10-29 05:36] LABS: MANUAL DIFF FLAG NO
[2022-10-29 05:37] LABS: Basophils Absolute Auto 0.1 X10*3/uL (0.0-0.2); Basophils Percent Auto 0.5 % (0-2); Eosinophils Absolute Auto 0.2 X10*3/uL (0.0-0.4); Eosinophils Percent Auto 1.8 % (0-4); Hematocrit 37.4 % (37.0-47.0); Hemoglobin 12.4 g/dl (12.0-16.0); Imm Gran Abs Auto 0.06 X10*3/uL (0.00-0.03); Imm Gran Pct Auto 0.6 % (0.0-0.4); Lymphocytes Percent Auto 18.3 % (20-40); Mean Corpuscular HGB Conc 33.2 g/dl (31.0-35.0); Mean Corpuscular Hemoglobin 31.1 pg (27.0-33.0); Mean Corpuscular Volume 93.7 fL (80.0-98.0); Mean Platelet Volume 9.8 fL (9.4-12.3); Monocytes Absolute Auto 1.1 X10*3/uL (0.1-1.2); Monocytes Percent Auto 10.2 % (2-11); Neutrophils Absolute Auto 7.4 x10*3/uL (2.0-8.3); Neutrophils Percent Auto 68.6 % (45-73); Platelet Count 222 X10*3/uL (160-400); Red Blood Count 3.99 X10*6/uL (4.20-5.50); Red Cell Distribution Width 13.2 % (11.0-16.0); White Blood Count 10.8 X10*3/uL (4.8-10.8)
[2022-10-29 05:57] LABS: Anion Gap 17 (12-20); Blood Urea Nitrogen 16 mg/dL (9-16); Carbon Dioxide 17 mmol/L (22-29); Chloride 109 mmol/L (96-108); Creatinine Clr Calc Pharmacy 43.3; Estimated Glomerular Filt Rate 49; Glucose Random 144 mg/dL (60-115); Potassium 3.7 mmol/L (3.3-5.1); Sodium 139 mmol/L (135-145)
[2022-10-29] MEDS: Labetalol HCL 100 MG/20 ML VIAL 10 MG IVPUSH (06:23)
--- NOTE | 2022-10-29 06:38 | MHC.EDTECH ---
PATIENT IS CLEAN AND DRY , WAS REPOSITION AND BOOSTED UP IN BED ,PURE WICK EMPTY ,BLOOD SUGAR CHECK ,RN SHWETA AWARE OF RESULT OF 161 ,PATIENT IS NPO MOUTH CARE DONE ,VITALS SIGN TAKEN AND WARM BLANKET GIVEN ,PATIENT RESTING COMFORTABLE IN BED .
[2022-10-29 06:58] LABS: Glucose, Whole Blood 161 mg/dL (60-115)
--- NOTE | 2022-10-29 07:12 | PC.NURSE ---
Pt currently resting, 97% on 2L c/o 11/07 Headache, call heredia in place, stated she feels better than yesterday.
[2022-10-29] MEDS: Enoxaparin Sodium 80 MG/0.8 ML SYRINGE SUBCUT (08:56)
[2022-10-29] MEDS: Acetaminophen 1,000 MG/100 ML PIGGYBACK 400 MG IV (08:58)
[2022-10-29] MEDS: 0.9 % Sodium Chloride Flush 3 ML SYRINGE IVFLUSH ×2 (09:03→20:40)
[2022-10-29 09:10] LABS: Procalcitonin 0.05 ng/mL
--- NOTE | 2022-10-29 09:57 | PC.NURSE ---
Pt HCP called for a status update, asked when will she moved upstairs, informed we are waiting for a room to open.
[2022-10-29 12:25] LABS: ABG Base Excess -0.7 mmol/L; ABG HCO3 23 mmol/L (22-26); ABG pCO2 34 mmHg (32-45); ABG pH 7.42 (7.35-7.45); ABG pO2 101 mmHg (83-108)
[2022-10-29 12:27] LABS: ABG Refer to POC result
--- NOTE | 2022-10-29 12:27 | HO.PM.IMPN ---
Subjective Subjective Date of Service: 10/29/22 Interval History: c/o cough some congestion/sore throat no fever no swallowing issues per VIDEO ENGINEER now alert and awake Review of Systems Review of Systems: Yes all other systems are reviewed and are negative Physical Exam Vital Signs: Vital Signs: Last Vital Signs Temp 98.5 F 10/29/22 08:00 Pulse 80 10/29/22 08:00 Resp 24 H 10/29/22 08:00 BP 138/52 L 10/29/22 08:00 Pulse Ox 98 10/29/22 08:00 O2 Del Method Nasal Cannula 10/29/22 08:00 O2 Flow Rate 2 10/29/22 08:00 Oxygen Flow Rate 2 10/28/22 16:39 BMI result Body Mass Index 29.6 Gen: in no acute distress HEENT: sclera anicteric, moist mucus membranes Neck: supple Lungs: bilateral inspiratory crackles, soft end-exp wheezes Heart: regular rate and rhythm, no murmurs Abd: soft, non-tender, non-distended Ext: no edema Skin: warm/well-perfused Neuro: alert and oriented x3, no focal findings Psych: appropriate affect Objective Data Active Medications Acetaminophen (Acetaminophen Supp 650 Mg Supp.Rect) 650 mg MD Q6H PRN PRN Reason: Pain, Mild (Pain Scale 1-3) Last Admin: 10/29/22 00:17 Dose: 650 mg Documented By: RENO Albuterol Sulfate (Albuterol Sulfate 90 Mcg 8 Gm Inhaler) 2 puff INHALE Q4H PRN PRN Reason: shortness of breath or wheezing Dextrose (Dextrose 50 % 25 Gm/50 Ml Syringe) 25 gm IVPUSH Q15M PRN; Protocol PRN Reason: per Hypoglycemia Standing Ord. Enoxaparin Sodium (Enoxaparin Sodium 80 Mg/0.8 Ml Syringe) 80 mg SUBCUT BID [facility] Last Admin: 10/29/22 08:56 Dose: 80 mg Documented By: CRISTOPHER Glucose (Glucose Gel 15 Gm Gel..Gram.) 15 gm PO Q15M PRN; Protocol PRN Reason: per Hypoglycemia Standing Ord. Ampicillin Sodium/Sulbactam (Sodium 3 gm/ Sodium Chloride) 100 mls @ 200 mls/hr IV Q6H [facility] Last Admin: 10/29/22 11:10 Dose: 200 mls/hr Documented By: CRISTOPHER Insulin Human Lispro (Insulin Lispro 100 Unit/Ml 3 Ml Vial) 0 unit SUBCUT 0000,0600,1200,1800 [facility]; Protocol Last Admin: 10/29/22 06:19 Dose: Not Given Documented By: RENO Non-Admin Reason: NPO Latanoprost (Latanoprost 0.005 % Ophth [place] 2.5 Ml Drops) 1 drop EYE-BOTH BEDTIME [facility] Melatonin (Melatonin 3 Mg Tablet) 6 mg PO BEDTIME PRN PRN Reason: Insomnia Morphine Sulfate (Morphine Sulfate 2 Mg/Ml Cartridge) 1 mg IVPUSH Q6H PRN; Protocol PRN Reason: severe pain Ondansetron HCl (Ondansetron Hcl 4 Mg/2 Ml Vial) 4 mg IVPUSH Q8H PRN PRN Reason: Nausea and Vomiting Pharmacy Consult (Consult Rx Perform Med Rec) 1 each MISCELLANE ONCE PRN PRN Reason: Consult order Sodium Chloride (0.9 % Sodium Chloride Flush 3 Ml Syringe) 3 ml IVFLUSH QSHIFT [facility] Last Admin: 10/29/22 09:03 Dose: 3 ml Documented By: CRISTOPHER Labs 10/29/22 05:31 10/29/22 05:31 Labs: Laboratory Results - last 24 hr 10/28/22 10/28/22 10/28/22 17:14 17:14 17:14 MCV 93.6 MCH 31.3 MCHC 33.4 RDW 13.2 Plt Count 246 MPV 10.0 Immature Gran % (Auto) 0.3 Neut % (Auto) 87.1 H Lymph % (Auto) 7.8 L [place] % (Auto) 4.5 Eos % (Auto) 0.0 Baso % (Auto) 0.3 Lymph # (Auto) 0.9 L [place] # (Auto) 0.5 Eos # (Auto) 0.0 Baso # (Auto) 0.0 Abs Immat Gran (auto) 0.03 Absolute Neuts (auto) 10.1 H Absolute Nucleated RBC 0.000 Nucleated RBC % (auto) 0.0 PT 10.7 L INR 0.9 O2 Saturation ABG pH at Pt Temp ABG pCO2 at Pt Temp ABG pO2 at Pt Temp ABG HCO3 ABG Base Excess (Actual) Anion Gap 18 Estim Creat Clear Calc 34.5 Estimated GFR 38 POC Glucose Random Glucose 182 H Lactic Acid Calcium 10.4 H D Magnesium 2.1 Total Bilirubin 0.7 AST 21 ALT 13 Alkaline Phosphatase 106 Total Protein 8.4 H Albumin 4.2 Lipase 7 L Procalcitonin Urine Color Urine Appearance Urine pH Ur Specific [place] Urine Protein Urine Glucose (UA) Urine Ketones Urine Blood Urine Nitrite Ur Leukocyte Esterase Urine RBC Urine WBC Ur Squamous Epith Cells Urine Bacteria Hyaline Casts COVID-19 ([facility]) COVID-19 Clin Com 10/28/22 10/28/22 10/28/22 17:14 17:14 19:24 MCV MCH MCHC RDW Plt Count MPV Immature Gran % (Auto) Neut % (Auto) Lymph % (Auto) [place] % (Auto) Eos % (Auto) Baso % (Auto) Lymph # (Auto) [place] # (Auto) Eos # (Auto) Baso # (Auto) Abs Immat Gran (auto) Absolute Neuts (auto) Absolute Nucleated RBC Nucleated RBC % (auto) PT INR O2 Saturation ABG pH at Pt Temp ABG pCO2 at Pt Temp ABG pO2 at Pt Temp ABG HCO3 ABG Base Excess (Actual) Anion Gap Estim Creat Clear Calc Estimated GFR POC Glucose Random Glucose Lactic Acid 1.3 Calcium Magnesium Total Bilirubin AST ALT Alkaline Phosphatase Total Protein Albumin Lipase Procalcitonin Urine Color Yellow Urine Appearance Clear Urine pH 6.0 Ur Specific [place] 1.015 Urine Protein 30 (1+) H Urine Glucose (UA) Negative Urine Ketones Trace Urine Blood Moderate (2+) H Urine Nitrite Negative Ur Leukocyte Esterase Negative Urine RBC 0-2 Urine WBC 0-5 Ur Squamous Epith Cells 0-2 Urine Bacteria 4+ Hyaline Casts 0-2 COVID-19 ([facility]) Negative COVID-19 Clin Com See Note 10/29/22 10/29/22 10/29/22 00:34 05:31 05:31 MCV 93.7 MCH 31.1 MCHC 33.2 RDW 13.2 Plt Count 222 MPV 9.8 Immature Gran % (Auto) 0.6 H Neut % (Auto) 68.6 Lymph % (Auto) 18.3 L [place] % (Auto) 10.2 Eos % (Auto) 1.8 Baso % (Auto) 0.5 Lymph # (Auto) 2.0 [place] # (Auto) 1.1 Eos # (Auto) 0.2 Baso # (Auto) 0.1 Abs Immat Gran (auto) 0.06 H Absolute Neuts (auto) 7.4 Absolute Nucleated RBC 0.000 Nucleated RBC % (auto) 0.0 PT INR O2 Saturation ABG pH at Pt Temp ABG pCO2 at Pt Temp ABG pO2 at Pt Temp ABG HCO3 ABG Base Excess (Actual) Anion Gap 17 Estim Creat Clear Calc 43.3 Estimated GFR 49 POC Glucose 148 H Random Glucose 144 H Lactic Acid Calcium 9.0 D Magnesium Total Bilirubin AST ALT Alkaline Phosphatase Total Protein Albumin Lipase Procalcitonin 0.05 Urine Color Urine Appearance Urine pH Ur Specific [place] Urine Protein Urine Glucose (UA) Urine Ketones Urine Blood Urine Nitrite Ur Leukocyte Esterase Urine RBC Urine WBC Ur Squamous Epith Cells Urine Bacteria Hyaline Casts COVID-19 ([facility]) COVID-19 Clin Com 10/29/22 10/29/22 06:33 09:15 MCV MCH MCHC RDW Plt Count MPV Immature Gran % (Auto) Neut % (Auto) Lymph % (Auto) [place] % (Auto) Eos % (Auto) Baso % (Auto) Lymph # (Auto) [place] # (Auto) Eos # (Auto) Baso # (Auto) Abs Immat Gran (auto) Absolute Neuts (auto) Absolute Nucleated RBC Nucleated RBC % (auto) PT INR O2 Saturation 99.0 ABG pH at Pt Temp 7.42 ABG pCO2 at Pt Temp 34 ABG pO2 at Pt Temp 101 ABG HCO3 23 ABG Base Excess (Actual) -0.7 Anion Gap Estim Creat Clear Calc Estimated GFR POC Glucose 161 H Random Glucose Lactic Acid Calcium Magnesium Total Bilirubin AST ALT Alkaline Phosphatase Total Protein Albumin Lipase Procalcitonin Urine Color Urine Appearance Urine pH Ur Specific [place] Urine Protein Urine Glucose (UA) Urine Ketones Urine Blood Urine Nitrite Ur Leukocyte Esterase Urine RBC Urine WBC Ur Squamous Epith Cells Urine Bacteria Hyaline Casts COVID-19 ([facility]) COVID-19 Clin Com Assessment and Plan (1) Acute hypoxemic respiratory failure: Status: Acute Plan d2 82yo F with HTN, mood disorder, DM2, COPD, hx cardiac arrest from polymorphic VT, NICM with recovered EF, bioprosthetic aortic valve, hx embolic CVA on apixaban presented with AMS, found to have sepsis and hypoxic due to multifocal PNA AHRF due to multifocal PNA with COPD exac - continue amp-sul d2, start prednisone 40 mg/d x5d, give nebs - check resp pathogen panel, trend PCT, follow BCx, check Legionella UAg - wean O2 as tolerated acute encephalopathy due to infection - resolved HTN NICM with recovered EF hx VT arrest - resume carvedilol + Imdur hx embolic CVA - resume apixaban migraines - prn sumatriptan mood disorder - paroxetine DM2 - arelis-dose lispro VTE ppx - apixaban dispo - eventually home In my clinical judgment, the patient requires continued inpatient hospitalization for the following reasons: hypoxia, IV ABX Time Spent With Patient Time: Total time managing care of this patient today __45__ minutes. Quality Stroke Does the patient have a stroke diagnosis?: No VTE Prior VTE?: No VTE Risk Level:: Medical - moderate - high VTE Device Contraindication: Treatment Not Indicated VTE Drug Contraindication: N/A - Med Ordered
[2022-10-29 13:17] LABS: Glucose, Whole Blood 143 mg/dL (60-115)
[2022-10-29] MEDS: Isosorbide Mononitrate 30 MG TAB.ER.24H PO (13:30)
[2022-10-29] MEDS: carvediloL 12.5 MG TABLET PO ×2 (13:30→20:39)
[2022-10-29] MEDS: predniSONE 20 MG TABLET 40 MG PO (13:30)
[2022-10-29] MEDS: PARoxetine HCL 40 MG TABLET PO (13:30)
--- NOTE | 2022-10-29 14:22 | MHC.CM.PN ---
Met with patient in regards to discharge planning. Patient is lives alone, ambulates with a walker and has a home health aide from [facility]. Patient is currently on oxygen but doesn't use it at baseline. PCP verified. Copy of HCP verified to be on file. Patient received 3 Moderna vaccines and 1 Pfizer vaccine. IMM explained and signed. Patient has a friend that will transport her home when medically stable. Continue to monitor for d/c needs.
[2022-10-29 16:36] LABS: Glucose, Whole Blood 157 mg/dL (60-115)
[2022-10-29] MEDS: Insulin Lispro 100 UNIT/ML 3 ML VIAL SUBCUT ×2 (17:06→20:39)
[2022-10-29 20:32] LABS: Glucose, Whole Blood 171 mg/dL (60-115)
[2022-10-29] MEDS: Acetaminophen 325 MG TABLET 650 MG PO (20:39)
[2022-10-29] MEDS: Latanoprost 0.005 % Ophth Sol 2.5 ML DROPS 1 DROP EYE-BOTH (22:56)
[2022-10-30 03:21] VITALS: BP 161/72; PULSE 83; RESP 16; TEMP 36.9; O2SAT 95
[2022-10-30] MEDS: Ampicillin Sodium/Sulbactam Na 3 GM in 0.9 % Sodium Chloride 100 ML IV ×3 (05:54→17:36)
[2022-10-30] MEDS: oxyCODONE HCl Immed Release 5 MG TABLET PO (06:00)
[2022-10-30 06:54] LABS: Hematocrit 36.7 % (37.0-47.0); Hemoglobin 11.7 g/dl (12.0-16.0); Mean Corpuscular HGB Conc 31.9 g/dl (31.0-35.0); Mean Corpuscular Hemoglobin 30.8 pg (27.0-33.0); Mean Corpuscular Volume 96.6 fL (80.0-98.0); Mean Platelet Volume 10.2 fL (9.4-12.3); Platelet Count 207 X10*3/uL (160-400); Red Cell Distribution Width 13.1 % (11.0-16.0); White Blood Count 9.2 X10*3/uL (4.8-10.8)
[2022-10-30 07:09] LABS: Anion Gap 16 (12-20); Blood Urea Nitrogen 21 mg/dL (9-16); Calcium 9.1 mg/dL (8.4-10.2); Carbon Dioxide 20 mmol/L (22-29); Chloride 108 mmol/L (96-108); Creatinine Clr Calc Pharmacy 38.3; Estimated Glomerular Filt Rate 42; Glucose Random 140 mg/dL (60-115); Potassium 3.8 mmol/L (3.3-5.1); Sodium 140 mmol/L (135-145)
[2022-10-30 07:27] LABS: Glucose, Whole Blood 138 mg/dL (60-115)
[2022-10-30 07:32] VITALS: BP 167/80; PULSE 80; RESP 18; TEMP 36.6; O2SAT 94
[2022-10-30] MEDS: predniSONE 20 MG TABLET 40 MG PO (07:44)
[2022-10-30] MEDS: Isosorbide Mononitrate 30 MG TAB.ER.24H PO (07:44)
[2022-10-30] MEDS: Ascorbic Acid 500 MG TABLET PO (07:44)
[2022-10-30] MEDS: Ferrous Sulfate 324 MG TABLET.DR PO (07:45)
[2022-10-30] MEDS: Apixaban 5 MG TABLET PO ×2 (07:45→21:10)
[2022-10-30] MEDS: PARoxetine HCL 40 MG TABLET PO (07:45)
[2022-10-30] MEDS: 0.9 % Sodium Chloride Flush 3 ML SYRINGE IVFLUSH ×2 (07:45→15:27)
[2022-10-30] MEDS: carvediloL 12.5 MG TABLET PO ×2 (07:45→21:10)
--- NOTE | 2022-10-30 11:01 | P.PNIM_ITS ---
Subjective Subjective Date of Service: 10/30/22 Interval History: weaned off O2 cough improved wheezing less dyspneic no chest pain per cousin, mental status is back to baseline Review of Systems Review of Systems: Yes all other systems are reviewed and are negative Physical Exam Vital Signs: Vital Signs: Last Vital Signs Temp 97.8 F 10/30/22 07:32 Pulse 80 10/30/22 07:32 Resp 18 10/30/22 07:32 BP 167/80 H 10/30/22 07:32 Pulse Ox 94 10/30/22 07:32 O2 Del Method Room Air 10/30/22 07:32 O2 Flow Rate 1 10/29/22 13:43 Oxygen Flow Rate 2 10/28/22 16:39 BMI result Body Mass Index 29.6 Gen: in no acute distress HEENT: sclera anicteric, moist mucus membranes Neck: supple Lungs: bilateral inspiratory crackles, soft end-exp wheezes Heart: regular rate and rhythm, no murmurs Abd: soft, non-tender, non-distended Ext: no edema Skin: warm/well-perfused Neuro: alert and oriented x3, no focal findings Psych: appropriate affect Objective Data Active Medications Acetaminophen (Acetaminophen 325 Mg Tablet) 650 mg PO Q6H PRN PRN Reason: mild pain Last Admin: 10/29/22 20:39 Dose: 650 mg Documented By: ALEX Albuterol Sulfate (Albuterol Sulfate 90 Mcg 8 Gm Inhaler) 2 puff INHALE Q4H PRN PRN Reason: shortness of breath or wheezing Albuterol Sulfate (Albuterol Sulfate (0.083%) 2.5 Mg/3 Ml Vial.Neb) 2.5 mg INHALE Q2H PRN PRN Reason: Shortness of Breath/Wheezing Apixaban (Apixaban 5 Mg Tablet) 5 mg PO BID [facility] Last Admin: 10/30/22 07:45 Dose: 5 mg Documented By: ECTOR Ascorbic Acid (Ascorbic Acid 500 Mg Tablet) 500 mg PO DAILY [facility] Last Admin: 10/30/22 07:44 Dose: 500 mg Documented By: ECTOR Carvedilol (Carvedilol 12.5 Mg Tablet) 12.5 mg PO BID [facility]; Protocol Last Admin: 10/30/22 07:45 Dose: 12.5 mg Documented By: ECTOR Dextrose (Dextrose 50 % 25 Gm/50 Ml Syringe) 25 gm IVPUSH Q15M PRN; Protocol PRN Reason: per Hypoglycemia Standing Ord. Ferrous Sulfate (Ferrous Sulfate 324 Mg Tablet.) 324 mg PO DAILY [facility] Last Admin: 10/30/22 07:45 Dose: 324 mg Documented By: ECTOR Gabapentin (Gabapentin 300 Mg Capsule) 300 mg PO TID PRN PRN Reason: for pain Glucose (Glucose Gel 15 Gm Gel..Gram.) 15 gm PO Q15M PRN; Protocol PRN Reason: per Hypoglycemia Standing Ord. Ampicillin Sodium/Sulbactam (Sodium 3 gm/ Sodium Chloride) 100 mls @ 200 mls/hr IV Q6H [facility] Last Infusion: 10/30/22 06:26 Dose: 0 mls/hr Documented By: ALEX Insulin Human Lispro (Insulin Lispro 100 Unit/Ml 3 Ml Vial) 0 unit SUBCUT QIDACHS [facility]; Protocol Last Admin: 10/30/22 07:29 Dose: Not Given Documented By: ECTOR Non-Admin Reason: No Insulin Coverage Isosorbide Mononitrate (Isosorbide Mononitrate 30 Mg Tab.Er.24h) 30 mg PO DAILY [facility]; Protocol Last Admin: 10/30/22 07:44 Dose: 30 mg Documented By: ECTOR Latanoprost (Latanoprost 0.005 % Ophth [place] 2.5 Ml Drops) 1 drop EYE-BOTH BEDTIME [facility] Last Admin: 10/29/22 22:56 Dose: 1 drop Documented By: ALEX Melatonin (Melatonin 3 Mg Tablet) 6 mg PO BEDTIME PRN PRN Reason: Insomnia Ondansetron HCl (Ondansetron Hcl 4 Mg/2 Ml Vial) 4 mg IVPUSH Q8H PRN PRN Reason: Nausea and Vomiting Oxycodone HCl (Oxycodone Hcl Immed Release 5 Mg Tablet) 5 mg PO Q4H PRN PRN Reason: mod-sev pain Last Admin: 10/30/22 06:00 Dose: 5 mg Documented By: ALEX Paroxetine HCl (Paroxetine Hcl 40 Mg Tablet) 40 mg PO DAILY [facility] Last Admin: 10/30/22 07:45 Dose: 40 mg Documented By: ECTOR Pharmacy Consult (Consult Rx Perform Med Rec) 1 each MISCELLANE ONCE PRN PRN Reason: Consult order Prednisone (Prednisone 20 Mg Tablet) 40 mg PO DAILY [facility] Stop: 11/02/22 09:01 Last Admin: 10/30/22 07:44 Dose: 40 mg Documented By: ECTOR Sodium Chloride (0.9 % Sodium Chloride Flush 3 Ml Syringe) 3 ml IVFLUSH QSHIFT [facility] Last Admin: 10/30/22 07:45 Dose: 3 ml Documented By: DABMau Sumatriptan Succinate (Sumatriptan Succinate 25 Mg Tablet) 25 mg PO DAILY PRN PRN Reason: migraine headache Labs 10/30/22 06:36 10/30/22 06:36 Labs: Laboratory Results - last 24 hr 10/29/22 10/29/22 10/29/22 09:15 13:12 16:32 MCV MCH MCHC RDW Plt Count MPV Absolute Nucleated RBC Nucleated RBC % (auto) O2 Saturation 99.0 ABG pH at Pt Temp 7.42 ABG pCO2 at Pt Temp 34 ABG pO2 at Pt Temp 101 ABG HCO3 23 ABG Base Excess (Actual) -0.7 Anion Gap Estim Creat Clear Calc Estimated GFR POC Glucose 143 H 157 H Random Glucose Calcium 10/29/22 10/30/22 10/30/22 20:25 06:36 06:36 MCV 96.6 MCH 30.8 MCHC 31.9 RDW 13.1 Plt Count 207 MPV 10.2 Absolute Nucleated RBC 0.000 Nucleated RBC % (auto) 0.0 O2 Saturation ABG pH at Pt Temp ABG pCO2 at Pt Temp ABG pO2 at Pt Temp ABG HCO3 ABG Base Excess (Actual) Anion Gap 16 Estim Creat Clear Calc 38.3 Estimated GFR 42 POC Glucose 171 H Random Glucose 140 H Calcium 9.1 10/30/22 07:24 MCV MCH MCHC RDW Plt Count MPV Absolute Nucleated RBC Nucleated RBC % (auto) O2 Saturation ABG pH at Pt Temp ABG pCO2 at Pt Temp ABG pO2 at Pt Temp ABG HCO3 ABG Base Excess (Actual) Anion Gap Estim Creat Clear Calc Estimated GFR POC Glucose 138 H Random Glucose Calcium Microbiology Microbiology Results: Microbiology 10/28/22 19:32 Blood Culture - Preliminary Blood - Venous No growth after 24 hours. 10/28/22 19:33 Blood Culture - Preliminary Blood - Venous No growth after 24 hours. 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 presented with AMS, found to have sepsis and hypoxic due to multifocal PNA AHRF due to multifocal PNA with COPD exac - continue amp-sul d3, prednisone 40 mg/d d2/5, nebs - pending: resp pathogen panel, MRSA swab, Legionella UAg - BCx negative to date - hypoxia resolved acute encephalopathy due to infection - resolved HTN NICM with recovered EF hx VT arrest - resumed carvedilol + Imdur hx embolic CVA - resumed apixaban migraines - prn sumatriptan mood disorder - paroxetine DM2 - arelis-dose lispro VTE ppx - apixaban dispo - eventually home possibly tomorrow In my clinical judgment, the patient requires continued inpatient hospitalizat ion for the following reasons: IV ABX Time Spent With Patient Time: Total time managing care of this patient today __40__ minutes. Quality Stroke Does the patient have a stroke diagnosis?: No VTE Prior VTE?: No VTE Risk Level:: Medical - moderate - high VTE Device Contraindication: Treatment Not Indicated VTE Drug Contraindication: N/A - Med Ordered
[2022-10-30 11:37] LABS: Glucose, Whole Blood 160 mg/dL (60-115)
[2022-10-30] MEDS: Insulin Lispro 100 UNIT/ML 3 ML VIAL SUBCUT ×2 (11:47→16:48)
--- NOTE | 2022-10-30 12:35 | MHC.SL.SWA ---
Risk of Aspiration Due to: Weak Cough Weak Voice Dysphasia Diet Status: No change Liquid Consistency and Strategies for Safe Swallow: Liquid Intake Recommendation: Thin Liquid Intake Strategies: Unrestricted Solid Food Consistency: Dietary Recommendations: Regular Oral Medication Intake: Whole with Liquid Please contact the pharmacy regarding appropriate crushable or liquid drug formulations that are available whenever modified delivery is recommended. Compensatory Strategies and Precautions to be Taken for Safe Swallow: Sitting Upright (90 deg) Small Bites and Sips Alternate Liquids/Solids Supervision While Eating and Drinking for Safe Swallow: Intermittent Supervision Swallowing Recommended Treatments: Compens. Strategy Educat. Recommendation for Speech: Inpatient Speech Therapy Comment: Recommend patient continue w/ regular solids and thin liquids, pills whole in liquid. D/t patient's vocal quality concerns, current presentation of hoarse vocal quality, and observed intermittent aphonia; recommend ENT consultation. Patient may benefit from future speech therapy for voice pending ENT consultation and recommendations. Patient to be d/c from speech therapy at this time. Please re-refer if further concerns arise. Head Irrigator Clinican/Clinical Fellow: No Supervisory Statement: I have reviewed and agree with the student/clinical fellow's documentation: N/A Speech Language Pathologist: Peg Sylvester M.A., CCC-PROJECT LANDSCAPE ARCHITECT
--- NOTE | 2022-10-30 12:40 | MHC.SL.SWA ---
Risk of Aspiration Due to: Weak Cough Weak Voice Dysphasia Diet Status: No change Liquid Consistency and Strategies for Safe Swallow: Liquid Intake Recommendation: Thin Liquid Intake Strategies: Unrestricted Solid Food Consistency: Dietary Recommendations: Regular Oral Medication Intake: Whole with Liquid Please contact the pharmacy regarding appropriate crushable or liquid drug formulations that are available whenever modified delivery is recommended. Compensatory Strategies and Precautions to be Taken for Safe Swallow: Sitting Upright (90 deg) Small Bites and Sips Alternate Liquids/Solids Supervision While Eating and Drinking for Safe Swallow: Intermittent Supervision Swallowing Recommended Treatments: Compens. Strategy Educat. Recommendation for Speech: Inpatient Speech Therapy Comment: Recommend patient continue w/ regular solids and thin liquids, pills whole in liquid. D/t patient's vocal quality concerns, current presentation of hoarse vocal quality, and observed intermittent aphonia; recommend ENT consultation. Patient may benefit from future speech therapy for voice pending ENT consultation and recommendations. Patient to be d/c from inpatient speech therapy during current hospitalization at this time. Please re-refer if further concerns arise. Medical Accounting Clerk Clinican/Clinical Fellow: No Supervisory Statement: I have reviewed and agree with the student/clinical fellow's documentation: N/A Speech Language Pathologist: Peg Sylvester M.A., CCC-CLINICAL ACCOUNT MANAGER
--- NOTE | 2022-10-30 14:40 | MHC.CM.PN ---
EMR REVIEWED AND PER MD ROUNDS, PT IS NOT MEDICALLY CLEARED FOR DC HOME. (IV ABT, MONITORING RESPIRATORY STATUS) CM WILL CONTINUE TO FOLLOW FOR DC NEEDS/ANY CHANGES IN PLAN.
[2022-10-30 15:27] VITALS: BP 148/68; PULSE 77; RESP 18; TEMP 36.2; O2SAT 94
[2022-10-30 16:07] LABS: Glucose, Whole Blood 168 mg/dL (60-115)
[2022-10-30 16:27] LABS: Adenovirus PCR Not Detected (Not Detect.); Bordetella parapertussis PCR Not Detected (Not Detect.); Bordetella pertussis PCR Not Detected (Not Detect.); Chlamydia pneumoniae PCR Not Detected (Not Detect.); Coronavirus 229E PCR Not Detected (Not Detect.); Coronavirus HKU1 PCR Not Detected (Not Detect.); Coronavirus NL63 PCR Not Detected (Not Detect.); Coronavirus OC43 PCR Not Detected (Not Detect.); Human metapneumovirus PCR Not Detected (Not Detect.); Influenza A PCR Not Detected (Not Detect.); Influenza B PCR Not Detected (Not Detect.); Mycoplasma pneumoniae PCR Not Detected (Not Detect.); Parainfluenza 1 PCR Not Detected (Not Detect.); Parainfluenza 2 PCR Not Detected (Not Detect.); Parainfluenza 3 PCR Not Detected (Not Detect.); Parainfluenza 4 PCR Not Detected (Not Detect.); RSV PCR Not Detected (Not Detect.); Rhino/Enterovirus PCR Not Detected (Not Detect.); SARS-CoV-2 PCR Not Detected (Not Detect.)
[2022-10-30 17:23] LABS: MRSA Nasal PCR NEGATIVE (Negative); SA Nasal PCR NEGATIVE (Negative)
[2022-10-30 19:24] VITALS: BP 144/85; PULSE 83; RESP 18; TEMP 36.2; O2SAT 95
[2022-10-30 20:22] LABS: Glucose, Whole Blood 147 mg/dL (60-115)
[2022-10-30] MEDS: Latanoprost 0.005 % Ophth Sol 2.5 ML DROPS 1 DROP EYE-BOTH (21:10)
[2022-10-31] MEDS: Ampicillin Sodium/Sulbactam Na 3 GM in 0.9 % Sodium Chloride 100 ML IV ×3 (00:49→11:38)
[2022-10-31] MEDS: 0.9 % Sodium Chloride Flush 3 ML SYRINGE IVFLUSH ×2 (00:50→07:36)
[2022-10-31 03:39] VITALS: BP 172/80; PULSE 80; RESP 16; TEMP 36.3; O2SAT 95
[2022-10-31 07:07] LABS: Anion Gap 16 (12-20); Blood Urea Nitrogen 23 mg/dL (9-16); Calcium 9.5 mg/dL (8.4-10.2); Carbon Dioxide 21 mmol/L (22-29); Chloride 105 mmol/L (96-108); Creatinine Clr Calc Pharmacy 39.9; Estimated Glomerular Filt Rate 45; Glucose Random 124 mg/dL (60-115); Potassium 3.6 mmol/L (3.3-5.1); Sodium 138 mmol/L (135-145)
[2022-10-31 07:08] LABS: Glucose, Whole Blood 131 mg/dL (60-115)
[2022-10-31 07:23] LABS: Procalcitonin 0.04 ng/mL
[2022-10-31 07:24] VITALS: BP 172/94; PULSE 83; RESP 18; TEMP 36.2; O2SAT 95
[2022-10-31] MEDS: Acetaminophen 325 MG TABLET 650 MG PO (07:35)
[2022-10-31] MEDS: Isosorbide Mononitrate 30 MG TAB.ER.24H PO (07:35)
[2022-10-31] MEDS: Ferrous Sulfate 324 MG TABLET.DR PO (07:35)
[2022-10-31] MEDS: carvediloL 12.5 MG TABLET PO (07:35)
[2022-10-31] MEDS: Ascorbic Acid 500 MG TABLET PO (07:35)
[2022-10-31] MEDS: PARoxetine HCL 40 MG TABLET PO (07:36)
[2022-10-31] MEDS: Apixaban 5 MG TABLET PO (07:36)
[2022-10-31] MEDS: predniSONE 20 MG TABLET 40 MG PO (07:36)
[2022-10-31 09:37] VITALS: PULSE 83; O2SAT 95
[2022-10-31 11:22] LABS: Glucose, Whole Blood 176 mg/dL (60-115)
[2022-10-31] MEDS: Insulin Lispro 100 UNIT/ML 3 ML VIAL SUBCUT (11:38)
[2022-10-31 12:53] VITALS: BP 136/62; PULSE 79
--- NOTE | 2022-10-31 13:17 | P.F2F_ITS ---
Service Date Service Date: 10/31/22 Encounter Date of encounter: 10/31/22 Reasons for Services Signs and symptoms assessed: PT PRESENTS TODAY W/ MILD STRENGTH AND BALANCE IMPAIRMENT AND WOULD BENEFIT FROM HOME PT TO MAXIMIZE FUNCTION AND SAFETY AT HOME Dyspnea on Exertion, Impaired Standing Balance,Mus Reason for physical therapy: home safety and mobility, therapeutic exercises, gait/transfer training, assess need for DME, ADL training and energy conservation MD Overseeing Care: Faraz Donahue Homebound: Leaving the home is medically contraindicated at this time without the asist of a device and/or another person due th the listed conditions above and below. Reason homebound: unsteady gait / fall risk Homebound supporting statement: Gait Training, Therapeutic Activities, Therapeutic Exercise, Patient Education, Safety,Balance Certification: Based on the above findings, I certify that this patient is confined to the home and needs intermittent intermediate care, physical therapy and/or speech therapy, or continues to need occupational therapy. The patient is under my care, and I have initiated the establishment of the plan of care. The patient will be followed by a physician who will periodically review the plan of care. Time Spent With Patient Time: Total time managing care of this patient today ____ minutes.
--- NOTE | 2022-10-31 13:22 | PM.DS ---
DS: Providers Provider Date of Service: 10/31/22 Date of admission: 10/28/22 23:30 Date of discharge: 10/31/22 Primary care physician: Faraz Donahue MD DS: Diagnosis Discharge Diagnosis (1) Acute hypoxemic respiratory failure: Status: Acute (2) Encephalopathy due to infection: Status: Acute (3) Multifocal pneumonia: Status: Acute (4) Sepsis: Status: Acute (5) COPD exacerbation: Status: Acute DS: Summary Hospital Course Hospital Course: from admission H+P by hospitalist Kyle White, 10/28/22: This is a 82-year-old female with pertinent history of essential hypertension, mood disorder, [id number] diabetes mellitus, COPD, 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 Patient is a poor historian and is only oriented to self at the time of my evaluation.? History obtained by ER provider and chart review.? Patient was found to be confused, [facility]y [facility] the [facility] and she was sent to the ER for further evaluation.? Also noticed low-grade fever.? In the ER, patient was found to be hypoxemic.? 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 She was admitted to the medical-surgical floor and treated with supplemental oxygen, ampicillin-sulbactam IV, and prednisone. She was weaned off oxygen and her mental status returned to baseline. Blood cultures, respiratory pathogen panel, and MRSA swab all negative and she did not have any swallowing issues. She was discharged home with VNA services for home PT on 7 days of amoxicillin-clavulanate and 2 more days of prednisone. A noncontrast chest CT shuld be repeated in 4 weeks to ensure resolustion of the infiltrates. Incidental note was made of an infra-renal AAA, which should be followed with a surveillance US or CT in 2 years. Time Spent with Patient Time attestation: Total time managing care of this patient today __45__ minutes. Discharge coordination time: Greater than 30 minutes Quality: Safe Use of Opioids Does Pt have an Active Cancer Diagnosis on the Problem List?: No Quality: Stroke Does the patient have a stroke diagnosis?: No Physical Exam Vital Signs: Vital Signs: Last Vital Signs Temp 97.2 F 10/31/22 07:24 Pulse 79 10/31/22 12:53 Resp 18 10/31/22 07:24 BP 136/62 10/31/22 12:53 Pulse Ox 95 10/31/22 09:37 O2 Del Method Room Air 10/31/22 07:24 O2 Flow Rate 1 10/29/22 13:43 Oxygen Flow Rate 2 10/28/22 16:39 BMI result Body Mass Index 29.6 Gen: in no acute distress HEENT: sclera anicteric, moist mucus membranes Neck: supple Lungs: somewhat diminished, no wheezing Heart: regular rate and rhythm, no murmurs Abd: soft, non-tender, non-distended Ext: no edema Skin: warm/well-perfused Neuro: alert and oriented x3, no focal findings Psych: appropriate affect DS: Data Data Completed and Pending Completed studies during hospitalization [Text1]: Laboratory Results WBC 9.2 X10*3/uL (4.8-10.8) 10/30/22 06:36 RBC 3.80 X10*6/uL (4.20-5.50) L 10/30/22 06:36 Hgb 11.7 g/dl (12.0-16.0) L 10/30/22 06:36 Hct 36.7 % (37.0-47.0) L 10/30/22 06:36 MCV 96.6 fL (80.0-98.0) 10/30/22 06:36 MCH 30.8 pg (27.0-33.0) 10/30/22 06:36 MCHC 31.9 g/dl (31.0-35.0) 10/30/22 06:36 RDW 13.1 % (11.0-16.0) 10/30/22 06:36 Plt Count 207 X10*3/uL (160-400) 10/30/22 06:36 MPV 10.2 fL (9.4-12.3) 10/30/22 06:36 Immature Gran % (Auto) 0.6 % (0.0-0.4) H 10/29/22 05:31 Neut % (Auto) 68.6 % (45-73) 10/29/22 05:31 Lymph % (Auto) 18.3 % (20-40) L 10/29/22 05:31 Teller % (Auto) 10.2 % (2-11) 10/29/22 05:31 Eos % (Auto) 1.8 % (0-4) 10/29/22 05:31 Baso % (Auto) 0.5 % (0-2) 10/29/22 05:31 Lymph # (Auto) 2.0 X10*3/uL (1.2-4.9) 10/29/22 05:31 Teller # (Auto) 1.1 X10*3/uL (0.1-1.2) 10/29/22 05:31 Eos # (Auto) 0.2 X10*3/uL (0.0-0.4) 10/29/22 05:31 Baso # (Auto) 0.1 X10*3/uL (0.0-0.2) 10/29/22 05:31 Abs Immat Gran (auto) 0.06 X10*3/uL (0.00-0.03) H 10/29/22 05:31 Absolute Neuts (auto) 7.4 x10*3/uL (2.0-8.3) 10/29/22 05:31 Absolute Nucleated RBC 0.000 X10*3/uL (0.0-0.012) 10/30/22 06:36 Nucleated RBC % (auto) 0.0 /100WBC (0.0-0.2) 10/30/22 06:36 PT 10.7 SEC (11.1-13.3) L 10/28/22 17:14 INR 0.9 (0.9-1.1) 10/28/22 17:14 O2 Saturation 99.0 % 10/29/22 09:15 ABG pH at Pt Temp 7.42 (7.35-7.45) 10/29/22 09:15 ABG pCO2 at Pt Temp 34 mmHg (32-45) 10/29/22 09:15 ABG pO2 at Pt Temp 101 mmHg (83-108) 10/29/22 09:15 ABG HCO3 23 mmol/L (22-26) 10/29/22 09:15 ABG Base Excess (Actual) -0.7 mmol/L 10/29/22 09:15 Sodium 138 mmol/L (135-145) 10/31/22 06:29 Potassium 3.6 mmol/L (3.3-5.1) 10/31/22 06:29 Chloride 105 mmol/L (96-108) 10/31/22 06:29 Carbon Dioxide 21 mmol/L (22-29) L 10/31/22 06:29 Anion Gap 16 (12-20) 10/31/22 06:29 BUN 23 mg/dL (9-16) H 10/31/22 06:29 Creatinine 1.16 mg/dL (0.5-1.4) 10/31/22 06:29 Estim Creat Clear Calc 39.9 10/31/22 06:29 Estimated GFR 45 10/31/22 06:29 POC Glucose 176 mg/dL (60-115) H 10/31/22 11:18 Random Glucose 124 mg/dL (60-115) H 10/31/22 06:29 Lactic Acid 1.3 mmol/L (0.5-2.0) 10/28/22 17:14 Calcium 9.5 mg/dL (8.4-10.2) 10/31/22 06:29 Magnesium 2.1 mg/dL (1.6-2.6) 10/28/22 17:14 Total Bilirubin 0.7 mg/dL (0.0-1.0) 10/28/22 17:14 AST 21 U/L (5-31) 10/28/22 17:14 ALT 13 U/L (0-31) 10/28/22 17:14 Alkaline Phosphatase 106 U/L (39-117) 10/28/22 17:14 Total Protein 8.4 g/dL (6.5-8.0) H 10/28/22 17:14 Albumin 4.2 g/dL (3.5-5.0) 10/28/22 17:14 Lipase 7 U/L (8-78) L 10/28/22 17:14 Procalcitonin 0.04 ng/mL 10/31/22 06:29 Urine Color Yellow 10/28/22 19:24 Urine Appearance Clear 10/28/22 19:24 Urine pH 6.0 (5.0-9.0) 10/28/22 19:24 Ur Specific [place] 1.015 (1.005-1.025) 10/28/22 19:24 Urine Protein 30 (1+) mg/dL (Neg-Trace) H 10/28/22 19:24 Urine Glucose (UA) Negative mg/dL (Negative) 10/28/22 19:24 Urine Ketones Trace mg/dL (Negative) 10/28/22 19:24 Urine Blood Moderate (2+) (Negative) H 10/28/22 19:24 Urine Nitrite Negative (Negative) 10/28/22 19:24 Ur Leukocyte Esterase Negative (Negative) 10/28/22 19:24 Urine RBC 0-2 /HPF (0-2) 10/28/22 19:24 Urine WBC 0-5 /HPF (0-5) 10/28/22 19:24 Ur Squamous Epith Cells 0-2 /HPF (0-2) 10/28/22 19:24 Urine Bacteria 4+ (None Seen) 10/28/22 19:24 Hyaline Casts 0-2 /LPF (0-2) 10/28/22 19:24 Nasal Screen MRSA (PCR) NEGATIVE (Negative) 10/30/22 10:30 Nasal S. aureus Screen NEGATIVE (Negative) 10/30/22 10:30 Nasal MRSA/S.aureus Interp SEE NOTE 10/30/22 10:30 Respiratory Panel Taylor See Note 10/29/22 16:55 Adenovirus (Rapid PCR) Not Detected (Not Detect.) 10/29/22 16:55 B.pert (TEM-PCR) Not Detected (Not Detect.) 10/29/22 16:55 B.parapertussis DNA PCR Not Detected (Not Detect.) 10/29/22 16:55 C. pneumoniae DNA (PCR) Not Detected (Not Detect.) 10/29/22 16:55 Coronavirus OC43 (PCR) Not Detected (Not Detect.) 10/29/22 16:55 Coronavirus HKU1 (PCR) Not Detected (Not Detect.) 10/29/22 16:55 Coronavirus 229E (PCR) Not Detected (Not Detect.) 10/29/22 16:55 COVID-19 (HARPREET) Negative (Negative) 10/28/22 17:14 COVID-19 Clin Com See Note 10/28/22 17:14 Coronavirus NL63 (PCR) Not Detected (Not Detect.) 10/29/22 16:55 Human Metapneumovir PCR Not Detected (Not Detect.) 10/29/22 16:55 Influenza A (RT-PCR) Not Detected (Not Detect.) 10/29/22 16:55 Influenza B (RT-PCR) Not Detected (Not Detect.) 10/29/22 16:55 M. pneumoniae (PCR) Not Detected (Not Detect.) 10/29/22 16:55 Parainfluenza 1 (PCR) Not Detected (Not Detect.) 10/29/22 16:55 Parainfluenza 2 (PCR) Not Detected (Not Detect.) 10/29/22 16:55 Parainfluenza 3 (PCR) Not Detected (Not Detect.) 10/29/22 16:55 Parainfluenza 4 (PCR) Not Detected (Not Detect.) 10/29/22 16:55 RSV (PCR) Not Detected (Not Detect.) 10/29/22 16:55 Entero/Rhino (PCR) Not Detected (Not Detect.) 10/29/22 16:55 SARS-CoV-2 RNA (RT-PCR) Not Detected (Not Detect.) 10/29/22 16:55 Impressions Chest X-Ray 10/28/22 16:55 IMPRESSION: Chronic appearing and postoperative changes similar to the 01/22/2022 study. Abdomen/Pelvis CT 10/28/22 22:36 IMPRESSION: Evaluation is very limited due to motion and lack of IV contrast. 1. Multifocal airspace opacities, increased compared to 06/06/2021, worrisome for an atypical infectious/inflammatory process. A follow-up chest CT after treatment is recommended to ensure appropriate resolution. 2. Increased mediastinal lymphadenopathy, nonspecific could be reactive. As above, a follow-up imaging is recommended. 3. Fusiform aneurysmal dilatation of the infrarenal abdominal aorta measuring up to 3.8 cm in diameter, slightly increased compared to 3.6 cm on 02/09/2021. Based on published guidelines in J Am Juli Radiol 2013; 10(10):789-794 and J Vasc Surg. 2018; 67:2-77, the recommendation for an abdominal aortic aneurysm with diameter 3.5-3.9 cm is follow up every 2 years. 4. Extensive atherosclerotic disease as well as coronary calcifications and cardiovascular calcifications. Follow-up with a medical authorization specialist is recommended. 5. Cholelithiasis but no evidence of acute cholecystitis. 6. Mild colonic diverticulosis but no evidence of acute diverticulitis. Chest CT 10/28/22 22:36 IMPRESSION: Evaluation is very limited due to motion and lack of IV contrast. 1. Multifocal airspace opacities, increased compared to 06/06/2021, worrisome for an atypical infectious/inflammatory process. A follow-up chest CT after treatment is recommended to ensure appropriate resolution. 2. Increased mediastinal lymphadenopathy, nonspecific could be reactive. As above, a follow-up imaging is recommended. 3. Fusiform aneurysmal dilatation of the infrarenal abdominal aorta measuring up to 3.8 cm in diameter, slightly increased compared to 3.6 cm on 02/09/2021. Based on published guidelines in J Am Juli Radiol 2013; 10(10):789-794 and J Vasc Surg. 2018; 67:2-77, the recommendation for an abdominal aortic aneurysm with diameter 3.5-3.9 cm is follow up every 2 years. 4. Extensive atherosclerotic disease as well as coronary calcifications and cardiovascular calcifications. Follow-up with a medical authorization specialist is recommended. 5. Cholelithiasis but no evidence of acute cholecystitis. 6. Mild colonic diverticulosis but no evidence of acute diverticulitis. Pending studies at discharge: Legionella urine antigen from 10/29/22 Discharge Plan Discharge Anticipated Discharge Date/Time: 10/31/22 13:19 Patient Disposition: Home Health Service Discharge Diagnosis: acute encephalopathy and acute hypoxia due to pneumonia Referrals: Godfrey,Faraz Dozier MD [Primary Care Provider] - 1 Week Discharge Medications: New prednisone 20 mg Tablet 40 mg PO DAILY Qty: 2 0RF amoxicillin-pot clavulanate 875-125 mg tablet 1 tab PO BID Qty: 14 0RF Continued (DME) Raised toilet seat See Rx Instructions .Route .MEDSUPPLY Qty: 1 0RF Rx Instructions: As directed (DME) Shower chair with arm See Rx Instructions .Route .MEDSUPPLY Qty: 1 0RF Rx Instructions: As directed (DME) Regular walker See Rx Instructions .Route .MEDSUPPLY Qty: 1 0RF Rx Instructions: As directed (DME) incontinence supplies adult large / x-large pull ups See Rx Instructions .Route .MEDSUPPLY Qty: 100 11RF Rx Instructions: As directed (DME) Longer bed railings See Rx Instructions .Route .MEDSUPPLY Qty: 1 0RF Rx Instructions: As directed paroxetine HCl 40 mg tablet 40 mg PO DAILY Qty: 90 2RF carvedilol 12.5 mg tablet 12.5 mg PO BID Qty: 180 1RF albuterol sulfate [ProAir HFA] 90 mcg/actuation HFA aerosol inhaler 2 puff inhalation Q4-6H PRN (Reason: shortness of breath or wheezing) Qty: 8.5 0RF gabapentin 300 mg capsule 300 mg PO TID PRN (Reason: for pain) Qty: 270 0RF ascorbic acid (vitamin C) 500 mg Tablet 500 mg PO DAILY acetaminophen 325 mg Tablet 650 mg PO Q6H PRN (Reason: Pain) isosorbide mononitrate 30 mg tablet extended release 24 hr 30 mg PO DAILY sumatriptan succinate 25 mg tablet 25 mg PO DAILY PRN (Reason: migraine headache) Eliquis 5 mg tablet 5 mg PO BID Qty: 60 2RF latanoprost 0.005 % drops 1 drp ophthalmic (eye) BEDTIME Qty: 7.5 0RF ferrous sulfate 325 mg (65 mg iron) tablet 325 mg PO DAILY tramadol 50 mg tablet 50 mg PO Q12H PRN (Reason: pain) 90 Days Qty: 180 0RF Discharge Orders: Discharge Order (Routine); Ordered 10/31/22 Ordered By: Alexander Ramey Activity on Discharge: As tolerated Stand Alone Forms: Patient Portal Discharge page Care Plan Goals: recovery from pneumonia Health Concerns: acute encephalopathy and acute hypoxia due to pneumonia Plan of Treatment: take amoxillin-clavulanate 875-125 mg twice daily for 7 days take prednisone 40 mg daily for 2 days use albuterol 2 puffs every 4 hours as needed for shortness of breath or wheezing repeat CT of the chest without contrast in 4 weeks Please follow up with your primary care doctor within 1 week. Return to the hospital if you experience recurrent or worsening symptoms. Assessment: See Discharge Summary. Patient Instructions: Pneumonia (DC)
--- NOTE | 2022-10-31 13:58 | MHC.CM.PN ---
PT WILL DC HOME TODAY WITH [facility] FAMILY TO TRANSPORT
[2022-10-31 14:06] VITALS: PULSE 84; PULSE 96; O2SAT 74; O2SAT 95
[2022-11-07 06:54] LABS: Legionella Ag Urine Not Detected (Not Detected)
== END 2022-10-31 15:36 | disposition home health service (06) | DRG 871 ==
LOC: HO.ED 17:15 → HO.EDOVER 23:48 → HO.S3 10-29 16:46
PROVIDERS: Admitting Provider Student in an Organized Health Care Education/Training Program; Emergency Provider Internal Medicine; PCP Internal Medicine; Visit Provider Family Medicine
DX: A41.9 Sepsis, unspecified organism (principal); G93.41 Metabolic encephalopathy; J69.0 Pneumonitis due to inhalation of food and vomit; J96.01 Acute respiratory failure with hypoxia; I42.8 Other cardiomyopathies; I16.1 Hypertensive emergency; J44.1 Chronic obstructive pulmonary disease with (acute) exacerbation; Z66 Do not resuscitate; E11.65 Type 2 diabetes mellitus with hyperglycemia; F39 Unspecified mood [affective] disorder; G43.909 Migraine, unspecified, not intractable, without status migrainosus; E78.00 Pure hypercholesterolemia, unspecified; I71.43 Infrarenal abdominal aortic aneurysm, without rupture; Z20.822 Contact with and (suspected) exposure to COVID-19; Z95.2 Presence of prosthetic heart valve; Z86.73 Personal history of transient ischemic attack (TIA), and cerebral infarction without residual deficits; Z87.891 Personal history of nicotine dependence; Z79.01 Long term (current) use of anticoagulants; Z79.899 Other long term (current) drug therapy
CPT/HCPCS: 36415; 36600; 71045; 71250; 74176; 80048; 80053; 81001; 82803; 82947; 83605; 83690; 83735; 84145; 85025; 85027; 85610; 87040; 87449; 87633; 87635; 87640; 87641; 92526; 92610; 93005; 97162; 99285; J0131; J0295; J0696; J1650; J2060; J2405

== ENCOUNTER → 2022-10-28 16:47 | Outpatient (BNV) | payer OTHER, SELFPAY | PROVIDERS: Admitting Provider Student in an Organized Health Care Education/Training Program; Emergency Provider Internal Medicine; Visit Provider Internal Medicine | DX: R00.0 Tachycardia, unspecified (principal) | CPT/HCPCS: 93010 ==

== ENCOUNTER → 2022-10-28 23:30 | Outpatient (BNV) | payer OTHER, SELFPAY | PROVIDERS: Admitting Provider Student in an Organized Health Care Education/Training Program; Emergency Provider Internal Medicine; Visit Provider Student in an Organized Health Care Education/Training Program | DX: J96.01 Acute respiratory failure with hypoxia (principal); A41.9 Sepsis, unspecified organism; J44.1 Chronic obstructive pulmonary disease with (acute) exacerbation; J18.9 Pneumonia, unspecified organism; B99.9 Unspecified infectious disease; G93.49 Other encephalopathy | CPT/HCPCS: 99222; 99232; 99239; G0180 ==

== ENCOUNTER 2022-11-20 11:48 | Outpatient (AMB) | payer OTHER, SELFPAY ==
[2022-11-20 11:50] VITALS: BP 140/88; PULSE 90; O2SAT 94; BMI 29.1
--- NOTE | 2022-11-20 11:50 | A.OFFPC_ITS ---
Vital Signs 11/20/22 11:50 Height 5 ft 7 in Weight 84.368 kg BMI 29.1 BP 140/88 H Blood Pressure Location Lt brachial Position Sitting Pulse 90 Pulse Source Pulse Oximeter Pulse Oximetry (%) 94 Oxygen Delivery Method Room Air Intake Visit Reasons: [facility] due to pneumonia 10/28/22-10/31/22 Allergies No Known Allergies Allergy (Mild, Verified 11/20/22 11:51) NONE Tobacco use date assessed: 09/16/22 Fall risk assessment: No Falls in past year Last assessed Fall Risk: 11/20/22 Dental Screening Dental Screen Date: 11/20/22 Did you have a dental visit in the last 12 months?: No Did you have a dental problem in the last 6 months where you did not have access to dental care?: No Was dental information given to patient?: No HPI HPI Comments History of Present Illness Details 82-year-old female with history of type 2 diabetes, COPD, history of cardiac arrest from polymorphic VT, and history of embolic stroke on apixaban among others presents to the office today accompanied by her healthcare proxy and friend Ade for post hospital evaluation. She was admitted to [facility] from 10/28-10/31 due to multifocal pneumonia with COPD exacerbation admitted with sepsis and metabolic encephalopathy and acute hypoxemic respiratory failure. She was admitted to medical floors on Unasyn due to concerns for aspiration given encephalopathy as well as prednisone. She was evaluated by speech it was not thought to have any swallowing issues. Blood cultures, respiratory pathogen panel, and MRSA swab were all negative and she was successfully weaned from supplemental O2 with return to mental status to baseline. She was discharged home with VNA services for home PT and 7 days of Augmentin as well as 2 additional days of prednisone. Incidentally noted was an infrarenal AAA. However the patient states that she is aware and follows annually for ultrasounds for surveillance. They are also recommending follow-up noncontrast chest CT to ensure resolution of infiltrates. The patient reports that she continues with occasional wheezing and has a ch ronic cough but these are her baseline. She has been afebrile and denies any sputum production with the cough different from baseline. Her friend does also have concern about possible seizure activity that occurred several weeks ago and has occurred in the past. She does know a lip bite. Apparently leave the patient was previously on Keppra but this was discontinued, reason unclear at this time. She does not have a neurologist. She is also reporting urinary incontinence. Reports urinary incontinence with cough/knees as well as with associated urgency to use the bathroom. She wears incontinence pads currently but is looking for E prescription. [facility] Medical History (Updated 11/23/22 @ 14:16 by HELADIO Powers) Abdominal aortic aneurysm without rupture COPD (chronic obstructive pulmonary disease) Essential hypertension Hypercholesterolemia Hypertension Mixed incontinence urge and stress Osteoarthritis Osteoporosis SOB (shortness of breath) Type 2 diabetes mellitus with hyperglycemia Urinary incontinence Vitamin D deficiency Surgical History History of colonoscopy History of heart valve replacement (~08/2013) History of left hip replacement History of right hip replacement (~08/2014) Status post aortic valve replacement with bioprosthetic valve Family History Father No problems noted. Mother History of high cholesterol Social History Household Members: None Housing: Apartment Do you presently have visiting nurse or other home services: Yes Alcohol intake: unknown Patient Tobacco Use Status: Former Tobacco user Quit Date: 2021 Tobacco use type: Cigarette Years Smoked: 60 +/- e-Cigarette/Vaping Use: Never Used Second Hand Smoke Exposure: No Advance Directives Date on File: 02/10/21 service: No Current occupational status: retired Cognitive needs: Yes (walker) Hearing needs: No Vision needs: Yes Questionnaire PHQ-9 Over the last 2 weeks, how often have you been bothered by any of the following problems? 1. Little interest or pleasure in doing things: not at all 2. Feeling down, depressed, or hopeless: not at all 3. Trouble falling or staying asleep, or sleeping too much: not at all 4. Feeling tired or having little energy: not at all 5. Poor appetite or overeating: not at all 6. Feeling bad about yourself - or that you are a failure or have let yourself or your family down: not at all 7. Trouble concentrating on things, such as reading the newspaper or watching television: not at all 8. Moving or speaking so slowly that other people could have noticed. Or the opposite - being so fidgety or restless that you have been moving around a lot more than usual: not at all 9. Thoughts that you would be better off or of hurting yourself in some way: not at all Total score: 0 Depression Screening Interpretation: Negative 54561 - PHQ-9 Billing: Yes Source: Developed by Drs. Herminio Zuluaga, Sofya David, Bacilio Dinero and colleagues, with an educational diane from [employer]. Thrive Questionnaire Date Thrive assessed: 10/29/22 AUDIT C Alcohol Use Questionnaire (AUDIT-C) 1. How often do you have a drink containing alcohol?: Never 3. How often do you have six or more drinks on one occasion?: Never Total Score: 0 Score Reviewed/Action Taken: No VIVIAN-7 AMB Questionnaire VIVIAN-7 Date VIVIAN - 7 assessed: 04/10/22 Source: Developed by Drs. Herminio Zuluaga, Sofya David, Bacilio Dinero and colleagues, with an educational diane from [employer]. Review of Systems Const All systems reviewed & are unremarkable except as noted in HPI and below Physical exam (Primary Care) Vital Signs: Last Vital Signs Pulse 90 11/20/22 11:50 BP 140/88 H 11/20/22 11:50 Pulse Ox 94 11/20/22 11:50 Oxygen Delivery Method Room Air 11/20/22 11:50 BMI result Body Mass Index 29.1 Tobacco/Smoking Status: Tobacco use Status Tobacco use date assessed 09/16/22 11/20/22 11:52 Patient Tobacco Use Status Former Tobacco user 11/20/22 11:52 Tobacco use type Cigarette 11/20/22 11:52 e-Cigarette/Vaping Use Never Used 11/20/22 11:52 PHQ-9: PHQ-9 Score PHQ-9: Total score 0 11/20/22 12:15 Depression Screening Interpretation: Negative Thrive Assessment: Date of Thrive Assessment Date Thrive assessed 10/29/22 11/20/22 11:52 Results Reviewed Results Reviewed: CBC, CMP, BC, CT chest, respiratory viral panel, DS, H&P Assessment and Plan Assessment & Plan (1) Seizure disorder: Code(s): G40.909 - Epilepsy, unspecified, not intractable, without status epilepticus Plan: Previously on Keppra but not following with Neurology. Unclear why Keppra was discontinued. She is referred for EEG and is referred to Neurology. Advised to follow up in the ED if she experiences start seizure activity. (2) Multifocal pneumonia: Code(s): J18.9 - Pneumonia, unspecified organism Plan: Resolved with Unasyn while admitted followed by 1 week course of Augmentin which she completed as prescribed. Review of chart, initial concern for aspiration ruled out. She is asymptomatic without any recurrence of fevers. Admitted with sepsis which did resolve. Advised to have repeat chest CT without contrast performed in 1-2 weeks which is ordered to ensure full resolution of the pneumonia. Hypoxemic respiratory failure resolved following antibiotic therapy and prednisone. (3) Encephalopathy due to infection: Code(s): G93.49 - Other encephalopathy; B99.9 - Unspecified infectious disease Plan: Metabolic encephalopathy secondary to infection has resolved. (4) COPD exacerbation: Code(s): J44.1 - Chronic obstructive pulmonary disease with (acute) exacerbation Plan: Resolved with oral prednisone. Continue albuterol as needed. (5) Mixed incontinence urge and stress: Code(s): N39.46 - Mixed incontinence Plan: Patient with symptoms consistent with mixed urge and stress incontinence of urination. Message sent to PCP for consideration for incontinence pads/briefs. Advised to follow-up with PCP soon to discuss further medications to assist with urinary incontinence if appropriate. Orders: Orders EEG awake and asleep 11/20/22 G40.909 - Epilepsy, unspecified, not intractable, without status epilepticus CT chest wo IV con 1 Week B99.9 - Unspecified infectious disease, G93.49 - Other encephalopathy, J18.9 - Pneumonia, unspecified organism Referrals Neurology Referral G40.909 - Epilepsy, unspecified, not intractable, without status epilepticus Medications: New fluticasone propionate 50 mcg/actuation (Flonase Allergy Relief) administer into each nostril 1 spray intranasal BID 16 grams 0RF Discontinued 2 sumatriptan succinate 25 mg PO .QD PRN 10 tabs 11RF migraine headache G43.909 - Migraine, unspecified, not intractable, without status migrainosus Coding Level of Care Code Est Pt Level 5 (21905) Diagnoses Seizure disorder G40.909 Multifocal pneumonia J18.9 Encephalopathy due to infection G93.49; B99.9 COPD exacerbation J44.1 Mixed incontinence urge and stress N39.46 Time Spent (min) 45 Comment reviewed documentation as above, time spent with patient and on documentation
== END 2022-11-20 12:26 | disposition home or self-care (01) ==
PROVIDERS: PCP Internal Medicine; Visit Provider Physician Assistant
DX: G40.909 Epilepsy, unspecified, not intractable, without status epilepticus (principal); J44.1 Chronic obstructive pulmonary disease with (acute) exacerbation; J18.9 Pneumonia, unspecified organism; G93.49 Other encephalopathy; B99.9 Unspecified infectious disease; N39.46 Mixed incontinence
CPT/HCPCS: 99215

== ENCOUNTER 2022-12-11 12:31 | Emergency (ER) | payer OTHER, MEDICARE, SELFPAY ==
--- NOTE | ~2022-12-11 | CT_ITS ---
EXAMINATION: CT HEAD WITHOUT CONTRAST CLINICAL INFORMATION: Altered mental status on helical wrist. COMPARISON: CT brain 09/13/2021. TECHNIQUE: Contiguous axial imaging was performed from the skull base to vertex without intravenous administration of contrast. This CT examination was performed using dose optimization techniques as appropriate, variously including the following: *Automated exposure control *Adjustment of mA and/or kV according to patient size (this includes techniques or standardized protocols for targeted exams where dose is matched to indication/reason for exam; i.e. extremities or head) *Use of iterative reconstruction technique DLP: 616 mGy-cm FINDINGS: There is no acute intra-axial, extra-axial bleed, masses or midline shift. There is no acute infarction evolution. There is no edema the martin to white matter differentiation is maintained normal. No abnormality seen in the posterior fossa. The lateral ventricles are symmetrical in size and configuration with mild enlargement. There is mild periventricular hypodensity in both cerebral hemispheres without mass effect. CT/CT head/brain wo IV con IMPRESSION: No acute intracranial process seen. No change from CT brain 09/13/2021.
--- NOTE | ~2022-12-11 | XR_ITS ---
EXAMINATION: XR CHEST CLINICAL INFORMATION: Shortness of breath COMPARISON: 10/28/2022 TECHNIQUE: Frontal view of the chest was obtained. FINDINGS: Median sternotomy wires again seen. 5.4 cm a linear opacity is identified in the right axillary region, uncertain exact location and significance. Correlate clinically. Heart and mediastinum within normal limits. Aortic calcifications again seen. By lateral predominantly upper lobe pulmonary opacities are seen. Mid to lower lung zones are less affected. No effusions. XR/XR chest 1V IMPRESSION: Bilateral pulmonary opacities with upper lobe predominance, consider infectious/inflammatory etiologies.
[2022-12-11 12:45] VITALS: BP 149/64; BP 165/92; PULSE 106; PULSE 93; RESP 20; TEMP 36.7; O2SAT 94; O2SAT 96; BMI 28.2
[2022-12-11 13:13] VITALS: BP 149/64; PULSE 93; RESP 20; TEMP 36.6; O2SAT 96
--- NOTE | 2022-12-11 13:21 | ED_ITS ---
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 Patient lives with her roommate who states that the patient been increasingly forgetful confused no recent fall headache patient had multifocal pneumonia in 10/28/2022 saturating 91% at room air denies any significant cough or shortness of breath Related Data Home Medications Medication Instructions Recorded Confirmed ascorbic acid (vitamin C) 500 mg 500 mg PO DAILY 06/04/21 10/28/22 tablet acetaminophen 325 mg tablet 650 mg PO Q6H PRN Pain 02/24/22 10/28/22 ferrous sulfate 325 mg (65 mg 325 mg PO DAILY 09/16/22 10/28/22 iron) tablet isosorbide mononitrate 30 mg 30 mg PO DAILY 10/28/22 10/28/22 tablet,extended release 24 hr sumatriptan succinate 25 mg tablet 25 mg PO DAILY PRN migraine 10/28/22 10/28/22 headache Previous Rx's Medication Instructions Recorded Longer bed railings #1 ea 10/30/21 Raised toilet seat #1 ea 10/30/21 Regular walker #1 ea 10/30/21 Shower chair with arm #1 ea 10/30/21 apixaban 5 mg tablet (Eliquis) 5 mg PO BID #60 tabs 11/26/21 paroxetine HCl 40 mg tablet 40 mg PO DAILY #90 tabs 01/21/22 carvedilol 12.5 mg tablet 12.5 mg PO BID #180 tabs 06/01/22 latanoprost 0.005 % eye drops 1 drp ophthalmic (eye) BEDTIME 08/02/22 #7.5 mL tramadol 50 mg tablet 50 mg PO Q12H PRN pain 90 days 09/16/22 #180 tabs albuterol sulfate 90 mcg/actuation 2 puff inhalation Q4-6H PRN 10/04/22 aerosol inhaler (ProAir HFA) shortness of breath or wheezing #8.5 grams gabapentin 300 mg capsule 300 mg PO TID PRN for pain #270 10/21/22 caps fluticasone propionate 50 1 spray intranasal BID #16 grams 11/20/22 mcg/actuation nasal spray,suspension (Flonase Allergy Relief) incontinence supplies adult large #210 ea 11/20/22 / x-large pull ups cefdinir 300 mg capsule 300 mg PO BID #20 caps 12/11/22 Allergies Allergy/AdvReac Type Severity Reaction Status Date / Time No Known Allergies Allergy Mild NONE Verified 11/20/22 11:51 Review of Systems 2 Review of Systems: Yes all other systems are reviewed and are negative [facility] Past Medical History Medical History (Updated 12/11/22 @ 17:17 by Jon Castro MD) Mixed incontinence urge and stress SOB (shortness of breath) Essential hypertension Hypertension COPD (chronic obstructive pulmonary disease) Urinary incontinence Osteoarthritis Osteoporosis Vitamin D deficiency Hypercholesterolemia Type 2 diabetes mellitus with hyperglycemia Abdominal aortic aneurysm without rupture Surgical History Status post aortic valve replacement with bioprosthetic valve History of colonoscopy History of heart valve replacement (~08/2013) History of right hip replacement (~08/2014) History of left hip replacement Family History Family History Father No problems noted. Mother History of high cholesterol Social History Social History Household Members: None Housing: Apartment Do you presently have visiting nurse or other home services: Yes Alcohol intake: never Patient Tobacco Use Status: Former Tobacco user Quit Date: 2021 Tobacco use type: Cigarette Years Smoked: 60 +/- Smoked in Last 30 Days: No e-Cigarette/Vaping Use: Never Used Second Hand Smoke Exposure: No Use of substances other than those prescribed or required for medical reasons: No Advance Directives: Yes Advance Directives on File: Yes Advance Directives Date on File: 02/10/21 service: No Current occupational status: retired Cognitive needs: Yes (walker) Hearing needs: No Vision needs: Yes Physical Exam ED Vital Signs: Vital Signs - 24 hr 12/11/22 12:45 09/13/23 13:13 12/11/22 14:05 Temperature 98.0 F 98 F Pulse Rate 93 93 93 Respiratory Rate 20 20 16 Blood Pressure 149/64 H 149/64 H Pulse Oximetry 96 96 Oxygen Delivery Method Nasal Cannula Nasal Cannula Oxygen Flow Rate 2 12/11/22 14:35 Temperature Pulse Rate 81 Respiratory Rate 18 Blood Pressure 159/74 H Pulse Oximetry 97 Oxygen Delivery Method Nasal Cannula Oxygen Flow Rate 2 BMI result Body Mass Index 28.2 Appearance: Alert. Oriented X3. No acute distress. Eyes: PERRLA, No Nystagmus ENT: Pharynx normal. Oral Mucosa moist Neck: Normal inspection. Neck supple. CVS: Normal heart rate and rhythm. Pulses normal. Respiratory: No respiratory distress. Equal air entry bilateral, bilateral wheeze+ Abdomen: Soft and nontender. Bowel sounds are present, no mass palpable, no CVA tenderness Skin: Skin warm and dry. Normal skin color. Normal skin turgor. Extremities: No lower extremity edema. No calf tenderness Neuro: Oriented X 3. No motor deficit. No sensory deficit.No cerebellar signs , cranial nerves II-XII intact Medications Administered Discontinued Medications Generic Name Dose Route Start Last Admin Trade Name Freq PRN Reason Stop Dose Admin Albuterol/Ipratropium 3 ml 12/11/22 13:47 12/11/22 14:05 Albuterol/Iprat 2.5/0.5mg 3 Ml Ampul.Neb INHALE 12/11/22 13:48 3 ml ONCE ONE Administration Ceftriaxone Sodium 1 gm/ 50 mls @ 100 mls/hr 12/11/22 16:04 12/11/22 16:59 Sodium Chloride IV 12/11/22 16:33 Infused ONCE ONE Infusion Medical Decision Making Medical Decision Making [facility] Narrative: Patient with slight confusion likely dementia no source of infection or sepsis/ metabolic cause noticed patient does have occasional cough x-ray showing similar opacities as in the past will start on 70 300 mg twice daily for 10 days was given 1 dose of Rocephin in the ER patient to follow-up with PCP for further management Differential Diagnosis Differential Diagnoses: The differential diagnosis associated with the presentation includes Infection etiology/UTI/bronchitis/pneumonia/metabolic encephalopathy/dementia/CVA/SAH/hypoxia Admission/Observation Consideration of admission/observation: Escalation of care including admission/observation considered Lab Data [facility] Lab Attestation statement: I reviewed the patient's lab results. 12/11/22 13:34 12/11/22 14:14 Labs: Lab Results 12/11/22 12/11/22 12/11/22 Range/Units 13:34 14:13 14:14 WBC 10.6 (4.8-10.8) X10*3/uL RBC 4.85 D (4.20-5.50) X10*6/uL Hgb 14.7 D (12.0-16.0) g/dl Hct 44.0 (37.0-47.0) % MCV 90.7 (80.0-98.0) fL MCH 30.3 (27.0-33.0) pg MCHC 33.4 (31.0-35.0) g/dl RDW 13.1 (11.0-16.0) % Plt Count 255 (160-400) X10*3/uL MPV 10.6 (9.4-12.3) fL Immature Gran % (Auto) 0.5 H (0.0-0.4) % Neut % (Auto) 75.3 H (45-73) % Lymph % (Auto) 17.6 L (20-40) % [place] % (Auto) 5.7 (2-11) % Eos % (Auto) 0.4 (0-4) % Baso % (Auto) 0.5 (0-2) % Lymph # (Auto) 1.9 (1.2-4.9) X10*3/uL [place] # (Auto) 0.6 (0.1-1.2) X10*3/uL Eos # (Auto) 0.0 (0.0-0.4) X10*3/uL Baso # (Auto) 0.1 (0.0-0.2) X10*3/uL Abs Immat Gran (auto) 0.05 H (0.00-0.03) X10*3/uL Absolute Neuts (auto) 8.0 (2.0-8.3) x10*3/uL Absolute Nucleated RBC 0.000 (0.0-0.012) X10*3/uL Nucleated RBC % (auto) 0.0 (0.0-0.2) /100WBC VBG pH (7.32-7.43) VBG pCO2 mmHg VBG pO2 mmHg VBG HCO3 (22-26) mmol/L VBG O2 Saturation % VBG Base Excess mmol/L Sodium 135 (135-145) mmol/L Potassium 4.4 D (3.3-5.1) mmol/L Chloride 100 (96-108) mmol/L Carbon Dioxide 24 (22-29) mmol/L Anion Gap 15 (12-20) BUN 18 H (9-16) mg/dL Creatinine 1.16 (0.5-1.4) mg/dL Estim Creat Clear Calc 40.4 Estimated GFR 45 Random Glucose 172 H (60-115) mg/dL Lactic Acid 1.1 (0.5-2.0) mmol/L Calcium 9.6 (8.4-10.2) mg/dL Magnesium 1.8 (1.6-2.6) mg/dL Total Bilirubin 1.0 (0.0-1.0) mg/dL AST 21 (5-31) U/L ALT 16 (0-31) U/L Alkaline Phosphatase 120 H (39-117) U/L Total Protein 7.8 (6.5-8.0) g/dL Albumin 4.0 (3.5-5.0) g/dL Urine Color Yellow Urine Appearance Clear Urine pH 7.0 (5.0-9.0) Ur Specific [place] 1.010 (1.005-1.025) Urine Protein 30 (1+) H (Neg-Trace) mg/dL Urine Glucose (UA) Negative (Negative) mg/dL Urine Ketones Trace (Negative) mg/dL Urine Blood Negative (Negative) Urine Nitrite Negative (Negative) Ur Leukocyte Esterase Negative (Negative) Urine RBC 0-2 (0-2) /HPF Urine WBC 0-5 (0-5) /HPF Ur Squamous Epith Cells 0-2 (0-2) /HPF Urine Bacteria 4+ (None Seen) Hyaline Casts 0-2 (0-2) /LPF COVID-19 (HARPREET) (Negative) COVID-19 Clin Com 12/11/22 12/11/22 Range/Units 14:20 15:06 WBC (4.8-10.8) X10*3/uL RBC (4.20-5.50) X10*6/uL Hgb (12.0-16.0) g/dl Hct (37.0-47.0) % MCV (80.0-98.0) fL MCH (27.0-33.0) pg MCHC (31.0-35.0) g/dl RDW (11.0-16.0) % Plt Count (160-400) X10*3/uL MPV (9.4-12.3) fL Immature Gran % (Auto) (0.0-0.4) % Neut % (Auto) (45-73) % Lymph % (Auto) (20-40) % [place] % (Auto) (2-11) % Eos % (Auto) (0-4) % Baso % (Auto) (0-2) % Lymph # (Auto) (1.2-4.9) X10*3/uL [place] # (Auto) (0.1-1.2) X10*3/uL Eos # (Auto) (0.0-0.4) X10*3/uL Baso # (Auto) (0.0-0.2) X10*3/uL Abs Immat Gran (auto) (0.00-0.03) X10*3/uL Absolute Neuts (auto) (2.0-8.3) x10*3/uL Absolute Nucleated RBC (0.0-0.012) X10*3/uL Nucleated RBC % (auto) (0.0-0.2) /100WBC VBG pH 7.43 (7.32-7.43) VBG pCO2 38 mmHg VBG pO2 55 mmHg VBG HCO3 26 (22-26) mmol/L VBG O2 Saturation 85.0 % VBG Base Excess 1.9 mmol/L Sodium (135-145) mmol/L Potassium (3.3-5.1) mmol/L Chloride (96-108) mmol/L Carbon Dioxide (22-29) mmol/L Anion Gap (12-20) BUN (9-16) mg/dL Creatinine (0.5-1.4) mg/dL Estim Creat Clear Calc Estimated GFR Random Glucose (60-115) mg/dL Lactic Acid (0.5-2.0) mmol/L Calcium (8.4-10.2) mg/dL Magnesium (1.6-2.6) mg/dL Total Bilirubin (0.0-1.0) mg/dL AST (5-31) U/L ALT (0-31) U/L Alkaline Phosphatase (39-117) U/L Total Protein (6.5-8.0) g/dL Albumin (3.5-5.0) g/dL Urine Color Urine Appearance Urine pH (5.0-9.0) Ur Specific [place] (1.005-1.025) Urine Protein (Neg-Trace) mg/dL Urine Glucose (UA) (Negative) mg/dL Urine Ketones (Negative) mg/dL Urine Blood (Negative) Urine Nitrite (Negative) Ur Leukocyte Esterase (Negative) Urine RBC (0-2) /HPF Urine WBC (0-5) /HPF Ur Squamous Epith Cells (0-2) /HPF Urine Bacteria (None Seen) Hyaline Casts (0-2) /LPF COVID-19 (HARPREET) Negative (Negative) COVID-19 Clin Com See Note Independent Interpretation I performed an independent interpretation of an: EKG Interpretation: Sinus tachycardia heart rate 102 normal intervals poor progression of R-waves no acute ST-T change no acute ischemia Radiology Impression Discussion of test interpretation with radiology: I have reviewed the radiologist's reading. Radiologist Impression: CT scan head negative for bleed/CVA Discharge Plan Discharge Clinical Impression: Bronchitis, Mild early onset Alzheimer's dementia Patient Disposition: Home, Self-Care Instructions: Alzheimer Disease (DC), Acute Bronchitis (ED) Additional Instructions: Take antibiotic as prescribed Haveyour CT scan as scheduled Follow-up with PCP for further management Use your inhaler every 4-6 hours as needed Prescriptions: New cefdinir 300 mg capsule 300 mg PO BID Qty: 20 0RF No Action (DME) Raised toilet seat See Rx Instructions .Route .MEDSUPPLY Qty: 1 0RF Rx Instructions: As directed (DME) Shower chair with arm See Rx Instructions .Route .MEDSUPPLY Qty: 1 0RF Rx Instructions: As directed (DME) Regular walker See Rx Instructions .Route .MEDSUPPLY Qty: 1 0RF Rx Instructions: As directed (DME) Longer bed railings See Rx Instructions .Route .MEDSUPPLY Qty: 1 0RF Rx Instructions: As directed paroxetine HCl 40 mg tablet 40 mg PO DAILY Qty: 90 2RF carvedilol 12.5 mg tablet 12.5 mg PO BID Qty: 180 1RF albuterol sulfate [ProAir HFA] 90 mcg/actuation HFA aerosol inhaler 2 puff inhalation Q4-6H PRN (Reason: shortness of breath or wheezing) Qty: 8.5 0RF gabapentin 300 mg capsule 300 mg PO TID PRN (Reason: for pain) Qty: 270 0RF (DME) incontinence supplies adult large / x-large pull ups See Rx Instructions .Route .MEDSUPPLY Qty: 210 11RF Rx Instructions: As directed ascorbic acid (vitamin C) 500 mg Tablet 500 mg PO DAILY acetaminophen 325 mg Tablet 650 mg PO Q6H PRN (Reason: Pain) isosorbide mononitrate 30 mg tablet extended release 24 hr 30 mg PO DAILY sumatriptan succinate 25 mg tablet 25 mg PO DAILY PRN (Reason: migraine headache) Eliquis 5 mg tablet 5 mg PO BID Qty: 60 2RF latanoprost 0.005 % drops 1 drp ophthalmic (eye) BEDTIME Qty: 7.5 0RF ferrous sulfate 325 mg (65 mg iron) tablet 325 mg PO DAILY tramadol 50 mg tablet 50 mg PO Q12H PRN (Reason: pain) 90 Days Qty: 180 0RF fluticasone propionate [Flonase Allergy Relief] 50 mcg/actuation spray,suspension 1 spray intranasal BID Qty: 16 0RF Rx Instructions: administer into each nostril
--- NOTE | 2022-12-11 13:24 | ECG_ITS ---
Test Reason : AMS Blood Pressure : / mmHG Vent. Rate : 102 BPM Atrial Rate : 102 BPM P-R Int : 172 ms QRS Dur : 102 ms QT Int : 354 ms P-R-T Axes : 096 -15 144 degrees QTc Int : 461 ms Sinus tachycardia Septal infarct , age undetermined ST & T wave abnormality, consider anterolateral ischemia Abnormal ECG When compared with ECG of 28-OCT-2022 19:41, Septal infarct is now Present Non-specific change in ST segment in Anterior leads T wave inversion now evident in Lateral leads QT has shortened Referred By: Jon Castro Electronically Signed By:FARIBA HILARIO
[2022-12-11 13:44] LABS: MANUAL DIFF FLAG NO
[2022-12-11 13:50] LABS: Basophils Absolute Auto 0.1 X10*3/uL (0.0-0.2); Basophils Percent Auto 0.5 % (0-2); Eosinophils Percent Auto 0.4 % (0-4); Hemoglobin 14.7 g/dl (12.0-16.0); Imm Gran Abs Auto 0.05 X10*3/uL (0.00-0.03); Imm Gran Pct Auto 0.5 % (0.0-0.4); Lymphocytes Absolute Auto 1.9 X10*3/uL (1.2-4.9); Lymphocytes Percent Auto 17.6 % (20-40); Mean Corpuscular HGB Conc 33.4 g/dl (31.0-35.0); Mean Corpuscular Hemoglobin 30.3 pg (27.0-33.0); Mean Corpuscular Volume 90.7 fL (80.0-98.0); Mean Platelet Volume 10.6 fL (9.4-12.3); Monocytes Absolute Auto 0.6 X10*3/uL (0.1-1.2); Monocytes Percent Auto 5.7 % (2-11); Neutrophils Percent Auto 75.3 % (45-73); Platelet Count 255 X10*3/uL (160-400); Red Blood Count 4.85 X10*6/uL (4.20-5.50); Red Cell Distribution Width 13.1 % (11.0-16.0); White Blood Count 10.6 X10*3/uL (4.8-10.8)
[2022-12-11 13:52] LABS: Appearance Urine Clear; Color Urine Yellow; Glucose Urine UA Negative (Negative); Leukocyte Esterase Urine Negative (Negative); Nitrite Urine Negative (Negative); UMIC TRIGGER UACC YES; Urine Blood Negative (Negative); Urine Ketones Trace mg/dL (Negative); Urine Protein 30 (1+) mg/dL (Neg-Trace)
[2022-12-11 13:57] LABS: Bacteria Urine 4+ (None Seen); Hyaline Casts Urine 0-2 /LPF (0-2); RBC Urine 0-2 /HPF (0-2); Squamous Epithelial Cell Urine 0-2 /HPF (0-2); WBC Urine 0-5 /HPF (0-5)
[2022-12-11 14:05] VITALS: PULSE 93; RESP 16; O2SAT 95
[2022-12-11] MEDS: Albuterol/Iprat 2.5/0.5MG 3 ML AMPUL.NEB INHALE (14:05)
[2022-12-11 14:25] LABS: Venous Blood Gas Refer to POC result
[2022-12-11 14:26] LABS: VBG Base Excess 1.9 mmol/L; VBG HCO3 26 mmol/L (22-26); VBG pCO2 38 mmHg; VBG pH 7.43 (7.32-7.43); VBG pO2 55 mmHg
[2022-12-11 14:34] LABS: Lactic Acid 1.1 mmol/L (0.5-2.0)
[2022-12-11 14:35] VITALS: BP 159/74; PULSE 81; RESP 18; O2SAT 97
[2022-12-11 14:38] LABS: Alanine Aminotransferase 16 U/L (0-31); Alkaline Phosphatase 120 U/L (39-117); Anion Gap 15 (12-20); Aspartate Amino Transferase 21 U/L (5-31); Blood Urea Nitrogen 18 mg/dL (9-16); Calcium 9.6 mg/dL (8.4-10.2); Carbon Dioxide 24 mmol/L (22-29); Chloride 100 mmol/L (96-108); Creatinine Clr Calc Pharmacy 40.4; Estimated Glomerular Filt Rate 45; Glucose Random 172 mg/dL (60-115); Magnesium 1.8 mg/dL (1.6-2.6); Potassium 4.4 mmol/L (3.3-5.1); Sodium 135 mmol/L (135-145); Total Protein 7.8 g/dL (6.5-8.0)
[2022-12-11 15:56] LABS: COVID-19 Test Negative (Negative); IDNOW Serial# 08D9AD1C
[2022-12-11] MEDS: cefTRIAXone sodium 1 GM in 0.9 % Sodium Chloride 50 ML IV (16:15)
== END 2022-12-11 17:46 | disposition home or self-care (01) ==
PROVIDERS: Emergency Provider Internal Medicine; PCP Internal Medicine
DX: J40 Bronchitis, not specified as acute or chronic (principal); G30.0 Alzheimer's disease with early onset; F02.A0 Dementia in other diseases classified elsewhere, mild, without behavioral disturbance, psychotic disturbance, mood disturbance, and anxiety; R50.9 Fever, unspecified; Z20.822 Contact with and (suspected) exposure to COVID-19; Z20.828 Contact with and (suspected) exposure to other viral communicable diseases; Z79.899 Other long term (current) drug therapy
CPT/HCPCS: 36415; 70450; 71045; 80053; 81001; 82803; 83605; 83735; 85025; 87635; 93005; 96365; 99284; 99285; J0696

== ENCOUNTER 2022-12-13 10:16 | Outpatient (REF) | payer OTHER, MEDICARE, SELFPAY ==
--- NOTE | ~2022-12-13 | CT_ITS ---
EXAMINATION: CT CHEST WITHOUT CONTRAST CLINICAL INFORMATION: Abnormal chest CT, follow-up pneumonia. COMPARISON: 10/28/2022 TECHNIQUE: Multidetector volumetric CT imaging of the chest was done. Axial MIP volume rendering provided. Sagittal and coronal reformatted images were obtained. This CT examination was performed using dose optimization techniques as appropriate, variously including the following: *Automated exposure control *Adjustment of mA and/or kV according to patient size (this includes techniques or standardized protocols for targeted exams where dose is matched to indication/reason for exam; i.e. extremities or head) *Use of iterative reconstruction technique DLP: 140 mGy-cm FINDINGS: TOOTH CUTTER CONTACT WHEEL: Prior sternotomy LUNGS: There is been significant improvement in previously seen bilateral groundglass opacities. Coarse subpleural opacities in the anterior aspect of both upper lobes, and patchy reticulonodular opacities at both lung bases, right greater than left are again evident. No new mass, nodule or consolidation is identified. The trachea and major bronchi are patent. Coarse subpleural nodularity in the left apex, along the posterior pleural surface measuring 6 mm, is unchanged. MEDIASTINUM: A 19 x 9 mm left prevascular lymph node is stable. A 20 x 13 mm right tracheobronchial lymph node is stable. No new adenopathy has developed. There are dense coronary artery calcifications as well as calcifications of the aortic and mitral valves. No pericardial effusion has developed. Changes of prior sternotomy are again noted. PLEURA: There is no pleural effusion. No pleural mass or thickening. AXILLA: No lymphadenopathy. UPPER ABDOMEN: Bilateral adrenal nodularity is stable. Previously seen cholelithiasis is not included on this thoracic CT. OSSEOUS STRUCTURES: Unremarkable. CT/CT chest wo IV con IMPRESSION: 1. Since 10/28/2022, there is been considerable improvement in previously seen bilateral groundglass opacities. 2. Persistent reticulonodular opacities in the anterior right mid and upper lung zones, nonspecific, but a pattern suggesting atypical mycobacteria. Other infectious, inflammatory and neoplastic processes are not excluded. Continued follow-up thoracic CT is recommended, perhaps in 3 months, to assess for continued improvement. 3. Dense aortic and mitral valve and left anterior descending coronary artery calcifications. 4. Stable mild thoracic adenopathy. Continued follow-up on subsequent studies is recommended. Fleischner guidelines were followed.
== END 2022-12-13 10:17 | disposition home or self-care (01) ==
LOC: HO.CT 10:16
PROVIDERS: Visit Provider Physician Assistant
DX: J18.9 Pneumonia, unspecified organism (principal); G93.49 Other encephalopathy; B99.9 Unspecified infectious disease
CPT/HCPCS: 71250

== ENCOUNTER 2022-12-23 14:30 | Outpatient (AMB) | payer OTHER, SELFPAY ==
[2022-12-23 14:31] VITALS: BP 118/64; PULSE 77; O2SAT 98; BMI 29.8
--- NOTE | 2022-12-23 14:31 | A.OFFPC_ITS ---
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 Allergies metformin Adverse Reaction (Intermediate, Unverified 12/23/22 15:29) diarhea Medication List - Last Reconciled 12/23/22 by Faraz Donahue MD acetaminophen 650 mg PO Q6H PRN albuterol sulfate 90 mcg/actuation (ProAir HFA) 2 puffs inhalation Q4-6H PRN apixaban (Eliquis) 5 mg PO BID ascorbic acid (vitamin C) 500 mg PO DAILY atorvastatin 80 mg PO BEDTIME carvedilol 12.5 mg PO BID ferrous sulfate 325 mg PO DAILY fluticasone propionate 50 mcg/actuation (Flonase Allergy Relief) 1 spray intranasal BID gabapentin 300 mg PO TID PRN [incontinence supplies adult large / x-large pull ups As directed] isosorbide mononitrate ER 30 mg PO DAILY latanoprost 0.005% 1 drp ophthalmic (eye) BEDTIME [Longer bed railings As directed] paroxetine HCl 40 mg PO DAILY [Raised toilet seat As directed] [Regular walker As directed] [Shower chair with arm As directed] sumatriptan succinate 25 mg PO DAILY PRN tramadol 50 mg PO Q12H PRN 90 days Tobacco use date assessed: 12/23/22 Fall risk assessment: No Falls in past year Last assessed Fall Risk: 12/23/22 Dental Screening Dental Screen Date: 12/23/22 Did you have a dental visit in the last 12 months?: Yes Did you have a dental problem in the last 6 months where you did not have access to dental care?: No Was dental information given to patient?: Patient has dentist HPI 3 MONTHS F/ U HPI Details 82-year-old overweight female with a his tory of seizure disorder generalized anxiety disorder hypertension COPD hypercholesterolemia controlled diabetes mellitus status post aortic valve replacement with bioprosthetic valve COPD and GERD coming in for follow-up last seen in August 2022. Review of the notes has a recent CT scanSince 10/28/2022, there is been considerable improvement in previously seen bilateral groundglass opacities. 2. Persistent reticulonodular opacities in the anterior right mid and upper lung zones, nonspecific, but a pattern suggesting atypical mycobacteria. Other infectious, inflammatory and neoplastic processes are not excluded. Continued follow-up thoracic CT is recommended, perhaps in 3 months, to assess for continued improvement. 3. Dense aortic and mitral valve and lef t anterior descending coronary artery calcifications. 4. Stable mild thoracic adenopathy. Cont inued follow-up on subsequent studies is recommended. ER visit for confusion treated for bronchitis. Question of Alzheimer's dementia. Patient was also admitted September for confusion diagnosis pneumonia. Patient is getting confused - indication of infection- - ? Mini-mental status is 27/30 discussed that will hold off from referral [facility] Medical History (Updated 12/12/22 @ 00:02 by Myrna Cervantes) Mixed incontinence urge and stress SOB (shortness of breath) Essential hypertension Hypertension COPD (chronic obstructive pulmonary disease) Urinary incontinence Osteoarthritis Osteoporosis Vitamin D deficiency Hypercholesterolemia Type 2 diabetes mellitus with hyperglycemia Abdominal aortic aneurysm without rupture Surgical History Status post aortic valve replacement with bioprosthetic valve History of colonoscopy History of heart valve replacement (~08/2013) History of right hip replacement (~08/2014) History of left hip replacement Family History Father No problems noted. Mother History of high cholesterol Social History Household Members: None Housing: Apartment Do you presently have visiting nurse or other home services: Yes Alcohol intake: never Patient Tobacco Use Status: Former Tobacco user Quit Date: 2021 Tobacco use type: Cigarette Years Smoked: 60 +/- e-Cigarette/Vaping Use: Never Used Second Hand Smoke Exposure: No Advance Directives Date on File: 02/10/21 service: No Current occupational status: retired Cognitive needs: Yes (walker) Hearing needs: No Vision needs: Yes Questionnaire Thrive Questionnaire Date Thrive assessed: 10/29/22 AUDIT C Alcohol Use Questionnaire (AUDIT-C) 1. How often do you have a drink containing alcohol?: Never 3. How often do you have six or more drinks on one occasion?: Never Total Score: 0 Score Reviewed/Action Taken: No VIVIAN-7 AMB Questionnaire VIVIAN-7 Date VIVIAN - 7 assessed: 04/10/22 Source: Developed by Drs. Herminio Zuluaga, Sofya David, Bacilio Dinero and colleagues, with an educational diane from [employer]. Physical exam (Primary Care) Vital Signs: Last Vital Signs Pulse 77 12/23/22 14:31 BP 118/64 12/23/22 14:31 Pulse Ox 98 12/23/22 14:31 Oxygen Delivery Method Room Air 12/23/22 14:31 BMI result Body Mass Index 29.8 Tobacco/Smoking Status: Tobacco use Status Tobacco use date assessed 12/23/22 12/23/22 14:32 Patient Tobacco Use Status Former Tobacco user 12/23/22 14:32 Tobacco use type Cigarette 12/23/22 14:32 e-Cigarette/Vaping Use Never Used 12/23/22 14:32 Thrive Assessment: Date of Thrive Assessment Date Thrive assessed 10/29/22 12/23/22 14:32 Const General: alert; No acute distress Eyes Conjunctivae: conjunctivae normal Resp Auscultation: clear to auscultation bilaterally Cardio Rate: regular rate Rhythm: regular rhythm GI Inspection: Yes normal to inspection Extrem General: Yes normal to inspection and No edema Results AMB Hemoglobin A1c AMB Hemoglobin A1c 6.2 % Last Edit by SANDRA Jasso on 12/23/22 14:45 Results Reviewed Results Reviewed: Laboratory Last Values Hgb A1c (Clinic) 6.2 % (4.0-6.0) H 12/23/22 14:26 Assessment and Plan Assessment & Plan (1) Multifocal pneumonia: Code(s): J18.9 - Pneumonia, unspecified organism Plan: Recent CT showing interstitial lung disease. (2) Hypertension: Comment: Echocardiogram August 2016 EF 60-65% borderline LVH grade 1 diastolic dysfunction normal prosthetic palpate, mild MR, September 2018 ejection fraction 60-65% grade 1 diastolic dysfunction moderate MR. May 2019 normal LV function mild left atrial enlargement bioprosthetic valve good Code(s): I10 - Essential (primary) hypertension Qualifiers: Hypertension type: essential hypertension Qualified Code(s): I10 - Essential (primary) hypertension Plan: Continue with blood pressure medication. Decrease salt intake and exercise (3) COPD (chronic obstructive pulmonary disease): Code(s): J44.9 - Chronic obstructive pulmonary disease, unspecified Qualifiers: COPD type: emphysema Emphysema type: panlobular Qualified Code(s): J43.1 - Panlobular emphysema Plan: Continue with inhalers (4) Hypercholesterolemia: Code(s): E78.00 - Pure hypercholesterolemia, unspecified Plan: Avoid fried foods, chicken skin, eggs, butter margarine, pastries and meat. Be it pork or beef they have a lot of cholesterol LDL goal of less than 70 and trig lyceride of less than 150 patient is on atorvastatin 80 mg at bedtime (5) Type 2 diabetes mellitus with hyperglycemia: Comment: Dr. 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 Controlled on diet control Orders: Orders Comprehensive Met. Panel Today I10 - Essential (primary) hypertension Thyroid Stimulating Hormone Today I10 - Essential (primary) hypertension Microalbumin, Random (w Creat) Today E11.65 - Type 2 diabetes mellitus with hyperglycemia, I10 - Essential (primary) hypertension Vitamin D 25-OH Total Today I10 - Essential (primary) hypertension AMB Hemoglobin A1c Today E11.65 - Type 2 diabetes mellitus with hyperglycemia Complete Blood Count Auto Diff Today I10 - Essential (primary) hypertension Free T4 (Free Thyroxine) Today I10 - Essential (primary) hypertension Vitamin B12 and Folate Today I10 - Essential (primary) hypertension Lipid Panel Today E78.00 - Pure hypercholesterolemia, unspecified, I10 - Essential (primary) hypertension Hemoglobin A1c Today I10 - Essential (primary) hypertension Creatinine Urine Today E11.65 - Type 2 diabetes mellitus with hyperglycemia, I10 - Essential (primary) hypertension Referrals Pulmonary Medicine Referral J18.9 - Pneumonia, unspecified organism Coding Level of Care Code Est Pt Level 4 (99779) Diagnoses Multifocal pneumonia J18.9 Essential hypertension I10 Hypertension type: essential hypertension 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
== END 2022-12-23 15:46 | disposition home or self-care (01) ==
PROVIDERS: PCP Internal Medicine; Visit Provider Internal Medicine
DX: J18.9 Pneumonia, unspecified organism (principal); I10 Essential (primary) hypertension; J43.1 Panlobular emphysema; E78.00 Pure hypercholesterolemia, unspecified; E11.65 Type 2 diabetes mellitus with hyperglycemia
CPT/HCPCS: 83036; 99214

== ENCOUNTER 2022-12-25 12:53 | Outpatient (REF) | payer OTHER, MEDICARE, SELFPAY ==
--- NOTE | 2022-12-25 12:56 | EEG_ITS ---
This is a 16 channel EEG with an EKG lead. The patient is reported awake during the tracing. Background EEG rhythm is 8 to 10 hertz 5 to 50 microvolt posteriorly and lower amplitude fast anteriorly. Photic stimulation does not produce any significant driving. Hyperventilation is not performed. Cardiac lead does not reveal any significant abnormality. Frequent muscle artifacts are noted. No sharp wave spikes or paroxysmal tendency noted. IMPRESSION: No significant abnormality noted on this EEG. MD KANNAN Banks/LEE / [phone]
== END 2022-12-25 12:54 | disposition home or self-care (01) ==
LOC: HO.NEURO 12:53
PROVIDERS: PCP Internal Medicine; Visit Provider Internal Medicine
DX: G40.909 Epilepsy, unspecified, not intractable, without status epilepticus (principal)
CPT/HCPCS: 95816

== ENCOUNTER → 2023-01-08 12:43 | Outpatient (BNVA) | payer OTHER, MEDICARE, SELFPAY | PROVIDERS: PCP Internal Medicine; Visit Provider Internal Medicine | DX: I25.10 Atherosclerotic heart disease of native coronary artery without angina pectoris (principal); I10 Essential (primary) hypertension; I42.8 Other cardiomyopathies; I46.9 Cardiac arrest, cause unspecified; I63.9 Cerebral infarction, unspecified; Z95.3 Presence of xenogenic heart valve | CPT/HCPCS: 99212 ==

== ENCOUNTER 2023-01-08 12:45 | Outpatient (AMB) | payer OTHER, MEDICARE, SELFPAY ==
--- NOTE | 2023-01-08 12:48 | A.OFFVIS_ITS ---
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 Accompanied by: Friend Allergies metformin Adverse Reaction (Intermediate, Verified 01/08/23 12:52) diarhea Medication List - Last Reconciled 01/08/23 by Joe Aiken MD albuterol sulfate 90 mcg/actuation (ProAir HFA) 2 puffs inhalation Q4-6H PRN apixaban (Eliquis) 5 mg PO BID ascorbic acid (vitamin C) 500 mg PO DAILY atorvastatin 80 mg PO BEDTIME carvedilol 12.5 mg PO BID ferrous sulfate 325 mg PO DAILY fluticasone propionate 50 mcg/actuation (Flonase Allergy Relief) 1 spray intranasal BID gabapentin 300 mg PO TID PRN [incontinence supplies adult large / x-large pull ups As directed] isosorbide mononitrate ER 30 mg PO DAILY latanoprost 0.005% 1 drp ophthalmic (eye) BEDTIME [Longer bed railings As directed] paroxetine HCl 40 mg PO DAILY [Raised toilet seat As directed] [Regular walker As directed] [Shower chair with arm As directed] sumatriptan succinate 25 mg PO DAILY PRN tramadol 50 mg PO Q12H PRN 90 days HPI HPI Comments History of Present Illness Details Harmony returns for follow up regarding aortic valve replacement and other cardiac concerns. To recall, she has a history of bioprosthetic aortic valve replacement from about 13 years ago.? At that time, it appears that she had a severe cardiomyopathy along with aortic stenosis.? No significant coronary disease by prior cardiology notes. Subsequently, she underwent valve replacement and her LV function normalized. Multiple other risk factors including diabetes, hypertension, dyslipidemia.? She also has some baseline COPD. She had a hospitalization at [facility] in 2021. It seems that patient initially came to [place] and the diagnosis was respiratory failure, fever and seizures. Then apparently intubated and transferred to [facility]. There was concern of cardiogenic shock and there was also elevated troponins. Subsequently, complicated by cardiac arrest with pulseless polymorphic VT. Then got treated by lidocaine and pacing and eventually got better. From Neurology notes, there are concerns about meningitis versus stroke/seizures. It seems that after a complicated stay in the hospital she went home. Patient herself has absolutely no memory of any of this and she does not know anything in fact. After this discharge, it seems that she was seen by Dr. Maynor Galvez at [facility]. Then started seeing us again. More recently, it seems she had admission for acute respiratory failure, encephalopathy multifocal pneumonia/sepsis. Discharged it another time. Patient still has shortness of breath/wheezing but no clear-cut angina. [facility] Medical History (Updated 12/12/22 @ 00:02 by Myrna Cervantes) Mixed incontinence urge and stress SOB (shortness of breath) Essential hypertension Hypertension COPD (chronic obstructive pulmonary disease) Urinary incontinence Osteoarthritis Osteoporosis Vitamin D deficiency Hypercholesterolemia Type 2 diabetes mellitus with hyperglycemia Abdominal aortic aneurysm without rupture Surgical History Status post aortic valve replacement with bioprosthetic valve History of colonoscopy History of heart valve replacement (~08/2013) History of right hip replacement (~08/2014) History of left hip replacement Family History Father No problems noted. Mother History of high cholesterol Social History Household Members: None Housing: Apartment Do you presently have visiting nurse or other home services: Yes Alcohol intake: never Patient Tobacco Use Status: Former Tobacco user Quit Date: 2021 Tobacco use type: Cigarette Years Smoked: 60 +/- e-Cigarette/Vaping Use: Never Used Second Hand Smoke Exposure: No Advance Directives Date on File: 02/10/21 service: No Current occupational status: retired Cognitive needs: Yes (walker) Hearing needs: No Vision needs: Yes Review of Systems Const Denies weakness ENT Denies dizziness Card Denies chest pain, Denies chest pain with activity, Denies syncope, Denies rapid heart rate, Denies pedal edema, Denies edema, Denies leg edema, Denies lightheadedness, Denies palpitations, Denies dyspnea, Denies dyspnea on exertion and Denies orthopnea Resp Denies cough, Denies dyspnea and Denies dyspnea on exertion GI Denies hematochezia and Denies change in stool character Musc Denies abnormal gait, Denies muscle cramps, Denies muscle weakness, Denies numbness, Denies radiating pain into limb and Denies tingling Neuro Denies abnormal gait, Denies dizziness, Denies syncope, Denies numbness, Denies tingling and Denies weakness Endo Denies palpitations Physical Exam Vital Signs: Last Vital Signs Pulse 77 01/08/23 12:49 BP 146/80 H 01/08/23 12:49 BMI result Body Mass Index 28.9 Const General: comfortable and no acute distress Orientation/consciousness: patient oriented x3 HEENT Other: Unremarkable Head: Yes normal to inspection Neck Neck: Yes normal visual inspection Chest Chest palpation & inspection: normal inspection of the chest Resp Auscultation: wheezes and diminished lung sounds Cardio Palpation: normal PMI Heart sounds: S1 normal heart sound present, S2 normal heart sound present, no gallops, Murmur heart sound present systolic II/ and at the right sternal border and no rubs GI Palpation (GI): Soft to palpation Back/Spine/Pelvis Other: unremarkable Skin General skin exam: no rashes or lesions noted Neuro General: patient oriented x3 Extrem General: Yes normal to inspection Psych Mental Status: mental status grossly normal Assessment & Plan Assessment & Plan (1) NICM (nonischemic cardiomyopathy): Code(s): I42.8 - Other cardiomyopathies Plan: History of cardiomyopathy with recovered EF. Another echocardiogram from August 2021 when she was sick and hospitalized showed LVEF of 20-30%. Wall motion abnormalities. However, a repeat study from November 2021 at [facility] showed recovered LVEF and no wall motion abnormalities. Hence could all be stress-induced cardiomyopathy. Will get another echocardiogram due to recent respiratory failure. For ischemia workup, may do dobutamine stress test as she does have wheezing may not be suitable for Lexiscan. Highly unlikely to also exercise on the treadmill. Recent chest CT scan shows dense aortic/mitral valve and LAD calcifications. Clinically, she does not have any congestive heart failure symptoms or signs. Continue carvedilol. She was on Losartan in the past but no longer in her list. (2) Status post aortic valve replacement with bioprosthetic valve: Code(s): Z95.3 - Presence of xenogenic heart valve Plan: Normal function based on last echo. Iinfective endocarditis prophylaxis per protocol. (3) CVA (cerebral vascular accident): Code(s): I63.9 - Cerebral infarction, unspecified Plan: Based on neurology note from [facility], there was a question of embolic infarcts on brain imaging. Hence it seems that she has been put on anticoagulation with Eliquis. No changes. (4) Cardiac arrest: Code(s): I46.9 - Cardiac arrest, cause unspecified Plan: [facility] documentation reviewed. It seems that she had cardiac arrest with pulseless VT that resolved with 1 cycle of CPR. Then managed with lidocaine and possibly temporary pacemaker. Overall, she seems to have recovered completely. Not known to have coronary disease based on prior catheterization but has been quite some time as it is from 2013. Any case, she seems to have recovered essentially completely with no residual effects whatsoever. Orders: Orders CA dobutamine stress w guy Today I25.10 - Atherosclerotic heart disease of [place] coronary artery without angina pectoris CA echo transthoracic complete Today I25.10 - Atherosclerotic heart disease of [place] coronary artery without angina pectoris, I42.8 - Other cardiomyopathies NM cardiolite stress test Today R07.2 - Precordial pain Coding Level of Care Code Est Pt Level 4 (41314) Diagnoses NICM (nonischemic cardiomyopathy) I42.8 Status post aortic valve replacement with bioprosthetic valve Z95.3 CVA (cerebral vascular accident) I63.9 Cardiac arrest I46.9
[2023-01-08 12:49] VITALS: BP 146/80; PULSE 77; BMI 28.9
== END 2023-01-08 13:12 | disposition home or self-care (01) ==
PROVIDERS: PCP Internal Medicine; Visit Provider Internal Medicine
DX: I42.8 Other cardiomyopathies (principal); Z95.3 Presence of xenogenic heart valve; I63.9 Cerebral infarction, unspecified; I46.9 Cardiac arrest, cause unspecified
CPT/HCPCS: 99214

== ENCOUNTER 2023-01-14 10:27 | Inpatient (IN) | payer OTHER, MEDICARE, SELFPAY ==
[2023-01-14] VITALS (23 sets, daily range): BP systolic 93–185; BP diastolic 46–100; PULSE 84–136; RESP 13–33; TEMP 29.8–38.8; O2SAT 87–100; BMI 29.9; BMI 31.5
--- NOTE | ~2023-01-14 | CT_ITS ---
Examination: CT brain, CT cervical spine and CT chest without contrast. CLINICAL INDICATION: Seizure. COMPARISON: CT brain 12/11/[address] chest 12/13/2022. TECHNIQUE: 5 mm thin axial and reformatted 2 mm thin sagittal and coronal images of brain were obtained. Axial 3 mm thin and reformatted 2 mm thin sagittal and coronal images of cervical spine were obtained. Lastly axial 5 mm thin and reformatted 3 mm thin sagittal and coronal images of chest were obtained without contrast. DLP 1508. This CT examination was performed using dose optimization technique as appropriate, variously including the following: Automated exposure control Adjustment of MA and/or KV according to patient size(this includes techniques or standardized protocols for targeted exams where dose is matched to indication/reason for exam; extremities or head. Use of iterative reconstruction techniques. FINDINGS: Brain: There is no acute intra-axial, extra-axial bleed, masses or midline shift. There is no acute infarction evolution. There is no edema. There is diffuse perinephric hypodensity in both cerebral hemispheres without mass effect. The lateral ventricles are symmetrical in size and mildly prominent. [place] to white matter differentiation is maintained. Bone windows reveal no calvarial abnormality. There is no scalp soft tissue abnormality. Bilateral paranasal sinuses and mastoid air cells are well-aerated. Cervical spine: On sagittal reconstructed images is maintained cervical lordosis. The vertebral heights and alignment is normal. There is loss of C3 C4-C5, C5-C6 and C6-C7 disc heights with mild ventral and moderate posterior spondylosis. There is mild superior spurring at the C1-C2 alignment. The craniovertebral junction and the C1-C2 alignment is normal. There is moderate left C2-C3, C3-C4 and bilateral C4-C5 facet joint arthropathy and hypertrophy. No visible acute fracture, dislocation or subluxation seen. Incidental finding of endotracheal tube noted. There is subpleural linear stranding likely chronic changes in both lung apices. No nodular mass seen. The prevertebral and paravertebral soft tissues are normal. CHEST: The lungs are well-expanded with patchy consolidation superior segment right lower lobe and groundglass density in both upper lobes and moderate right middle lobe. A subpleural linear stranding in both lungs likely chronic changes. No mass or pulmonary nodule visualized. There is an endotracheal tube with its tip approximately 3.4 cm above the neda there are small shotty lymph nodes in the mediastinum. Thyroid lobes are symmetrical. Heart size and the great vessels are normal caliber. Moderate to significant coronary artery calcification seen. There is mitral valve and aortic valve calcifications noted. No pericardial effusion seen. The axilla appears unremarkable. No aggressive lytic or sclerotic process seen. The median sternotomy sutures from previous intervention. No lytic or sclerotic process seen. Incidental note is made of idiopathic dependent gallstones. Liver and spleen appear unremarkable. A prominent left adrenal gland is noted. There is mild pleural thickening without calcification, effusion or pneumothorax. IMPRESSION. No acute intracranial process seen. Degenerative disc changes C3-C4-C5, C5-C6 and C6-C7 disc levels with ventral and posterior spondylosis. No visible acute fracture or dislocation seen in cervical spine. Multilobar infiltrates there is underlying chronic interstitial changes. Right posterior pleural thickening. Gallstones. Prominent left adrenal gland. Right basilar pleural thickening.
--- NOTE | ~2023-01-14 | XR_ITS ---
EXAMINATION: XR CHEST CLINICAL INFORMATION: Seizure . COMPARISON: CT chest 12/13/2022. TECHNIQUE: Frontal view of the chest was obtained. FINDINGS: The lungs are hypoexpanded with patchy opacity both upper lobes, and both midlung regions suggestive of multi lobar infiltrates heart size and pulmonary vascularity is normal. There is endotracheal tube with its tip 2.4 cm above the neda. There are median sternotomy sutures from previous intervention. No gross bony abnormalities seen. XR/XR chest 1V IMPRESSION: Hypoexpanded lungs with bilateral infiltrates. Endotracheal tube tip is 2.5 cm above the neda.
[2023-01-14] MEDS: LORazepam 2 MG/ML VIAL 4 MG IVPUSH ×2 (10:46→10:47)
--- NOTE | 2023-01-14 10:53 | ECG_ITS ---
Test Reason : seizure Blood Pressure : / mmHG Vent. Rate : 099 BPM Atrial Rate : 099 BPM P-R Int : 152 ms QRS Dur : 106 ms QT Int : 422 ms P-R-T Axes : 019 -42 051 degrees QTc Int : 541 ms Normal sinus rhythm Nonspecific ST abnormality Left anterior fascicular block Intra-ventricular conduction delay Septal infarct (cited on or before 11-DEC-2022) Abnormal ECG When compared with ECG of 11-DEC-2022 13:34, ST elevation now present in Anterolateral leads T wave inversion no longer evident in Anterolateral leads Referred By: Leonor Brar Electronically Signed By:IDA SCOTT MD
[2023-01-14 10:57] LABS: Glucose, Whole Blood 322 mg/dL (60-115)
[2023-01-14] MEDS: Etomidate 20 MG/10 ML VIAL IVPUSH (11:08)
[2023-01-14 11:15] LABS: MANUAL DIFF FLAG NO
[2023-01-14 11:19] LABS: Basophils Absolute Auto 0.2 X10*3/uL (0.0-0.2); Basophils Percent Auto 0.8 % (0-2); Eosinophils Absolute Auto 0.1 X10*3/uL (0.0-0.4); Eosinophils Percent Auto 0.3 % (0-4); Hematocrit 45.1 % (37.0-47.0); Imm Gran Pct Auto 0.5 % (0.0-0.4); Lymphocytes Absolute Auto 3.9 X10*3/uL (1.2-4.9); Lymphocytes Percent Auto 21.4 % (20-40); Mean Corpuscular Hemoglobin 29.9 pg (27.0-33.0); Mean Corpuscular Volume 96.2 fL (80.0-98.0); Mean Platelet Volume 10.9 fL (9.4-12.3); Monocytes Percent Auto 5.7 % (2-11); Neutrophils Percent Auto 71.3 % (45-73); Platelet Count 335 X10*3/uL (160-400); Red Blood Count 4.69 X10*6/uL (4.20-5.50); Red Cell Distribution Width 13.4 % (11.0-16.0); White Blood Count 18.3 X10*3/uL (4.8-10.8)
[2023-01-14] MEDS: propofoL 1,000 MG/100 ML VIAL 15.1 MG IVCONT ×2 (11:20→15:51)
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
[2023-01-14 11:41] LABS: Lactic Acid 14.7 mmol/L (0.5-2.0)
[2023-01-14 11:44] LABS: Alanine Aminotransferase 12 U/L (0-31); Albumin Level 3.8 g/dL (3.5-5.0); Alkaline Phosphatase 124 U/L (39-117); Anion Gap 27 (12-20); Aspartate Amino Transferase 23 U/L (5-31); Bilirubin Direct 0.2 mg/dL (0.0-0.5); Bilirubin Total 0.6 mg/dL (0.0-1.0); Blood Urea Nitrogen 18 mg/dL (9-16); Calcium 9.1 mg/dL (8.4-10.2); Carbon Dioxide 15 mmol/L (22-29); Chloride 101 mmol/L (96-108); Creatinine Clr Calc Pharmacy 30.9; Estimated Glomerular Filt Rate 33; Glucose Random 347 mg/dL (60-115); Lipase 11 U/L (8-78); Potassium 3.4 mmol/L (3.3-5.1); Sodium 139 mmol/L (135-145); Total Protein 7.9 g/dL (6.5-8.0)
[2023-01-14 11:45] LABS: Troponin-I High Sensitivity 136.1 ng/L (<3.5-17.0)
[2023-01-14 12:26] LABS: Venous Blood Gas Refer to POC result
[2023-01-14 12:28] LABS: VBG pCO2 39 mmHg; VBG pH 7.09 (7.32-7.43); VBG pO2 119 mmHg
[2023-01-14 12:29] LABS: VBG Base Excess -16.7 mmol/L; VBG HCO3 12 mmol/L (22-26)
--- NOTE | 2023-01-14 12:34 | MHC.EDTECH ---
This pct attempted to draw labs on patient(blood cultures) but was unsuccessful twice. RN Aware
[2023-01-14] MEDS: cefEPime HCl 2 GM in 0.9 % Sodium Chloride 50 ML IV (12:36)
[2023-01-14] MEDS: 0.9 % Sodium Chloride 1,000 ML 999 ML IVCONT ×2 (12:36→15:55)
--- NOTE | 2023-01-14 12:39 | PC.NURSE ---
PT DIFFICULT IV STICK. PROPOFOL RUNNING IN LEFT ARM DIFFICULTY ATTEMPTING TO GET SECOND SET OF BLOOD CULTURES. SEPSIS COORDINATOR NOTIFIED. ABX WILL BE HUNG AND WILL ATTEMPT TO GET SECOND SET OF CULTURES.
[2023-01-14 12:48] LABS: Magnesium 2.1 mg/dL (1.6-2.6)
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
--- NOTE | 2023-01-14 12:58 | PC.NURSE ---
temp sensing cowan placed and 125cc urine output upon insertion. 16 Fr OG tube successfully placed and secured with positive audibility and gastric secretion output.
[2023-01-14 13:13] LABS: Appearance Urine Cloudy; Color Urine Yellow; Glucose Urine UA Negative (Negative); Leukocyte Esterase Urine Negative (Negative); Nitrite Urine Negative (Negative); UMIC TRIGGER UACC YES; Urine Blood Moderate (2+) (Negative); Urine Ketones Negative (Negative); Urine Protein 300 (3+) mg/dL (Neg-Trace)
--- NOTE | 2023-01-14 13:13 | PHA.MEDREC ---
Pharmacy Consult ? Medication Reconciliation Pharmacy has completed the medication reconciliation.med rec done using claim history due to pt current mental status.
[2023-01-14 13:16] LABS: Reflex Lactate? Lactic Acid Added
[2023-01-14 13:29] LABS: Bacteria Urine 4+ (None Seen); RBC Urine 0-2 /HPF (0-2); WBC Urine 0-5 /HPF (0-5)
[2023-01-14 13:36] LABS: Venous Blood Gas Refer to POC result
--- NOTE | 2023-01-14 13:36 | PC.NURSE ---
pt coming from home after being found unresponsive by friend. when EMS arrived, pt was able to respond to verbal stimuli and was able to tell EMS that she had to vomit. pt vomited small amount of bile at home. per EMS, pt was stable while en route. a 20G IV was placed to the right hand and a 500cc bag of fluids were hung. pt started seizing with EMS at approx 1026 upon arrival to the ED. pt was given 4mg ativan IV, seizure broke around 1034 and pt was able to yell and move all extremities. seizure-like activity started again around 1036 and another 4mg IV ativan was given. due to respiratory effort, the decision was made by the providers to intubate the pt. RSI kit was obtained from charge nurse desk. 20mg etomidate went in at 1109. 80mg rocuronium went in at 1110. pt officially intubated at 1111 with immediate positive color change. 7.5 ETT, 25 at the lip. chest x-ray showed positive placement of ET tube. EKG obtained, labs drawn, and a second 20G IV was placed to the pt's left forearm. propofol and keppra was started. pt brought to CT scan. abx and an additional liter of fluids hung once keppra was infused. OG tube and temp sensing cowan were placed. pt tolerated well. at times, it appears the pt is posturing. otherwise vitals stable at this time. pt is currently resting quietly on stretcher, awaiting admission to ICU. plan of care ongoing.
[2023-01-14 13:37] LABS: VBG Base Excess -4.8 mmol/L; VBG HCO3 19 mmol/L (22-26); VBG pCO2 35 mmHg; VBG pH 7.35 (7.32-7.43); VBG pO2 49 mmHg
[2023-01-14 13:47] LABS: Amphetamine Screen Urine Not Detected (Not Detect); Barbiturates, Urine Not Detected (Not Detect); Benzodiazepines Screen Urine Not Detected (Not Detect); Cannabinoid Screen Urine Not Detected (Not Detect); Cocaine Screen Urine Not Detected (Not Detect); Fentanyl, urine Not Detected (Not Detect); Opiate Screen Urine Not Detected (Not Detect); Phencyclidine Screen Urine Not Detected (Not Detect)
[2023-01-14 13:53] LABS: Ethanol < 10 mg/dL
[2023-01-14] MEDS: Magnesium Sulfate/H2O 2 GM/50 ML PIGGYBACK IV (14:00)
[2023-01-14] MEDS: vancomycin/NS 2,000 MG/500 ML PLAST..BAG 250 MG IV (14:12)
[2023-01-14 14:27] LABS: Troponin-I High Sensitivity 127.8 ng/L (<3.5-17.0); ~Lactic Acid-LAB USE ONLY 3.5 mmol/L (0.5-2.0)
[2023-01-14 14:32] LABS: Folate 14.7 ng/mL (> or = 4.0); Vitamin B12 540 pg/mL (200-900)
[2023-01-14 14:54] LABS: Acetaminophen LAB < 17 mcg/mL (<30); Salicylate < 5.0 mg/dL (15-30)
[2023-01-14] MEDS: Chlorhexidine Gluc Oral Rinse 15 ML MOUTHWASH BUCCAL (15:46)
[2023-01-14] MEDS: Acetaminophen Supp 650 MG SUPP.RECT PR (15:46)
[2023-01-14 15:52] LABS: VBG Base Excess -5.4 mmol/L; VBG HCO3 15 mmol/L (22-26); VBG pCO2 19 mmHg; VBG pH 7.49 (7.32-7.43); VBG pO2 71 mmHg
[2023-01-14 15:54] LABS: Reflex Lactate? 2 Y
[2023-01-14] MEDS: Piperacillin Sodium/Tazobactam 3.375 GM in 0.9 % Sodium Chloride 50 ML IV (15:55)
[2023-01-14] MEDS: Enoxaparin Sodium 40 MG/0.4 ML SYRINGE SUBCUT (15:59)
--- NOTE | 2023-01-14 16:37 | W.MHC.ACPN ---
Advanced Care Planning Note Advanced Care Planning Note Discussed with: family member(s) Time spent (in minutes): 45 Narrative: Ms. Wu's friend and healthcare proxy, Ms. Williamson, as well as Ms. Wu's grandaughter, Britt, were at bedside. I offered updates and clarifications. Ms. Williamson reports Ms. Wu has been very clear that she is DNR, DNI. Ms. Wu has had a series of unfortunate events, including the of her and children. In recent years, Ms. Wu has expressed that she has had nothing to live for, and is ready to pass onto the next life. Ms. Wu also has also had a recent stroke, during that admission she suffered from a cardiac arrest. It appears that after her stroke, she has been suffering from seizures, that seem to occur when she has a pneumonia. We discussed that Ms. Wu likely recurrently aspirates due to her prior stroke. This in turn decreases her seizure threshold, resulting in this cycle of aspiration and seizure. Ms. Shen were adamant that Ms. Wu would not want to be intubated and prefer that Ms. Wu be extubated as soon as possible. We clarified that she would not be reintubated. Furthermore, she will main her DNR status. We also discussed central venous lines, arterial lines, vasopressors, hemodialysis, and non-invasive ventilation, all of which Ms. Shen said Ms. Wu would not want. At the same time, Ms. Shen would prefer that we do not transition Ms. Wu's philosophy of care to comfort-focused care yet. We discussed that it is reasonable to continue giving Ms. Wu antibiotics and anti-seizure medications, but that in the event Ms. Wu becomes more ill, we will not escalate care further and at that time, re-consider comfort-focused care. Problems Discussed (1) Status epilepticus: (2) Aspiration pneumonia:
[2023-01-14 16:38] LABS: Alanine Aminotransferase 11 U/L (0-31); Albumin Level 3.2 g/dL (3.5-5.0); Alkaline Phosphatase 104 U/L (39-117); Anion Gap 18 (12-20); Aspartate Amino Transferase 26 U/L (5-31); Bilirubin Total 0.7 mg/dL (0.0-1.0); Blood Urea Nitrogen 18 mg/dL (9-16); Calcium 8.7 mg/dL (8.4-10.2); Carbon Dioxide 19 mmol/L (22-29); Chloride 110 mmol/L (96-108); Estimated Glomerular Filt Rate 43; Glucose Random 183 mg/dL (60-115); Potassium 4.7 mmol/L (3.3-5.1); Sodium 142 mmol/L (135-145); Total Protein 6.6 g/dL (6.5-8.0)
[2023-01-14 16:44] LABS: Glucose, Whole Blood 161 mg/dL (60-115)
[2023-01-14 16:47] LABS: Basophils Absolute Auto 0.1 X10*3/uL (0.0-0.2); Basophils Percent Auto 0.4 % (0-2); Eosinophils Percent Auto 0.1 % (0-4); Hematocrit 39.8 % (37.0-47.0); Hemoglobin 13.4 g/dl (12.0-16.0); Imm Gran Abs Auto 0.07 X10*3/uL (0.00-0.03); Imm Gran Pct Auto 0.5 % (0.0-0.4); Lymphocytes Absolute Auto 1.7 X10*3/uL (1.2-4.9); Lymphocytes Percent Auto 11.9 % (20-40); MANUAL DIFF FLAG SCAN; Mean Corpuscular HGB Conc 33.7 g/dl (31.0-35.0); Mean Corpuscular Hemoglobin 30.2 pg (27.0-33.0); Mean Corpuscular Volume 89.6 fL (80.0-98.0); Monocytes Absolute Auto 1.4 X10*3/uL (0.1-1.2); Monocytes Percent Auto 9.7 % (2-11); Neutrophils Absolute Auto 10.7 x10*3/uL (2.0-8.3); Neutrophils Percent Auto 77.4 % (45-73); PLT CLUMP 1; Red Blood Count 4.44 X10*6/uL (4.20-5.50); Red Cell Distribution Width 13.4 % (11.0-16.0); SCAN SMEAR FLAG 1
[2023-01-14 16:56] LABS: Venous Blood Gas Refer to POC result
[2023-01-14 17:11] LABS: Platelet Count 178 X10*3/uL (160-400); White Blood Count 13.9 X10*3/uL (4.8-10.8)
[2023-01-14 17:12] LABS: SLIDE REVIEW VERIFIED
--- NOTE | 2023-01-14 17:25 | PC.NURSE ---
Addendum entered by Malika Mathews RN 01/14/23 18:37: 1730- MD and HCP at bedside, discussing patient status-Pt. transitioned to [facility]. Fentanyl gtt titrated for comfort/WOB. PRN medications given per EMAR. Acoustical Logging Engineer notified and at bedside with family. Original Note: Patient arrived to ICU approx. 1545- intubated and sedated with propofol gtt, tolerating AC settings. HCP at bedside, goals of care discussion held between HCP and MD. Decision made by HCP to extubate. Propofol stopped per EMAR. MD and RT at bedside, patient extubated by RT at 1710 per MD order. Patient placed on 2L NC. Patient O2 sats 99-100%, labored belly breathing, audible gasping. HCP remains at bedside, updated by MD and this RN.
--- NOTE | 2023-01-14 17:41 | W.MHC.ACPN ---
Advanced Care Planning Note Advanced Care Planning Note Discussed with: family member(s) Time spent (in minutes): 30 Narrative: Ms. Williamson and Britt were at bedside after Ms. Wu was extubated. Ms. Wu was exhibiting signs and symptoms of dyspnea. We agreed that she appears uncomfortable. We discussed comfort-focused care again. After, it was decided to transition Ms. Wu's philosophy of care to comfort-focused care. Problems Discussed (1) Status epilepticus: (2) Aspiration pneumonia:
[2023-01-14] MEDS: fentaNYL citrate/NS 1,000 MCG/100 ML PLAST..BAG 2.5 MCG IVCONT (17:49)
[2023-01-14] MEDS: HYDROmorphone HCl 1 MG/ML SYRINGE IVPUSH ×2 (17:57→19:18)
[2023-01-14 18:08] LABS: MRSA Nasal PCR NEGATIVE (Negative); SA Nasal PCR NEGATIVE (Negative)
[2023-01-14 18:24] LABS: Appearance Urine Clear; Color Urine Yellow; Glucose Urine UA Negative (Negative); Leukocyte Esterase Urine Negative (Negative); Nitrite Urine Negative (Negative); UMIC TRIGGER UA YES; Urine Blood Moderate (2+) (Negative); Urine Ketones Negative (Negative); Urine Protein 100 (2+) mg/dL (Neg-Trace)
[2023-01-14 18:53] LABS: Bacteria Urine 4+ (None Seen); WBC Urine 0-5 /HPF (0-5)
[2023-01-14] MEDS: LORazepam 2 MG/ML VIAL 0.5 MG IM (19:54)
[2023-01-15] VITALS (11 sets, daily range): BP systolic 119; BP diastolic 56; PULSE 97–120; RESP 13–24; TEMP 37.2; O2SAT 83–86
[2023-01-15] MEDS: fentaNYL citrate/NS 1,000 MCG/100 ML PLAST..BAG 12.5 MCG IVCONT (01:00)
[2023-01-15] MEDS: LORazepam 2 MG/ML VIAL 0.5 MG IM (05:00)
[2023-01-15] MEDS: HYDROmorphone HCl 1 MG/ML SYRINGE IVPUSH ×3 (05:15→16:45)
--- NOTE | 2023-01-15 07:49 | P.PNCC_ITS ---
Subjective Subjective Date of Service: 01/15/23 Interval History: no interval overnight events Critical Care Time (minutes): 0 Physical Exam 2 Vital Signs: Vital Signs: Last Vital Signs Temp 100.4 F 01/14/23 18:00 Pulse 101 H 01/15/23 07:00 Resp 14 01/15/23 07:00 BP 109/48 L 01/14/23 19:55 Pulse Ox 83 L 01/15/23 07:00 O2 Del Method Room Air 01/15/23 07:00 O2 Flow Rate 2 01/14/23 19:55 FiO2 21 01/14/23 16:59 Oxygen Flow Rate 4 01/14/23 10:40 BMI result Body Mass Index 31.5 Const: General: comfortable, no acute distress and well developed HEENT: Head: Yes normal to inspection Neck: Neck: Yes normal visual inspection Chest: Chest palpation & inspection: normal inspection of the chest Resp: Effort & Inspection: normal respiratory effort Cardio: Rate: regular rate Rhythm: regular rhythm Objective Data Labs 01/14/23 16:04 01/14/23 16:04 Labs: Laboratory Results - last 24 hr 01/14/23 01/14/23 01/14/23 10:38 10:59 10:59 WBC 18.3 H RBC 4.69 Hgb 14.0 Hct 45.1 MCV 96.2 MCH 29.9 MCHC 31.0 RDW 13.4 Plt Count 335 D MPV 10.9 Immature Gran % (Auto) 0.5 H Neut % (Auto) 71.3 Lymph % (Auto) 21.4 [place] % (Auto) 5.7 Eos % (Auto) 0.3 Baso % (Auto) 0.8 Lymph # (Auto) 3.9 [place] # (Auto) 1.0 Eos # (Auto) 0.1 Baso # (Auto) 0.2 Abs Immat Gran (auto) 0.10 H Absolute Neuts (auto) 13.0 H Absolute Nucleated RBC 0.000 Nucleated RBC % (auto) 0.0 Smear Tech's Comments VBG pH VBG pCO2 VBG pO2 VBG HCO3 VBG O2 Saturation VBG Base Excess Sodium 139 Potassium 3.4 D Chloride 101 Carbon Dioxide 15 L Anion Gap 27 H BUN 18 H Creatinine 1.50 H Estim Creat Clear Calc 30.9 Estimated GFR 33 POC Glucose 322 H Random Glucose 347 H Lactic Acid 14.7 H* Lactic Acid F/U @ 2Hr Calcium 9.1 Magnesium 2.1 Cancelled Total Bilirubin 0.6 Direct Bilirubin 0.2 AST 23 ALT 12 Alkaline Phosphatase 124 H Total Creatine Kinase 86 Troponin I High Sens 136.1 H* Total Protein 7.9 Albumin 3.8 Lipase 11 Vitamin B12 Folate Urine Color Urine Appearance Urine pH Ur Specific [place] Urine Protein Urine Glucose (UA) Urine Ketones Urine Blood Urine Nitrite Ur Leukocyte Esterase Urine RBC Urine WBC Ur Squamous Epith Cells Urine Bacteria Hyaline Casts Nasal Screen MRSA (PCR) Nasal S. aureus Screen Nasal MRSA/S.aureus Interp Salicylates Urine Opiates Screen Urine Fentanyl Screen Acetaminophen Ur Barbiturates Screen Ur Phencyclidine Scrn Ur Amphetamines Screen U Benzodiazepines Scrn Urine Cocaine Screen U Marijuana (THC) Screen Ethyl Alcohol < 10 01/14/23 01/14/23 01/14/23 10:59 12:17 13:03 WBC RBC Hgb Hct MCV MCH MCHC RDW Plt Count MPV Immature Gran % (Auto) Neut % (Auto) Lymph % (Auto) [place] % (Auto) Eos % (Auto) Baso % (Auto) Lymph # (Auto) [place] # (Auto) Eos # (Auto) Baso # (Auto) Abs Immat Gran (auto) Absolute Neuts (auto) Absolute Nucleated RBC Nucleated RBC % (auto) Smear Tech's Comments VBG pH 7.09 L* VBG pCO2 39 VBG pO2 119 VBG HCO3 12 L VBG O2 Saturation 98.0 VBG Base Excess -16.7 Sodium Potassium Chloride Carbon Dioxide Anion Gap BUN Creatinine Estim Creat Clear Calc Estimated GFR POC Glucose Random Glucose Lactic Acid Lactic Acid F/U @ 2Hr Calcium Magnesium Total Bilirubin Direct Bilirubin AST ALT Alkaline Phosphatase Total Creatine Kinase Troponin I High Sens Total Protein Albumin Lipase Vitamin B12 Folate Urine Color Yellow Urine Appearance Cloudy Urine pH 6.0 Ur Specific [place] 1.020 Urine Protein 300 (3+) H Urine Glucose (UA) Negative Urine Ketones Negative Urine Blood Moderate (2+) H Urine Nitrite Negative Ur Leukocyte Esterase Negative Urine RBC 0-2 Urine WBC 0-5 Ur Squamous Epith Cells 3-5 Urine Bacteria 4+ Hyaline Casts 3-5 Nasal Screen MRSA (PCR) Nasal S. aureus Screen Nasal MRSA/S.aureus Interp Salicylates Urine Opiates Screen Not Detected Urine Fentanyl Screen Not Detected Acetaminophen Ur Barbiturates Screen Not Detected Ur Phencyclidine Scrn Not Detected Ur Amphetamines Screen Not Detected U Benzodiazepines Scrn Not Detected Urine Cocaine Screen Not Detected U Marijuana (THC) Screen Not Detected Ethyl Alcohol Cancelled 01/14/23 01/14/23 01/14/23 13:27 13:30 13:49 WBC RBC Hgb Hct MCV MCH MCHC RDW Plt Count MPV Immature Gran % (Auto) Neut % (Auto) Lymph % (Auto) [place] % (Auto) Eos % (Auto) Baso % (Auto) Lymph # (Auto) [place] # (Auto) Eos # (Auto) Baso # (Auto) Abs Immat Gran (auto) Absolute Neuts (auto) Absolute Nucleated RBC Nucleated RBC % (auto) Smear Tech's Comments VBG pH 7.35 VBG pCO2 35 VBG pO2 49 VBG HCO3 19 L VBG O2 Saturation 78.0 VBG Base Excess -4.8 Sodium Potassium Chloride Carbon Dioxide Anion Gap BUN Creatinine Estim Creat Clear Calc Estimated GFR POC Glucose Random Glucose Lactic Acid Lactic Acid F/U @ 2Hr 3.5 H* Calcium Magnesium Total Bilirubin Direct Bilirubin AST ALT Alkaline Phosphatase Total Creatine Kinase Troponin I High Sens 127.8 H* Total Protein Albumin Lipase Vitamin B12 540 Folate 14.7 Urine Color Urine Appearance Urine pH Ur Specific [place] Urine Protein Urine Glucose (UA) Urine Ketones Urine Blood Urine Nitrite Ur Leukocyte Esterase Urine RBC Urine WBC Ur Squamous Epith Cells Urine Bacteria Hyaline Casts Nasal Screen MRSA (PCR) Nasal S. aureus Screen Nasal MRSA/S.aureus Interp Salicylates < 5.0 L Urine Opiates Screen Urine Fentanyl Screen Acetaminophen < 17 Ur Barbiturates Screen Ur Phencyclidine Scrn Ur Amphetamines Screen U Benzodiazepines Scrn Urine Cocaine Screen U Marijuana (THC) Screen Ethyl Alcohol 01/14/23 01/14/23 01/14/23 15:46 16:04 16:16 WBC 13.9 H RBC 4.44 Hgb 13.4 Hct 39.8 MCV 89.6 D MCH 30.2 MCHC 33.7 RDW 13.4 Plt Count 178 D MPV Not Reportable Immature Gran % (Auto) 0.5 H Neut % (Auto) 77.4 H Lymph % (Auto) 11.9 L [place] % (Auto) 9.7 Eos % (Auto) 0.1 Baso % (Auto) 0.4 Lymph # (Auto) 1.7 [place] # (Auto) 1.4 H Eos # (Auto) 0.0 Baso # (Auto) 0.1 Abs Immat Gran (auto) 0.07 H Absolute Neuts (auto) 10.7 H Absolute Nucleated RBC 0.000 Nucleated RBC % (auto) 0.0 Smear Tech's Comments VERIFIED VBG pH 7.49 H VBG pCO2 19 VBG pO2 71 VBG HCO3 15 L VBG O2 Saturation 95.0 VBG Base Excess -5.4 Sodium 142 Potassium 4.7 D Chloride 110 H Carbon Dioxide 19 L Anion Gap 18 BUN 18 H Creatinine 1.19 Estim Creat Clear Calc 39.0 Estimated GFR 43 POC Glucose Random Glucose 183 H Lactic Acid Lactic Acid F/U @ 2Hr Calcium 8.7 Magnesium Total Bilirubin 0.7 Direct Bilirubin AST 26 ALT 11 Alkaline Phosphatase 104 Total Creatine Kinase Troponin I High Sens Total Protein 6.6 Albumin 3.2 L Lipase Vitamin B12 Folate Urine Color Yellow Urine Appearance Clear Urine pH 6.0 Ur Specific [place] 1.020 Urine Protein 100 (2+) H Urine Glucose (UA) Negative Urine Ketones Negative Urine Blood Moderate (2+) H Urine Nitrite Negative Ur Leukocyte Esterase Negative Urine RBC 3-5 H Urine WBC 0-5 Ur Squamous Epith Cells 3-5 Urine Bacteria 4+ Hyaline Casts 3-5 Nasal Screen MRSA (PCR) NEGATIVE Nasal S. aureus Screen NEGATIVE Nasal MRSA/S.aureus Interp SEE NOTE Salicylates Urine Opiates Screen Urine Fentanyl Screen Acetaminophen Ur Barbiturates Screen Ur Phencyclidine Scrn Ur Amphetamines Screen U Benzodiazepines Scrn Urine Cocaine Screen U Marijuana (THC) Screen Ethyl Alcohol 01/14/23 16:40 WBC RBC Hgb Hct MCV MCH MCHC RDW Plt Count MPV Immature Gran % (Auto) Neut % (Auto) Lymph % (Auto) [place] % (Auto) Eos % (Auto) Baso % (Auto) Lymph # (Auto) [place] # (Auto) Eos # (Auto) Baso # (Auto) Abs Immat Gran (auto) Absolute Neuts (auto) Absolute Nucleated RBC Nucleated RBC % (auto) Smear Tech's Comments VBG pH VBG pCO2 VBG pO2 VBG HCO3 VBG O2 Saturation VBG Base Excess Sodium Potassium Chloride Carbon Dioxide Anion Gap BUN Creatinine Estim Creat Clear Calc Estimated GFR POC Glucose 161 H Random Glucose Lactic Acid Lactic Acid F/U @ 2Hr Calcium Magnesium Total Bilirubin Direct Bilirubin AST ALT Alkaline Phosphatase Total Creatine Kinase Troponin I High Sens Total Protein Albumin Lipase Vitamin B12 Folate Urine Color Urine Appearance Urine pH Ur Specific [place] Urine Protein Urine Glucose (UA) Urine Ketones Urine Blood Urine Nitrite Ur Leukocyte Esterase Urine RBC Urine WBC Ur Squamous Epith Cells Urine Bacteria Hyaline Casts Nasal Screen MRSA (PCR) Nasal S. aureus Screen Nasal MRSA/S.aureus Interp Salicylates Urine Opiates Screen Urine Fentanyl Screen Acetaminophen Ur Barbiturates Screen Ur Phencyclidine Scrn Ur Amphetamines Screen U Benzodiazepines Scrn Urine Cocaine Screen U Marijuana (THC) Screen Ethyl Alcohol Progress Note: A&P Assessment and plan (1) Status epilepticus: Status: Acute (2) Acute hypoxemic respiratory failure: Status: Acute (3) Aspiration pneumonia: Status: Acute Plan Patient is a 82 Y F with epilepsy, hypertension, diabetes mellitus, COPD, and reportedly prior cardiac arrest, presenting with status epilepticus, intubated; of note, patient DNR, DNI; patient philosophy of care was changed to comfort- focused care N: appears comfortable on fentanyl gtt, to change to morphine gtt CV: hypotension, 100s/40s R: hypoxia, 80s GI, , H, ID, E: no acute issues S: healthcare proxy Ms. Clay Pierson Stroke Does the patient have a stroke diagnosis?: No VTE Prior VTE?: No VTE Risk Level:: Medical - moderate - high VTE Device Contraindication: Treatment Not Indicated VTE Drug Contraindication: Treatment Not Indicated
[2023-01-15] MEDS: Morphine Sulfate 2 MG/ML CARTRIDGE IVPUSH (08:51)
--- NOTE | 2023-01-15 09:25 | MHC.CLN ---
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
[2023-01-15] MEDS: Morphine Sulfate/NS 100 MG/100 ML PLAST..BAG IVCONT (09:28)
--- NOTE | 2023-01-15 10:04 | MHC.CM.PN ---
IMM ADDRESSED WITH FAMILY AT BEDSIDE IN ICU. +HCP ON FILE. 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 SUPPORT OFFERED TO FAMILY AND CM WILL CONTINUE TO FOLLOW FOR ANY CHANGE IN DC PLAN.
--- NOTE | 2023-01-15 13:15 | P.CDIM_ITS ---
PROVIDER RESPONSE TEXT: To clarify, the appropriate diagnosis supported by the clinical indicators: Respiratory failure with hypoxia: acute QUERY TEXT: PHYSICIAN'S DOCUMENTATION REQUEST Date of Query: 01/15/2023 07:50 AM EDT Patient Name: Harmony Wu Admit Date: 01/14/2023 Dear Laura Breaux, A review of the medical record indicates additional documentation may be needed. Please review below and update the documentation accordingly. Respiratory failure was documented on (insert date). Clinical Indicators: ED: 01/14 - Intubated due to respiratory failure 2/2 altered mentation again in the setting of status epilepticus. In the setting of the CT chest with concern for bilateral infiltrates ? aspiration. Patient is afebrile, tachycardic, normotensive with hypoxia and bradypnea. Patient developed decreased respiratory effort in the setting of continued seizure activity. ICU admit Advanced care planning If possible, please further clarify the type and acuity of respiratory failure: Respiratory failure with hypoxia Please specify acuity as Acute, Chronic, or Acute on chronic if known Respiratory failure with hypercapnia Please specify acuity as Acute, Chronic, or Acute on chronic if known Respiratory failure with hypoxia and hypercapnia Please specify acuity as Acute, Chronic, or Acute on chronic if known Other (explain)Clinically unable to determine (explain)Thank you, Anna Calvert, CCS, CDIS Use of terms such as suspected, likely, concern for, or probable (associated with a specific diagnosi s that is being evaluated, monitored, or treated as if it exists) are acceptable and can be coded in the inpatient se tting, when documented at the time of discharge. Please use your independent medical judgment in providing your response. THIS QUERY IS PART OF THE PERMANENT MEDICAL RECORD
--- NOTE | 2023-01-16 10:21 | P.PNIM_ITS ---
Subjective Subjective Date of Service: 01/16/23 Physical Exam 2 Vital Signs: Vital Signs: Last Vital Signs Temp 99.0 F 01/15/23 19:36 Pulse 120 H 01/15/23 19:36 Resp 24 H 01/15/23 19:36 BP 119/56 L 01/15/23 19:36 Pulse Ox 83 L 01/15/23 07:00 O2 Del Method Room Air 01/15/23 07:00 O2 Flow Rate 2 01/14/23 19:55 FiO2 21 01/14/23 16:59 Oxygen Flow Rate 4 01/14/23 10:40 BMI result Body Mass Index 31.5 Const: Other: awake, non talking, appear comfortable Objective Data Active Medications Hydromorphone HCl (Hydromorphone Hcl 1 Mg/Ml Syringe) 1 mg IVPUSH Q15M PRN PRN Reason: Discomfort/Shortness of breath Last Admin: 01/15/23 16:45 Dose: 1 mg Documented By: CHARMAINE Fentanyl (Sublimaze/Ns) 1,000 mcg in 100 mls @ 0 mls/hr IVCONT .Q0M GRETA; Protocol Last Titration: 01/15/23 09:28 Dose: Infused Documented By: SOFIA Acetaminophen (Ofirmev) 1,000 mg in 100 mls @ 400 mls/hr IV QID PRN PRN Reason: Fever Morphine Sulfate (Morphine Sulfate/Ns) 100 mg in 100 mls @ 0 mls/hr IVCONT .Q0M GRETA; Protocol Last Infusion: 01/15/23 13:26 Dose: 3 mg/hr, 3 mls/hr Documented By: SOFIA Lorazepam (Lorazepam 2 Mg/Ml Vial) 0.5 mg IM Q2H PRN PRN Reason: Anxiety Last Admin: 01/15/23 05:00 Dose: 0.5 mg Documented By: SIL Comments: Given sublingual per Olaf LEIJA Morphine Sulfate (Morphine Sulfate 2 Mg/Ml Cartridge) 2 mg IVPUSH Q15M PRN PRN Reason: Discomfort/Shortness of breath Last Admin: 01/15/23 08:51 Dose: 2 mg Documented By: SOFIA Ondansetron HCl (Ondansetron Hcl 4 Mg/2 Ml Vial) 4 mg IVPUSH Q8H PRN PRN Reason: Nausea and Vomiting Labs 01/14/23 16:04 01/14/23 16:04 Microbiology Microbiology Results: Microbiology 01/14/23 13:27 Blood Culture - Preliminary Blood - Venous No growth after 24 hours. 01/14/23 10:59 Blood Culture - Preliminary Blood - Venous No growth after 24 hours. Assessment and Plan (1) Status epilepticus: Status: Acute Plan Patient is a 82 Y F with epilepsy, hypertension, diabetes mellitus, COPD, and reportedly prior cardiac arrest, presenting with status epilepticus, intubated; of note, patient DNR, DNI; patient plan of care was changed to comfort-focused care Morphine for , ativan for comfort and adjust as needed Time Spent With Patient Time: Total time managing care of this patient today ____ minutes. Quality Stroke Does the patient have a stroke diagnosis?: No VTE Prior VTE?: No VTE Risk Level:: Medical - moderate - high VTE Device Contraindication: Treatment Not Indicated VTE Drug Contraindication: Treatment Not Indicated
[2023-01-16] MEDS: Morphine Sulfate/NS 100 MG/100 ML PLAST..BAG IVCONT (11:44)
--- NOTE | 2023-01-16 14:07 | MHC.CM.PN ---
Call placed to HCP Ade re: discharge planning. Patient is unable to receive hospice services in the home. Referrals placed with no accepting facility at this time. HCP updated @ bedside. CM will continue to follow.
[2023-01-16 15:00] VITALS: RESP 12
[2023-01-16 17:00] VITALS: RESP 14
--- NOTE | 2023-01-17 09:06 | MHC.CM.PN ---
[facility] UPDATES SENT. [facility] IS ASKING IF FAMILY (FRIENDS) PLAN TO APPLY FOR [place]. MAJOR BARRIER TO BED OFFER IS THAT PATIENT'S INSURANCE DOES NOT COVER RATE ENGINEER FRIEND/HCP, SAHIL IS IN ROOM AND HAS BEEN UPDATED. 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
[2023-01-17 11:00] VITALS: PULSE 80; RESP 16
--- NOTE | 2023-01-17 11:03 | HO.PM.IMPN ---
Subjective Subjective Date of Service: 01/17/23 Interval History: appear comfortable Physical Exam Vital Signs: Vital Signs: Last Vital Signs Temp 99.0 F 01/15/23 19:36 Pulse 120 H 01/15/23 19:36 Resp 14 01/16/23 17:00 BP 119/56 L 01/15/23 19:36 Pulse Ox 83 L 01/15/23 07:00 O2 Del Method Room Air 01/15/23 07:00 O2 Flow Rate 2 01/14/23 19:55 FiO2 21 01/14/23 16:59 Oxygen Flow Rate 4 01/14/23 10:40 BMI result Body Mass Index 31.5 Const: Other: Breathing comfortable, no distress Objective Data Active Medications Hydromorphone HCl (Hydromorphone Hcl 1 Mg/Ml Syringe) 1 mg IVPUSH Q15M PRN PRN Reason: Discomfort/Shortness of breath Last Admin: 01/15/23 16:45 Dose: 1 mg Documented By: CHARMAINE Acetaminophen (Ofirmev) 1,000 mg in 100 mls @ 400 mls/hr IV QID PRN PRN Reason: Fever Morphine Sulfate (Morphine Sulfate/Ns) 100 mg in 100 mls @ 0 mls/hr IVCONT .Q0M [facility]; Protocol Last Admin: 01/16/23 11:44 Dose: 3 mg/hr, 3 mls/hr Documented By: DOREEN Lorazepam (Lorazepam 2 Mg/Ml Vial) 0.5 mg IM Q2H PRN PRN Reason: Anxiety Last Admin: 01/15/23 05:00 Dose: 0.5 mg Documented By: SIL Comments: Given sublingual per Olaf LEIJA Morphine Sulfate (Morphine Sulfate 2 Mg/Ml Cartridge) 2 mg IVPUSH Q15M PRN PRN Reason: Discomfort/Shortness of breath Last Admin: 01/15/23 08:51 Dose: 2 mg Documented By: SOFIA Ondansetron HCl (Ondansetron Hcl 4 Mg/2 Ml Vial) 4 mg IVPUSH Q8H PRN PRN Reason: Nausea and Vomiting Labs 01/14/23 16:04 01/14/23 16:04 Microbiology Microbiology Results: Microbiology 01/14/23 13:27 Blood Culture - Preliminary Blood - Venous No growth after 48 hours. 01/14/23 10:59 Blood Culture - Preliminary Blood - Venous No growth after 48 hours. Assessment and Plan (1) Status epilepticus: Status: Acute Plan Patient is a 82 Y F with epilepsy, hypertension, diabetes mellitus, COPD, and reportedly prior cardiac arrest, presenting with status epilepticus, intubated; of note, patient DNR, DNI; patient plan of care was changed to comfort-focused care Continue Morphine , ativan for comfort and adjust as needed Time Spent With Patient Time: Total time managing care of this patient today ____ minutes. Quality Stroke Does the patient have a stroke diagnosis?: No VTE Prior VTE?: No VTE Risk Level:: Medical - moderate - high VTE Device Contraindication: Treatment Not Indicated VTE Drug Contraindication: Treatment Not Indicated
[2023-01-17] MEDS: Scopolamine 1.5 MG PATCH.TD.3 EAR-BEHIND (11:37)
[2023-01-17] MEDS: LORazepam 2 MG/ML VIAL 0.5 MG IM (11:40)
[2023-01-17 13:00] VITALS: RESP 12
[2023-01-17 16:12] VITALS: RESP 12
[2023-01-17] MEDS: Morphine Sulfate/NS 100 MG/100 ML PLAST..BAG IVCONT (16:12)
[2023-01-17 19:00] VITALS: BP 119/56; PULSE 80; RESP 12
[2023-01-17 21:00] VITALS: RESP 17
[2023-01-17 23:00] VITALS: RESP 18
[2023-01-18] VITALS (13 sets, daily range): RESP 15–28
--- NOTE | 2023-01-18 08:01 | HO.PM.IMPN ---
Subjective Subjective Date of Service: 01/18/23 Interval History: Resting comofrtably Physical Exam Vital Signs: Vital Signs: Last Vital Signs Temp 99.0 F 01/15/23 19:36 Pulse 80 01/17/23 19:00 Resp 15 01/18/23 07:23 BP 119/56 L 01/17/23 19:00 Pulse Ox 83 L 01/15/23 07:00 O2 Del Method Room Air 01/15/23 07:00 O2 Flow Rate 2 01/14/23 19:55 FiO2 21 01/14/23 16:59 Oxygen Flow Rate 4 01/14/23 10:40 BMI result Body Mass Index 31.5 Const: Other: Breathing easy, no distress Objective Data Active Medications Hydromorphone HCl (Hydromorphone Hcl 1 Mg/Ml Syringe) 1 mg IVPUSH Q15M PRN PRN Reason: Discomfort/Shortness of breath Last Admin: 01/15/23 16:45 Dose: 1 mg Documented By: CHARMAINE Morphine Sulfate (Morphine Sulfate/Ns) 100 mg in 100 mls @ 0 mls/hr IVCONT .Q0M [facility]; Protocol Last Admin: 01/17/23 16:12 Dose: 3 mg/hr, 3 mls/hr Documented By: ZABRINA Lorazepam (Lorazepam 2 Mg/Ml Vial) 0.5 mg IM Q2H PRN PRN Reason: Anxiety Last Admin: 01/17/23 11:40 Dose: 0.5 mg Documented By: ZABRINA Morphine Sulfate (Morphine Sulfate 2 Mg/Ml Cartridge) 2 mg IVPUSH Q15M PRN PRN Reason: Discomfort/Shortness of breath Last Admin: 01/15/23 08:51 Dose: 2 mg Documented By: SOFIA Ondansetron HCl (Ondansetron Hcl 4 Mg/2 Ml Vial) 4 mg IVPUSH Q8H PRN PRN Reason: Nausea and Vomiting Scopolamine (Scopolamine 1.5 Mg Patch.Td.3) 1.5 mg EAR-BEHIND Q72H [facility] Last Admin: 01/17/23 11:37 Dose: 1.5 mg Documented By: ZABRINA Labs 01/14/23 16:04 01/14/23 16:04 Assessment and Plan (1) Pneumonia: Status: Acute Plan Patient is a 82 Y F with epilepsy, hypertension, diabetes mellitus, COPD, and reportedly prior cardiac arrest, presenting with status epilepticus, intubated; of note, patient DNR, DNI; patient plan of care was changed to comfort-focused care Continue IV Morphine , ativan for comfort and adjust as needed to maintain comfort, and respiratory distress. Scopolamine patch for secretions Time Spent With Patient Time: Total time managing care of this patient today ____ minutes. Quality Stroke Does the patient have a stroke diagnosis?: No VTE Prior VTE?: No VTE Risk Level:: Medical - moderate - high VTE Device Contraindication: Treatment Not Indicated VTE Drug Contraindication: Treatment Not Indicated
[2023-01-18] MEDS: LORazepam 2 MG/ML VIAL 1 MG IVPUSH ×2 (09:19→14:30)
[2023-01-18] MEDS: Morphine Sulfate 2 MG/ML CARTRIDGE IVPUSH ×2 (11:20→16:10)
[2023-01-18] MEDS: Morphine Sulfate/NS 100 MG/100 ML PLAST..BAG IVCONT (19:06)
[2023-01-19] VITALS (16 sets, daily range): RESP 16–26
[2023-01-19] MEDS: Morphine Sulfate 2 MG/ML CARTRIDGE IVPUSH ×2 (05:49→09:47)
--- NOTE | 2023-01-19 10:12 | HO.PM.IMPN ---
Subjective Subjective Date of Service: 01/19/23 Interval History: Resting, no distress Physical Exam Vital Signs: Vital Signs: Last Vital Signs Temp 99.0 F 01/15/23 19:36 Pulse 80 01/17/23 19:00 Resp 16 01/19/23 09:41 BP 119/56 L 01/17/23 19:00 Pulse Ox 83 L 01/15/23 07:00 O2 Del Method Room Air 01/15/23 07:00 O2 Flow Rate 2 01/14/23 19:55 FiO2 21 01/14/23 16:59 Oxygen Flow Rate 4 01/14/23 10:40 BMI result Body Mass Index 31.5 Objective Data Active Medications Morphine Sulfate (Morphine Sulfate/Ns) 100 mg in 100 mls @ 0 mls/hr IVCONT .Q0M [facility]; Protocol Last Admin: 01/18/23 19:06 Dose: 3 mg/hr, 3 mls/hr Documented By: DOREEN Lorazepam (Lorazepam 2 Mg/Ml Vial) 1 mg IVPUSH Q4H PRN PRN Reason: anxiety/restlessness Last Admin: 01/18/23 14:30 Dose: 1 mg Documented By: DOREEN Morphine Sulfate (Morphine Sulfate 2 Mg/Ml Cartridge) 2 mg IVPUSH Q15M PRN PRN Reason: Discomfort/Shortness of breath Last Admin: 01/19/23 09:47 Dose: 2 mg Documented By: DOREEN Ondansetron HCl (Ondansetron Hcl 4 Mg/2 Ml Vial) 4 mg IVPUSH Q8H PRN PRN Reason: Nausea and Vomiting Scopolamine (Scopolamine 1.5 Mg Patch.Td.3) 1.5 mg EAR-BEHIND Q72H [facility] Last Admin: 01/17/23 11:37 Dose: 1.5 mg Documented By: VIVIANR Labs 01/14/23 16:04 01/14/23 16:04 Assessment and Plan (1) Pneumonia: Status: Acute Plan Patient is a 82 Y F with epilepsy, hypertension, diabetes mellitus, COPD, and reportedly prior cardiac arrest, presenting with status epilepticus, intubated; of note, patient DNR, DNI; patient plan of care was changed to comfort-focused care Continue IV Morphine , ativan for comfort and adjust as needed to maintain comfort, and respiratory distress (maintain RR 8-10). Scopolamine patch for secretions Time Spent With Patient Time: Total time managing care of this patient today ____ minutes. Quality Stroke Does the patient have a stroke diagnosis?: No VTE Prior VTE?: No VTE Risk Level:: Medical - moderate - high VTE Device Contraindication: Treatment Not Indicated VTE Drug Contraindication: Treatment Not Indicated
[2023-01-19] MEDS: LORazepam 2 MG/ML VIAL 1 MG IVPUSH (16:07)
[2023-01-19] MEDS: Morphine Sulfate/NS 100 MG/100 ML PLAST..BAG 7 MG IVCONT (17:32)
[2023-01-20] VITALS (13 sets, daily range): RESP 16–20
[2023-01-20] MEDS: Morphine Sulfate/NS 100 MG/100 ML PLAST..BAG 8 MG IVCONT ×2 (06:51→18:41)
--- NOTE | 2023-01-20 06:54 | PC.NURSE ---
issue with [employer] pump. Morphine administered late. 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
--- NOTE | 2023-01-20 09:07 | HO.PM.IMPN ---
Subjective Subjective Date of Service: 01/20/23 Interval History: Resting, no distress Physical Exam Vital Signs: Vital Signs: Last Vital Signs Temp 99.0 F 01/15/23 19:36 Pulse 80 01/17/23 19:00 Resp 18 01/20/23 07:00 BP 119/56 L 01/17/23 19:00 Pulse Ox 83 L 01/15/23 07:00 O2 Del Method Room Air 01/15/23 07:00 O2 Flow Rate 2 01/14/23 19:55 FiO2 21 01/14/23 16:59 Oxygen Flow Rate 4 01/14/23 10:40 BMI result Body Mass Index 31.5 Const: Other: Breathing easy, no distress Objective Data Active Medications Morphine Sulfate (Morphine Sulfate/Ns) 100 mg in 100 mls @ 0 mls/hr IVCONT .Q0M [facility]; Protocol Last Admin: 01/20/23 06:51 Dose: 8 mg/hr, 8 mls/hr Documented By: SHOSHANA Lorazepam (Lorazepam 2 Mg/Ml Vial) 1 mg IVPUSH Q4H PRN PRN Reason: anxiety/restlessness Last Admin: 01/19/23 16:07 Dose: 1 mg Documented By: DOREEN Morphine Sulfate (Morphine Sulfate 2 Mg/Ml Cartridge) 2 mg IVPUSH Q15M PRN PRN Reason: Discomfort/Shortness of breath Last Admin: 01/19/23 09:47 Dose: 2 mg Documented By: DOREEN Ondansetron HCl (Ondansetron Hcl 4 Mg/2 Ml Vial) 4 mg IVPUSH Q8H PRN PRN Reason: Nausea and Vomiting Scopolamine (Scopolamine 1.5 Mg Patch.Td.3) 1.5 mg EAR-BEHIND Q72H [facility] Last Admin: 01/17/23 11:37 Dose: 1.5 mg Documented By: FOSTEKR Labs 01/14/23 16:04 01/14/23 16:04 Microbiology Microbiology Results: Microbiology 01/14/23 13:27 Blood Culture - Final Blood - Venous No growth after 5 days. 01/14/23 10:59 Blood Culture - Final Blood - Venous No growth after 5 days. Assessment and Plan (1) Pneumonia: Status: Acute Plan Patient is a 82 Y F with epilepsy, hypertension, diabetes mellitus, COPD, and reportedly prior cardiac arrest, presenting with status epilepticus, intubated; of note, patient DNR, DNI; patient plan of care was changed to comfort-focused care Continue IV Morphine , Ativan for comfort and adjust as needed to maintain comfort, and respiratory distress (maintain RR 8-10). Scopolamine patch for secretions, discussed with friend at bedside Time Spent With Patient Time: Total time managing care of this patient today ____ minutes. Quality Stroke Does the patient have a stroke diagnosis?: No VTE Prior VTE?: No VTE Risk Level:: Medical - moderate - high VTE Device Contraindication: Treatment Not Indicated VTE Drug Contraindication: Treatment Not Indicated
[2023-01-20] MEDS: Scopolamine 1.5 MG PATCH.TD.3 EAR-BEHIND (11:09)
[2023-01-20] MEDS: LORazepam 2 MG/ML VIAL 1 MG IVPUSH (13:57)
--- NOTE | 2023-01-20 14:15 | MHC.CM.PN ---
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 CM will continue to follow.
[2023-01-21] MEDS: Morphine Sulfate/NS 100 MG/100 ML PLAST..BAG 8 MG IVCONT (06:56)
--- NOTE | 2023-01-21 09:04 | P.PNIM_ITS ---
Subjective Subjective Date of Service: 01/21/23 Interval History: Appear comfortable, no distress Physical Exam 2 Vital Signs: Vital Signs: Last Vital Signs Temp 99.0 F 01/15/23 19:36 Pulse 80 01/17/23 19:00 Resp 18 01/20/23 19:01 BP 119/56 L 01/17/23 19:00 Pulse Ox 83 L 01/15/23 07:00 O2 Del Method Room Air 01/15/23 07:00 O2 Flow Rate 2 01/14/23 19:55 FiO2 21 01/14/23 16:59 Oxygen Flow Rate 4 01/14/23 10:40 BMI result Body Mass Index 31.5 Const: Other: Breathing easy, no distress Objective Data Active Medications Morphine Sulfate (Morphine Sulfate/Ns) 100 mg in 100 mls @ 0 mls/hr IVCONT .Q0M [facility]; Protocol Last Admin: 01/21/23 06:56 Dose: 8 mg/hr, 8 mls/hr Documented By: CHING Lorazepam (Lorazepam 2 Mg/Ml Vial) 1 mg IVPUSH Q4H PRN PRN Reason: anxiety/restlessness Last Admin: 01/20/23 13:57 Dose: 1 mg Documented By: CASANDRA Morphine Sulfate (Morphine Sulfate 2 Mg/Ml Cartridge) 2 mg IVPUSH Q15M PRN PRN Reason: Discomfort/Shortness of breath Last Admin: 01/19/23 09:47 Dose: 2 mg Documented By: DOREEN Ondansetron HCl (Ondansetron Hcl 4 Mg/2 Ml Vial) 4 mg IVPUSH Q8H PRN PRN Reason: Nausea and Vomiting Scopolamine (Scopolamine 1.5 Mg Patch.Td.3) 1.5 mg EAR-BEHIND Q72H [facility] Last Admin: 01/20/23 11:09 Dose: 1.5 mg Documented By: CASANDRA Labs 01/14/23 16:04 01/14/23 16:04 Assessment and Plan (1) Pneumonia: Status: Acute Plan Patient is a 82 Y F with epilepsy, hypertension, diabetes mellitus, COPD, and reportedly prior cardiac arrest, presenting with status epilepticus, intubated; of note, patient DNR, DNI; patient plan of care was changed to comfort-focused care 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 Scopolamine patch for secretions. Time Spent With Patient Time: Total time managing care of this patient today ____ minutes. Quality Stroke Does the patient have a stroke diagnosis?: No VTE Prior VTE?: No VTE Risk Level:: Medical - moderate - high VTE Device Contraindication: Treatment Not Indicated VTE Drug Contraindication: Treatment Not Indicated
[2023-01-21] MEDS: LORazepam 2 MG/ML VIAL 1 MG IVPUSH (09:44)
--- NOTE | 2023-01-21 12:54 | PM.EVENT ---
Event Note Date of Service: 01/21/23 Event Note: Pt pronounced at 12:45 pm. Had no pulse, pupils dilated and fixed, no repsonse to painful stimuli, cold to tcouh Time Spent With Patient Time: Total time managing care of this patient today ____ minutes.
--- NOTE | 2023-01-21 12:58 | PM.DDS ---
Discharge Sum: Prov Provider Primary care physician: Faraz Donahue MD Discharge Sum: Diag Contributing Factors (1) Pneumonia: Discharge Sum: Summary Date and Time Date of admission: 01/14/23 13:05 Date of : 01/21/23 Time of : 12:45 Summary Details: Admission HPI Chief Complaint: Status Epilepticus Patient is a 82 Y F with epilepsy, hypertension, diabetes mellitus, COPD, and reportedly prior cardiac arrest, presenting to emergency department on 01/14 with status epilepticus; patient reportedly last known well 01/13 PM, alledgedly locked herself in a room with a knife, friend unable to get into room until 01/14 AM, when patient found on floor, transferred by EMS, upon arrival to ED, developed tonic-clonic seizure, abated with lorazepam 4 mg IV, though developed another tonic-clonic seizure, abated with lorazepam 4 mg IV, however became obtunded, intubated; Hospital course: Patient was admitted through the ICU aftrer presented to the ED as stated above with status epilepticus and obtundaton and encephalopathic, necessating intubation and mechanical ventilation overnight. Further testing on presentation revealed acute hypoxia likely from aspiration pneumoni, acute lactic acidosis, AWA, elevated troponin I and Hyperglycemia. The next day, following discussion with patient's health care proxy, she was extubated and made comfort care and given morphine and ativan for comort. She on this day January 21 at 12:45 Final diagnoses Acute hypoxic respiratory failure Aspiration penumonia Hypotension metabolic encephalopathy Hypotension Status epilepticus Acute Lactic acidosis Elevated troponin, type 2 [place] Hyperglycemia AWA Additional Data Attending physician: Christophe Kincaid MD
== END 2023-01-21 12:45 | disposition expired | DRG 100 ==
LOC: HO.ED 12:49 → HO.EDOVER 13:36 → HO.ICU 13:49 → HO.IMC 01-15 12:21
PROVIDERS: Admitting Provider Internal Medicine Critical Care Medicine; Emergency Provider Emergency Medicine; PCP Internal Medicine; Visit Provider Internal Medicine
DX: G40.901 Epilepsy, unspecified, not intractable, with status epilepticus (principal); I21.A1 Myocardial infarction type 2; J69.0 Pneumonitis due to inhalation of food and vomit; J96.01 Acute respiratory failure with hypoxia; E87.21 Acute metabolic acidosis; N17.9 Acute kidney failure, unspecified; E11.65 Type 2 diabetes mellitus with hyperglycemia; I10 Essential (primary) hypertension; I95.9 Hypotension, unspecified; J44.9 Chronic obstructive pulmonary disease, unspecified; Z51.5 Encounter for palliative care; Z66 Do not resuscitate; Z87.891 Personal history of nicotine dependence; Z79.01 Long term (current) use of anticoagulants; Z79.51 Long term (current) use of inhaled steroids; Z79.899 Other long term (current) drug therapy
CPT/HCPCS: 36415; 70450; 71045; 71250; 72125; 80048; 80053; 80076; 80143; 80179; 80307; 81001; 81003; 82550; 82607; 82746; 82803; 82947; 83605; 83690; 83735; 84484; 85025; 87040; 87640; 87641; 93005; 94002; 94799; 99285; 99498; C1758; J0692; J1170; J1650; J1953; J2060; J2270; J2543; J3010; J3370; J3475

== ENCOUNTER → 2023-01-14 13:05 | Outpatient (BNV) | payer OTHER, MEDICARE, SELFPAY | PROVIDERS: Admitting Provider Internal Medicine Critical Care Medicine; Emergency Provider Emergency Medicine; Visit Provider Internal Medicine Critical Care Medicine | DX: G40.901 Epilepsy, unspecified, not intractable, with status epilepticus (principal); J69.0 Pneumonitis due to inhalation of food and vomit; J96.01 Acute respiratory failure with hypoxia | CPT/HCPCS: 99222; 99223; 99497 ==

== ENCOUNTER → 2023-01-14 13:05 | Outpatient (BNV) | payer OTHER, MEDICARE, SELFPAY | PROVIDERS: Admitting Provider Internal Medicine Critical Care Medicine; Emergency Provider Emergency Medicine; Visit Provider Internal Medicine | DX: J18.9 Pneumonia, unspecified organism (principal) | CPT/HCPCS: 99232; 99238 ==